=== PATIENT | female | born 1960 | race Caucasian/White ===

== ENCOUNTER 2017-05-28 16:50 | Inpatient (IN) | payer OTHER ==
[~2017-05-28] VITALS: Ht 157.5 cm; Wt 79.0 kg
[~2017-05-28 16:50] MED LIST: ALBU1AER9 INH; AMIT10TA6 PO; ASPI81TA28 PO; ATOR-22 PO; FLUT0.15 NAE; FURO-85 PO; GABA1CAP PO; IPRASOL4 INH; LORA1TAB13 PO; MULT-223 PO; OXGN; OXY/15 PO; PANT40TA PO; POTA-335 PO; QUET-206 PO; SUMA100T16 PO; SYMIN160 INH; TIOTCAP INH
[2017-05-28] MEDS ORDERED: SODIUM CHLORIDE 0.9% 1000ML 1,000 ML IV STA ×3 (17:07→18:44)
[2017-05-28] MEDS ORDERED: ALBUT/IPRATROP 3MG/0.5MG NEB 3 ML VIAL INH ONE (17:15)
[2017-05-28 17:24] VITALS: PULSE 128; O2SAT 88
--- NOTE | 2017-05-28 17:27 | EMERGENCY ROOM VISIT NOTE ---
History Report prepared by Anup: Bess Chapin Under the Supervision of: Cortes EllisO. First contact with patient: 17:05 Chief Complaint: RESPIRATORY PROBLEMS Stated Complaint: TROUBLE BREATHING Nursing Triage Summary: pt daughter brings pt to triage reports moms 02 has been as low as 76, increases 86 % with o2 pt reports cough no mucus . unable to cathch breath daughter reports R knee surg wed. History of Present Illness The patient is a 57 year old female who presents to the Emergency Room with complaints of persistent respiratory distress that began two days ago. Per the patient's daughter, the patient began feeling short of breath on Sunday evening. She states that the patient had surgery on her right knee six days ago. The patient's daughter states that the patient has had a slight cough, but additionally states that the patient has a history of COPD and asthma. She states that the patient is a smoker. The patient's daughter states that the patient wears 1 liter of supplemental nasal cannula oxygen at night. She states that the patient's last breathing treatment was around 1100 today. The patient's daughter states that the patient has a history of collapsed lungs. The patient reports a history of a previous DVT, but denies any history of a PE. Source of History: patient, family (daughter) Onset: two days ago Position: other (global) Quality: other (respiratory distress) Timing: other (persistent) Associated Symptoms: + cough Review of Systems See HPI for pertinent positives & negatives. A total of 10 systems reviewed and were otherwise negative. Past Medical & Surgical Medical Problems: (1) Abdominal hysterectomy (2) ALCOHOL ABUSE-UNSPEC (3) ANXIETY STATE NOS (4) ASTHMA, UNSPECIFIED, W (ACUTE) EXACERBATION (5) BIPOL I, MOST RECENT EPISODE (OR CURRENT) UNSPECIFIED (6) DEPRESSIVE DISORDER NEC (7) ESOPHAGEAL REFLUX Family History Cancer Diabetes mellitus Heart disease Hypertension Kidney stones Lung disease Social History Smoking Status: Current Every Day Smoker Alcohol Use: none Marital Status: Housing Status: lives alone Occupation Status: unemployed, disabled Current/Historical Medications Scheduled Amitriptyline Hcl (Elavil), 50 MG PO HS Aspirin (Aspirin Ec), 81 MG PO DAILY Atorvastatin (Lipitor), 20 MG PO HS Fluticasone Prop/Salmeterol (Advair Diskus 250/50 60 Dose), 1 PUFF INH BID Gabapentin (Neurontin), 300 MG PO HS Home O2 Therapy (Oxygen), 2 LITERS NA HS Meloxicam (Mobic), 7.5 MG PO BID Multiple Vitamins W/ Minerals (Multi For Her 50+), 1 TAB PO DAILY Pantoprazole (Protonix), 40 MG PO BID Quetiapine Fumarate (Seroquel), 400 MG PO 1700 Tiotropium [place] (Spiriva Handihaler), 1 CAP INH DAILY Scheduled PRN Cyclobenzaprine Hcl (Flexeril), 10 MG PO TID PRN for Muscle Spasms Furosemide (Lasix), 20 MG PO DAILY PRN for Fluid Accumulation/Weight Gain Ipratropium-Albuterol (Duoneb), 1 TREATMENT INH QID PRN for Cough,SOB or Wheeze Sumatriptan Succinate (Imitrex), 100 MG PO UD PRN for Migraine Allergies Coded Allergies: Morphine (Verified Allergy, Intermediate, ITCHING AT IV SITE ONLY, ) Doxycycline (Unverified Allergy, Unknown, Hives, 06/18/14) Iodine (Verified Allergy, Unknown, RASH, 06/18/14) Valproic Acid (Verified Allergy, Unknown, 0, 06/18/14) Physical Exam Vital Signs Date Time Temp Pulse Resp B/P (MAP) Pulse Ox O2 Delivery O2 Flow Rate FiO2 05/28/17 18:40 118 24 127/52 93 Oxymask 4.0 05/28/17 18:15 39.5 05/28/17 18:07 125 32 120/70 94 Oxymask 4.0 05/28/17 17:52 128 25 126/71 96 Nebulizer 05/28/17 17:30 128 30 121/66 96 Nebulizer 05/28/17 17:24 128 26 88 Nasal Cannula 5.0 05/28/17 17:12 129 05/28/17 17:11 89 Nasal Cannula 5.0 05/28/17 17:11 89 Nasal Cannula 5.0 05/28/17 17:02 38.9 137 28 96/57 69 Room Air Physical Exam GENERAL: Patient is awake, but very lisless, appears to have significant difficulty breathing. EYES: The conjunctivae are clear. The pupils are round and reactive. EARS, NOSE, MOUTH AND THROAT: The nose is without any evidence of any deformity. Mucous membranes are dry, tongue is midline NECK: The neck is nontender and supple. RESPIRATORY: Lung sounds are diminished in all alejandro, significant tachypnea and conversation dyspnea noted. Significant respiratory distress. CARDIOVASCULAR: Tachycardic, but regular, no definite murmur noted to auscultation. GASTROINTESTINAL: The abdomen is soft. Bowel sounds are present in all quadrants. Abdomen is nontender MUSCULOSKELETAL/EXTREMITIES: Recent post surgical site noted in the right knee, no swelling, erythema, or drainage noted. SKIN: No pedal edema or calf tenderness noted. There is no obvious evidence of any rash. There are no petechiae, pallor or cyanosis noted. NEUROLOGIC: Patient is listless, appears oriented to person, place, and situation. Medical Decision & Procedures ER Provider Diagnostic Interpretation: Radiology results as stated below per my review and radiologist interpretation: CHEST ONE VIEW PORTABLE HISTORY: EVALUATE RESPIRATORY DISTRESS.DYSPNEA COMPARISON: Chest 06/18/2014. FINDINGS: The heart is normal in size. No pleural effusions. No pneumothorax. Hazy appearance to the left lung base may be due to the overlapping soft tissue. No focal lung consolidations to suggest pneumonia. No evidence for point edema. Stable mild interstitial thickening. IMPRESSION: Stable mild interstitial thickening. No new focal lung consolidations to suggest pneumonia. Electronically signed by: Taiwo Nur M.D. 05/28/2017 5:57 PM Dictated Date/Time: 05/28/2017 5:55 PM CHEST CTA for PULMONARY ARTERIES CT DOSE: 319.26 mGy.cm HISTORY: Short of breath. TECHNIQUE: Multiaxial CT images of the chest were performed following the intravenous administration of contrast to evaluate the pulmonary arteries. Maximal intensity projection images were also obtained. A dose lowering technique was utilized adhering to the principles of ALARA. COMPARISON STUDY: Chest CTA 06/18/2014. FINDINGS: Normal caliber thoracic aorta with no evidence for dissection. Hepatic steatosis. Stable splenic hypodense lesion. This is considered to be benign. The visualized adrenal glands are unremarkable. No pleural or pericardial effusions. There is near nondiagnostic evaluation of the majority of the upper lobe segmental and subsegmental pulmonary arteries due to the motion artifact and suboptimal opacification. Remaining pulmonary arteries show no filling defects to suggest pulmonary embolus. No pneumothorax. Near diffuse tree-in-bud nodular opacities most pronounced within the lower lobes with a few small patchy airspace opacities within the base of the left lower lobe. There are few small groundglass airspace opacities within the right lung apex. These findings are consistent with an atypical pneumonia/infectious bronchiolitis. IMPRESSION: 1. No definite evidence for pulmonary embolus. 2. Near diffuse tree-in-bud nodular opacities most pronounced within the lower lobes with a few small patchy airspace opacities within the base of the left lower lobe. There are few small groundglass airspace opacities within the right lung apex. These findings are consistent with an atypical pneumonia/infectious bronchiolitis. Electronically signed by: Taiwo Nur M.D. 05/28/2017 6:49 PM Dictated Date/Time: 05/28/2017 6:40 PM Laboratory Results 05/28/17 17:20 Red Blood Count 4.04, Mean Corpuscular Volume 93.3, Mean Corpuscular Hemoglobin 30.4, Mean Corpuscular Hemoglobin Concent 32.6, Mean Platelet Volume 8.9, Neutrophils (%) (Auto) 83.6, Lymphocytes (%) (Auto) 7.2, Monocytes (%) (Auto) 8.1, Eosinophils (%) (Auto) 0.0, Basophils (%) (Auto) 0.2, Neutrophils # (Auto) 19.48, Lymphocytes # (Auto) 1.67, Monocytes # (Auto) 1.88, Eosinophils # (Auto) 0.00, Basophils # (Auto) 0.04 05/28/17 17:20 Test 05/28/17 17:20 05/28/17 17:23 05/28/17 17:26 05/28/17 17:27 White Blood Count 23.27 K/uL (4.8-10.8) Red Blood Count 4.04 M/uL (4.2-5.4) Hemoglobin 12.3 g/dL (12.0-16.0) Hematocrit 37.7 % (37-47) Mean Corpuscular Volume 93.3 fL (80-100) Mean Corpuscular Hemoglobin 30.4 pg (25-34) Mean Corpuscular Hemoglobin Concent 32.6 g/dl (32-36) Platelet Count 250 K/uL (130-400) Mean Platelet Volume 8.9 fL (7.4-10.4) Neutrophils (%) (Auto) 83.6 % Lymphocytes (%) (Auto) 7.2 % Monocytes (%) (Auto) 8.1 % Eosinophils (%) (Auto) 0.0 % Basophils (%) (Auto) 0.2 % Neutrophils # (Auto) 19.48 K/uL (1.4-6.5) Lymphocytes # (Auto) 1.67 K/uL (1.2-3.4) Monocytes # (Auto) 1.88 K/uL (0.11-0.59) Eosinophils # (Auto) 0.00 K/uL (0-0.5) Basophils # (Auto) 0.04 K/uL (0-0.2) RDW Standard Deviation 45.1 fL (36.4-46.3) RDW Coefficient of Variation 13.1 % (11.5-14.5) Immature Granulocyte % (Auto) 0.9 % Immature Granulocyte # (Auto) 0.20 K/uL (0.00-0.02) Prothrombin Time 14.0 SECONDS (9.0-12.0) Prothromb Time International Ratio 1.3 (0.9-1.1) Activated Partial Thromboplast Time 33.1 SECONDS (21.0-31.0) Partial Thromboplastin Ratio 1.3 Est Creatinine Clear Calc Drug Dose 54.6 ml/min Estimated GFR () 64.5 Estimated GFR (Non- 55.7 BUN/Creatinine Ratio 16.5 (10-20) Calcium Level 9.1 mg/dl (8.5-10.1) Total Bilirubin 0.6 mg/dl (0.2-1) Aspartate Amino Transf (AST/SGOT) 101 U/L (15-37) Alanine Aminotransferase (ALT/SGPT) 38 U/L (12-78) Alkaline Phosphatase 119 U/L (45-117) Troponin I < 0.015 ng/ml (0-0.045) Pro-B-Type Natriuretic Peptide 165 pg/ml (0-900) Total Protein 6.8 gm/dl (6.4-8.2) Albumin 2.8 gm/dl (3.4-5.0) Globulin 4.0 gm/dl (2.5-4.0) Albumin/Globulin Ratio 0.7 (0.9-2) Venous Blood pH 7.42 (7.36-7.41) Venous Blood Partial Pressure CO2 53 mmHg (38.0-50.0) Venous Blood Partial Pressure O2 44 mmHg Venous Blood HCO3 33 mmol/L Venous Blood Oxygen Saturation 75.5 % Venous Blood Base Excess 7.2 mEq/L Bedside Lactic Acid Venous 1.24 mmol/L (0.90-1.70) Bedside D-Dimer > 450 ng/mlFEU (0-450) Test 05/28/17 17:30 05/28/17 19:09 Bedside Hemoglobin 12.9 g/dl (12.0-16.0) Bedside Hematocrit 38 % (37-47) Bedside Sodium 135 mEq/L (135-144) Bedside Potassium 3.2 mEq/L (3.3-5.0) Bedside Chloride 93 mEq/L (101-112) Bedside Total CO2 31 mEq/l (24-31) Anion Gap 16.0 mmol/L (16-25) Bedside Blood Urea Nitrogen 18 mg/dl (7-18) Bedside Creatinine 1.0 mg/dl (0.6-1.3) Bedside Glucose (other) 188 mg/dl (70-99) Bedside Ionized Calcium (Priyanka) 1.13 mmol/l (1.12-1.32) Influenza Type A Antigen Neg for Influ A (NEG) Influenza Type B Antigen Neg for Influ B (NEG) Laboratory results per my review. Medications Administered Medications (Trade) Dose Ordered Sig/Sherie Route Start Time Stop Time Status Last Admin Dose Admin Sodium Chloride 1,000 ml @ 999 mls/hr Q1H1M STAT IV 05/28/17 17:07 05/28/17 18:07 DC 05/28/17 17:45 999 MLS/HR Albuterol/ Ipratropium (Duoneb) 12 ml ONE ONCE INH 05/28/17 17:15 05/28/17 17:16 DC 05/28/17 17:24 12 ML Levofloxacin (Levaquin / D5W) 750 mg NOW STAT IV 05/28/17 17:38 05/28/17 17:40 DC 05/28/17 17:45 750 MG Methylprednisolone Sodium Succinate (Solu-Medrol IV) 125 mg NOW STAT IV 05/28/17 17:38 05/28/17 17:40 DC 05/28/17 17:45 125 MG Acetaminophen (Tylenol Tab) 1,000 mg NOW STAT PO 05/28/17 18:16 05/28/17 18:17 DC 05/28/17 18:37 1,000 MG ECG Indication: SOB/dyspnea Rate (beats per minute): 129 Rhythm: sinus tachycardia Findings: ST depression (infer), no ectopy Comparison ECG Date: 06/18/14 Change: When compared to EKG done on 06/18/14, the ischemic changes are new. ED Course 1705: The patient was evaluated in room B1. A complete history and physical examination were performed. 1707: Ordered Sodium Chloride 1000 ml @ 999 mls/hr IV. 1715: Ordered DuoNeb 12 ml INH. 1738: Ordered Solu-Medrol IV 125 mg IV, Levofloxacin 750 mg IV. 1816: Ordered Tylenol Tab 1000 mg PO. 1844: Ordered Sodium Chloride 1000 ml @ 200 mls/hr IV, Sodium Chloride 1000 ml @ 999 mls/hr IV. 1854: I discussed the patient's case with Leah Livingston. He is going to evaluate the patient for further treatment. 1856: I reevaluated the patient and she is resting. I discussed the exam findings with her and her daughter and I discussed the treatment plan. She verbalized complete understanding and agreement. She is going to be evaluated for further treatment. Medical Decision Differential diagnosis: Etiologies such as infections, reactive airway disease, pneumonia, pneumothorax , COPD, CHF, cardiac ischemia, pulmonary embolism, musculoskeletal, gastrointestinal, as well as others were entertained. Nursing notes reviewed. Patient's previous electronic medical records reviewed. Additional history is obtained from the patient's family. The patient is a 57-year-old female who presented to the emergency department for an evaluation of shortness of breath. The patient had very significant hypoxia as well as hypotension. She was also found have a fever. The patient had a recent arthroscopic surgery of her knee. Significant consideration was given to venous thromboembolic disease. The patient had an elevated d-dimer but her CT did not show any acute signs of pulmonary embolism rather it showed a rather diffuse interstitial pneumonia. The patient was treated with IV fluids IV steroids IV antibiotics and bronchodilator therapy. Her blood pressure improved. Her pulse rate continued to be high. I discussed the patient's laboratory radiographic studies with her. She was still having a significant oxygen demand. I discussed her case with the on-call [facility] hospitalist. They 've agreed to evaluate the patient in the emergency department for further management and disposition. Medication Reconcilliation Current Medication List: was personally reviewed by me Consults Time Called: 1809 Consulting Physician: Leah Livingston Returned Call: 1853 I discussed the patient's case with Leah Livingston. He is going to evaluate the patient for further treatment. Impression Primary Impression: Pneumonia Additional Impressions: Fever Hypoxia COPD exacerbation Critical Care I have personally spent greater than 45 minutes of critical care time in the direct management of this patient. This includes bedside care, interpretation of diagnostic studies, and testing, discussion with consultants, patient, and family members, and other required patient management activities. This 45 minutes is in excess of all separately billable procedures. Scribe Attestation The scribe's documentation has been prepared under my direction and personally reviewed by me in its entirety. I confirm that the note above accurately reflects all work, treatment, procedures, and medical decision making performed by me. Departure Information Dispostion Being Evaluated By Hospitalist Dimitri Grove M.D. (PCP) Problem Qualifiers Primary Impression: Pneumonia Pneumonia type: due to unspecified organism Laterality: bilateral Lung location: unspecified part of lung Qualified Codes: J18.9 - Pneumonia, unspecified organism Additional Impressions: Fever Fever type: unspecified Qualified Codes: R50.9 - Fever, unspecified
[2017-05-28] MEDS ORDERED: ADVIN25/60 INH (17:30)
[2017-05-28] MEDS ORDERED: GABA-113 PO (17:30)
[2017-05-28] MEDS ORDERED: MELO7.5T5 PO (17:30)
[2017-05-28] MEDS ORDERED: CYCL10TA6 PO (17:30)
[2017-05-28] MEDS ORDERED: AMT50 PO (17:30)
[2017-05-28 17:33] LABS: HEMATOCRIT 37.7 % (37-47); MEAN CELL VOLUME 93.3 fL (80-100); MEAN CORPUSCULAR HEMOGLOBIN 30.4 pg (25-34); MEAN CORPUSCULAR HGB CONC 32.6 g/dl (32-36); MEAN PLATELET VOLUME 8.9 fL (7.4-10.4); PLATELET COUNT 250 K/uL (130-400); RED BLOOD COUNT 4.04 M/uL (4.2-5.4); WHITE BLOOD COUNT 23.27 K/uL (4.8-10.8)
[2017-05-28 17:34] LABS: VEN BLD GAS O2 SATURATION 75.5 %; VEN BLOOD GAS BASE EXCESS 7.2 mEq/L
[2017-05-28] MEDS ORDERED: METHYLPREDNISOLONE 125 MG VIAL IV STA (17:38)
[2017-05-28] MEDS ORDERED: LEVAQUIN 750MG / 150ML D5W IV STA (17:38)
[2017-05-28 17:43] LABS: ISTAT HEMOGLOBIN 12.9 g/dl (12.0-16.0); ISTAT IONIZED CALCIUM 1.13 mmol/l (1.12-1.32)
[2017-05-28 17:54] LABS: ALT/SGPT 38 U/L (12-78); BLOOD UREA NITROGEN 18 mg/dl (7-18); BUN/CREATININE RATIO 16.5 (10-20); CALCIUM 9.1 mg/dl (8.5-10.1); CARBON DIOXIDE 32 mmol/L (21-32); CHLORIDE 97 mmol/L (98-107); GLUCOSE 179 mg/dl (70-99); INR 1.3 (0.9-1.1); PARTIAL THROMBOPLASTIN RATIO 1.3; POTASSIUM 3.2 mmol/L (3.5-5.1); SODIUM 135 mmol/L (136-145)
--- NOTE | 2017-05-28 17:58 | DIAGNOSTIC IMAGING REPORT ---
CHEST ONE VIEW PORTABLE HISTORY: EVALUATE RESPIRATORY DISTRESS.DYSPNEA COMPARISON: Chest 06/18/2014. FINDINGS: The heart is normal in size. No pleural effusions. No pneumothorax. Hazy appearance to the left lung base may be due to the overlapping soft tissue. No focal lung consolidations to suggest pneumonia. No evidence for point edema. Stable mild interstitial thickening. IMPRESSION: Stable mild interstitial thickening. No new focal lung consolidations to suggest pneumonia. Electronically signed by: Taiwo Nur M.D. 05/28/2017 5:57 PM Dictated Date/Time: 05/28/2017 5:55 PM
[2017-05-28 17:59] LABS: ALB/GLOB RATIO 0.7 (0.9-2); ALKALINE PHOSPHATASE 119 U/L (45-117); AST/SGOT 101 U/L (15-37)
[2017-05-28 18:02] LABS: BASO % 0.2 %; BASO ABS # 0.04 K/uL (0-0.2); COMPLETE YES; IG% 0.9 %; LYMPH % 7.2 %; LYMPH ABS # 1.67 K/uL (1.2-3.4); MONO % 8.1 %; NEUT % 83.6 %
[2017-05-28] MEDS ORDERED: OPTIRAY 320 IV PRN (18:15)
[2017-05-28] MEDS ORDERED: ACETAMINOPHEN 500 MG TAB PO STA (18:16)
--- NOTE | 2017-05-28 18:51 | DIAGNOSTIC IMAGING REPORT ---
CHEST CTA for PULMONARY ARTERIES CT DOSE: 319.26 mGy.cm HISTORY: Short of breath. TECHNIQUE: Multiaxial CT images of the chest were performed following the intravenous administration of contrast to evaluate the pulmonary arteries. Maximal intensity projection images were also obtained. A dose lowering technique was utilized adhering to the principles of ALARA. COMPARISON STUDY: Chest CTA 06/18/2014. FINDINGS: Normal caliber thoracic aorta with no evidence for dissection. Hepatic steatosis. Stable splenic hypodense lesion. This is considered to be benign. The visualized adrenal glands are unremarkable. No pleural or pericardial effusions. There is near nondiagnostic evaluation of the majority of the upper lobe segmental and subsegmental pulmonary arteries due to the motion artifact and suboptimal opacification. Remaining pulmonary arteries show no filling defects to suggest pulmonary embolus. No pneumothorax. Near diffuse tree-in-bud nodular opacities most pronounced within the lower lobes with a few small patchy airspace opacities within the base of the left lower lobe. There are few small groundglass airspace opacities within the right lung apex. These findings are consistent with an atypical pneumonia/infectious bronchiolitis. IMPRESSION: 1. No definite evidence for pulmonary embolus. 2. Near diffuse tree-in-bud nodular opacities most pronounced within the lower lobes with a few small patchy airspace opacities within the base of the left lower lobe. There are few small groundglass airspace opacities within the right lung apex. These findings are consistent with an atypical pneumonia/infectious bronchiolitis. Electronically signed by: Taiwo Nur M.D. 05/28/2017 6:49 PM Dictated Date/Time: 05/28/2017 6:40 PM
[2017-05-28 19:32] LABS: INFLUENZA A PCR Neg for Influ A (NEG); INFLUENZA B PCR Neg for Influ B (NEG)
[2017-05-28] MEDS ORDERED: ACETAMINOPHEN 325 MG TAB PO PRN (19:45)
[2017-05-28] MEDS ORDERED: AMIT10TA6 PO (19:51)
[2017-05-28] MEDS ORDERED: ATV/1 PO (19:51)
[2017-05-28] MEDS ORDERED: OXYC-164 PO (19:51)
[2017-05-28] MEDS ORDERED: ALBU18002 INH (19:51)
[2017-05-28] MEDS ORDERED: LEVOFLOXACIN CONSULT ACTIVE PRN (20:02)
[2017-05-28] MEDS ORDERED: ALBUT/IPRATROP 3MG/0.5MG NEB 3 ML VIAL INH PRN (20:15)
[2017-05-28] MEDS ORDERED: PIPERACILL/TAZOBAC CONSULT ACTIVE PRN (20:15)
[2017-05-28 20:20] VITALS: BP 110/53; PULSE 99; TEMP 37.1; O2SAT 93; Ht 157.5 cm; Wt 79.0 kg
[2017-05-28] MEDS ORDERED: PIPERACILL/TAZOBAC IV 4.5 GM in DEXTROSE 5% 100ML IV ONE (20:30)
[2017-05-28] MEDS ORDERED: POTASSIUM CHLORIDE 20 MEQ TABCR PO ONE (20:45)
[2017-05-28 20:49] VITALS: PULSE 92; O2SAT 94
[2017-05-28] MEDS: ALBUT/IPRATROP 3MG/0.5MG NEB 3 ML VIAL INH SCH (20:49)
[2017-05-28] MEDS: SODIUM CHLORIDE 0.9% 1000ML 1,000 ML IV SCH (20:51)
[2017-05-28] MEDS: FLUTICASONE/SALMETEROL 250/50 (ADVAIR) 14 PUFF/1 INHALER INH SCH (20:54)
[2017-05-28] MEDS: ATORVASTATIN 20 MG TAB PO SCH (20:54)
[2017-05-28] MEDS: GABAPENTIN 300 MG CAP PO SCH (20:55)
[2017-05-28] MEDS: ENOXAPARIN 40 MG/0.4 ML SYR SQ SCH (20:55)
[2017-05-28] MEDS: AMITRIPTYLINE HCL 10 MG TAB PO SCH (20:55)
[2017-05-28] MEDS ORDERED: PANTOprazole SOD 40 MG TAB PO SCH (21:00)
[2017-05-28 21:02] LABS: ALLEN TEST POS (POS); ARTERIAL BLOOD GAS BASE EXCESS 1.4 mEq/L (-9-1.8); ARTERIAL BLOOD GAS HCO3 28 mmol/L (19-24); ARTERIAL BLOOD GAS PO2 94 mm/Hg (80-95); ARTERIAL BLOOD GAS pH 7.33 (7.35-7.45); O2 ADMINISTRATION 4.5 L
[2017-05-28 22:13] VITALS: BP 115/65; PULSE 83; O2SAT 92
--- NOTE | 2017-05-28 22:25 | History and Physical ---
History & Physical Date & Time of Service: May 28, 2017 ~ 19:15 Chief Complaint: Confusion, Low Oxygen Level Primary Care Physician: Dimitri Hanna M.D. History of Present Illness 57 year old female who presents to the ED with confusion and and low pulse ox readings at home. Patient had arthroscopic knee surgery done 5 days ago. She reports she initially felt well after the surgery however the following day she was very tired and weak. Patient wears oxygen 2L at nighttime. She felt like she was getting a little short of breath so she started to wear her oxygen all the time and she had no further shortness of breath. 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 Daughter is at the bedside who reports that when she talked to her mother today she noticed she was very confused. When she went to visit her, she checked her pulse and it was 76%. She then presented to the ED for further evaluation. Patient denies fever and chills. No chest pain or palpitations. She denies lightheadedness, dizziness, diaphoresis, and syncopal events. No abdominal pain, nausea, vomiting, or diarrhea. She denies urinary symptoms. In the ED, patient was febrile, tachycardic, tachypneic, and hypoxic on 2L NC. She is currently requiring 4L oxygen via oxymask. WBC 22K, BP is stable. CT chest is showing atypical pneumonia. Patient was treated with IV solumedrol, neb, IV Levaquin, IVF, and Tylenol. Past Medical/Surgical History Medical Problems: (1) Anxiety Status: Chronic (2) Bipolar 1 disorder Status: Chronic (3) COPD, moderate Status: Chronic (4) Depression Status: Chronic (5) GERD (gastroesophageal reflux disease) Status: Chronic (6) HLD (hyperlipidemia) Status: Chronic (7) Nocturnal hypoxemia Status: Chronic Surgical Problems: (1) H/O bilateral oophorectomy Status: Chronic (2) H/O tubal ligation Status: Chronic (3) History of hysterectomy Status: Chronic (4) S/P right knee arthroscopy Status: Chronic (5) S/P trigger finger release Status: Chronic Family History Cervical cancer MOTHER Heart disease FATHER MOTHER Social History Smoking Status: Current Every Day Smoker Alcohol Use: none Immunizations History of Influenza Vaccine: Yes Influenza Vaccine Date: May 04, 2015 History of Tetanus Vaccine?: Yes Tetanus Immunization Date: January 05, 2006 History of Pneumococcal: Yes Pneumococcal Date: May 04, 2015 History of Hepatitis B Vaccine: Yes Hepatitis Immunization Date: January 09, 2011 Allergies Coded Allergies: Morphine (Verified Allergy, Intermediate, ITCHING AT IV SITE ONLY, ) Doxycycline (Unverified Allergy, Unknown, Hives, 06/18/14) Iodine (Verified Allergy, Unknown, RASH, 06/18/14) Valproic Acid (Verified Allergy, Unknown, 0, 06/18/14) Home Medications Scheduled Amitriptyline Hcl (Elavil), 1 TAB PO HS Aspirin (Aspirin Ec), 81 MG PO DAILY Atorvastatin (Lipitor), 20 MG PO HS Fluticasone Prop/Salmeterol (Advair Diskus 250/50 60 Dose), 1 PUFF INH BID Gabapentin (Neurontin), 300 MG PO HS Home O2 Therapy (Oxygen), 2 LITERS NA HS Multiple Vitamins W/ Minerals (Multi For Her 50+), 1 TAB PO DAILY Pantoprazole (Protonix), 40 MG PO BID Quetiapine Fumarate (Seroquel), 400 MG PO DAILYBD Tiotropium Dale (Spiriva Handihaler), 1 CAP INH DAILY Scheduled PRN Albuterol Sulfate (Proair Respiclick), 2 PUFFS INH Q4 PRN for SOB/Wheezing Furosemide (Lasix), 20 MG PO DAILY PRN for Fluid Accumulation/Weight Gain Ipratropium-Albuterol (Duoneb), 1 TREATMENT INH QID PRN for Cough,SOB or Wheeze Lorazepam (Ativan), 1 MG PO TID PRN for Anxiety Meloxicam (Mobic), 7.5 MG PO BID PRN for Pain Oxycodone Hcl (Oxycodone Hcl), 20 MG PO Q6H PRN for Pain Sumatriptan Succinate (Imitrex), 100 MG PO UD PRN for Migraine Review of Systems ROS per HPI, all other systems reviewed and negative Physical Exam Vital Signs Date Time Temp Pulse Resp B/P (MAP) Pulse Ox O2 Delivery O2 Flow Rate FiO2 05/28/17 19:30 107 31 94 05/28/17 19:25 111 33 89 05/28/17 19:24 38.2 05/28/17 19:23 114/64 05/28/17 19:20 109 32 94 05/28/17 19:15 109 36 95 05/28/17 19:10 115 30 90 05/28/17 19:05 114 20 97 05/28/17 19:01 91/80 05/28/17 19:00 115 30 90 05/28/17 18:56 127/53 05/28/17 18:55 109 16 76 05/28/17 18:50 119 28 93 05/28/17 18:45 120 40 93 05/28/17 18:40 118 24 127/52 93 Oxymask 4.0 05/28/17 18:40 118 33 91 05/28/17 18:35 120 24 127/52 94 05/28/17 18:15 125 42 91 05/28/17 18:15 39.5 05/28/17 18:10 128 32 120/70 91 05/28/17 18:07 125 32 120/70 94 Oxymask 4.0 05/28/17 18:05 124 42 99 05/28/17 18:00 128 27 95 05/28/17 17:55 126 45 95 05/28/17 17:53 126/71 05/28/17 17:52 128 25 126/71 96 Nebulizer 05/28/17 17:50 129 25 93 05/28/17 17:45 128 39 95 05/28/17 17:40 127 29 94 05/28/17 17:35 128 36 95 05/28/17 17:30 129 40 121/66 95 05/28/17 17:30 128 30 121/66 96 Nebulizer 05/28/17 17:25 128 40 96 05/28/17 17:24 128 26 88 Nasal Cannula 5.0 05/28/17 17:20 132 27 89 05/28/17 17:15 127 28 89 05/28/17 17:12 129 05/28/17 17:11 89 Nasal Cannula 5.0 05/28/17 17:11 89 Nasal Cannula 5.0 05/28/17 17:02 38.9 137 28 96/57 69 Room Air General Appearance: WD/WN, no apparent distress Head: normocephalic, atraumatic Eyes: normal inspection, EOMI, sclerae normal ENT: hearing grossly normal, + pertinent finding (moist mucous membranes) Neck: supple, no JVD, trachea midline Respiratory/Chest: no respiratory distress, + decreased breath sounds (poor air entry), + crackles (scattered, fine), + wheezing (scattered inspiratory and expiratory throughout all lung alejandro ) Cardiovascular: no edema, normal peripheral pulses, + tachycardia (regular rhythm) Abdomen/GI: normal bowel sounds, non tender, soft, no organomegaly Extremities/Musculoskelatal: normal inspection, no calf tenderness Neurologic/Psych: no motor/sensory deficits, normal mood/affect, oriented x 3, + pertinent finding (somewhat lethargic at times, falls asleep quickly however arouses to verbal stimuli) Skin: normal color, warm/dry Diagnostics Laboratory Results Results Past 24 Hours Test 05/28/17 17:20 05/28/17 17:23 05/28/17 17:26 05/28/17 17:27 Range/Units White Blood Count 23.27 4.8-10.8 K/uL Red Blood Count 4.04 4.2-5.4 M/uL Hemoglobin 12.3 12.0-16.0 g/dL Hematocrit 37.7 37-47 % Mean Corpuscular Volume 93.3 80-100 fL Mean Corpuscular Hemoglobin 30.4 25-34 pg Mean Corpuscular Hemoglobin Concent 32.6 32-36 g/dl Platelet Count 250 130-400 K/uL Mean Platelet Volume 8.9 7.4-10.4 fL Neutrophils (%) (Auto) 83.6 % Lymphocytes (%) (Auto) 7.2 % Monocytes (%) (Auto) 8.1 % Eosinophils (%) (Auto) 0.0 % Basophils (%) (Auto) 0.2 % Neutrophils # (Auto) 19.48 1.4-6.5 K/uL Lymphocytes # (Auto) 1.67 1.2-3.4 K/uL Monocytes # (Auto) 1.88 0.11-0.59 K/uL Eosinophils # (Auto) 0.00 0-0.5 K/uL Basophils # (Auto) 0.04 0-0.2 K/uL RDW Standard Deviation 45.1 36.4-46.3 fL RDW Coefficient of Variation 13.1 11.5-14.5 % Immature Granulocyte % (Auto) 0.9 % Immature Granulocyte # (Auto) 0.20 0.00-0.02 K/uL Prothrombin Time 14.0 9.0-12.0 SECONDS Prothromb Time International Ratio 1.3 0.9-1.1 Activated Partial Thromboplast Time 33.1 21.0-31.0 SECONDS Partial Thromboplastin Ratio 1.3 Sodium Level 135 136-145 mmol/L Potassium Level 3.2 3.5-5.1 mmol/L Chloride Level 97 98-107 mmol/L Carbon Dioxide Level 32 21-32 mmol/L Anion Gap 6.0 3-11 mmol/L Blood Urea Nitrogen 18 7-18 mg/dl Creatinine 1.10 0.60-1.20 mg/dl Est Creatinine Clear Calc Drug Dose 54.6 ml/min Estimated GFR () 64.5 Estimated GFR (Non- 55.7 BUN/Creatinine Ratio 16.5 10-20 Random Glucose 179 70-99 mg/dl Calcium Level 9.1 8.5-10.1 mg/dl Total Bilirubin 0.6 0.2-1 mg/dl Aspartate Amino Transf (AST/SGOT) 101 15-37 U/L Alanine Aminotransferase (ALT/SGPT) 38 12-78 U/L Alkaline Phosphatase 119 45-117 U/L Troponin I < 0.015 0-0.045 ng/ml Pro-B-Type Natriuretic Peptide 165 0-900 pg/ml Total Protein 6.8 6.4-8.2 gm/dl Albumin 2.8 3.4-5.0 gm/dl Globulin 4.0 2.5-4.0 gm/dl Albumin/Globulin Ratio 0.7 0.9-2 Venous Blood pH 7.42 7.36-7.41 Venous Blood Partial Pressure CO2 53 38.0-50.0 mmHg Venous Blood Partial Pressure O2 44 mmHg Venous Blood HCO3 33 mmol/L Venous Blood Oxygen Saturation 75.5 % Venous Blood Base Excess 7.2 mEq/L Bedside Lactic Acid Venous 1.24 0.90-1.70 mmol/L Bedside D-Dimer > 450 0-450 ng/mlFEU Test 05/28/17 17:30 05/28/17 19:09 Range/Units Bedside Hemoglobin 12.9 12.0-16.0 g/dl Bedside Hematocrit 38 37-47 % Bedside Sodium 135 135-144 mEq/L Bedside Potassium 3.2 3.3-5.0 mEq/L Bedside Chloride 93 101-112 mEq/L Bedside Total CO2 31 24-31 mEq/l Anion Gap 16.0 16-25 mmol/L Bedside Blood Urea Nitrogen 18 7-18 mg/dl Bedside Creatinine 1.0 0.6-1.3 mg/dl Bedside Glucose (other) 188 70-99 mg/dl Bedside Ionized Calcium (Priyanka) 1.13 1.12-1.32 mmol/l Influenza Type A (RT-PCR) Neg for Influ A NEG Influenza Type A Antigen Neg for Influ A NEG Influenza Type B Antigen Neg for Influ B NEG Influenza Type B (RT-PCR) Neg for Influ B NEG Microbiology Results 05/28/17 Blood Culture, Received Pending 05/28/17 Blood Culture, Received Pending Diagnostic Radiology CXR IMPRESSION: Stable mild interstitial thickening. No new focal lung consolidations to suggest pneumonia. CHEST CTA IMPRESSION: 1. No definite evidence for pulmonary embolus. 2. Near diffuse tree-in-bud nodular opacities most pronounced within the lower lobes with a few small patchy airspace opacities within the base of the left lower lobe. There are few small groundglass airspace opacities within the right lung apex. These findings are consistent with an atypical pneumonia/infectious bronchiolitis. Impression Assessment and Plan ACUTE HYPOXIC RESPIRATORY FAILURE DUE TO COPD EXACERBATION AND CAP SEPSIS - admit to ICU - patient presenting with increasing weakness, confusion, and low O2 sats on home pulse oximeter; in the ED, patient was hypoxic requiring 4L via oxymask and CT chest showing atypical pneumonia - confusion likely due to hypoxia, possible CO2 retention - checking ABG - WBC 23K, febrile, tachycardic, tachypneic, hypoxic; BP stable, lactic acid normal - IVF - s/p Levaquin in the ED, will continue with and add Zosyn; check MRSA nasal swab and add Vanco if positive - blood and sputum cultures - check ABG; consider BiPap - IV steroids, around the clock nebs; continue inhaled corticosteroid - case discussed with Dr. Li HYPOKALEMIA - replace, follow up labs in AM - Mg+ WNL BIPOLAR, ANXIETY, DEPRESSION - continue Seroquel and amitriptyline CHRONIC BACK PAIN - continue gabapentin and PRN Oxycodone HLD - continue statin DVT PROPHYLAXIS - SQ Lovenox CODE STATUS - Patient is a full code as per my discussion with her. DISPO - In my clinical judgment this beneficiary meets acute admission criteria, established by [facility], that includes being hospitalized through two midnights. VTE Prophylaxis VTE Risk Assessment Done? Y/N: Yes Risk Level: Moderate Note ATTENDING ADDENDUM Record reviewed. Patient interviewed and examined in ED. Care coordinated with SAIDA Lerner. Please refer to her documentation for patient's history. Briefly, 57 YO female with history of O2 dependent COPD. Presented to ED with few days of increasing dyspnea and nonproductive cough. EXAM: General- tachypneic at rest VS- as noted HEENT- anicteric Neck- + JVD Lungs- diffuse severe wheezing with prolonged expiration Heart- RRR, tachy Abdomen- + BS, soft, nontender Extremities- no pretibial edema or calf tenderness Neuro- alert DATA: Lab studies as noted. CT chest- diffuse tree-in-bud nodular opacities + groundglass opacities right apex consistent with atypical pneumonia or infectious bronchiolitis; no pulmonary emboli seen. EKG performed at 17:[address] at 130 / minute, ST depression inferolaterally. . ASSESSMENT AND PLAN: Acute on chronic respiratory failure. Probable pneumonia. Meets criteria for sepsis per 2001 definition and current CMS guidelines (fever , tachycardia, leukocytosis). Tachycardic, but hemodynamically stable. Serum lactate 1.24. Blood cultures obtained. Received broad-spectrum antibiotic coverage with IV levofloxacin. Add piperacillin / tazobactam for broader coverage. IV steroids and nebs for bronchospasm; taper steroids as soon as possible. D-dimer elevated. PE ruled out by CTA. Check venous duplex lower extremities. Please refer to HIREN Chinchilla's documentation for discussion of other issues. Roslaes Herbert MD .
[2017-05-29] VITALS (14 sets, daily range): BP systolic 87–129; BP diastolic 41–66; PULSE 79–91; TEMP 36.6–37.7; O2SAT 90–96
[2017-05-29] MEDS: METHYLPREDNISOLONE IV 40 MG in SYRINGE 0 ML IV SCH ×3 (01:32→17:53)
[2017-05-29] MEDS: PIPERACILL/TAZOBAC IV 4.5 GM in DEXTROSE 5% 100ML IV SCH ×3 (01:33→17:53)
[2017-05-29] MEDS: ALBUT/IPRATROP 3MG/0.5MG NEB 3 ML VIAL INH SCH ×4 (02:13→19:31)
[2017-05-29] MEDS ORDERED: INSULIN PROTOCOL GOAL RANGE ONE (04:00)
[2017-05-29] MEDS ORDERED: SEVERE STRESS LEVEL ONE (04:00)
[2017-05-29] MEDS ORDERED: INSULIN IV INFUSION PROTOCOL SCH (04:04)
[2017-05-29] MEDS ORDERED: GLUCOSE 10 TABS/TUBE PO PRN (04:15)
[2017-05-29] MEDS ORDERED: GLUCOSE 40% GEL 15 GM TUBE PO PRN (04:15)
[2017-05-29] MEDS ORDERED: GLUCAGON FOR INJ 1 MG VIAL SQ PRN (04:15)
[2017-05-29] MEDS ORDERED: DEXTROSE 50% 50 ML SYR IV PRN (04:15)
[2017-05-29 04:27] LABS: ISTAT ALLEN TEST Pass; ISTAT ARTERIAL BLOOD GAS HCO3 27 meq/L (19-24); ISTAT ARTERIAL BLOOD GAS PCO2 52 mmHg (35-46); ISTAT ARTERIAL BLOOD GAS PO2 59 mmHg (80-95); ISTAT ARTERIAL BLOOD GAS pH 7.33 (7.35-7.45); ISTAT CARBON DIOXIDE 29 mEq/l (24-31); ISTAT DELIVERY SYSTEM SimpleMask; ISTAT SITE R Radial
--- NOTE | 2017-05-29 04:57 | Critical Care Consultation ---
Critical Care Consultation Date of Consultation: May 29, 2017. Attending Physician: Franco Quiñones MD Reason for Consultation: 57-year-old female with acute hypoxic respiratory failure with atypical pneumonia on chest CT. Patient status post RIGHT knee arthroscopy 5 days ago. History of Present Illness Patient is a 57-year-old female admitted the ICU for acute hypoxic respiratory failure with confusion and altered mental status. Patient has a long-standing history of COPD requiring 2 L nasal cannula at night. Per records, the patient has had used her home O2 [id number] for the past few days. She recently underwent RIGHT knee arthroscopy performed [address] Morejon. She reports having felt well until 2-3 days ago when she felt as though her breathing has worsened. She has been using her home inhalers with minimal relief. Patient's daughter reportedly contacted her mother today and noticed that she was somewhat confused. A pulse ox reading was concerning approximately 75%. The patient was brought to the emergency department for further evaluation and management. While in the emergency department, the patient was provided breathing treatment as well as IV Levaquin and IV fluids. The patient was febrile. She received Tylenol. Chest x-ray was most concerning as a chest CT which was ordered secondary to recent surgery and elevated d-dimer. Chest CT concerning for multiple tree in bud findings consistent with atypical pneumonia. Patient was treated with IV Levaquin as well as IV Solu-Medrol. On evaluation, the patient complains of worsening breathing and a nonproductive cough. She denies any fevers or chills. She admits to not remembering her ride to the emergency department. She reports feeling somewhat better at this time. Patient with long-standing history of chronic pain secondary to lumbar disc disease. The patient takes 20 mg OxyIR when necessary every 6 hours. She also takes gabapentin. She is on multiple medications for her bipolar as well as anxiety and depressive disorders. Patient is a current smoker. She denies any alcohol use. Past Medical/Surgical History Medical Problems: (1) Anxiety (2) Bipolar 1 disorder (3) COPD, moderate (4) Depression (5) GERD (gastroesophageal reflux disease) (6) HLD (hyperlipidemia) (7) Nocturnal hypoxemia Surgical Problems: (1) H/O bilateral oophorectomy (2) H/O tubal ligation (3) History of hysterectomy (4) S/P right knee arthroscopy (5) S/P trigger finger release Social History Problems: (1) Tobacco use Family History Cervical cancer MOTHER Heart disease FATHER MOTHER Social History Smoking Status: Current Every Day Smoker Smokeless Tobacco Use: No Alcohol Use: none Drug Use: none Housing Status: lives alone Occupation Status: other Allergies Coded Allergies: Morphine (Verified Allergy, Intermediate, ITCHING AT IV SITE ONLY, ) Doxycycline (Unverified Allergy, Unknown, Hives, 06/18/14) Iodine (Verified Allergy, Unknown, RASH, 06/18/14) Valproic Acid (Verified Allergy, Unknown, 0, 06/18/14) Home Medications Scheduled Amitriptyline Hcl (Elavil), 1 TAB PO HS Aspirin (Aspirin Ec), 81 MG PO DAILY Atorvastatin (Lipitor), 20 MG PO HS Fluticasone Prop/Salmeterol (Advair Diskus 250/50 60 Dose), 1 PUFF INH BID Gabapentin (Neurontin), 300 MG PO HS Home O2 Therapy (Oxygen), 2 LITERS NA HS Multiple Vitamins W/ Minerals (Multi For Her 50+), 1 TAB PO DAILY Pantoprazole (Protonix), 40 MG PO BID Quetiapine Fumarate (Seroquel), 400 MG PO DAILYBD Tiotropium [place] (Spiriva Handihaler), 1 CAP INH DAILY Scheduled PRN Albuterol Sulfate (Proair Respiclick), 2 PUFFS INH Q4 PRN for SOB/Wheezing Furosemide (Lasix), 20 MG PO DAILY PRN for Fluid Accumulation/Weight Gain Ipratropium-Albuterol (Duoneb), 1 TREATMENT INH QID PRN for Cough,SOB or Wheeze Lorazepam (Ativan), 1 MG PO TID PRN for Anxiety Meloxicam (Mobic), 7.5 MG PO BID PRN for Pain Oxycodone Hcl (Oxycodone Hcl), 20 MG PO Q6H PRN for Pain Sumatriptan Succinate (Imitrex), 100 MG PO UD PRN for Migraine Current Inpatient Medications Current Inpatient Medications Medications (Trade) Dose Ordered Sig/Sherie Route Start Time Stop Time Status Last Admin Dose Admin Ioversol (Optiray 320) 100 ml UD PRN IV 05/28/17 18:15 06/01/17 18:14 Enoxaparin Sodium (Lovenox Inj) 40 mg QPM SQ 05/28/17 21:00 06/27/17 20:59 05/28/17 20:55 40 MG Acetaminophen (Tylenol Tab) 650 mg Q4H PRN PO 05/28/17 19:45 06/27/17 19:44 Sodium Chloride 1,000 ml @ 100 mls/hr Q10H IV 05/28/17 19:45 06/27/17 19:44 05/28/17 20:51 100 MLS/HR Levofloxacin (Consult) 1 ea UD PRN N/A 05/28/17 20:02 06/27/17 20:01 Albuterol/ Ipratropium (Duoneb) 3 ml Q6R INH 05/28/17 21:00 06/27/17 20:59 05/29/17 02:13 3 ML Methylprednisolone Sodium Succinate 40 mg/Syringe 0.64 ml @ 1.5 mls/min Q8H IV 05/29/17 01:00 06/28/17 00:59 05/29/17 01:32 1.5 MLS/MIN Amitriptyline HCl (Elavil Tab) 10 mg HS PO 05/28/17 21:00 06/27/17 20:59 05/28/17 20:55 10 MG Aspirin (Ecotrin Tab) 81 mg DAILY PO 05/29/17 09:00 06/28/17 08:59 Atorvastatin Calcium (Lipitor Tab) 20 mg HS PO 05/28/17 21:00 06/27/17 20:59 05/28/17 20:54 20 MG Salmeterol Xinafoate/ Fluticasone (Advair Diskus 250/50 Inh) 1 puff BID INH 05/28/17 21:00 06/27/17 20:59 05/28/17 20:54 1 PUFF Gabapentin (Neurontin Cap) 300 mg HS PO 05/28/17 21:00 06/27/17 20:59 05/28/17 20:55 300 MG Lorazepam (Ativan Tab) 1 mg TID PRN PO 05/28/17 20:00 06/27/17 19:59 Multivitamins/ Minerals (Multivitamin W/ Minerals Tab) 1 tab DAILY PO 05/29/17 09:00 06/28/17 08:59 Pantoprazole Sodium (Protonix Tab) 40 mg BID PO 05/28/17 21:00 06/27/17 20:59 05/28/17 20:54 40 MG Quetiapine Fumarate (seroQUEL TAB) 400 mg DAILYBD PO 05/29/17 16:00 06/28/17 15:59 Oxycodone HCl (Roxicodone Immediate Rel Tab) 20 mg Q6H PRN PO 05/28/17 20:00 06/27/17 19:59 Piperacillin Sod/ Tazobactam Sod (Consult) 1 ea UD PRN N/A 05/28/17 20:15 06/27/17 20:14 Albuterol/ Ipratropium (Duoneb) 3 ml Q2H PRN INH 05/28/17 20:15 06/27/17 20:14 Piperacillin Sod/ Tazobactam Sod 4.5 gm/Dextrose 120 ml @ 30 mls/hr Q8H IV 05/29/17 02:00 06/05/17 01:59 05/29/17 01:33 30 MLS/HR Levofloxacin 750 mg/Prmx 150 ml @ 100 mls/hr Q24H IV 05/29/17 18:00 06/05/17 17:59 Insulin Human Regular (Insulin IV Infusion Protocol) 1 ea Q15M N/A 05/29/17 04:04 06/28/17 04:03 Insulin Aspart (novoLOG ASPART) SLIDING SCALE HS NH 05/29/17 08:00 06/28/17 07:59 Glucose (Glucose 40% Gel) 15-30 GRAMS 15 GRAMS... UD PRN PO 05/29/17 04:15 06/28/17 04:14 Glucose (Glucose Chew Tab) 4-8 Tablets 4 Tabl... UD PRN PO 05/29/17 04:15 06/28/17 04:14 Dextrose (Dextrose 50% 50ML Syringe) 25-50ML OF 50% DW IV FOR... UD PRN IV 05/29/17 04:15 06/28/17 04:14 Glucagon (Glucagon Inj) 1 mg UD PRN SQ 05/29/17 04:15 06/28/17 04:14 Review of Systems A complete 10-point Review of Systems was discussed with the patient, with pertinent positives and negatives listed in the History of Present Illness. All remaining Review of Systems questions can be considered negative unless otherwise specified. Physical Exam Date Time Temp Pulse Resp B/P (MAP) Pulse Ox O2 Delivery O2 Flow Rate FiO2 05/29/17 04:00 91 Oxymask 2.0 05/29/17 02:14 83 20 96 Mask 5.0 05/29/17 02:00 87 23 87/41 (56) 96 Oxymask 4.5 05/29/17 00:00 94 Oxymask 5.0 05/29/17 00:00 36.6 87 24 108/62 (77) 95 Oxymask 4.5 05/28/17 22:13 83 24 115/65 (82) 92 Oxymask 4.5 05/28/17 20:49 92 20 94 Mask 5.0 05/28/17 20:20 37.1 99 26 110/53 93 4.0 05/28/17 20:10 37.2 98 31 128/62 94 05/28/17 19:30 107 31 94 05/28/17 19:25 111 33 89 05/28/17 19:24 38.2 05/28/17 19:23 114/64 05/28/17 19:20 109 32 94 05/28/17 19:15 109 36 95 05/28/17 19:10 115 30 90 05/28/17 19:05 114 20 97 05/28/17 19:01 91/80 05/28/17 19:00 115 30 90 05/28/17 18:56 127/53 05/28/17 18:55 109 16 76 05/28/17 18:50 119 28 93 05/28/17 18:45 120 40 93 05/28/17 18:40 118 24 127/52 93 Oxymask 4.0 05/28/17 18:40 118 33 91 05/28/17 18:35 120 24 127/52 94 05/28/17 18:15 125 42 91 05/28/17 18:15 39.5 05/28/17 18:10 128 32 120/70 91 05/28/17 18:07 125 32 120/70 94 Oxymask 4.0 05/28/17 18:05 124 42 99 05/28/17 18:00 128 27 95 05/28/17 17:55 126 45 95 05/28/17 17:53 126/71 05/28/17 17:52 128 25 126/71 96 Nebulizer 05/28/17 17:50 129 25 93 05/28/17 17:45 128 39 95 05/28/17 17:40 127 29 94 05/28/17 17:35 128 36 95 05/28/17 17:30 129 40 121/66 95 05/28/17 17:30 128 30 121/66 96 Nebulizer 05/28/17 17:25 128 40 96 05/28/17 17:24 128 26 88 Nasal Cannula 5.0 05/28/17 17:20 132 27 89 05/28/17 17:15 127 28 89 05/28/17 17:12 129 05/28/17 17:11 89 Nasal Cannula 5.0 05/28/17 17:11 89 Nasal Cannula 5.0 05/28/17 17:02 38.9 137 28 96/57 69 Room Air VITAL SIGNS - Vital signs and nursing notes were reviewed. GENERAL - 57-year-old female appearing her stated age who is in no acute distress. Resting comfortably. HEAD - NC/AT. EYES - PERRL with EOMI bilaterally. Sclera anicteric. Palpebral conjunctiva pink and moist with no injection noted. EARS - No deformities of external structures noted on gross examination bilaterally. NOSE - Midline and without cyanosis. No epistaxis or purulent drainage noted. MOUTH/OROPHARYNX - Without perioral cyanosis. Buccal mucosa pink and moist and without leukoplakia. Tongue midline with equal elevation of palate bilaterally. NECK - Neck with FROM. Supple to palpation. LUNGS - Chest wall symmetric without accessory muscle use, intercostals retractions, or central cyanosis. Diffuse inspiratory wheezes noted to the RIGHT upper lobes and LEFT lower lobes. No rales or rhonchi appreciated. CARDIAC - RRR with S1/S2. No murmur, rubs, or gallops appreciated. No reproducible tenderness to palpation appreciated over the anterior chest wall. ABDOMEN - Abdominal contour flat and without pulsations or visible masses. BS normoactive all four quadrants. No tenderness, palpable masses, hepatosplenomegaly, or ascites noted. EXTREMITIES - No clubbing or peripheral cyanosis. No pretibial edema present. NEUROLOGIC - Cranial nerves II through XII grossly intact. PSYCH - A&Ox3 and cooperates fully with examiner. Laboratory Results Last 24 Hours Test 05/28/17 17:20 05/28/17 17:23 05/28/17 17:26 05/28/17 17:27 White Blood Count 23.27 K/uL Red Blood Count 4.04 M/uL Hemoglobin 12.3 g/dL Hematocrit 37.7 % Mean Corpuscular Volume 93.3 fL Mean Corpuscular Hemoglobin 30.4 pg Mean Corpuscular Hemoglobin Concent 32.6 g/dl Platelet Count 250 K/uL Mean Platelet Volume 8.9 fL Neutrophils (%) (Auto) 83.6 % Lymphocytes (%) (Auto) 7.2 % Monocytes (%) (Auto) 8.1 % Eosinophils (%) (Auto) 0.0 % Basophils (%) (Auto) 0.2 % Neutrophils # (Auto) 19.48 K/uL Lymphocytes # (Auto) 1.67 K/uL Monocytes # (Auto) 1.88 K/uL Eosinophils # (Auto) 0.00 K/uL Basophils # (Auto) 0.04 K/uL RDW Standard Deviation 45.1 fL RDW Coefficient of Variation 13.1 % Immature Granulocyte % (Auto) 0.9 % Immature Granulocyte # (Auto) 0.20 K/uL Prothrombin Time 14.0 SECONDS Prothromb Time International Ratio 1.3 Activated Partial Thromboplast Time 33.1 SECONDS Partial Thromboplastin Ratio 1.3 Sodium Level 135 mmol/L Potassium Level 3.2 mmol/L Chloride Level 97 mmol/L Carbon Dioxide Level 32 mmol/L Anion Gap 6.0 mmol/L Blood Urea Nitrogen 18 mg/dl Creatinine 1.10 mg/dl Est Creatinine Clear Calc Drug Dose 54.6 ml/min Estimated GFR () 64.5 Estimated GFR (Non- 55.7 BUN/Creatinine Ratio 16.5 Random Glucose 179 mg/dl Calcium Level 9.1 mg/dl Magnesium Level 1.9 mg/dl Total Bilirubin 0.6 mg/dl Aspartate Amino Transf (AST/SGOT) 101 U/L Alanine Aminotransferase (ALT/SGPT) 38 U/L Alkaline Phosphatase 119 U/L Troponin I < 0.015 ng/ml Pro-B-Type Natriuretic Peptide 165 pg/ml Total Protein 6.8 gm/dl Albumin 2.8 gm/dl Globulin 4.0 gm/dl Albumin/Globulin Ratio 0.7 Venous Blood pH 7.42 Venous Blood Partial Pressure CO2 53 mmHg Venous Blood Partial Pressure O2 44 mmHg Venous Blood HCO3 33 mmol/L Venous Blood Oxygen Saturation 75.5 % Venous Blood Base Excess 7.2 mEq/L Bedside Lactic Acid Venous 1.24 mmol/L Bedside D-Dimer > 450 ng/mlFEU Test 05/28/17 17:30 05/28/17 20:29 05/28/17 20:44 05/29/17 03:37 Bedside Hemoglobin 12.9 g/dl Bedside Hematocrit 38 % Bedside Sodium 135 mEq/L Bedside Potassium 3.2 mEq/L Bedside Chloride 93 mEq/L Bedside Total CO2 31 mEq/l Anion Gap 16.0 mmol/L Bedside Blood Urea Nitrogen 18 mg/dl Bedside Creatinine 1.0 mg/dl Bedside Glucose (other) 188 mg/dl Bedside Ionized Calcium (Priyanka) 1.13 mmol/l Influenza Type A (RT-PCR) Neg for Influ A Influenza Type A Antigen Neg for Influ A Influenza Type B Antigen Neg for Influ B Influenza Type B (RT-PCR) Neg for Influ B Bedside Glucose 206 mg/dl 265 mg/dl Arterial Blood pH 7.33 Arterial Blood Partial Pressure CO2 54 mmHg Arterial Blood Partial Pressure O2 94 mm/Hg Arterial Blood HCO3 28 mmol/L Arterial Blood Oxygen Saturation 96.0 % Arterial Blood Base Excess 1.4 mEq/L Arterial Blood Gas Delivery 4.5 L Price Test POS Diagnostic Results Radiological imaging and reports were reviewed by myself. Radiologist's Interpretation as follows: CHEST ONE VIEW PORTABLE HISTORY: EVALUATE RESPIRATORY DISTRESS.DYSPNEA COMPARISON: Chest 06/18/2014. FINDINGS: The heart is normal in size. No pleural effusions. No pneumothorax. Hazy appearance to the left lung base may be due to the overlapping soft tissue. No focal lung consolidations to suggest pneumonia. No evidence for point edema. Stable mild interstitial thickening. IMPRESSION: Stable mild interstitial thickening. No new focal lung consolidations to suggest pneumonia. CHEST CTA for PULMONARY ARTERIES CT DOSE: 319.26 mGy.cm HISTORY: Short of breath. TECHNIQUE: Multiaxial CT images of the chest were performed following the intravenous administration of contrast to evaluate the pulmonary arteries. Maximal intensity projection images were also obtained. A dose lowering technique was utilized adhering to the principles of ALARA. COMPARISON STUDY: Chest CTA 06/18/2014. FINDINGS: Normal caliber thoracic aorta with no evidence for dissection. Hepatic steatosis. Stable splenic hypodense lesion. This is considered to be benign. The visualized adrenal glands are unremarkable. No pleural or pericardial effusions. There is near nondiagnostic evaluation of the majority of the upper lobe segmental and subsegmental pulmonary arteries due to the motion artifact and suboptimal opacification. Remaining pulmonary arteries show no filling defects to suggest pulmonary embolus. No pneumothorax. Near diffuse tree-in-bud nodular opacities most pronounced within the lower lobes with a few small patchy airspace opacities within the base of the left lower lobe. There are few small groundglass airspace opacities within the right lung apex. These findings are consistent with an atypical pneumonia/infectious bronchiolitis. IMPRESSION: 1. No definite evidence for pulmonary embolus. 2. Near diffuse tree-in-bud nodular opacities most pronounced within the lower lobes with a few small patchy airspace opacities within the base of the left lower lobe. There are few small groundglass airspace opacities within the right lung apex. These findings are consistent with an atypical pneumonia/infectious bronchiolitis. Assessment & Plan Reason Critically Ill: Acute on chronic hypoxic respiratory failure with altered mental status. Requiring increasing oxygen demand. Multifocal pneumonia status post recent RIGHT knee arthroplasty. Neuro - * CAM ICU: NEGATIVE. * Chronic Lumbar Pain: * Continue Oxy/Gabapentin as needed and as BP tolerates. * Altered Mental Status (Confusion): * Likely 2/2 hypercarbia. Improved while in ED. Cardiac - * No h/o cardia Dz. * EKG: Sinus Tach at 129 bmp w/ unchanged non-specific ST changes. * QTc: 457 ms * Continue to monitor on telemetry. * EKGs for chest pain. Respiratory - * Acute on Chronic Hypercarbic Respiratory Failure. * Improved with nebs/increased O2. * Will monitor ABGs. * Supplemental O2 as needed - titrate to effectiveness. * BiPAP for added recruitment if needed. * Atypical Pneumonia on CTA: * Levaquin in ED - Agree with Levaquin for atypical coverage (will monitor daily EKGs for changes in QTc). * Started on Zosyn by admitting team. Agree at this point in the setting of new pneumonia s/p likely general anesthesia 5 days prior for RIGHT knee arthroscopy. Have to consider aspiration pneumonia in clinical setting w/ recent history. * Pulmonary toilet as above. GI - * History of GERD: * Continue Protonix 40 mg BID. RENAL/LYTES - * Hypokalemia at 3.2 - corrected via admitting team. * Will continue to monitor. * Serial PRPs - correct appropriately. - * I&Os ENDO - * No h/o DM or Thyroid Dz. * Hyperglycemia: * Likely 2/2 aggressive steroid dosing. * 2 BSGs >180 requiring initiation of Insulin gtt. * Will check A1c. * Titrate down insulin requirement as tolerated. HEME - * Stable H&H. * Leukocytosis of 23.37 in the setting of atypical pneumonia. * Will continue to monitor daily. ID - * Atypical Pneumonia: * Levaquin/Zosyn as previously discussed. * MRSA Nares swab NEGATIVE. LINES/IV ACCESS - * RIGHT EJ in place. DVT PROPHYLAXIS - * Lovenox sq. * SCDs. I have personally spent 40 minutes of critical care time in the direct management of this patient. This is a life/limb threatening event. This includes time spent evaluating patient, direct bedside care, chart review, placing orders, interpretation of diagnostic studies, discussion with consultants, patient, and family members, as well as other required patient management activities. This time is exclusive of all separately billable procedures, and teaching time and separate from and in addition to any other critical care service time. Thank you for this consultation allow us to be part of this patient's care. Please refer to my attending physician's documentation for any further recommendations. I have personally evaluated and examined this patient. I agree with assessment and plan of Kilo Toledo PA-C. Throughout the rest of the day from proximal and 7 AM onward the patient had an acute exacerbation and was severely tachypnea And hypoxic. This felt she may benefit from noninvasive ventilation however she was extremely agitated. We started precedex infusion, fortunately this improved her anxiety and she did not proceed with noninvasive ventilation. Very able to stop the infusion later today, she feels much improved. She had some mild right upper quadrant tenderness, repeat LFTs were largely unremarkable with a mild elevation of her AST. Her hepatitis panel has remained largely unremarkable, a right upper quadrant ultrasound revealed mild dilatation of the bile duct, findings consistent with fatty liver. We have continued her steroids, she was placed on insulin infusion for hyperglycemia which has significantly improved. At this time I think it is reasonable to de-escalate her antibiotics to Levaquin for respiratory and atypical coverage, the anaerobic coverage with Zosyn is not needed as this does not appear to be a anaerobic based pneumonia, nor does there appear to be a gastrointestinal infection.
[2017-05-29] MEDS: SODIUM CHLORIDE 0.9% 1000ML 1,000 ML IV SCH (05:45)
[2017-05-29] MEDS ORDERED: INSULIN HUMAN REGULAR IV BOLUS 3 UNIT in SYRINGE 0 ML IV SCH (05:45)
[2017-05-29] MEDS: INSULIN REGULAR 250 UNITS in SODIUM CHLORIDE 0.9% 250ML 250 ML IV SCH (05:47)
[2017-05-29 06:41] LABS: BASO % 0.1 %; BASO ABS # 0.01 K/uL (0-0.2); COMPLETE YES; HEMATOCRIT 32.4 % (37-47); IG% 0.8 %; LYMPH % 4.5 %; LYMPH ABS # 0.71 K/uL (1.2-3.4); MEAN CELL VOLUME 93.6 fL (80-100); MEAN CORPUSCULAR HEMOGLOBIN 31.8 pg (25-34); MEAN PLATELET VOLUME 8.9 fL (7.4-10.4); MONO % 1.9 %; NEUT % 92.7 %; PLATELET COUNT 229 K/uL (130-400); RED BLOOD COUNT 3.46 M/uL (4.2-5.4); WHITE BLOOD COUNT 15.81 K/uL (4.8-10.8)
--- NOTE | 2017-05-29 07:01 | DIAGNOSTIC IMAGING REPORT ---
CHEST ONE VIEW PORTABLE CLINICAL HISTORY: 57 years-old Female presenting with PNA. TECHNIQUE: Portable upright AP view of the chest was obtained. COMPARISON: 05/28/2017. FINDINGS: Multiple overlying external leads degrade image quality. Atherosclerosis of aortic arch. Cardiac silhouette normal in size. Diffuse mid and lower lung bilateral tree-in-bud opacities seen on CT from 05/28/2017 are not well assessed on radiograph. Mild prominence of lung markings. No new focal infiltrate. No large effusion or pneumothorax. Osseous structures normal. Upper abdomen normal. IMPRESSION: 1. Bilateral mid and lower lung tree-in-bud opacities diffusely, better appreciated on yesterday's CT. No new focal infiltrate. The appearance is most consistent with infectious bronchiolitis with differential considerations including aspiration among other etiologies. Electronically signed by: Juan C Cordova M.D. 05/29/2017 6:59 AM Dictated Date/Time: 05/29/2017 6:57 AM
--- NOTE | 2017-05-29 07:20 | DIAGNOSTIC IMAGING REPORT ---
BILATERAL LOWER EXTREMITY VENOUS DOPPLER CLINICAL HISTORY: Elevated d-dimer. COMPARISON STUDY: Right lower extremity venous Doppler March 20, 2011 and left lower extremity venous Doppler March 03, 2015 TECHNIQUE: Sonography of the deep venous system of the bilateral lower extremities was performed. Compression and augmentation were evaluated. FINDINGS: The bilateral common femoral, superficial femoral and popliteal veins were compressible. Augmentation was normal. Flow was shown within the deep calf vessels. Note was made of a 5.7 x 1 x 3.5 cm hypoechoic right popliteal fossa collection that contains no color flow. There is a 4.6 x 0.7 x 2.5 cm complex left popliteal fluid collection is contained no color flow. IMPRESSION: 1. No evidence of deep venous thrombus within the bilateral lower extremities. 2. Suspected complex bilateral popliteal cysts. Electronically signed by: Ronnie Thomas M.D. 05/29/2017 7:19 AM Dictated Date/Time: 05/29/2017 7:17 AM
[2017-05-29 07:55] LABS: BUN/CREATININE RATIO 17.8 (10-20); CALCIUM 8.2 mg/dl (8.5-10.1); CREATININE 0.77 mg/dl (0.60-1.20); MAGNESIUM 2.3 mg/dl (1.8-2.4)
[2017-05-29] MEDS: INSULIN ASPART 100 UNITS/ML 3 ML PEN SC SCH ×4 (08:00→21:00)
[2017-05-29 08:02] LABS: PHOSPHORUS 1.1 mg/dl (2.5-4.9)
[2017-05-29] MEDS ORDERED: DexMEDEtomidine HCL INJ 200 MCG in SODIUM CHLORIDE 0.9% 50ML 48 ML IV PRN (08:30)
[2017-05-29] MEDS: FLUTICASONE/SALMETEROL 250/50 (ADVAIR) 14 PUFF/1 INHALER INH SCH ×2 (08:53→21:01)
[2017-05-29] MEDS: CEROVITE ADV FORMULA TAB PO SCH (09:00)
[2017-05-29] MEDS ORDERED: POTASSIUM PHOSPHATE INJ 24 MMOL in SODIUM CHLORIDE 0.9% 500ML 500 ML IV ONE (09:00)
[2017-05-29] MEDS: ASPIRIN 81 MG ECTAB PO SCH (09:00)
[2017-05-29] MEDS ORDERED: NORMOSOL R 1,000 ML IV SCH (09:00)
[2017-05-29 09:10] LABS: ESTIMATED AVERAGE GLUCOSE 131 mg/dl; HA1C FLAG Normal (Normal)
--- NOTE | 2017-05-29 09:13 | Clinical Documentation Query ---
CLINICAL DOCUMENTATION QUERY 57-year-old female with acute hypoxic respiratory failure with atypical pneumonia. In your clinical opinion is this patient being managed for: ( ) Encephalopathy, resolved ( ) Not Agree ( ) Other explanation of clinical findings (Please Explain) ( ) Unable to determine (Please Define) ( ) Need to Discuss The medical record reflects the following clinical findings, treatment, and risk factors. Clinical Indicators: Altered mental status, hypoxia, confusion Treatment: ICU, IV antibiotics, IV hydration, O2, I&O Risk Factors: Acute on chronic respiratory failure, COPD exacerbation, pneumonia Please clarify and document your clinical opinion in the progress notes and discharge summary. Terms such as "probable", "suspected", "likely", "questionable", "possible", or "still to be ruled out" are acceptable. IF IN AGREEMENT, YOU MUST DOCUMENT ABOVE DIAGNOSTIC STATEMENT IN DAILY PROGRESS NOTES AND DISCHARGE SUMMARY. This document is not part of the patient's record. Thank You, Leona Bach RN [phone]
[2017-05-29] MEDS ORDERED: NURSING VERBAL MED ORDER ONE (09:15)
[2017-05-29] MEDS ORDERED: QUETIAPINE FUMARATE 200 MG TAB PO SCH ×2 (10:00→16:00)
[2017-05-29 10:13] LABS: URINE APPEARANCE CLEAR (CLEAR); URINE BILIRUBIN NEG (NEG); URINE COLOR YELLOW; URINE EPITHELIAL CELL AUTO >30 /lpf (0-5); URINE NITRITE NEG (NEG); URINE SPECIFIC GRAVITY 1.025 (1.000-1.030); UROBILINOGEN NEG (NEG)
[2017-05-29 10:14] LABS: MANUAL MICROSCOPIC REQUIRED? NO; REVIEW REQ? NO
[2017-05-29] MEDS ORDERED: PANTOprazole INJ 40 MG in SYRINGE 0 ML IV SCH (11:00)
--- NOTE | 2017-05-29 11:17 | DIAGNOSTIC IMAGING REPORT ---
ABDOMINAL ULTRASOUND, RIGHT UPPER QUADRANT HISTORY: Right upper quadrant tenderness, fever and elevated liver function tests.. COMPARISON: CT of the abdomen and pelvis May 13, 2011. FINDINGS: Hepatic echogenicity is increased. No hepatic lesions are identified. The common bile duct is mildly dilated, measuring 1 cm. No common bile duct calculi are identified although the distal common bile duct is obscured. No gallstones are identified. There is no gallbladder wall thickening. Echogenic foci with ringdown artifact within the gallbladder wall suggest adenomyomatosis, finding of no clinical significance. There is no right hydronephrosis. The pancreatic body is normal. The head and tail are obscured. IMPRESSION: 1. No gallstones. No gallbladder wall thickening. 2. Mild dilatation of the common bile duct. No common bile duct calculi identified. This could be correlated with obstructive liver function tests. 3. Fatty liver. Electronically signed by: Ronnie Thomas M.D. 05/29/2017 11:15 AM Dictated Date/Time: 05/29/2017 11:13 AM
--- NOTE | 2017-05-29 12:23 | Pharmacy Progress Note ---
Glycemic Control Intl Consult Date of Service May 29, 2017. Scope Glycemic Pharmacist consulted by Dr Li on 05/29/17 for glycemic control and to write orders per [facility] inpatient glycemic control protocol Objective Weight (Kilograms): 77.300 Accuchecks BSG (last 24hrs): Test 05/28/17 17:20 05/28/17 20:29 05/29/17 03:37 05/29/17 05:44 Random Glucose 179 mg/dl (70-99) Bedside Glucose 206 mg/dl (70-90) 265 mg/dl (70-90) 235 mg/dl (70-90) Test 05/29/17 06:13 05/29/17 06:38 05/29/17 07:37 Random Glucose 220 mg/dl (70-99) Bedside Glucose 236 mg/dl (70-90) 180 mg/dl (70-90) Laboratory Data (last 24hrs) Test 05/28/17 17:20 05/28/17 17:30 05/29/17 06:13 Anion Gap 6.0 mmol/L 16.0 mmol/L 8.0 mmol/L BUN/Creatinine Ratio 16.5 17.8 Blood Urea Nitrogen 18 mg/dl 14 mg/dl Creatinine 1.10 mg/dl 0.77 mg/dl Potassium Level 3.2 mmol/L 3.0 mmol/L Sodium Level 135 mmol/L 138 mmol/L White Blood Count 23.27 K/uL 15.81 K/uL Red Blood Count 4.04 M/uL 3.46 M/uL Hemoglobin 12.3 g/dL 11.0 g/dL Hematocrit 37.7 % 32.4 % Mean Corpuscular Volume 93.3 fL 93.6 fL Mean Corpuscular Hemoglobin 30.4 pg 31.8 pg Mean Corpuscular Hemoglobin Concent 32.6 g/dl 34.0 g/dl Platelet Count 250 K/uL 229 K/uL Mean Platelet Volume 8.9 fL 8.9 fL Neutrophils (%) (Auto) 83.6 % 92.7 % Lymphocytes (%) (Auto) 7.2 % 4.5 % Monocytes (%) (Auto) 8.1 % 1.9 % Eosinophils (%) (Auto) 0.0 % 0.0 % Basophils (%) (Auto) 0.2 % 0.1 % Neutrophils # (Auto) 19.48 K/uL 14.66 K/uL Lymphocytes # (Auto) 1.67 K/uL 0.71 K/uL Monocytes # (Auto) 1.88 K/uL 0.30 K/uL Eosinophils # (Auto) 0.00 K/uL 0.00 K/uL Basophils # (Auto) 0.04 K/uL 0.01 K/uL Hemoglobin A1c 6.2 % HbA1c Test 05/29/17 06:13 Hemoglobin A1c 6.2 % (4.5-5.6) H Recent Pertinent Medications Outpatient Anti-diabetic Regimen: * N/A Risk Factors for Insulin Resistance: * Steroids * Infection Assessment & Plan ASSESSMENT: * 57 yo F admitted to ICU for management of severe COPD/pneumonia * Pt initiated on high dose IV steroids which caused BSGs to spike * When BSG >250 mg/dL and insulin drip was initiated appropriately per protocol * Plan per rounds is to continue IV steroids, continue insulin drip and reassess in the AM * Of note, pt is not a known diabetic but does have prediabetes based on A1c from today (6.2%) * ADA & AACE recommend a goal blood sugar range 140-180 mg/dl for the majority of critically ill & non-critically ill patients. However, more stringent targets may be selected in individual cases. PLAN FOR INPATIENT GLYCEMIC CONTROL: * Continue IV insulin infusion per high stress protocol * Goal Range 100 - 180 mg/dl * In the critical care setting, continuous IV insulin infusion has been shown to be the best method for achieving glycemic targets. * Recommend insulin drip, even at low rates, while patient is on high dose IV steroid therapy * Please note that the plan above was derived based on current level of insulin resistance and hospital stress. These recommendations are appropriate for inpatient admission only. Plan of care upon discharge will need to be reassessed to avoid potential outpatient hypo/hyperglycemia. Thank you.
[2017-05-29] MEDS ORDERED: PHARMACY GLYCEMIC MGMT CONSULT PRN (12:30)
[2017-05-29] MEDS: OXYCODONE HCL IR 5 MG TAB (IMMEDIATE RELEASE) PO PRN ×2 (13:36→21:12)
[2017-05-29] MEDS ORDERED: LEVOFLOXACIN 750MG / D5W IV SCH (18:00)
[2017-05-29 18:26] LABS: CALCIUM 8.6 mg/dl (8.5-10.1); CREATININE 0.66 mg/dl (0.60-1.20)
--- NOTE | 2017-05-29 19:26 | Progress Note ---
Internal Med Progress Note Date of Service: May 29, 2017. Provider Documentation: SUBJECTIVE: resting comfortably hemodynamics stable afebrile 'sob improving no temps OBJECTIVE: Vital Signs-as noted below Exam: General-alert and awake. Not in distress ENT-normal hearing Neck-no neck masses Lungs-cta b/l no wheezing bibasilar crackles present Heart-s1 and s2 heard regular rate and rhythm no murmurs Abdomen-soft bowel sounds present non tender no distension Extremities-right knee sutures present no erythema Neuro-alert and awake moves extremities Lab data as noted below. ASSESSMENT & PLAN: ACUTE HYPOXIC RESPIRATORY FAILURE DUE TO COPD EXACERBATION AND HCAP SEPSIS presented with weakness, confusion and low oxygen sats CXR and Ct scan- B?l mid and lower lobe opacities mrsa swab negative on iv Levaquin and Zosyn s/p picc line leukocytosis improving close monitor. Right knee arthroscopy recently looks fine will consult ortho for sture removal. HYPOKALEMIA -replaced BIPOLAR, ANXIETY, DEPRESSION on Seroquel and amitriptyline CHRONIC BACK PAIN on gabapentin and PRN Oxycodone HLD on statin DVT PROPHYLAXIS SQ Lovenox CODE STATUS full DISPOSITION monitor in icu Vital Signs: Date Time Temp Pulse Resp B/P (MAP) Pulse Ox O2 Delivery O2 Flow Rate FiO2 05/29/17 16:39 90 27 129/66 (87) 93 Oxymask 2.0 05/29/17 16:00 94 Nasal Cannula 2.0 05/29/17 14:20 90 20 92 Mask 2.0 05/29/17 12:00 92 Oxymask 2.0 05/29/17 08:00 37.7 85 26 110/58 (75) 91 Nasal Cannula 2.0 05/29/17 08:00 90 Oxymask 2.0 05/29/17 08:00 Oxymask 05/29/17 07:15 84 22 94 Mask 4.0 05/29/17 06:00 80 22 105/53 (70) 91 Oxymask 2.0 05/29/17 04:00 36.6 81 26 98/50 (66) 91 Oxymask 2.0 05/29/17 04:00 91 Oxymask 2.0 05/29/17 02:14 83 20 96 Mask 5.0 05/29/17 02:00 87 23 87/41 (56) 96 Oxymask 4.5 05/29/17 00:00 94 Oxymask 5.0 05/29/17 00:00 36.6 87 24 108/62 (77) 95 Oxymask 4.5 05/28/17 22:13 83 24 115/65 (82) 92 Oxymask 4.5 05/28/17 20:49 92 20 94 Mask 5.0 05/28/17 20:20 37.1 99 26 110/53 93 4.0 05/28/17 20:10 37.2 98 31 128/62 94 05/28/17 19:30 107 31 94 05/28/17 19:25 111 33 89 05/28/17 19:24 38.2 05/28/17 19:23 114/64 05/28/17 19:20 109 32 94 Lab Results: Results Past 24 Hours Test 05/28/17 20:29 05/28/17 20:44 05/29/17 00:00 05/29/17 03:37 Range/Units Bedside Glucose 206 265 70-90 mg/dl Arterial Blood pH 7.33 7.35-7.45 Arterial Blood Partial Pressure CO2 54 35-46 mmHg Arterial Blood Partial Pressure O2 94 80-95 mm/Hg Arterial Blood HCO3 28 19-24 mmol/L Arterial Blood Oxygen Saturation 96.0 90-95 % Arterial Blood Base Excess 1.4 -9-1.8 mEq/L Arterial Blood Gas Delivery 4.5 L Price Test POS POS Urine Color YELLOW Urine Appearance CLEAR CLEAR Urine pH 6.0 4.5-7.5 Urine Specific [place] 1.025 1.000-1.030 Urine Protein 1+ NEG Urine Glucose (UA) NEG NEG Urine Ketones NEG NEG Urine Occult Blood 1+ NEG Urine Nitrite NEG NEG Urine Bilirubin NEG NEG Urine Urobilinogen NEG NEG Urine Leukocyte Esterase NEG NEG Urine WBC (Auto) 1-5 0-5 /hpf Urine RBC (Auto) 0-4 0-4 /hpf Urine Hyaline Casts (Auto) 1-5 0-5 /lpf Urine Epithelial Cells (Auto) >30 0-5 /lpf Urine Bacteria (Auto) NEG NEG Test 05/29/17 04:14 05/29/17 05:44 05/29/17 06:13 05/29/17 06:38 Range/Units Blood Gas Sample Site R Radial Bedside Blood Gas pH (LAB) 7.33 7.35-7.45 Bedside Blood Gas pCO2 (LAB) 52 35-46 mmHg Bedside Blood Gas pO2 (LAB) 59 80-95 mmHg Bedside Blood Gas HCO3 (LAB) 27 19-24 meq/L Bedside Blood Gas Total CO2 29 24-31 mEq/l Bedside Blood Gas Base Excess (LAB) 1.0 -9-1.8 meq/L Bedside Blood Gas O2 Saturation 87.0 90-95 % Price Test Pass Oxygen Delivery Device SimpleMask Bedside Glucose 235 236 70-90 mg/dl White Blood Count 15.81 4.8-10.8 K/uL Red Blood Count 3.46 4.2-5.4 M/uL Hemoglobin 11.0 12.0-16.0 g/dL Hematocrit 32.4 37-47 % Mean Corpuscular Volume 93.6 80-100 fL Mean Corpuscular Hemoglobin 31.8 25-34 pg Mean Corpuscular Hemoglobin Concent 34.0 32-36 g/dl Platelet Count 229 130-400 K/uL Mean Platelet Volume 8.9 7.4-10.4 fL Neutrophils (%) (Auto) 92.7 % Lymphocytes (%) (Auto) 4.5 % Monocytes (%) (Auto) 1.9 % Eosinophils (%) (Auto) 0.0 % Basophils (%) (Auto) 0.1 % Neutrophils # (Auto) 14.66 1.4-6.5 K/uL Lymphocytes # (Auto) 0.71 1.2-3.4 K/uL Monocytes # (Auto) 0.30 0.11-0.59 K/uL Eosinophils # (Auto) 0.00 0-0.5 K/uL Basophils # (Auto) 0.01 0-0.2 K/uL RDW Standard Deviation 44.5 36.4-46.3 fL RDW Coefficient of Variation 13.1 11.5-14.5 % Immature Granulocyte % (Auto) 0.8 % Immature Granulocyte # (Auto) 0.13 0.00-0.02 K/uL Sodium Level 138 136-145 mmol/L Potassium Level 3.0 3.5-5.1 mmol/L Chloride Level 104 98-107 mmol/L Carbon Dioxide Level 26 21-32 mmol/L Anion Gap 8.0 3-11 mmol/L Blood Urea Nitrogen 14 7-18 mg/dl Creatinine 0.77 0.60-1.20 mg/dl Est Creatinine Clear Calc Drug Dose 77.6 ml/min Estimated GFR () 99.3 Estimated GFR (Non- 85.7 BUN/Creatinine Ratio 17.8 10-20 Random Glucose 220 70-99 mg/dl Estimated Average Glucose 131 mg/dl Hemoglobin A1c 6.2 4.5-5.6 % Calcium Level 8.2 8.5-10.1 mg/dl Phosphorus Level 1.1 2.5-4.9 mg/dl Magnesium Level 2.3 1.8-2.4 mg/dl Test 05/29/17 07:37 05/29/17 09:04 05/29/17 09:56 05/29/17 11:04 Range/Units Bedside Glucose 180 121 126 70-90 mg/dl Total Bilirubin 0.3 0.2-1 mg/dl Direct Bilirubin 0.2 0-0.2 mg/dl Aspartate Amino Transf (AST/SGOT) 58 15-37 U/L Alanine Aminotransferase (ALT/SGPT) 35 12-78 U/L Alkaline Phosphatase 100 45-117 U/L Total Protein 6.2 6.4-8.2 gm/dl Albumin 2.3 3.4-5.0 gm/dl Lipase 52 73-393 U/L Hepatitis B Surface Antigen NEG NEG Hepatitis C Antibody NEG NEG Test 05/29/17 13:03 05/29/17 13:55 05/29/17 15:59 05/29/17 17:47 Range/Units Bedside Glucose 99 111 151 70-90 mg/dl Sodium Level 141 136-145 mmol/L Potassium Level 3.0 3.5-5.1 mmol/L Chloride Level 105 98-107 mmol/L Carbon Dioxide Level 29 21-32 mmol/L Anion Gap 7.0 3-11 mmol/L Blood Urea Nitrogen 12 7-18 mg/dl Creatinine 0.66 0.60-1.20 mg/dl Est Creatinine Clear Calc Drug Dose 90.5 ml/min Estimated GFR () 113.7 Estimated GFR (Non- 98.1 BUN/Creatinine Ratio 18.0 10-20 Random Glucose 223 70-99 mg/dl Calcium Level 8.6 8.5-10.1 mg/dl Aspartate Amino Transf (AST/SGOT) 61 15-37 U/L Alanine Aminotransferase (ALT/SGPT) 35 12-78 U/L Albumin 2.4 3.4-5.0 gm/dl
[2017-05-29] MEDS ORDERED: LEVALBUTEROL 1.25MG/3ML NEB INH PRN (19:30)
[2017-05-29] MEDS ORDERED: IPRATROPIUM BROMIDE NEB SOLN 0.02% 2.5 ML VIAL INH PRN (19:30)
[2017-05-29 19:40] LABS: ALB/GLOB RATIO 0.6 (0.9-2)
[2017-05-29] MEDS: AMITRIPTYLINE HCL 10 MG TAB PO SCH (21:01)
[2017-05-29] MEDS: ATORVASTATIN 20 MG TAB PO SCH (21:02)
[2017-05-29] MEDS: GABAPENTIN 300 MG CAP PO SCH (21:02)
[2017-05-29] MEDS: ENOXAPARIN 40 MG/0.4 ML SYR SQ SCH (21:05)
[2017-05-29] MEDS: LORAZEPAM 1 MG TAB PO PRN (22:44)
[2017-05-29 22:46] LABS: PHOSPHORUS 2.7 mg/dl (2.5-4.9)
[2017-05-30] VITALS (14 sets, daily range): BP systolic 108–141; BP diastolic 56–74; PULSE 67–90; TEMP 36.6–37; O2SAT 88–98
[2017-05-30] MEDS: METHYLPREDNISOLONE IV 40 MG in SYRINGE 0 ML IV SCH ×2 (01:08→08:00)
[2017-05-30] MEDS: ALBUT/IPRATROP 3MG/0.5MG NEB 3 ML VIAL INH SCH ×4 (02:41→20:36)
[2017-05-30] MEDS: POTASSIUM CHLR 20 MEQ / WTR 20 MEQ in PREMIXED WATER 100 ML IV SCH ×2 (04:49→05:57)
[2017-05-30] MEDS: OXYCODONE HCL IR 5 MG TAB (IMMEDIATE RELEASE) PO PRN ×3 (05:10→20:53)
[2017-05-30 05:34] LABS: HEMATOCRIT 30.6 % (37-47); MEAN CELL VOLUME 92.4 fL (80-100); MEAN CORPUSCULAR HEMOGLOBIN 31.4 pg (25-34); MEAN PLATELET VOLUME 8.8 fL (7.4-10.4); PLATELET COUNT 252 K/uL (130-400); RED BLOOD COUNT 3.31 M/uL (4.2-5.4); WHITE BLOOD COUNT 21.93 K/uL (4.8-10.8)
[2017-05-30 06:22] LABS: CALCIUM 8.2 mg/dl (8.5-10.1); CREATININE 0.56 mg/dl (0.60-1.20); MAGNESIUM 2.3 mg/dl (1.8-2.4); PHOSPHORUS 2.4 mg/dl (2.5-4.9); POTASSIUM 3.6 mmol/L (3.5-5.1)
--- NOTE | 2017-05-30 07:39 | DIAGNOSTIC IMAGING REPORT ---
CHEST ONE VIEW PORTABLE CLINICAL HISTORY: 57 years-old Female presenting with Atypical PNA. TECHNIQUE: Portable upright AP view of the chest was obtained. COMPARISON: 05/29/2017. FINDINGS: Left upper terminate PICC terminates in the lower SVC. Atherosclerosis of the aortic arch. Cardiac silhouette normal in size. The presence of pulmonary opacities better appreciated on CT from 05/28/2017. No radiographic infiltrate is apparent. No pleural effusion or pneumothorax. Osseous structures normal. Upper abdomen normal. IMPRESSION: 1. Appropriately positioned right upper extremity PICC as above. 2. The presence of bilateral tree-in-bud opacities better appreciated on CT from 05/28/2017. No radiographically evident infiltrate. Electronically signed by: Juan C Cordova M.D. 05/30/2017 7:38 AM Dictated Date/Time: 05/30/2017 7:37 AM
[2017-05-30] MEDS: CEROVITE ADV FORMULA TAB PO SCH (08:00)
[2017-05-30] MEDS: ASPIRIN 81 MG ECTAB PO SCH (08:00)
[2017-05-30] MEDS: FLUTICASONE/SALMETEROL 250/50 (ADVAIR) 14 PUFF/1 INHALER INH SCH ×2 (08:00→20:51)
--- NOTE | 2017-05-30 08:23 | Critical Care Progress Note ---
Critical Care Progress Note Date of Service May 30, 2017. ICU Day ICU Day Number: [address] Li Subjective The patient was seen and examined at bedside. No acute overnight events. Pt reports that she is feeling much, much better than previously. Patient is resting comfortably in bed. Denies having any pain. Eating and urinating well. Plan of care was described to the patient and all questions were answered. ROS: No chest pain, no SOB, no dyspnea on exertion, no palpitations, no fevers, no chills, no nausea, no vomiting, no diarrhea, no dysuria, no rash. Cough has dramatically improved. Objective Gen: No acute distress. Pt is sitting comfortably at bedside. HEENT: Head - normocephalic and atraumatic. Pupils are equal, round, and reactive to light. Extraocular eye muscles are intact and sclera are anicteric. Ears - bilaterally patent canals with noninjected tympanic membranes and no evidence of hemotympanum. Nose - moist nasal mucosa without discharge. Mouth - moist buccal mucosa. Oropharynx is nonerythematous and there is no tonsillar exudate or edema noted. Neck: Supple; no JVD, nuchal rigidity, cervical lymphadenopathy, or auscultated bruits. Heart: Regular rate and rhythm. There is a normal S1 and S2 with no murmurs, clicks, or gallops appreciated. Lungs: No respiratory distress. Slight expiratory wheezing in all lung alejandro - improved from previous day. Abdomen: Soft, completely nontender, nondistended, with good bowel sounds. There are no palpable pulsatile masses or hepatosplenomegaly. There is no guarding, rigidity, or rebound noted. Extremities: No evidence of cyanosis, clubbing, or edema. There are easily palpable peripheral pulses. Neuro:The patient is awake and alert, oriented to day, time, and place. Muscle strength is 5/5 in all 4 extremities. The patient has equal machine cell tuber strength and equal pedal push and pull. There are no cerebellar signs. Current SOFA Score SOFA Score Response (Comments) Value Platelets (x10) > 150 0 Bilirubin (mg/dL) < 1.2 0 Efe Coma Score 15 0 Level of Hypotension No Hypotension 0 Creatinine (mg/dL) < 1.2 0 Total 0 Assessment & Plan 57F with a significant smoking history p/w acute on chronic hypoxic respiratory failure with altered mental status. Requiring increasing oxygen demand. Multifocal pneumonia status post recent RIGHT knee arthroplasty. Pt improved dramatically without intubation. Pt will be transferred to Med Surg today - Rm 250. We are stopping zosyn, continuing for a total 5 day course of Levofloxacin and converting Prednisone to 50mg with a 4 day taper. Neuro - * CAM ICU: NEGATIVE. * Chronic Lumbar Pain: * Continue Oxy/Gabapentin as needed and as BP tolerates. * Altered Mental Status (Confusion - RESOLVED): * Likely 2/2 hypercarbia. Improved while in ED. Cardiac - * No h/o cardia Dz. * EKG: Sinus Tach at 129 bmp w/ unchanged non-specific ST changes. * QTc: 457 ms * No complaints on admission, transferring to Med/Surg. Respiratory - * Acute on Chronic Hypercarbic Respiratory Failure. * Improved with nebs/increased O2. * At present she is on 2LNC. - continue to titrate. * Atypical Pneumonia on CTA: * Levofloxacin in ED - Agree with Levaquin for atypical coverage (will monitor daily EKGs for changes in QTc). Day #2 - anticipate total 5 day course. * Started on Zosyn by admitting team. Levoquin is probably adequate coverage. Will DC Zosyn today. Pt received 3 doses total on 05/29/17. * Will decrease Steroids to 50Prednisone daily for the next 4 days. * DUONEBs Q6H PRN. GI - * History of GERD: * Continue Protonix 40 mg QAM. RENAL/LYTES - * Hypokalemia at 3.6. * Will continue to monitor. * Serial PRPs - correct appropriately. - * I&Os * +2.5L since admission ENDO - * No h/o DM or Thyroid Dz. * Hyperglycemia: * HBA1C was 6.2, but pt is on steroids. * Will convert Insulin Drip to 6units Lantus BID + Novolog 1units above goal of 120-180 and 1unit per 15kcals of meals. HEME - * Stable H&H. * Leukocytosis 23.37-->22 in the setting of atypical pneumonia, exacerbated by steroids. * DVT Proph: Lovenox SQ daily. ID - * Atypical Pneumonia: * Levaquin/Zosyn as previously discussed. * MRSA Nares swab NEGATIVE. I have called and discussed the case and transfer to care with the Hospitalist Dr. Tao Quiñones at approximately 10:30am. FULL CODE Resident Physician Supervision Note: Dr. Dias was resident physician during care of patient. I separately evaluated patient and did history and exam. I discussed the case with the resident and generally agree with the findings and plan. Significant improvement in the last 24 hours. If the escalated her antibiotic coverage to Levaquin for 5 days. We will continue with a 5 day steroid burst for a COPD exacerbation. She is stable for downgrade to [facility]. Documented By: Dennis Li DO Consults & Procedures Consultants: Hospitalist Procedures: RIGHT EJ Data Medications: Current Inpatient Medications Medications (Trade) Dose Ordered Sig/Sherie Route Start Time Stop Time Status Last Admin Dose Admin Ioversol (Optiray 320) 100 ml UD PRN IV 05/28/17 18:15 06/01/17 18:14 Enoxaparin Sodium (Lovenox Inj) 40 mg QPM SQ 05/28/17 21:00 06/27/17 20:59 05/29/17 21:05 40 MG Acetaminophen (Tylenol Tab) 650 mg Q4H PRN PO 05/28/17 19:45 06/27/17 19:44 Levofloxacin (Consult) 1 ea UD PRN N/A 05/28/17 20:02 06/27/17 20:01 Albuterol/ Ipratropium (Duoneb) 3 ml Q6R INH 05/28/17 21:00 06/27/17 20:59 05/30/17 07:31 3 ML Methylprednisolone Sodium Succinate 40 mg/Syringe 0.64 ml @ 1.5 mls/min Q8H IV 05/29/17 01:00 06/28/17 00:59 05/30/17 08:00 1.5 MLS/MIN Amitriptyline HCl (Elavil Tab) 10 mg HS PO 05/28/17 21:00 06/27/17 20:59 05/29/17 21:01 10 MG Aspirin (Ecotrin Tab) 81 mg DAILY PO 05/29/17 09:00 06/28/17 08:59 05/30/17 08:00 81 MG Atorvastatin Calcium (Lipitor Tab) 20 mg HS PO 05/28/17 21:00 06/27/17 20:59 05/29/17 21:02 20 MG Salmeterol Xinafoate/ Fluticasone (Advair Diskus 250/50 Inh) 1 puff BID INH 05/28/17 21:00 06/27/17 20:59 05/30/17 08:00 1 PUFF Gabapentin (Neurontin Cap) 300 mg HS PO 05/28/17 21:00 06/27/17 20:59 05/29/17 21:02 300 MG Lorazepam (Ativan Tab) 1 mg TID PRN PO 05/28/17 20:00 06/27/17 19:59 05/29/17 22:44 1 MG Multivitamins/ Minerals (Multivitamin W/ Minerals Tab) 1 tab DAILY PO 05/29/17 09:00 06/28/17 08:59 05/30/17 08:00 1 TAB Quetiapine Fumarate (seroQUEL TAB) 400 mg DAILYBD PO 05/29/17 16:00 06/28/17 15:59 Future hold Oxycodone HCl (Roxicodone Immediate Rel Tab) 20 mg Q6H PRN PO 05/28/17 20:00 06/27/17 19:59 05/30/17 05:10 20 MG Albuterol/ Ipratropium (Duoneb) 3 ml Q2H PRN INH 05/28/17 20:15 06/27/17 20:14 Levofloxacin 750 mg/Prmx 150 ml @ 100 mls/hr Q24H IV 05/29/17 18:00 06/05/17 17:59 05/29/17 17:53 100 MLS/HR Insulin Aspart (novoLOG ASPART) SLIDING [facility] 05/29/17 08:00 06/28/17 07:59 Glucose (Glucose 40% Gel) 15-30 GRAMS 15 GRAMS... UD PRN PO 05/29/17 04:15 06/28/17 04:14 Glucose (Glucose Chew Tab) 4-8 Tablets 4 Tabl... UD PRN PO 05/29/17 04:15 06/28/17 04:14 Dextrose (Dextrose 50% 50ML Syringe) 25-50ML OF 50% DW IV FOR... UD PRN IV 05/29/17 04:15 06/28/17 04:14 Glucagon (Glucagon Inj) 1 mg UD PRN SQ 05/29/17 04:15 06/28/17 04:14 Insulin Human Regular 250 units/ Sodium Chloride 252.5 ml @ 0 mls/hr DAILY@1130 IV 05/29/17 05:45 06/28/17 05:44 05/29/17 05:47 2.9 MLS/HR Pantoprazole Sodium 40 mg/ Syringe 10 ml @ 5 mls/min DAILY@11 IV 05/29/17 11:00 06/28/17 10:59 05/29/17 10:00 5 MLS/MIN Miscellaneous Information (Consult Glycemic Management Pharmacy) 1 ea UD PRN N/A 05/29/17 12:30 06/28/17 12:29 Ipratropium [place] (Atrovent 0.02% 0.5MG/2.5ML Neb) 0.5 mg Q6 PRN INH 05/29/17 19:30 06/28/17 19:29 Levalbuterol (Xopenex 1.25MG/ 3ML Neb) 1.25 mg Q6R PRN INH 05/29/17 19:30 06/28/17 19:29 Potassium Chloride 20 meq/ Prmx 100 ml @ 50 mls/hr Q2H IV 05/30/17 05:00 05/30/17 08:59 05/30/17 05:57 50 MLS/HR Vital Signs: Date Time Temp Pulse Resp B/P (MAP) Pulse Ox O2 Delivery O2 Flow Rate FiO2 05/30/17 07:31 88 18 98 Nasal Cannula 2.0 05/30/17 06:00 90 20 141/74 (96) 91 Nasal Cannula 2.0 05/30/17 04:00 36.6 71 20 108/58 (75) 93 Nasal Cannula 2.0 05/30/17 04:00 Nasal Cannula 2.0 05/30/17 02:41 88 18 93 Nasal Cannula 2.0 05/30/17 02:00 67 20 120/56 (77) 95 Nasal Cannula 2.0 05/30/17 00:01 36.8 77 20 126/56 (79) 92 Nasal Cannula 2.0 05/29/17 23:59 Nasal Cannula 2.0 05/29/17 22:00 79 17 117/64 (81) 96 Nasal Cannula 2.0 05/29/17 20:00 Nasal Cannula 2.0 05/29/17 20:00 36.8 87 24 121/57 (78) 92 Nasal Cannula 2.0 05/29/17 19:31 91 22 95 Nasal Cannula 2.0 05/29/17 16:39 90 27 129/66 (87) 93 Oxymask 2.0 05/29/17 16:00 94 Nasal Cannula 2.0 05/29/17 14:20 90 20 92 Mask 2.0 05/29/17 12:00 92 Oxymask 2.0 Laboratory Results: Last 24 Hours Test 05/29/17 09:04 05/29/17 09:56 05/29/17 11:04 05/29/17 13:03 Total Bilirubin 0.3 mg/dl Direct Bilirubin 0.2 mg/dl Aspartate Amino Transf (AST/SGOT) 58 U/L Alanine Aminotransferase (ALT/SGPT) 35 U/L Alkaline Phosphatase 100 U/L Total Protein 6.2 gm/dl Albumin 2.3 gm/dl Lipase 52 U/L Hepatitis B Surface Antigen NEG Hepatitis C Antibody NEG Bedside Glucose 121 mg/dl 126 mg/dl 99 mg/dl Test 05/29/17 13:55 05/29/17 15:59 05/29/17 17:47 05/29/17 20:21 Bedside Glucose 111 mg/dl 151 mg/dl 205 mg/dl Sodium Level 141 mmol/L Potassium Level 3.0 mmol/L Chloride Level 105 mmol/L Carbon Dioxide Level 29 mmol/L Anion Gap 7.0 mmol/L Blood Urea Nitrogen 12 mg/dl Creatinine 0.66 mg/dl Est Creatinine Clear Calc Drug Dose 90.5 ml/min Estimated GFR () 113.7 Estimated GFR (Non- 98.1 BUN/Creatinine Ratio 18.0 Random Glucose 223 mg/dl Calcium Level 8.6 mg/dl Phosphorus Level 2.7 mg/dl Total Bilirubin 0.2 mg/dl Aspartate Amino Transf (AST/SGOT) 61 U/L Alanine Aminotransferase (ALT/SGPT) 35 U/L Alkaline Phosphatase 96 U/L Total Protein 6.1 gm/dl Albumin 2.4 gm/dl Globulin 3.7 gm/dl Albumin/Globulin Ratio 0.6 Test 05/29/17 22:03 05/29/17 23:19 05/30/17 00:10 05/30/17 01:10 Bedside Glucose 186 mg/dl 157 mg/dl 156 mg/dl 150 mg/dl Test 05/30/17 02:06 05/30/17 03:54 05/30/17 05:13 05/30/17 06:01 Bedside Glucose 129 mg/dl 138 mg/dl 142 mg/dl White Blood Count 21.93 K/uL Red Blood Count 3.31 M/uL Hemoglobin 10.4 g/dL Hematocrit 30.6 % Mean Corpuscular Volume 92.4 fL Mean Corpuscular Hemoglobin 31.4 pg Mean Corpuscular Hemoglobin Concent 34.0 g/dl RDW Standard Deviation 44.1 fL RDW Coefficient of Variation 12.9 % Platelet Count 252 K/uL Mean Platelet Volume 8.8 fL Sodium Level 140 mmol/L Potassium Level 3.6 mmol/L Chloride Level 106 mmol/L Carbon Dioxide Level 28 mmol/L Anion Gap 6.0 mmol/L Blood Urea Nitrogen 12 mg/dl Creatinine 0.56 mg/dl Est Creatinine Clear Calc Drug Dose 106.7 ml/min Estimated GFR () 120.0 Estimated GFR (Non- 103.5 BUN/Creatinine Ratio 22.0 Random Glucose 145 mg/dl Calcium Level 8.2 mg/dl Phosphorus Level 2.4 mg/dl Magnesium Level 2.3 mg/dl Resident Involvement: Resident Care Provided Care Provided: Adult Hospital Medicine
[2017-05-30] MEDS: INSULIN ASPART 100 UNITS/ML 3 ML PEN SC SCH ×5 (08:59→20:52)
[2017-05-30] MEDS: PANTOprazole SOD 40 MG TAB PO SCH (09:00)
[2017-05-30] MEDS: INSULIN REGULAR 250 UNITS in SODIUM CHLORIDE 0.9% 250ML 250 ML IV SCH (11:30)
[2017-05-30] MEDS ORDERED: NURSING VERBAL MED ORDER ONE (12:00)
[2017-05-30] MEDS ORDERED: INSULIN GLARGINE SOLOSTAR 100 UNITS/ML 3 ML PEN SC ONE (12:30)
--- NOTE | 2017-05-30 14:52 | Pharmacy Progress Note ---
Glycemic Control Progress Note Date of Service May 30, 2017. Scope Glycemic Pharmacist consulted for glycemic control to write orders per [facility] inpatient glycemic control protocol. Objective Accuchecks BSG (last 24hrs): Test 05/29/17 15:59 05/29/17 17:47 05/29/17 20:21 05/29/17 22:03 Bedside Glucose 151 mg/dl (70-90) 205 mg/dl (70-90) 186 mg/dl (70-90) Random Glucose 223 mg/dl (70-99) Test 05/29/17 23:19 05/30/17 00:10 05/30/17 01:10 05/30/17 02:06 Bedside Glucose 157 mg/dl (70-90) 156 mg/dl (70-90) 150 mg/dl (70-90) 129 mg/dl (70-90) Test 05/30/17 03:54 05/30/17 05:13 05/30/17 06:01 05/30/17 08:04 Bedside Glucose 138 mg/dl (70-90) 142 mg/dl (70-90) 240 mg/dl (70-90) Random Glucose 145 mg/dl (70-99) HbA1c: Test 05/29/17 06:13 Hemoglobin A1c 6.2 % (4.5-5.6) H Recent Pertinent Medications The patient is currently receiving: * IV insulin infusion, goal range 100-180mg/dL - infusing at ~0.8units/hr most of the night Outpatient Anti-Diabetic Meds no prior h/o DM Assessment & Plan ASSESSMENT: 05/30/17 * "Pre-diabetic" based upon most recent A1c 6.2%, currently experiencing steroid induced hyperglycemia * Steroids are being reduced today, Solu-Medrol 40mg IV Q 8 hrs --> Prednisone 50mg PO daily * BSGs were well controlled on the insulin drip, plan is to transition to SQ now that steroids being tapered. I anticipate improved insulin sensitivity over the next 24 hrs * Drip running at 0.8units/hr on higher dose of steroids controlled pt well however pt was NPO. I anticipate deterioration in glycemic control is aggressive post-prandial insulin provision * Will give a single dose of Lantus today and f/u on fasting AM BSG tomorrow to determine if further doses needed PLAN FOR INPATIENT GLYCEMIC CONTROL: * Lantus 10 units SQ x 1 (0.1 units/kg) - reassess tomorrow AM * Novolog SQ ACHS at at 0200 tonight * Correction factor 25 mg/dl/unit * Carb ratio 1 unit per 8 grams CHO consumed * Goal range Low 120 mg/dL - High 150 mg/dL * Reassess insulin dose w/ each step down in steroid dose * Please note that the plan above was derived based on current level of insulin resistance and hospital stress. These recommendations are appropriate for inpatient admission only. Plan of care upon discharge will need to be reassessed to avoid potential outpatient hypo/hyperglycemia. Thank you.
[2017-05-30] MEDS: AMOXICILLIN/CLAVULANATE TAB 875 MG TAB PO SCH (17:25)
--- NOTE | 2017-05-30 17:29 | Progress Note ---
Internal Med Progress Note Date of Service: May 30, 2017. Provider Documentation: SUBJECTIVE: feeling better saturating fine on nasal canula no chest pain feeling tired 'afebrile no nausea OBJECTIVE: Vital Signs-as noted below Exam: General-alert and awake. Not in distress ENT-normal hearing Neck-no neck masses Lungs-cta b/l no wheezing bibasilar crackles present Heart-s1 and s2 heard regular rate and rhythm no murmurs Abdomen-soft bowel sounds present non tender no distension Extremities-right knee sutures present no erythema Neuro-alert and awake moves extremities Lab data as noted below. ASSESSMENT & PLAN: ACUTE HYPOXIC RESPIRATORY FAILURE DUE TO COPD EXACERBATION AND HCAP SEPSIS presented with weakness, confusion and low oxygen sats CXR and Ct scan- B/l mid and lower lobe opacities mrsa swab negative was on iv Levaquin and Zosyn s/p picc line leukocytosis improving tapering steroids currently on po abx will monitor Right knee arthroscopy recently looks fine f/u with ortho. HYPOKALEMIA -replaced BIPOLAR, ANXIETY, DEPRESSION on Seroquel and amitriptyline CHRONIC BACK PAIN on gabapentin and PRN Oxycodone HLD on statin DVT PROPHYLAXIS SQ Lovenox CODE STATUS full DISPOSITION transferred to medical floor Vital Signs: Date Time Temp Pulse Resp B/P (MAP) Pulse Ox O2 Delivery O2 Flow Rate FiO2 05/30/17 14:50 36.6 86 20 132/70 (90) 91 Room Air 05/30/17 14:26 78 18 88 Room Air 05/30/17 12:38 36.8 72 20 113/69 (84) 92 Room Air 05/30/17 12:08 81 21 05/30/17 12:05 94 Room Air 05/30/17 10:00 88 05/30/17 08:00 93 Nasal Cannula 05/30/17 08:00 37.0 05/30/17 08:00 Nasal Cannula 05/30/17 07:31 88 18 98 Nasal Cannula 2.0 05/30/17 06:00 90 20 141/74 (96) 91 Nasal Cannula 2.0 05/30/17 04:00 36.6 71 20 108/58 (75) 93 Nasal Cannula 2.0 05/30/17 04:00 Nasal Cannula 2.0 05/30/17 02:41 88 18 93 Nasal Cannula 2.0 05/30/17 02:00 67 20 120/56 (77) 95 Nasal Cannula 2.0 05/30/17 00:01 36.8 77 20 126/56 (79) 92 Nasal Cannula 2.0 05/29/17 23:59 Nasal Cannula 2.0 05/29/17 22:00 79 17 117/64 (81) 96 Nasal Cannula 2.0 05/29/17 20:00 Nasal Cannula 2.0 05/29/17 20:00 36.8 87 24 121/57 (78) 92 Nasal Cannula 2.0 05/29/17 19:31 91 22 95 Nasal Cannula 2.0 Lab Results: Results Past 24 Hours Test 05/29/17 17:47 05/29/17 20:21 05/29/17 22:03 05/29/17 23:19 Range/Units Sodium Level 141 136-145 mmol/L Potassium Level 3.0 3.5-5.1 mmol/L Chloride Level 105 98-107 mmol/L Carbon Dioxide Level 29 21-32 mmol/L Anion Gap 7.0 3-11 mmol/L Blood Urea Nitrogen 12 7-18 mg/dl Creatinine 0.66 0.60-1.20 mg/dl Est Creatinine Clear Calc Drug Dose 90.5 ml/min Estimated GFR () 113.7 Estimated GFR (Non- 98.1 BUN/Creatinine Ratio 18.0 10-20 Random Glucose 223 70-99 mg/dl Calcium Level 8.6 8.5-10.1 mg/dl Phosphorus Level 2.7 2.5-4.9 mg/dl Total Bilirubin 0.2 0.2-1 mg/dl Aspartate Amino Transf (AST/SGOT) 61 15-37 U/L Alanine Aminotransferase (ALT/SGPT) 35 12-78 U/L Alkaline Phosphatase 96 45-117 U/L Total Protein 6.1 6.4-8.2 gm/dl Albumin 2.4 3.4-5.0 gm/dl Globulin 3.7 2.5-4.0 gm/dl Albumin/Globulin Ratio 0.6 0.9-2 Bedside Glucose 205 186 157 70-90 mg/dl Test 05/30/17 00:10 05/30/17 01:10 05/30/17 02:06 05/30/17 03:54 Range/Units Bedside Glucose 156 150 129 138 70-90 mg/dl Test 05/30/17 05:13 05/30/17 06:01 05/30/17 08:04 05/30/17 11:36 Range/Units White Blood Count 21.93 4.8-10.8 K/uL Red Blood Count 3.31 4.2-5.4 M/uL Hemoglobin 10.4 12.0-16.0 g/dL Hematocrit 30.6 37-47 % Mean Corpuscular Volume 92.4 80-100 fL Mean Corpuscular Hemoglobin 31.4 25-34 pg Mean Corpuscular Hemoglobin Concent 34.0 32-36 g/dl RDW Standard Deviation 44.1 36.4-46.3 fL RDW Coefficient of Variation 12.9 11.5-14.5 % Platelet Count 252 130-400 K/uL Mean Platelet Volume 8.8 7.4-10.4 fL Sodium Level 140 136-145 mmol/L Potassium Level 3.6 3.5-5.1 mmol/L Chloride Level 106 98-107 mmol/L Carbon Dioxide Level 28 21-32 mmol/L Anion Gap 6.0 3-11 mmol/L Blood Urea Nitrogen 12 7-18 mg/dl Creatinine 0.56 0.60-1.20 mg/dl Est Creatinine Clear Calc Drug Dose 106.7 ml/min Estimated GFR () 120.0 Estimated GFR (Non- 103.5 BUN/Creatinine Ratio 22.0 10-20 Random Glucose 145 70-99 mg/dl Calcium Level 8.2 8.5-10.1 mg/dl Phosphorus Level 2.4 2.5-4.9 mg/dl Magnesium Level 2.3 1.8-2.4 mg/dl Bedside Glucose 142 240 164 70-90 mg/dl Test 05/30/17 16:15 Range/Units Bedside Glucose 109 70-90 mg/dl
[2017-05-30] MEDS: LORAZEPAM 1 MG TAB PO PRN (17:32)
[2017-05-30] MEDS ORDERED: LEVOFLOXACIN 750 MG TAB PO SCH (18:00)
[2017-05-30] MEDS: AMITRIPTYLINE HCL 10 MG TAB PO SCH (20:51)
[2017-05-30] MEDS: ATORVASTATIN 20 MG TAB PO SCH (20:51)
[2017-05-30] MEDS: GABAPENTIN 300 MG CAP PO SCH (20:52)
[2017-05-30] MEDS: ENOXAPARIN 40 MG/0.4 ML SYR SQ SCH (20:52)
[2017-05-31] VITALS (8 sets, daily range): BP systolic 118–153; BP diastolic 65–84; PULSE 76–107; TEMP 36.7–37; O2SAT 91–93
[2017-05-31] MEDS ORDERED: INSULIN ASPART 100 UNITS/ML 3 ML PEN SC ONE (02:00)
[2017-05-31] MEDS: ALBUT/IPRATROP 3MG/0.5MG NEB 3 ML VIAL INH SCH ×3 (02:03→14:10)
[2017-05-31 06:13] LABS: CREATININE 0.64 mg/dl (0.60-1.20)
[2017-05-31] MEDS: OXYCODONE HCL IR 5 MG TAB (IMMEDIATE RELEASE) PO PRN ×2 (06:26→15:23)
[2017-05-31] MEDS: FLUTICASONE/SALMETEROL 250/50 (ADVAIR) 14 PUFF/1 INHALER INH SCH (08:17)
[2017-05-31] MEDS: PANTOprazole SOD 40 MG TAB PO SCH (08:17)
[2017-05-31] MEDS: AMOXICILLIN/CLAVULANATE TAB 875 MG TAB PO SCH (08:17)
[2017-05-31] MEDS: CEROVITE ADV FORMULA TAB PO SCH (08:17)
[2017-05-31] MEDS: ASPIRIN 81 MG ECTAB PO SCH (08:17)
[2017-05-31] MEDS: INSULIN ASPART 100 UNITS/ML 3 ML PEN SC SCH ×2 (08:19→12:04)
[2017-05-31 08:32] LABS: BASO % 0.2 %; BASO ABS # 0.02 K/uL (0-0.2); COMPLETE YES; EOS % 0.2 %; HEMATOCRIT 33.1 % (37-47); IG% 1.7 %; LYMPH % 18.3 %; LYMPH ABS # 2.42 K/uL (1.2-3.4); MEAN CELL VOLUME 92.5 fL (80-100); MEAN CORPUSCULAR HEMOGLOBIN 30.4 pg (25-34); MEAN CORPUSCULAR HGB CONC 32.9 g/dl (32-36); MEAN PLATELET VOLUME 8.5 fL (7.4-10.4); MONO % 9.5 %; NEUT % 70.1 %; PLATELET COUNT 248 K/uL (130-400); RED BLOOD COUNT 3.58 M/uL (4.2-5.4)
[2017-05-31] MEDS ORDERED: INSULIN GLARGINE SOLOSTAR 100 UNITS/ML 3 ML PEN SC SCH (09:00)
[2017-05-31 09:02] LABS: CALCIUM 8.8 mg/dl (8.5-10.1); CREATININE 0.75 mg/dl (0.60-1.20); MAGNESIUM 2.2 mg/dl (1.8-2.4)
--- NOTE | 2017-05-31 09:21 | Pharmacy Progress Note ---
Glycemic Control Progress Note Date of Service May 31, 2017. Scope Glycemic Pharmacist consulted for glycemic control to write orders per [facility] inpatient glycemic control protocol. Objective Accuchecks BSG (last 24hrs): Test 05/30/17 11:36 05/30/17 16:15 05/30/17 20:15 05/31/17 02:03 Bedside Glucose 164 mg/dl (70-90) 109 mg/dl (70-90) 98 mg/dl (70-90) 93 mg/dl (70-90) Test 05/31/17 07:33 05/31/17 08:19 Bedside Glucose 94 mg/dl (70-90) Random Glucose 138 mg/dl (70-99) HbA1c: Test 05/29/17 06:13 Hemoglobin A1c 6.2 % (4.5-5.6) H Recent Pertinent Medications The patient is currently receiving: * Basal insulin: Lantus 10 units X 1 yesterday * Correctional Insulin: Novolog Correction per scale ACHS Goal Range: Low 120 mg/dL - High 150 mg/dL Correction Factor: 25 mg/dL/unit * Prandial insulin: Per carb ratio of 1 unit per 8 grams CHO consumed Outpatient Anti-Diabetic Meds n/a Assessment & Plan ASSESSMENT: * See progress note from 05/30 for more background info, in short: * Pt receiving SQ basal bolus insulin regimen for hyperglycemia secondary to baseline DM (outpatient regimen on hold),stress/infection, steroids * Steroids have been reduced from Solu-medrol 40 mg IV q8h (rec'd 2 doses yesterday) -> prednisone 50 mg daily x 4 days * Minimal po intake yesterday * Patient is currently receiving an average of 12 units of insulin per day ( also received ~10 units of IV yesterday) * BSGs ranging 93 - 164 mg/dl over the past 24hrs * Changes needed to insulin regimen: * AM Fasting BSG = 94 mg/dl. This is in goal range for patient based on inpatient targets and co-morbidities. Will continue basal insulin but reduce slightly since steroids to be reduced. * Post-prandial BSGs are in range but will loosen CF/CR as well since steroids reduced PLAN FOR INPATIENT GLYCEMIC CONTROL: * Decrease Lantus to 7 units qAM (x 4 days w/ prednisone) * Continue Novolog ACHS * Goal 120-150 * LOOSEN CF to 30 * LOOSEN CR to 10 RECOMMENDATIONS FOR DISCHARGE: * A1c is consistent with pre-diabetes * Recommendations would include lifestyle modifications (healthy eating, weight control, exercise) * Continue close f/u with outpatient provider Thank you.
[2017-05-31] MEDS: LORAZEPAM 1 MG TAB PO PRN (14:11)
[2017-05-31] MEDS ORDERED: AMOX1TAB43 PO (14:58)
[2017-05-31] MEDS ORDERED: PRED10TA PO (14:58)
[2017-05-31] MEDS ORDERED: LCTX PO (14:58)
[2017-05-31] MEDS ORDERED: LVQ750 PO (14:58)
[2017-05-31] MEDS ORDERED: POTASSIUM CHLORIDE 20 MEQ TABCR PO ONE (15:00)
--- NOTE | 2017-05-31 15:00 | Discharge Instructions ---
Discharge Instructions Date of Service May 31, 2017. Admission Reason for Admission: Copd Excerbation, Pneumonia Discharge Discharge Diagnosis / Problem: ACUTE HYPOXIC RESP FAILURE, COPD EX, PNEUMONIA Discharge Goals Goal(s): Decrease discomfort, Improve function Activity Recommendations Activity Limitations: resume your previous activity . Instructions / Follow-Up Instructions / Follow-Up FOLLOWUP WITH FAMILY DOCTOR ON May AT 2PM FOLLOWUP WITH ORTHOPEDICS SCHEDULED. BORDERLINE DIABETES( HBA1C 6.2) . ADVICE FOR DIABETIC DIET AND CLOSE FOLLOWUP WITH PCP. Current Hospital Diet Patient's current hospital diet: Diabetes Type 2 Diet Discharge Diet Recommended Diet: AHA Diet (Heart Healthy), Diabetes Type 2 Diet Pending Studies Studies pending at discharge: no Laboratory Results Hemoglobin A1c Test 05/29/17 06:13 Range/Units Estimated Average Glucose 131 mg/dl Hemoglobin A1c 6.2 H 4.5-5.6 % Medical Emergencies . Who to Call and When: Medical Emergencies: If at any time you feel your situation is an emergency, please call 911 immediately. . Non-Emergent Contact Non-Emergency issues call your: Primary Care Provider . . "Provider Documentation" section prepared by Franco Quiñones. . VTE Core Measure Inpt VTE Proph given/why not?: Enoxaparin (Lovenox)SQ
--- NOTE | 2017-05-31 15:01 | DIAGNOSTIC IMAGING REPORT ---
VIDEO SWALLOW STUDY CLINICAL HISTORY: Aspiration. COMPARISON STUDY: Barium esophagram dated 01/23/2011. Fluoroscopy time: 1.4 minutes. FINDINGS: Fluoroscopic guidance is provided to the Department of Speech Pathology in performing a video swallow study. The patient consumed barium-impregnated pudding, nectar thick liquid, cracker with paste, and thin barium while the swallowing mechanism was observed in real-time. No penetration or aspiration was seen with any of the sampled textures. Mild esophageal dysmotility is observed. IMPRESSION: No penetration or aspiration was seen with any of the sampled textures. See dedicated Speech Pathology report for detailed findings and recommendations. Electronically signed by: Ozzy Chiang M.D. 05/31/2017 2:59 PM Dictated Date/Time: 05/31/2017 2:58 PM
--- NOTE | 2017-05-31 18:27 | Progress Note ---
Internal Med Progress Note Date of Service: May 31, 2017. Provider Documentation: SUBJECTIVE: resting comfortably denies sob or cough afebrile want to go home but agreed to do video swallow OBJECTIVE: Vital Signs-as noted below Exam: General-alert and awake. Not in distress ENT-normal hearing Neck-no neck masses Lungs-cta b/l no wheezing no crackles present Heart-s1 and s2 heard regular rate and rhythm no murmurs Abdomen-soft bowel sounds present non tender no distension Extremities- no erythema Neuro-alert and awake moves extremities Lab data as noted below. ASSESSMENT & PLAN: ACUTE HYPOXIC RESPIRATORY FAILURE DUE TO COPD EXACERBATION AND HCAP SEPSIS presented with weakness, confusion and low oxygen sats CXR and Ct scan- B/l mid and lower lobe opacities mrsa swab negative was on iv Levaquin and Zosyn s/p picc line leukocytosis improving tapering steroids currently on po abx d/jorje on tapering steroids and po abx did fine with video swallow Right knee arthroscopy recently looks fine f/u with ortho. HYPOKALEMIA -replaced BIPOLAR, ANXIETY, DEPRESSION on Seroquel and amitriptyline CHRONIC BACK PAIN on gabapentin and PRN Oxycodone HLD on statin discharged home Vital Signs: Date Time Temp Pulse Resp B/P (MAP) Pulse Ox O2 Delivery O2 Flow Rate FiO2 05/31/17 15:09 36.9 76 18 91 Room Air 05/31/17 14:58 36.9 76 18 146/69 (94) 91 Room Air 05/31/17 14:11 107 16 92 Room Air 05/31/17 08:30 Room Air 05/31/17 07:14 36.7 77 18 153/84 (107) 92 Room Air 05/31/17 07:01 79 16 92 Room Air 05/31/17 02:03 81 16 93 Nasal Cannula 2.0 05/31/17 00:11 37.0 81 16 118/65 (82) 93 Nasal Cannula 2.0 05/31/17 00:06 92 Nasal Cannula 2.0 05/30/17 20:38 85 18 92 Room Air 05/30/17 19:45 Room Air Lab Results: Results Past 24 Hours Test 05/30/17 20:15 05/31/17 02:03 05/31/17 05:39 05/31/17 07:33 Range/Units Bedside Glucose 98 93 94 70-90 mg/dl Creatinine 0.64 0.60-1.20 mg/dl Est Creatinine Clear Calc Drug Dose 94.4 ml/min Estimated GFR () 114.8 Estimated GFR (Non- 99.1 Test 05/31/17 08:19 05/31/17 11:21 Range/Units White Blood Count 13.20 4.8-10.8 K/uL Red Blood Count 3.58 4.2-5.4 M/uL Hemoglobin 10.9 12.0-16.0 g/dL Hematocrit 33.1 37-47 % Mean Corpuscular Volume 92.5 80-100 fL Mean Corpuscular Hemoglobin 30.4 25-34 pg Mean Corpuscular Hemoglobin Concent 32.9 32-36 g/dl Platelet Count 248 130-400 K/uL Mean Platelet Volume 8.5 7.4-10.4 fL Neutrophils (%) (Auto) 70.1 % Lymphocytes (%) (Auto) 18.3 % Monocytes (%) (Auto) 9.5 % Eosinophils (%) (Auto) 0.2 % Basophils (%) (Auto) 0.2 % Neutrophils # (Auto) 9.26 1.4-6.5 K/uL Lymphocytes # (Auto) 2.42 1.2-3.4 K/uL Monocytes # (Auto) 1.26 0.11-0.59 K/uL Eosinophils # (Auto) 0.02 0-0.5 K/uL Basophils # (Auto) 0.02 0-0.2 K/uL RDW Standard Deviation 44.7 36.4-46.3 fL RDW Coefficient of Variation 13.1 11.5-14.5 % Immature Granulocyte % (Auto) 1.7 % Immature Granulocyte # (Auto) 0.22 0.00-0.02 K/uL Sodium Level 142 136-145 mmol/L Potassium Level 3.0 3.5-5.1 mmol/L Chloride Level 104 98-107 mmol/L Carbon Dioxide Level 33 21-32 mmol/L Anion Gap 5.0 3-11 mmol/L Blood Urea Nitrogen 12 7-18 mg/dl Creatinine 0.75 0.60-1.20 mg/dl Est Creatinine Clear Calc Drug Dose 80.6 ml/min Estimated GFR () 102.6 Estimated GFR (Non- 88.5 BUN/Creatinine Ratio 16.0 10-20 Random Glucose 138 70-99 mg/dl Calcium Level 8.8 8.5-10.1 mg/dl Magnesium Level 2.2 1.8-2.4 mg/dl Bedside Glucose 113 70-90 mg/dl Microbiology Results 05/31/17 Gram Stain, Received Pending 05/31/17 Sputum Culture, Received Pending
--- NOTE | 2017-05-31 18:38 | Discharge Summary ---
Discharge Summary Date of Service May 31, 2017. Discharge Summary Admission Date: May 28, 2017 at 19:40 Discharge Date: May 31, 2017 Discharge Disposition: Home Principal Diagnosis: ACUTE HYPOXIC RESPIRATORY FAILURE PNEUMONIA COPD EXACERBATION SEPSIS Secondary Diagnoses/Problems: (1) Anxiety Status: Chronic (2) Bipolar 1 disorder Status: Chronic (3) COPD, moderate Status: Chronic (4) Depression Status: Chronic (5) GERD (gastroesophageal reflux disease) Status: Chronic (6) HLD (hyperlipidemia) Status: Chronic (7) Nocturnal hypoxemia Status: Chronic Procedures: CTA CHEST: 1. No definite evidence for pulmonary embolus. 2. Near diffuse tree-in-bud nodular opacities most pronounced within the lower lobes with a few small patchy airspace opacities within the base of the left lower lobe. There are few small groundglass airspace opacities within the right lung apex. These findings are consistent with an atypical pneumonia/infectious bronchiolitis. VENOUS DOPPLER: 1. No evidence of deep venous thrombus within the bilateral lower extremities. 2. Suspected complex bilateral popliteal cysts. LIVER US: 1. No gallstones. No gallbladder wall thickening. 2. Mild dilatation of the common bile duct. No common bile duct calculi identified. This could be correlated with obstructive liver function tests. 3. Fatty liver. VIDEO SWALLOW: No penetration or aspiration was seen with any of the sampled textures. See dedicated Speech Pathology report for detailed findings and recommendations. Consultations: CRITICAL CARE Medication Reconciliation New Medications: Lactobacillus Acidophilus (Lactinex) Tab 2 TAB PO BID for 10 Days, TAB Prednisone (Prednisone) 10 Mg Tab 40 MG PO UD, #20 TAB PREDNISONE 40MG PO DAILY X 2 DAYS THEN PREDNISONE 30MG PO DAILY X 2 DAYS THEN PREDNISONE 20MG PO DAILY X 2 DAYS THEN PREDNISONE 10MG PO DAILY X 2 DAYS THEN STOP. Amoxicillin & Pot Clavulanate (Amoxicillin/Clavulanate P) 1 Tab Tab 875 MG PO BIDM for 6 Days, TAB Levofloxacin (Levofloxacin) 750 Mg Tab 750 MG PO DAILY@1800 for 6 Days, TAB Continued Medications: Albuterol Sulfate (Proair Respiclick) 108 Mcg/Act Aer 2 PUFFS INH Q4 PRN for SOB/Wheezing Amitriptyline Hcl (Elavil) 10 Mg Tab 1 TAB PO HS for 30 Days, #30 TAB 1 Refill Aspirin (Aspirin Ec) 81 Mg Tab 81 MG PO DAILY Atorvastatin (Lipitor) 20 Mg Tab 20 MG PO HS, TAB Fluticasone Prop/Salmeterol (Advair Diskus 250/50 60 Dose) 1 Ea Aerp 1 PUFF INH BID, INHALER Furosemide (Lasix) 20 Mg Tab 20 MG PO DAILY PRN for Fluid Accumulation/Weight Gain, TAB Gabapentin (Neurontin) 300 Mg Cap 300 MG PO HS, CAP Home O2 Therapy (Oxygen) Gas 2 LITERS NA HS USE DURING ALL PERIODS OF SLEEP. Ipratropium-Albuterol (Duoneb) 3 Ml Nebu 1 TREATMENT INH QID PRN for Cough,SOB or Wheeze, INHA Lorazepam (Ativan) 1 Mg Tab 1 MG PO TID PRN for Anxiety, TAB Meloxicam (Mobic) 7.5 Mg Tab 7.5 MG PO BID PRN for Pain, TAB Multiple Vitamins W/ Minerals (Multi For Her 50+) 1 Tab Tab 1 TAB PO DAILY Oxycodone Hcl (Oxycodone Hcl) 10 Mg Tab 20 MG PO Q6H PRN for Pain for 30 Days, #240 TAB Pantoprazole (Protonix) 40 Mg Tab 40 MG PO BID, 0 Refills TAKE THIS MEDICATION ON AN EMPTY STOMACH. Quetiapine Fumarate (Seroquel) 400 Mg Tab 400 MG PO DAILYBD, 0 Refills Sumatriptan Succinate (Imitrex) 100 Mg Tab 100 MG PO UD PRN for Migraine TAKE ONE TIME ONLY. Tiotropium Bailey (Spiriva Handihaler) 18 Mcg/ Aerp 1 CAP INH DAILY, 0 Refills Admission Information HPI (per Admitting provider): 57 year old female who presents to the ED with confusion and and low pulse ox readings at home. Patient had arthroscopic knee surgery done 5 days ago. She reports she initially felt well after the surgery however the following day she was very tired and weak. Patient wears oxygen 2L at nighttime. She felt like she was getting a little short of breath so she started to wear her oxygen all the time and she had no further shortness of breath. 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 Daughter is at the bedside who reports that when she talked to her mother today she noticed she was very confused. When she went to visit her, she checked her pulse and it was 76%. She then presented to the ED for further evaluation. Patient denies fever and chills. No chest pain or palpitations. She denies lightheadedness, dizziness, diaphoresis, and syncopal events. No abdominal pain, nausea, vomiting, or diarrhea. She denies urinary symptoms. In the ED, patient was febrile, tachycardic, tachypneic, and hypoxic on 2L NC. She is currently requiring 4L oxygen via oxymask. WBC 22K, BP is stable. CT chest is showing atypical pneumonia. Patient was treated with IV solumedrol, neb, IV Levaquin, IVF, and Tylenol. Physical Exam (per Admitting): General Appearance: WD/WN, no apparent distress Head: normocephalic, atraumatic Eyes: normal inspection, EOMI, sclerae normal ENT: hearing grossly normal, + pertinent finding (moist mucous membranes) Neck: supple, no JVD, trachea midline Respiratory/Chest: no respiratory distress, + decreased breath sounds (poor air entry), + crackles (scattered, fine), + wheezing (scattered inspiratory and expiratory throughout all lung alejandro ) Cardiovascular: no edema, normal peripheral pulses, + tachycardia (regular rhythm) Abdomen/GI: normal bowel sounds, non tender, soft, no organomegaly Extremities/Musculoskelatal: normal inspection, no calf tenderness Neurologic/Psych: no motor/sensory deficits, normal mood/affect, oriented x 3, + pertinent finding (somewhat lethargic at times, falls asleep quickly however arouses to verbal stimuli) Skin: normal color, warm/dry Hospital Course ACUTE HYPOXIC RESPIRATORY FAILURE DUE TO COPD EXACERBATION AND HCAP SEPSIS presented with weakness, confusion and low oxygen sats CXR and Ct scan- B/l mid and lower lobe opacities mrsa swab negative was on iv Levaquin and Zosyn s/p picc line leukocytosis improving tapering steroids currently on po abx d/jorje on tapering steroids and po abx did fine with video swallow Right knee arthroscopy recently looks fine f/u with ortho. HYPOKALEMIA -replaced BIPOLAR, ANXIETY, DEPRESSION on Seroquel and amitriptyline CHRONIC BACK PAIN on gabapentin and PRN Oxycodone HLD on statin discharged home Total time spent on discharge = 35MINUTES This includes examination of the patient, discharge planning, medication reconciliation, and communication with other providers. Discharge Instructions Discharge Instructions Date of Service May 31, 2017. Admission Reason for Admission: Copd Excerbation, Pneumonia Discharge Discharge Diagnosis / Problem: ACUTE HYPOXIC RESP FAILURE, COPD EX, PNEUMONIA Discharge Goals Goal(s): Decrease discomfort, Improve function Activity Recommendations Activity Limitations: resume your previous activity . Instructions / Follow-Up Instructions / Follow-Up FOLLOWUP WITH FAMILY DOCTOR ON May AT 2PM FOLLOWUP WITH ORTHOPEDICS SCHEDULED. BORDERLINE DIABETES( HBA1C 6.2) . ADVICE FOR DIABETIC DIET AND CLOSE FOLLOWUP WITH PCP. Current Hospital Diet Patient's current hospital diet: Diabetes Type 2 Diet Discharge Diet Recommended Diet: AHA Diet (Heart Healthy), Diabetes Type 2 Diet Pending Studies Studies pending at discharge: no Laboratory Results Hemoglobin A1c Test 05/29/17 06:13 Range/Units Estimated Average Glucose 131 mg/dl Hemoglobin A1c 6.2 H 4.5-5.6 % Medical Emergencies . Who to Call and When: Medical Emergencies: If at any time you feel your situation is an emergency, please call 911 immediately. . Non-Emergent Contact Non-Emergency issues call your: Primary Care Provider . . "Provider Documentation" section prepared by Franco Quiñones. . VTE Core Measure Inpt VTE Proph given/why not?: Enoxaparin (Lovenox)SQ
== END 2017-05-31 16:30 | disposition home or self-care (01) | DRG 871 ==
LOC: C.EDB 16:51 → C.MSICU 19:40 → ENRESERV 19:46 → C.MS2W 05-30 12:30
PROVIDERS: ADMIT Hospitalist; ATTEND Internal Medicine
PROC: 02HV33Z Insertion of Infusion Device into Superior Vena Cava, Percutaneous Approach (ICD-10-PCS; principal; 2017-05-29)
DX: A41.9 Sepsis, unspecified organism (principal); J96.21 Acute and chronic respiratory failure with hypoxia; J96.22 Acute and chronic respiratory failure with hypercapnia; J18.9 Pneumonia, unspecified organism; J44.1 Chronic obstructive pulmonary disease with (acute) exacerbation; J44.0 Chronic obstructive pulmonary disease with (acute) lower respiratory infection; Y95 Nosocomial condition; E87.6 Hypokalemia; R73.9 Hyperglycemia, unspecified; K76.0 Fatty (change of) liver, not elsewhere classified; K82.8 Other specified diseases of gallbladder; K21.9 Gastro-esophageal reflux disease without esophagitis; E78.5 Hyperlipidemia, unspecified; G89.29 Other chronic pain; M54.5 Low back pain; F31.9 Bipolar disorder, unspecified; F41.9 Anxiety disorder, unspecified; F17.200 Nicotine dependence, unspecified, uncomplicated; Z98.890 Other specified postprocedural states; Z99.81 Dependence on supplemental oxygen; Z86.718 Personal history of other venous thrombosis and embolism; Z79.1 Long term (current) use of non-steroidal anti-inflammatories (NSAID); Z79.51 Long term (current) use of inhaled steroids; Z79.82 Long term (current) use of aspirin; Z79.899 Other long term (current) drug therapy

== ENCOUNTER 2018-11-16 17:12 | Observation (INO) ==
[2018-11-16] MEDS ORDERED: methylPREDNISolone 125 MG/2 ML VIAL IV STA (17:39)
[2018-11-16] MEDS ORDERED: ALBUT/IPRATROP 3MG/0.5MG NEB 3 ML VIAL INH STA (17:39)
[2018-11-16 17:54] LABS: Base Excess VBG 7.6 mEq/L; Oxygen Saturation VBG 87.9 %; pH VBG 7.34 (7.36-7.41)
[2018-11-16 17:55] LABS: Basophils # (auto) 0.02 K/uL (0-0.2); Basophils % (auto) 0.2 %; Eosinophils # (auto) 0.35 K/uL (0-0.5); Eosinophils % (auto) 4.3 %; Hematocrit (blood only) 36.2 % (37-47); Hemoglobin 11.7 g/dL (12.0-16.0); Immature Granulocytes # (auto) 0.01 K/uL (0.00-0.02); Immature Granulocytes % (auto) 0.1 %; Lymphocytes # (auto) 2.41 K/uL (1.2-3.4); Lymphocytes % (auto) 29.9 %; Mean Corpuscular Hgb Conc 32.3 g/dL (32-36); Mean Corpuscular Volume 97.1 fL (80-100); Mean Platelet Volume 8.6 fL (7.4-10.4); Monocytes # (auto) 0.65 K/uL (0.11-0.59); Monocytes % (auto) 8.1 %; Neutrophils # (auto) 4.62 K/uL (1.4-6.5); Neutrophils % (auto) 57.4 %; Platelet Count 243 K/uL (130-400); RDW Coefficient of Variation 13.8 % (11.5-14.5); RDW Standard Deviation 49.3 fL (36.4-46.3); Red Blood Count 3.73 M/uL (4.2-5.4); White Blood Count 8.06 K/uL (4.8-10.8)
--- NOTE | 2018-11-16 18:05 | XRay Report ---
XR chest 1V portable HISTORY: 58 years-old Female Dyspnea acute shortness of breath COMPARISON: CTA chest and chest radiograph 10/25/2018 TECHNIQUE: Portable AP view of the chest FINDINGS: Cardiomediastinal and hilar silhouettes are within normal limits. No pneumothorax, pleural effusion o r overt pulmonary edema. Minimal left basilar opacities are noted. Right lung is generally clear. Bon es of the chest appear grossly intact. IMPRESSION: Minimal left basilar opacities are noted suggestive of atelectasis or pneumonitis. The above report was generated using voice recognition software. It may contain grammatical, syntax o r spelling errors. Electronically signed by: Rishi Eng M.D. 11/16/2018 6:04 PM
[2018-11-16 18:06] LABS: INR 1.1 (0.9-1.1); Partial Thromboplastin Ratio 1.1; Partial Thromboplastin Time 28.6 Seconds (21.0-31.0)
[2018-11-16 18:15] LABS: Alanine Aminotransferase 21 U/L (12-78); Albumin Level 3.3 gm/dl (3.4-5.0); Aspartate Aminotransferase 17 U/L (15-37); BUN Creatinine Ratio 4.1 (10-20); Blood Urea Nitrogen 3 mg/dl (7-18); Calcium 8.6 mg/dl (8.5-10.1); Carbon Dioxide 36 mmol/L (21-32); Chloride 105 mmol/L (98-107); Creatinine Clr Calc Pharmacy 76.6 ml/min; Est GFR (African American) 88.8; Est GFR (Non-African American) 76.6; Glucose 103 mg/dl (70-99); Potassium 3.5 mmol/L (3.5-5.1); Sodium 144 mmol/L (136-145)
[2018-11-16 18:20] LABS: Alkaline Phosphatase 137 U/L (45-117); Bilirubin,Total 0.2 mg/dl (0.2-1); Globulin 3.5 gm/dl (2.5-4.0); Total Protein 6.8 gm/dl (6.4-8.2); Troponin I < 0.015 ng/ml (0-0.045)
[2018-11-16 19:00] LABS: Influenza A virus by PCR Neg for Influ A (Neg); Influenza B virus by PCR Neg for Influ B (Neg)
--- NOTE | 2018-11-16 19:15 | Emergency Department Note ---
Entered by Dickson Bailey acting as a scribe for Bar Hills M.D. History of Present Illness General Chief complaint: Shortness of Breath/Dyspnea Stated complaint: TROUBLE BREATHING, NEEDS O2 Source: patient History of Present Illness Onset (ago): day(s) (this morning) Location: chest Pain Consistency: + constant Maximum Pain Intensity: 8 Quality: + other (SOB) Associated symptoms: + other (Positive for a yellowish/brown productive cough and intermittent back spasms. Negative for sore throat.) The patient is a 58 year old female who presents to the emergency department with complaints of constant SOB beginning this morning. The patient states that she has been sick for the last five weeks. She notes that she woke up this morning and felt delirious. She reports that she took her oxygen level at home and she states that it was 65%. She notes that she wears oxygen at night, and she reports that she has been wearing oxygen during the day since she got sick. She also complains of a yellowish/brown productive cough and intermittent back spasms. She denies any sore throat. The patient states that she smokes cigarettes. Home Medications Home Medications Medication Instructions Recorded Confirmed Type albuterol sulfate 2 puff INHALATION QID PRN 10/25/18 11/16/18 History albuterol sulfate 3 ml INHALATION QID PRN 10/25/18 11/16/18 History amitriptyline 10 mg PO HS 10/25/18 11/16/18 History aspirin [Aspirin Low Dose] 81 mg PO QAM 10/25/18 11/16/18 History atorvastatin 20 mg PO HS 10/25/18 11/16/18 History furosemide 20 mg PO DAILY PRN 10/25/18 11/16/18 History gabapentin 300 mg PO BID 10/25/18 11/16/18 History lorazepam 1 mg PO TID PRN 10/25/18 11/16/18 History meloxicam [Mobic] 7.5 mg PO BID 10/25/18 11/16/18 History sazssmah-btu-ZK-Ca carb-vit K 1 tab PO QAM 10/25/18 11/16/18 History [Women's 50 Plus Multivitamin] oxycodone 20 mg PO TID 10/25/18 11/16/18 History pantoprazole 40 mg PO BID 10/25/18 11/16/18 History quetiapine [Seroquel] 400 mg PO HS 10/25/18 11/16/18 History sumatriptan succinate 100 mg PO DAILY PRN 10/25/18 11/16/18 History triamcinolone acetonide 1 applic TOPICAL BID 10/25/18 11/16/18 History aphaiwvddlf-clamiarsw-nwfrysdj 1 inh INHALATION QAM 11/16/18 11/16/18 History [Trelegy Ellipta] Allergies Allergy/AdvReac Type Severity Reaction Status Date / Time doxycycline Allergy Intermediate Hives Verified 11/16/18 18:55 morphine Allergy Intermediate ITCHING AT Verified 11/16/18 18:55 IV SITE ONLY iodine Allergy Unknown RASH Verified 11/16/18 18:55 valproic acid Allergy Unknown 0 Verified 11/16/18 18:55 Past Med/Surg History Social History Preferred Language: Uzbek Feels Safe at Home: Yes Smoking Status: Current every day smoker Review of Systems See HPI for pertinent positives & negatives. and A total of 10 systems reviewed and were otherwise negative Physical Exam Vital Signs Vital Signs - 24 hr 11/16/18 17:18 11/16/18 17:41 11/16/18 17:47 Temperature 36.9 C Temperature Source Oral Sepsis Recent Fever Within 48 Hours No Sepsis New/Unexplained Change in Mental Status No Sepsis Action Taken by Nursing No Action Required Pulse Rate 103 H 97 H 99 H Pulse Rate [Finger] Pulse Rate from SpO2 Sensor 98 H Pulse Rhythm Regular Pulse Strength Normal Respiratory Rate 24 19 Respiratory Effort / Characteristics Non-Labored Spontaneous Respiratory Depth Normal Respiratory Pattern Regular Blood Pressure 130/69 141/77 H Blood Pressure [Right Arm] Blood Pressure Mean 89 98 Blood Pressure Mean [Right Arm] Blood Pressure Position Sitting Pulse Oximetry 84 L 96 93 Oxygen Delivery Method Room Air Nasal Cannula Oxygen Flow Rate 2 11/16/18 17:51 11/16/18 17:54 11/16/18 18:00 Temperature Temperature Source Sepsis Recent Fever Within 48 Hours Sepsis New/Unexplained Change in Mental Status Sepsis Action Taken by Nursing Pulse Rate 93 H 90 Pulse Rate [Finger] Pulse Rate from SpO2 Sensor 93 H 90 Pulse Rhythm Pulse Strength Respiratory Rate 18 27 H 20 Respiratory Effort / Characteristics Non-Labored Spontaneous Respiratory Depth Respiratory Pattern Blood Pressure Blood Pressure [Right Arm] Blood Pressure Mean Blood Pressure Mean [Right Arm] Blood Pressure Position Pulse Oximetry 2 L 98 99 Oxygen Delivery Method Nasal Cannula Oxygen Flow Rate 2 11/16/18 18:14 11/16/18 18:30 11/16/18 18:44 Temperature Temperature Source Sepsis Recent Fever Within 48 Hours Sepsis New/Unexplained Change in Mental Status Sepsis Action Taken by Nursing Pulse Rate 93 H 87 Pulse Rate [Finger] 90 Pulse Rate from SpO2 Sensor 94 H 88 Pulse Rhythm Pulse Strength Respiratory Rate 17 21 Respiratory Effort / Characteristics Respiratory Depth Respiratory Pattern Blood Pressure 137/80 161/82 H Blood Pressure [Right Arm] 161/82 H Blood Pressure Mean 99 108 Blood Pressure Mean [Right Arm] 108 Blood Pressure Position Pulse Oximetry 97 97 93 Oxygen Delivery Method Nebulizer Nasal Cannula Oxygen Flow Rate 2 GENERAL: Awake, alert, mildly SOB appearing, in no distress HENT: Normocephalic, atraumatic. Oropharynx unremarkable. EYES: Normal conjunctiva. Sclera non-icteric. NECK: Supple. No nuchal rigidity. RESPIRATORY: Wheezy on exam with slight increase in WOB. Sitting up. No retractions. CARDIAC: Normal rate. Normal rhythm. Extremities warm and well perfused. GI: Soft, non-distended. No tenderness to palpation. No rebound or guarding. No masses. RECTAL: Deferred. MUSCULOSKELETAL: Atraumatic. Chest examination reveals no tenderness. There is no CVA tenderness to palpation. LOWER EXTREMITIES: Calves are equal size bilaterally and non-tender. No edema NEURO: Normal sensorium. No sensory or motor deficits noted. No facial droop. SKIN: Warm and dry. No rash or jaundice noted. Course 1729: Past medical records reviewed. The patient was evaluated in room C11, and a complete history and physical examination were performed. 1914: Upon reevaluation, the patient is stable. I discussed the results and treatment plan with the patient. She verbalizes understanding and agreement. I discussed the patient's case with Ami CINTRON, [facility] gaby. The patient will be evaluated for further management and care. Consultations Consultation #1: I reviewed the patient's case [facility] She will evaluate the patient for further management. Time: 19:14 Administered Medications Discontinued Medications Albuterol (Duoneb) 12 ml INH ONE STA Stop: 11/16/18 17:40 Last Admin: 11/16/18 17:50 Dose: 12 ml Documented by: [id number] Methylprednisolone (Solumedrol) 125 mg IV NOW STA Stop: 11/16/18 17:40 Last Admin: 11/16/18 17:51 Dose: 125 mg Documented by: [id number] Medical Decision Making Differential Diagnosis Differential diagnosis: Etiologies such as infections, reactive airway disease, COPD, pneumonia, pleural effusion, pulmonary edema, ARDS, pneumothorax, CHF, cardiac ischemia, cardiac tamponade, dysrhythmia, anemia, pulmonary embolism, musculoskeletal, gastroin testinal process, as well as others were entertained. Medical Records Attestation: I reviewed the patient's medical records. Home Medications Current Medication List: was personally reviewed by me Laboratory Data Attestation: I reviewed the patient's lab results. Result diagrams: 11/16/18 17:38 11/16/18 17:38 Lab Results 11/16/18 11/16/18 11/16/18 Range/Units 17:38 17:38 17:38 WBC 8.06 (4.8-10.8) K/uL RBC 3.73 L (4.2-5.4) M/uL Hgb 11.7 L (12.0-16.0) g/dL Hct 36.2 L (37-47) % MCV 97.1 (80-100) fL MCH 31.4 (25-34) pg MCHC 32.3 (32-36) g/dL RDW Std Deviation 49.3 H (36.4-46.3) fL RDW Coeff of Lizzie 13.8 (11.5-14.5) % Plt Count 243 (130-400) K/uL MPV 8.6 (7.4-10.4) fL Immature Gran % (Auto) 0.1 % Neut % (Auto) 57.4 % Lymph % (Auto) 29.9 % [place] % (Auto) 8.1 % Eos % (Auto) 4.3 % Baso % (Auto) 0.2 % Immature Gran # (Auto) 0.01 (0.00-0.02) K/uL Neut # (Auto) 4.62 (1.4-6.5) K/uL Lymph # (Auto) 2.41 (1.2-3.4) K/uL [place] # (Auto) 0.65 H (0.11-0.59) K/uL Eos # (Auto) 0.35 (0-0.5) K/uL Baso # (Auto) 0.02 (0-0.2) K/uL PT 11.0 (9.0-12.0) Seconds INR 1.1 (0.9-1.1) APTT 28.6 (21.0-31.0) Seconds PTT Ratio 1.1 VBG pH (7.36-7.41) VBG pCO2 (38-50) mmHg VBG pO2 mmHg VBG HCO3 mmol/L VBG O2 Saturation % VBG Base Excess mEq/L Barometric Pressure mm/Hg Sodium 144 (136-145) mmol/L Potassium 3.5 (3.5-5.1) mmol/L Chloride 105 (98-107) mmol/L Carbon Dioxide 36 H (21-32) mmol/L Anion Gap 2.0 L (3-11) BUN 3 L (7-18) mg/dl Creatinine 0.84 (0.6-1.2) mg/dl Est Cr Clr Drug Dosing 76.6 ml/min Est GFR ( Amer) 88.8 Est GFR (Non-Af Amer) 76.6 BUN/Creatinine Ratio 4.1 L (10-20) Glucose 103 H (70-99) mg/dl Calcium 8.6 (8.5-10.1) mg/dl Total Bilirubin 0.2 (0.2-1) mg/dl AST 17 (15-37) U/L ALT 21 (12-78) U/L Alkaline Phosphatase 137 H (45-117) U/L Troponin I < 0.015 (0-0.045) ng/ml Total Protein 6.8 (6.4-8.2) gm/dl Albumin 3.3 L (3.4-5.0) gm/dl Globulin 3.5 (2.5-4.0) gm/dl Albumin/Globulin Ratio 1.0 (0.9-2) Influenza Type A (PCR) (Neg) Influenza Type B (PCR) (Neg) 11/16/18 11/16/18 Range/Units 17:42 18:07 WBC (4.8-10.8) K/uL RBC (4.2-5.4) M/uL Hgb (12.0-16.0) g/dL Hct (37-47) % MCV (80-100) fL MCH (25-34) pg MCHC (32-36) g/dL RDW Std Deviation (36.4-46.3) fL RDW Coeff of Lizzie (11.5-14.5) % Plt Count (130-400) K/uL MPV (7.4-10.4) fL Immature Gran % (Auto) % Neut % (Auto) % Lymph % (Auto) % [place] % (Auto) % Eos % (Auto) % Baso % (Auto) % Immature Gran # (Auto) (0.00-0.02) K/uL Neut # (Auto) (1.4-6.5) K/uL Lymph # (Auto) (1.2-3.4) K/uL [place] # (Auto) (0.11-0.59) K/uL Eos # (Auto) (0-0.5) K/uL Baso # (Auto) (0-0.2) K/uL PT (9.0-12.0) Seconds INR (0.9-1.1) APTT (21.0-31.0) Seconds PTT Ratio VBG pH 7.34 L (7.36-7.41) VBG pCO2 67 H (38-50) mmHg VBG pO2 57 mmHg VBG HCO3 35 mmol/L VBG O2 Saturation 87.9 % VBG Base Excess 7.6 mEq/L Barometric Pressure 725.0 mm/Hg Sodium (136-145) mmol/L Potassium (3.5-5.1) mmol/L Chloride (98-107) mmol/L Carbon Dioxide (21-32) mmol/L Anion Gap (3-11) BUN (7-18) mg/dl Creatinine (0.6-1.2) mg/dl Est Cr Clr Drug Dosing ml/min Est GFR ( Amer) Est GFR (Non-Af Amer) BUN/Creatinine Ratio (10-20) Glucose (70-99) mg/dl Calcium (8.5-10.1) mg/dl Total Bilirubin (0.2-1) mg/dl AST (15-37) U/L ALT (12-78) U/L Alkaline Phosphatase (45-117) U/L Troponin I (0-0.045) ng/ml Total Protein (6.4-8.2) gm/dl Albumin (3.4-5.0) gm/dl Globulin (2.5-4.0) gm/dl Albumin/Globulin Ratio (0.9-2) Influenza Type A (PCR) Neg for Influ A (Neg) Influenza Type B (PCR) Neg for Influ B (Neg) Imaging Data Radiologist's Impression: Radiology results as stated below per my review and the radiologist's interpretation: XR chest 1V portable FINDINGS: Cardiomediastinal and hilar silhouettes are within normal limits. No pneumothorax, pleural effusion or overt pulmonary edema. Minimal left basilar opacities are noted. Right lung is generally clear. Bones of the chest appear grossly intact. IMPRESSION: Minimal left basilar opacities are noted suggestive of atelectasis or pneumonitis. The above report was generated using voice recognition software. It may contain grammatical, syntax or spelling errors. Electronically signed by: Rishi Eng M.D. 11/16/2018 6:04 PM ECG Data Attestation: I personally reviewed and interpreted this ECG as follows: Indication: SOB/dyspnea Rate (beats per minute): 95 Rhythm: normal sinus Findings: no PVC, no ST depression and no ST elevation Additional Comments: Normal axis. Blood Pressure Blood Pressure Findings: Elevated blood pressure Blood Pressure Disposition: further management by hospitalist MICHELLE Narrative Patient is a 58-year-old female with a history of bipolar, COPD, GERD, depression presenting today complaining of difficulty breathing. Recent CT scan showed pneumonia and no pulmonary embolism at the beginning of the month. She states this is been ongoing shortness of breath for 5 weeks they changed mul tiple medications and put her on CPAP. Feeling dizzy and short of breath and could get her oxygen level above 86. Endorsing some lung pain and white phlegm. Given recent CT study unsure that this is a PE given the duration. Basic labs, EKG, influenza testing was completed. Is hypoxic on room air here. On 2 L of oxygen which she is recently prescribed by her accounting intern now in the low 90s. States this morning when she woke up her oxygen level was 65 while on oxygen with her nightly breathing machine; now improved here. Laboratory studies here do not show any significantly leukocytosis. There is a slight acidosis with hypercapnia noted on VBG. Chest x-ray shows minimal left basilar opacity suggestive of pneumonitis versus atelectasis. Does not clearly seem like pneumonia at this juncture. Previously was on antibiotics several weeks ago. I did give her a DuoNeb in addition to Solu-Medrol here. Influenza testing negative. Given the patient's continued worsening as she describes and with breathing difficulty discussed with the [facility] hospitalist for admission. Impression & Plan COPD exacerbation Discharge Plan Visit Data Chief Complaint: Shortness of Breath/Dyspnea Stated Complaint: TROUBLE BREATHING, NEEDS O2 ED Provider: [place] Discharge Problem: COPD exacerbation Patient Disposition: Being Evaluated by Hospitalist Prescriptions Prescriptions: No Action atorvastatin 20 mg Tablet 20 mg PO HS RF: 0 albuterol sulfate 2.5 mg /3 mL (0.083 %) Solution For Nebulization 3 ml INHALATION QID PRN (Reason: Shortness Of Breath) RF: 0 triamcinolone acetonide 0.5 % Cream 1 applic TOPICAL BID RF: 0 sumatriptan succinate 100 mg Tablet 100 mg PO DAILY PRN (Reason: Migraine Headache) RF: 0 aspirin [Aspirin Low Dose] 81 mg Tablet,Delayed Release (Dr/Ec) 81 mg PO QAM RF: 0 meloxicam [Mobic] 7.5 mg Tablet 7.5 mg PO BID RF: 0 amitriptyline 10 mg Tablet 10 mg PO HS RF: 0 pantoprazole 40 mg Tablet,Delayed Release (Dr/Ec) 40 mg PO BID RF: 0 gabapentin 300 mg Capsule 300 mg PO BID RF: 0 furosemide 20 mg Tablet 20 mg PO DAILY PRN (Reason: Weight Gain) RF: 0 lorazepam 1 mg Tablet 1 mg PO TID PRN (Reason: Anxiety) RF: 0 albuterol sulfate 90 mcg/actuation Hfa Aerosol Inhaler 2 puff INHALATION QID PRN (Reason: Shortness Of Breath) RF: 0 quetiapine [Seroquel] 400 mg Tablet 400 mg PO HS RF: 0 oxycodone 20 mg Tablet 20 mg PO TID RF: 0 Women's 50 Plus Multivitamin 400 mcg-500 mg calcium-20 mcg Tablet 1 tab PO QAM RF: 0 Trelegy Ellipta 100-62.5-25 mcg Blister With Device 1 inh INHALATION QAM RF: 0 Referrals Referrals: Dimitri Hanna MD [Primary Care Provider] - The scribe's documentation has been prepared under my direction and personally reviewed by me in its entirety. I confirm that the note above accurately reflects all work, treatment, procedures, and medical decision making performed by me.
--- NOTE | 2018-11-16 20:59 | History & Physical Report ---
Date of Service November 16, 2018 Assessment & Plan (1) Respiratory failure with hypoxia and hypercapnia: (2) COPD exacerbation: (3) Tobacco use: (4) Nocturnal hypoxemia: (5) Anxiety: (6) Depression: (7) GERD (gastroesophageal reflux disease): (8) Bipolar 1 disorder: (9) Migraines: (10) HLD (hyperlipidemia): History of Present Illness Chief Complaint: SOB, Cough and Wheeze Primary Care Provider: Bradfordangel Cyndi 58-year-old female with a past medical history of bipolar disorder, GERD, depression, anxiety, COPD, nocturnal hypoxemia, hyperlipidemia, and migraines presents the emergency room today saying she just does not feel right. I tried to pin her down to exactly what she means but she could not really explain to me why she did not feel right. On exam she is very wheezy and her sats are dropping into the low 80s. She denies any nausea, vomiting, fever, chills, chest pain. She complains of shortness of breath, dyspnea on exertion, and cough which is nonproductive. She will be placed under observation and I will have pulmonary see her to try to keep her out of the hospital she was here 2 weeks ago and signed out AMA. Assessment and Plan Acute exacerbation of COPD Acute respiratory failure with hypercapnia and hypoxia GERD Depression Anxiety Hyperlipidemia Migraines Low anion gap Solu-Medrol, nebulizers, pulmonary evaluation, incentive spirometry q. one hours while awake, respiratory therapy evaluation and treat, continue outpatient medications where appropriate, Protonix 40 mg p.o. twice daily, check labs as an outpatient to see if she still has a low anion gap and possibly do an SPEP/UPEP if warranted. She is negative for the flu, we did not test for parainfluenza or rhinovirus ROS-No Headache, No Visual Changes, No Fever, No Chills, No Neck Pain or Stiffness, No Chest Pain, No Palpitations, positive SOB, positive HARRELL, positive cough, No Sputum, positive wheezing, No Abdominal Pain, No Diarrhea, No Hematemesis, No Hemoptysis, No Unexpected Weight Loss, No Flank pain, No Melena, No Hematochezia, No Frequency, No Urgency, No Burning, No Hematuria, No Rashes, No Diaphoresis. Appetite is Normal Physical Exam Gen-AAO x 3, NAD, Afebrile, obese, with conversational dyspnea Head-NCAT, EOMI, PERRLA, Anicteric Sclera, No Posterior Pharyngeal Erythema Neck-Supple, No JVD, No Thyromegaly, No Masses, No LAD, No Bruits Lungs-No Rales, No Rhonchi, bilateral wheezing, No Crepitus Chest-No S4, +S1, +S2, No S3, No Murmurs, No Rubs, No Gallops, No Ectopy Abdomen-Soft, Bowel Sounds Present, Non Tender, Non Distended, No Hepatomegaly, No Splenomegaly, No Palpable Masses, No Rebound, No Rigidity, No Guarding Musculoskeletal-Full Range of Motion Bilaterally, No CVAT Extremities-No Cyanosis, No Clubbing, No Edema Nuero-Cranial Nerves II-XII grossly intact, Motor WNL, DTRs WNL, Strength WNL, No Focal Psych-Normal Mood PMH-migraines, COPD, GERD, depression, anxiety, nocturnal hypoxemia, hyperlipidemia, obesity with a BMI of 28 PSH-tubal ligation, right knee scope, trigger finger repair, NAKUL/BSO FH-reviewed with the patient and family noncontributory. SH-1-2 pack a day smoker for 43 years, denies alcohol, currently disabled Meds reviewed and Reconciled Labs Reviewed Allergies Allergy/AdvReac Type Severity Reaction Status Date / Time doxycycline Allergy Intermediate Hives Verified 11/16/18 18:55 morphine Allergy Intermediate ITCHING AT Verified 11/16/18 18:55 IV SITE ONLY iodine Allergy Unknown RASH Verified 11/16/18 18:55 valproic acid Allergy Unknown 0 Verified 11/16/18 18:55 Home Medications Home Medications Medication Instructions Recorded Confirmed Type albuterol sulfate 2 puff INHALATION QID PRN 10/25/18 11/16/18 History albuterol sulfate 3 ml INHALATION QID PRN 10/25/18 11/16/18 History amitriptyline 10 mg PO HS 10/25/18 11/16/18 History aspirin [Aspirin Low Dose] 81 mg PO QAM 10/25/18 11/16/18 History atorvastatin 20 mg PO HS 10/25/18 11/16/18 History furosemide 20 mg PO DAILY PRN 10/25/18 11/16/18 History gabapentin 300 mg PO BID 10/25/18 11/16/18 History lorazepam 1 mg PO TID PRN 10/25/18 11/16/18 History meloxicam [Mobic] 7.5 mg PO BID 10/25/18 11/16/18 History lmnvjlbs-mzv-BI-Ca carb-vit K 1 tab PO QAM 10/25/18 11/16/18 History [Women's 50 Plus Multivitamin] oxycodone 20 mg PO TID 10/25/18 11/16/18 History pantoprazole 40 mg PO BID 10/25/18 11/16/18 History quetiapine [Seroquel] 400 mg PO HS 10/25/18 11/16/18 History sumatriptan succinate 100 mg PO DAILY PRN 10/25/18 11/16/18 History triamcinolone acetonide 1 applic TOPICAL BID 10/25/18 11/16/18 History yxqrqkrfqsv-wltvwdlwg-rgpjjfzh 1 inh INHALATION QAM 11/16/18 11/16/18 History [Trelegy Ellipta] Past Med/Surg History Social History Preferred Language: Argentine Feels Safe at Home: Yes Smoking Status: Current every day smoker Physical Exam Vital Signs (Past 24 Hours): Last Vital Signs Temp 36.9 C 11/16/18 17:18 Pulse 94 H 11/16/18 20:06 Resp 21 11/16/18 18:30 BP 131/74 11/16/18 20:06 Pulse Ox 93 11/16/18 20:06 Results & Data Laboratory Results Allergies doxycycline Allergy (Intermediate, Verified 11/16/18 18:55) Hives morphine Allergy (Intermediate, Verified 11/16/18 18:55) ITCHING AT IV SITE ONLY iodine Allergy (Unknown, Verified 11/16/18 18:55) RASH valproic acid Allergy (Unknown, Verified 11/16/18 18:55) 0 Height/Weight/Isolation Height 5 ft 6 in Weight 77.2 kg CBC 11/16/18 11/16/18 11/16/18 17:38 17:38 17:38 WBC 8.06 RBC 3.73 L Hgb 11.7 L Hct 36.2 L MCV 97.1 MCH 31.4 MCHC 32.3 RDW Std Deviation 49.3 H RDW Coeff of Lizzie 13.8 Plt Count 243 MPV 8.6 Immature Gran % (Auto) 0.1 Neut % (Auto) 57.4 Lymph % (Auto) 29.9 [place] % (Auto) 8.1 Eos % (Auto) 4.3 Baso % (Auto) 0.2 Immature Gran # (Auto) 0.01 Neut # (Auto) 4.62 Lymph # (Auto) 2.41 [place] # (Auto) 0.65 H Eos # (Auto) 0.35 Baso # (Auto) 0.02 PT 11.0 INR 1.1 APTT 28.6 PTT Ratio 1.1 VBG pH VBG pCO2 VBG pO2 VBG HCO3 VBG O2 Saturation VBG Base Excess Barometric Pressure Sodium 144 Potassium 3.5 Chloride 105 Carbon Dioxide 36 H Anion Gap 2.0 L BUN 3 L Creatinine 0.84 Est Cr Clr Drug Dosing 76.6 Est GFR ( Amer) 88.8 Est GFR (Non-Af Amer) 76.6 BUN/Creatinine Ratio 4.1 L Glucose 103 H Calcium 8.6 Total Bilirubin 0.2 AST 17 ALT 21 Alkaline Phosphatase 137 H Troponin I < 0.015 Total Protein 6.8 Albumin 3.3 L Globulin 3.5 Albumin/Globulin Ratio 1.0 Influenza Type A (PCR) Influenza Type B (PCR) 11/16/18 11/16/18 17:42 18:07 WBC RBC Hgb Hct MCV MCH MCHC RDW Std Deviation RDW Coeff of Lizzie Plt Count MPV Immature Gran % (Auto) Neut % (Auto) Lymph % (Auto) [place] % (Auto) Eos % (Auto) Baso % (Auto) Immature Gran # (Auto) Neut # (Auto) Lymph # (Auto) [place] # (Auto) Eos # (Auto) Baso # (Auto) PT INR APTT PTT Ratio VBG pH 7.34 L VBG pCO2 67 H VBG pO2 57 VBG HCO3 35 VBG O2 Saturation 87.9 VBG Base Excess 7.6 Barometric Pressure 725.0 Sodium Potassium Chloride Carbon Dioxide Anion Gap BUN Creatinine Est Cr Clr Drug Dosing Est GFR ( Amer) Est GFR (Non-Af Amer) BUN/Creatinine Ratio Glucose Calcium Total Bilirubin AST ALT Alkaline Phosphatase Troponin I Total Protein Albumin Globulin Albumin/Globulin Ratio Influenza Type A (PCR) Neg for Influ A Influenza Type B (PCR) Neg for Influ B Chemistry 11/16/18 17:38 Sodium 144 Potassium 3.5 Chloride 105 Carbon Dioxide 36 H Anion Gap 2.0 L BUN 3 L Creatinine 0.84 Glucose 103 H
[2018-11-16 21:10] LABS: Appearance Urine Clear (Clear); Bilirubin Urine Negative (Negative); Blood Urine Negative (Negative); Color Urine Yellow; Glucose Urine UA Negative (Negative); Ketones Urine Negative (Negative); Leukocyte Esterase Urine Negative (Negative); Nitrite Urine Negative (Negative); Protein Urine Negative (Negative); Specific Gravity Urine 1.009 (1.000-1.030); Urobilinogen Urine Negative (Negative)
[2018-11-16] MEDS ORDERED: ALBUTEROL 0.083% NEBU SOLN 3 ML VIAL INH PRN (21:43)
[2018-11-16] MEDS ORDERED: FUROSEMIDE 20 MG TAB PO PRN (21:43)
[2018-11-16] MEDS ORDERED: ONDANSETRON INJ 2 MG/ML 2 ML VIAL IV PRN (21:43)
[2018-11-16] MEDS ORDERED: SUMAtriptan succinate 100 MG TAB PO PRN (21:43)
[2018-11-16] MEDS ORDERED: POLYETHYLENE (MIRALAX) 17 GM PACK PO PRN (21:43)
[2018-11-16] MEDS ORDERED: ALUMINUM/MAGNESIUM SUSP 30 ML UDC PO PRN (21:43)
[2018-11-16] MEDS: TRIAMCINOLONE ACET 0.5% CR 15 GM TUBE TOP SCH (22:37)
[2018-11-16] MEDS: ATORVASTATIN 20 MG TAB PO SCH (22:37)
[2018-11-16] MEDS: GABAPENTIN 300 MG CAP PO SCH (22:37)
[2018-11-16] MEDS: MELOXICAM 7.5 MG TAB PO SCH (22:38)
[2018-11-16] MEDS: PANTOprazole 40 MG TAB PO SCH (22:38)
[2018-11-16] MEDS: AMITRIPTYLINE HCL 10 MG TAB PO SCH (22:40)
[2018-11-16] MEDS: QUETIAPINE FUMARATE 200 MG TAB PO SCH (22:40)
[2018-11-16] MEDS: ACETAMINOPHEN 325 MG TAB PO PRN (22:41)
[2018-11-17] MEDS: methylPREDNISolone 60 MG in SYRINGE 0 ML IV SCH ×3 (00:09→12:56)
[2018-11-17 07:19] LABS: Hematocrit (blood only) 35.1 % (37-47); Hemoglobin 11.6 g/dL (12.0-16.0); Mean Corpuscular Volume 95.4 fL (80-100); Mean Platelet Volume 8.6 fL (7.4-10.4); Platelet Count 253 K/uL (130-400); RDW Coefficient of Variation 13.4 % (11.5-14.5); RDW Standard Deviation 46.7 fL (36.4-46.3); Red Blood Count 3.68 M/uL (4.2-5.4); White Blood Count 7.56 K/uL (4.8-10.8)
[2018-11-17 07:39] LABS: BUN Creatinine Ratio 6.1 (10-20); Creatinine Clr Calc Pharmacy 75.3 ml/min; Est GFR (African American) 105.2; Est GFR (Non-African American) 90.8; Potassium 3.7 mmol/L (3.5-5.1)
[2018-11-17] MEDS: ASPIRIN 81 MG ECTAB PO SCH (07:53)
[2018-11-17] MEDS: TRIAMCINOLONE ACET 0.5% CR 15 GM TUBE TOP SCH ×3 (07:53→20:34)
[2018-11-17] MEDS: LORazepam 1 MG TAB PO PRN ×2 (07:54→17:47)
[2018-11-17] MEDS: MELOXICAM 7.5 MG TAB PO SCH ×2 (07:54→20:34)
[2018-11-17] MEDS: ACETAMINOPHEN 325 MG TAB PO PRN ×2 (07:54→17:47)
[2018-11-17] MEDS: GABAPENTIN 300 MG CAP PO SCH ×2 (07:54→20:32)
[2018-11-17] MEDS: PANTOprazole 40 MG TAB PO SCH ×2 (07:54→20:33)
[2018-11-17] MEDS: MULTIVITAMIN TAB PO SCH (07:54)
[2018-11-17] MEDS: OXYCODONE HCL IR 5 MG TAB (IMMEDIATE RELEASE) PO PRN ×3 (09:02→22:03)
[2018-11-17] MEDS: ALBUT/IPRATROP 3MG/0.5MG NEB 3 ML VIAL NEB SCH ×2 (10:53→14:47)
[2018-11-17] MEDS: AMOXICILLIN/CLAVULANATE 500 MG TAB PO SCH ×2 (12:36→17:35)
[2018-11-17] MEDS ORDERED: FLUCONAZOLE 50 MG TAB PO ONE (14:00)
[2018-11-17] MEDS: FLUTICASONE INH SCH (14:16)
[2018-11-17] MEDS: VILANTER INH SCH (14:16)
[2018-11-17] MEDS: UMECLIDIN INH SCH (14:16)
--- NOTE | 2018-11-17 16:19 | Hospitalist Progress Note ---
Date of Service November 17, 2018 Assessment & Plan (1) Respiratory failure with hypoxia and hypercapnia: Acute on chronic Respiratory failure with hypercapnia: Secondary to COPD Exacerbation Ongoing Tobacco use Chronic Oxygen dependency-- On 2 liters of oxygen at bedtime CXR: Minimal left basilar opacities are noted suggestive of atelectasis or pneumonitis. Influenza screen is negative Follows with [facility] as outpatient Continue IV solumedrol, bronchodilators, Abx Oxygen support per protocol Pulmnology consulted Counseled to quit smoking Hyperlipidemia: Continue Lipitor Tobacco use disorder: application counselor to quit smoking GERD: Continue PPI Bipolar Disorder Depression Continue home meds DVT Px: Lovenox SQ Code Status Full Code Disposition: Expect to discharge home when stable Present on Admission?: Yes Subjective Patient is seen and examined at bedside Cough is better Denies chest pain, SOB today Saturating 92% on 2 liters Offers no other complaints Physical Exam Vital Signs (Past 24 Hours): Last Vital Signs Temp 36.6 C 11/17/18 15:06 Pulse 101 H 11/17/18 15:06 Resp 18 11/17/18 15:06 BP 120/58 L 11/17/18 15:06 Pulse Ox 92 11/17/18 15:06 Physical Exam: Physical Exam: Vitals signs as noted above General Appearance:Moderately built and nourished, no apparent distress Head: normocephalic, Atraumatic Eyes: normal inspection, EOMI Neck: supple, Trachea midline Respiratory/Chest: Decreased/coarse breath sounds Cardiovascular: S1, S2, No murmur, +Tachycardia Abdomen/GI:Soft, Non tender, Bowel sounds present Extremities/Musculoskelatal:normal inspection, no edema Neurologic/Psych:AAOX3, grossly no focal neurological deficits Skin: normal color, warm Results & Data Laboratory Results Short CBC 11/16/18 11/17/18 Range/Units 17:38 06:51 WBC 8.06 7.56 (4.8-10.8) K/uL Hgb 11.7 L 11.6 L (12.0-16.0) g/dL Hct 36.2 L 35.1 L (37-47) % Plt Count 243 253 (130-400) K/uL BMP 11/16/18 11/17/18 17:38 06:51 Sodium 144 142 Potassium 3.5 3.7 Chloride 105 105 Carbon Dioxide 36 H 34 H BUN 3 L 5 L Creatinine 0.84 0.73 Glucose 103 H 188 H Calcium 8.6 9.0 Cardiac Enzymes 11/16/18 Range/Units 17:38 Troponin I < 0.015 (0-0.045) ng/ml Liver Function 11/16/18 Range/Units 17:38 Total Bilirubin 0.2 (0.2-1) mg/dl AST 17 (15-37) U/L ALT 21 (12-78) U/L Alkaline Phosphatase 137 H (45-117) U/L Albumin 3.3 L (3.4-5.0) gm/dl Urine 11/16/18 Range/Units 20:52 Urine Color Yellow Urine Appearance Clear (Clear) Urine pH 5.0 (4.5-7.5) Ur Specific [place] 1.009 (1.000-1.030) Urine Protein Negative (Negative) Urine Glucose (UA) Negative (Negative) Diagnostic Findings CXR: Minimal left basilar opacities are noted suggestive of atelectasis or pneumonitis.
[2018-11-17] MEDS ORDERED: GLUCAGON FOR INJ 1 MG VIAL SQ PRN (16:26)
[2018-11-17] MEDS ORDERED: CARBOHYDRATES FOR HYPOGLYCEMIA PO PRN (16:26)
[2018-11-17] MEDS ORDERED: DEXTROSE 50% 50 ML SYRINGE IV PRN (16:26)
[2018-11-17] MEDS ORDERED: GLUCOSE 40% GEL 15 GM TUBE PO PRN (16:26)
[2018-11-17] MEDS ORDERED: GLUCOSE 10 TABS/TUBE PO PRN (16:26)
[2018-11-17] MEDS ORDERED: ENOXAPARIN INJ 40 MG/0.4 ML SYR SQ SCH (17:00)
[2018-11-17] MEDS: methylPREDNISolone 40 MG in SYRINGE 0 ML IV SCH ×2 (17:27→23:22)
[2018-11-17] MEDS: INSULIN ASPART 100 UNITS/ML 3 ML PEN SC SCH ×2 (18:31→20:31)
[2018-11-17] MEDS: LEVALBUTEROL HCL 1.25 MG/3 ML NEB NEB SCH (19:55)
[2018-11-17] MEDS: ATORVASTATIN 20 MG TAB PO SCH (20:32)
[2018-11-17] MEDS: AMITRIPTYLINE HCL 10 MG TAB PO SCH (20:32)
[2018-11-17] MEDS: QUETIAPINE FUMARATE 200 MG TAB PO SCH (20:33)
[2018-11-18] MEDS: OXYCODONE HCL IR 5 MG TAB (IMMEDIATE RELEASE) PO PRN ×2 (05:50→12:40)
[2018-11-18] MEDS: methylPREDNISolone 40 MG in SYRINGE 0 ML IV SCH ×2 (05:50→11:33)
[2018-11-18] MEDS: LEVALBUTEROL HCL 1.25 MG/3 ML NEB NEB SCH ×2 (07:16→11:27)
[2018-11-18 07:53] LABS: BUN Creatinine Ratio 9.5 (10-20); Calcium 8.9 mg/dl (8.5-10.1); Creatinine Clr Calc Pharmacy 66.2 ml/min; Est GFR (African American) 90.1; Est GFR (Non-African American) 77.7; Potassium 3.6 mmol/L (3.5-5.1)
[2018-11-18 07:54] LABS: Estimated Average Glucose 126 mg/dl
[2018-11-18] MEDS: AMOXICILLIN/CLAVULANATE 500 MG TAB PO SCH (08:14)
[2018-11-18] MEDS: VILANTER INH SCH (08:14)
[2018-11-18] MEDS: FLUTICASONE INH SCH (08:14)
[2018-11-18] MEDS: GABAPENTIN 300 MG CAP PO SCH (08:14)
[2018-11-18] MEDS: MULTIVITAMIN TAB PO SCH (08:14)
[2018-11-18] MEDS: MELOXICAM 7.5 MG TAB PO SCH (08:14)
[2018-11-18] MEDS: PANTOprazole 40 MG TAB PO SCH (08:14)
[2018-11-18] MEDS: ASPIRIN 81 MG ECTAB PO SCH (08:14)
[2018-11-18] MEDS: UMECLIDIN INH SCH (08:14)
[2018-11-18] MEDS: LORazepam 1 MG TAB PO PRN (08:14)
[2018-11-18] MEDS: INSULIN ASPART 100 UNITS/ML 3 ML PEN SC SCH ×2 (08:18→12:42)
[2018-11-18] MEDS: TRIAMCINOLONE ACET 0.5% CR 15 GM TUBE TOP SCH (08:21)
--- NOTE | 2018-11-18 11:35 | Hospitalist Progress Note ---
Date of Service November 18, 2018 Assessment & Plan (1) Respiratory failure with hypoxia and hypercapnia: Acute on chronic Respiratory failure with hypercapnia: Secondary to COPD Exacerbation Ongoing Tobacco use Chronic Oxygen dependency-- On 2 liters of oxygen at bedtime CXR: Minimal left basilar opacities are noted suggestive of atelectasis or pneumonitis. Influenza screen is negative Follows with [facility] as outpatient Continue IV solumedrol, bronchodilators, Abx>>Transition to Prednisone Oxygen support PRN l Counseled to quit smoking Hyperlipidemia: Continue Lipitor Tobacco use disorder: estate planning counselor to quit smoking GERD: Continue PPI Bipolar Disorder Depression Continue home meds DVT Px: Lovenox SQ Code Status Full Code Disposition: Plan to discharge home today Subjective Patient is seen and examined at bedside Cough has much improved Denies chest pain, SOB Saturating well on room air Offers no other complaints Eager to get discharged Physical Exam Vital Signs (Past 24 Hours): Last Vital Signs Temp 36.5 C 11/18/18 07:54 Pulse 90 11/18/18 11:28 Resp 18 11/18/18 11:28 BP 115/67 11/18/18 07:54 Pulse Ox 91 11/18/18 11:28 Physical Exam: Physical Exam: Vitals signs as noted above General Appearance:Moderately built and nourished, no apparent distress Head: normocephalic, Atraumatic Eyes: normal inspection, EOMI Neck: supple, Trachea midline Respiratory/Chest: Decreased breath sounds, CTA Cardiovascular: S1, S2, No murmur Abdomen/GI:Soft, Non tender, Bowel sounds present Extremities/Musculoskelatal:normal inspection, no edema Neurologic/Psych:AAOX3, grossly no focal neurological deficits Skin: normal color, warm Results & Data Laboratory Results [facility] 11/18/18 06:32 Sodium 143 Potassium 3.6 Chloride 102 Carbon Dioxide 35 H BUN 8 Creatinine 0.83 Glucose 167 H Calcium 8.9
--- NOTE | 2018-11-18 12:12 | Discharge Summary ---
Date of Service November 18, 2018 Admission HPI Per Admitting Provider 58-year-old female with a past medical history of bipolar disorder, GERD, depression, anxiety, COPD, nocturnal hypoxemia, hyperlipidemia, and migraines presents the emergency room today saying she just does not feel right. I tried to pin her down to exactly what she means but she could not really explain to me why she did not feel right. On exam she is very wheezy and her sats are dropping into the low 80s. She denies any nausea, vomiting, fever, chills, chest pain. She complains of shortness of breath, dyspnea on exertion, and cough which is nonproductive. She will be placed under observation and I will have pulmonary see her to try to keep her out of the hospital she was here 2 weeks ago and signed out AMA. Admission Exam Per Admitting Provider Physical Exam Gen-AAO x 3, NAD, Afebrile, obese, with conversational dyspnea Head-NCAT, EOMI, PERRLA, Anicteric Sclera, No Posterior Pharyngeal Erythema Neck-Supple, No JVD, No Thyromegaly, No Masses, No LAD, No Bruits Lungs-No Rales, No Rhonchi, bilateral wheezing, No Crepitus Chest-No S4, +S1, +S2, No S3, No Murmurs, No Rubs, No Gallops, No Ectopy Abdomen-Soft, Bowel Sounds Present, Non Tender, Non Distended, No Hepatomegaly, No Splenomegaly, No Palpable Masses, No Rebound, No Rigidity, No Guarding Musculoskeletal-Full Range of Motion Bilaterally, No CVAT Extremities-No Cyanosis, No Clubbing, No Edema Nuero-Cranial Nerves II-XII grossly intact, Motor WNL, DTRs WNL, Strength WNL, No Focal Psych-Normal Mood Principal Diagnosis Discharge Information Discharge Diagnosis Acute on chronic Respiratory failure with hypercapnia Acute COPD Exacerbation Discharge Goals Decrease discomfort,Improve function,Improve disease control Discharge Activity Limitations Resume your previous activity Discharge Data Allergies Allergy/AdvReac Type Severity Reaction Status Date / Time doxycycline Allergy Intermediate Hives Verified 11/16/18 18:55 morphine Allergy Intermediate ITCHING AT Verified 11/16/18 18:55 IV SITE ONLY iodine Allergy Unknown RASH Verified 11/16/18 18:55 valproic acid Allergy Unknown 0 Verified 11/16/18 18:55 Consultations 11/16/18 19:14 ED Decision to Admit Stat Procedures Performed CXR: Minimal left basilar opacities are noted suggestive of atelectasis or pneumonitis. Hospital Course (1) Respiratory failure with hypoxia and hypercapnia: Acute on chronic Respiratory failure with hypercapnia: Secondary to COPD Exacerbation Ongoing Tobacco use Chronic Oxygen dependency-- On 2 liters of oxygen at bedtime CXR: Minimal left basilar opacities are noted suggestive of atelectasis or pneumonitis. 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 guidance counselor to quit smoking GERD: Continue PPI Bipolar Disorder Depression Continue home meds DVT Px: Lovenox SQ Code Status Full Code Disposition: Plan to discharge home today Total Time Total Time Spent Total Time Spent (In Minutes): 25 minutes Total Time Includes: Examination of the Patient, Discharge Planning, Medication Reconciliation, Communication With Other Providers and Other Discharge Plan Discharge Items Patient Disposition: Home - Self-Care Reason For Visit: COPD,HYPOXIA AD HYPERCAPNEA Discharge Diagnosis: Acute on chronic Respiratory failure with hypercapnia Acute COPD Exacerbation Discharge Goals: Decrease discomfort, Improve disease control and Improve function Activity: Resume your previous activity Exercise/Sports: Gradually increase as tolerated Non-emergency contact: Primary Care Provider and Sonographer Call non-emergency contact if: you have any medication questions, your symptoms worsen, your pain is not controlled, your pain is worsening, your pain is unusual for you, your pain is concerning for you and you have a fever Follow-up/Referrals: Dimitri Hanna MD [Primary Care Provider] - Diet: Carb Consistent or DM2 Addtl Provider Instructions: Follow up with your PCP on 11/21/18 at 11:00 AM Follow up with your Pulmnologist on 12/11/18 at 9:15 AM Complete the Antibiotic and Prednisone course as prescribed Quit smoking Tobacco as advised Seek immediate medical attention if your symptoms reoccur or worsen Prednisone Course: Start Taking Prednisone 40mg for 3 days, then 30mg for 3 days, then 20mg for 3 days then 10mg for 3 days and STOP Prescriptions: New amoxicillin-pot clavulanate 500-125 mg Tablet 1 tab PO BIDM Qty: 7 RF: 0 prednisone 10 mg tablet 10 mg PO UD 12 Days Qty: 30 RF: 0 Continued atorvastatin 20 mg Tablet 20 mg PO HS RF: 0 albuterol sulfate 2.5 mg /3 mL (0.083 %) Solution For Nebulization 3 ml INHALATION QID PRN (Reason: Shortness Of Breath) RF: 0 triamcinolone acetonide 0.5 % Cream 1 applic TOPICAL BID RF: 0 sumatriptan succinate 100 mg Tablet 100 mg PO DAILY PRN (Reason: Migraine Headache) RF: 0 aspirin [Aspirin Low Dose] 81 mg Tablet,Delayed Release (Dr/Ec) 81 mg PO QAM RF: 0 meloxicam [Mobic] 7.5 mg Tablet 7.5 mg PO BID RF: 0 amitriptyline 10 mg Tablet 10 mg PO HS RF: 0 pantoprazole 40 mg Tablet,Delayed Release (Dr/Ec) 40 mg PO BID RF: 0 gabapentin 300 mg Capsule 300 mg PO BID RF: 0 furosemide 20 mg Tablet 20 mg PO DAILY PRN (Reason: Weight Gain) RF: 0 lorazepam 1 mg Tablet 1 mg PO TID PRN (Reason: Anxiety) RF: 0 albuterol sulfate 90 mcg/actuation Hfa Aerosol Inhaler 2 puff INHALATION QID PRN (Reason: Shortness Of Breath) RF: 0 quetiapine [Seroquel] 400 mg Tablet 400 mg PO HS RF: 0 oxycodone 20 mg Tablet 20 mg PO TID RF: 0 Women's 50 Plus Multivitamin 400 mcg-500 mg calcium-20 mcg Tablet 1 tab PO QAM RF: 0 Trelegy Ellipta 100-62.5-25 mcg Blister With Device 1 inh INHALATION QAM RF: 0 Stand-Alone Forms: [facility]/Other Patient Handouts: Prediabetes, Diabetes Meal Planning Discharge Orders: Discharge Order (Routine); Ordered 11/18/18 Ordered By: Gamal Rainey Admission Data Admit Date/Time: 11/16/18 20:48 Attending Provider: Gamal Rainey Admit Provider: Jonathan Rae Primary Care Provider: Dimitri Hanna Other Providers: Jonathan Rae Service: Medical Other Interventions: Discharge Summary Assessment (RN) Last Done: 11/18/18 13:07 Pending Studies at Discharge: No DC Date/Time DO NOT enter until pt leaves facility: 11/18/18 14:48
== END 2018-11-18 14:48 | disposition home or self-care (01) ==
LOC: ED 17:12 → 4W 17:12

== ENCOUNTER 2019-02-18 08:44 | Inpatient (IN) ==
[2019-02-18] MEDS ORDERED: NALOXONE HCL 0.4 MG/1 ML VIAL/CARP IV STA (09:25)
[2019-02-18] MEDS ORDERED: ALBUT/IPRATROP 3MG/0.5MG NEB 3 ML VIAL NEB ONE (09:27)
[2019-02-18] MEDS ORDERED: SODIUM CHLORIDE 0.9% 1000ML 1,000 ML IV SCH (09:30)
--- NOTE | 2019-02-18 09:51 | XRay Report ---
SINGLE VIEW CHEST CLINICAL HISTORY: Dyspnea. FINDINGS: An AP, portable, semierect chest radiograph is compared to study dated 01/11/2019 and correl ated with chest CT dated 10/25/2018. The examination is degraded by portable technique and patient rota tion. The heart is enlarged and there is atherosclerotic calcification of the thoracic aorta. The pu lmonary vasculature is noncongested. Chronic interstitial thickening is similar to previous. There is left basilar atelectasis. No airspace consolidation or large pleural effusion is identified. No pneu mothorax is seen. The skeletal structures are osteopenic. The bony thorax is grossly intact. IMPRESSION: Cardiomegaly with no acute cardiopulmonary abnormality. Electronically signed by: Ozzy Chiang M.D. 02/18/2019 9:50 AM
[2019-02-18 09:57] LABS: Basophils # (auto) 0.02 K/uL (0-0.2); Basophils % (auto) 0.2 %; Hematocrit (blood only) 39.9 % (37-47); Immature Granulocytes # (auto) 0.03 K/uL (0.00-0.02); Immature Granulocytes % (auto) 0.2 %; Lymphocytes # (auto) 1.81 K/uL (1.2-3.4); Lymphocytes % (auto) 14.3 %; Mean Corpuscular Hgb Conc 32.6 g/dL (32-36); Mean Corpuscular Volume 98.5 fL (80-100); Mean Platelet Volume 8.8 fL (7.4-10.4); Monocytes # (auto) 1.05 K/uL (0.11-0.59); Monocytes % (auto) 8.3 %; Neutrophils # (auto) 9.78 K/uL (1.4-6.5); Platelet Count 274 K/uL (130-400); RDW Coefficient of Variation 13.9 % (11.5-14.5); RDW Standard Deviation 49.9 fL (36.4-46.3); Red Blood Count 4.05 M/uL (4.2-5.4); White Blood Count 12.69 K/uL (4.8-10.8)
[2019-02-18 10:07] LABS: Appearance Urine Clear (Clear); Bilirubin Urine Negative (Negative); Blood Urine Negative (Negative); Color Urine Yellow; Glucose Urine UA Negative (Negative); Ketones Urine Negative (Negative); Leukocyte Esterase Urine Negative (Negative); Nitrite Urine Negative (Negative); Protein Urine Negative (Negative); Specific Gravity Urine 1.017 (1.000-1.030); Urobilinogen Urine Negative (Negative)
[2019-02-18 10:07] LABS: INR 1.1 (0.9-1.1); Partial Thromboplastin Time 28.4 Seconds (21.0-31.0); Prothrombin Time 11.4 Seconds (9.0-12.0)
[2019-02-18 10:20] LABS: Alanine Aminotransferase 16 U/L (12-78); Albumin Globulin Ratio 0.9 (0.9-2); Albumin Level 3.5 gm/dl (3.4-5.0); Alkaline Phosphatase 115 U/L (45-117); Aspartate Aminotransferase 7 U/L (15-37); BUN Creatinine Ratio 8.4 (10-20); Bilirubin,Total 0.4 mg/dl (0.2-1); Blood Urea Nitrogen 7 mg/dl (7-18); Calcium 9.1 mg/dl (8.5-10.1); Carbon Dioxide 38 mmol/L (21-32); Chloride 94 mmol/L (98-107); Est GFR (African American) 93.5; Est GFR (Non-African American) 80.7; Globulin 4.1 gm/dl (2.5-4.0); Glucose 135 mg/dl (70-99); Magnesium 2.3 mg/dl (1.8-2.4); Potassium 3.4 mmol/L (3.5-5.1); Sodium 139 mmol/L (136-145); Total Protein 7.6 gm/dl (6.4-8.2); Troponin I < 0.015 ng/ml (0-0.045)
[2019-02-18 10:20] LABS: Allen Test Pos (Pos); Base Excess ABG 12.1 mEq/L (-9-1.8); HCO3 ABG 40 mmol/L (19-24); PCO2 ABG 70 mmHg (35-46); PO2 ABG 215 mm/Hg (80-95); pH ABG 7.37 (7.35-7.45)
[2019-02-18 10:35] LABS: Amphetamines+Metham, Urine Neg (Neg); Barbiturates, Urine Neg (Neg); Benzodiazepine, Urine Neg (Neg); Cocaine, Urine Neg (Neg); MDMA (Ecstacy), Urine Neg (Neg); Methadone, Urine Neg (Neg); Opiate, Urine Pos (Neg); Phencyclidine, Urine Neg (Neg)
[2019-02-18] MEDS ORDERED: NSS + 20MEQ KCL 20 MEQ/1,000 ML BAG IV SCH (12:21)
--- NOTE | 2019-02-18 12:33 | History & Physical Report ---
Date of Service February 18, 2019 Assessment & Plan (1) Acute on chronic respiratory failure with hypoxia and hypercapnia: (2) COPD exacerbation: This is a 59-year-old female who has a significant past medical history of chronic respiratory failure on 2 L of O2 secondary to moderate COPD, bipolar depression, anxiety, HLD, GERD, tobacco abuse disorder, chronic low back pain with chronic narcotic use who presents to [facility] secondary to respiratory distress and altered mental status that started this morning. Pt arrived via EMS on bipap due to a/c respiratory failure She had altered mental status Patient received Narcan in ED with significant improvement in mental status; although still drowsy She was able to be weaned from bipap to oxymask 5L CXR no acute abnormality ABG pH 7.37 and pCO2 of 70 WBC 12.6k, K 3.4, Bun 7, Cr 0.8, LA 1.0, trop 0.015, Urine negative for infection but + opiates Pt with COPD exacerbation with increased SOB x 4 weeks, increased cough and poor compliance with nocturnal O2/Bipap that is likely contributing to hypoxic/hypercarbia events leading to altered mental status There is still question of possible opiate OD - reference level pending, she did have improvement in cognition after narcan administration admit to PCU Place back on bipap and encourage use for now until mental status more clear IV levaquin 750mg daily IV solumedrol 40mg IV q6hr pulmonary toilet with scheduled duonebs, incentive spirometry and flutter valve when able repeat abg if not clear improvement in cognition given hypercarbia Keep NPO for now until mentation improved IVF D5 1/2 with 20meq KCL x 2L follow labs (3) Bipolar 1 disorder: on seroquel and amitriptyline NPO for now - will need to resume once NPO lifted (4) Anxiety: pt takes lorazepam 1mg po tid prn (5) HLD (hyperlipidemia): continue atorvastatin once NPO lifted (6) DVT prophylaxis: Lovenox, SCDS/TEDs Disposition: Admit to PCU ; discharge disposition to be determined Follow up: PCP Dr. Hanna upon discharge Patient was seen and examined in collaboration with Dr. Mckinnon, please see addendum Starting 02/19/19 patient will be under the care of Dr. Gomez History of Present Illness Chief Complaint: Respiratory distress and altered mental status starting this morning. Primary Care Provider: Dimitri Hanna MD This is a 59-year-old female who has a significant past medical history of chronic respiratory failure on 2 L of O2 secondary to moderate COPD, bipolar depression, anxiety, HLD, GERD, tobacco abuse disorder, chronic low back pain w ith chronic narcotic use who presents to [facility] secondary to respiratory distress and altered mental status that started this morning. Sister is at bedside. ROS difficult to obtain from patient secondary to drowsy state. She does answer questions but unsure how reliable. Per her history patient was found this morning by her son slumped over a chair and unresponsive. Her oxygen was noted to be 68%. EMS was called. According to EMS report upon arrival patient was found to be seated upright in a chair in the living room and appeared to be conscious and alert. Patient usually wears oxygen via NC at all times however patient believes she did not wear her oxygen all night and has not for at least 12 hours. This morning patient had respiratory distress and slurred speech which was believed to be secondary to the hypoxia. Patient was found by EMS to be in the tripod position with moderate respiratory distress. Patient is on chronic narcotics with oxycodone in which she is prescribed 20 mg 3 times daily. She is also prescribed Ativan 1 mg 3 times daily as needed. Patient is unable to tell me what she recalls last prior to being in ER. She remembers her son being at her house, but states it was Sunday. She does recall taking her medications this morning and recalls taking 2 oxycodone. Per patient history she states she takes oxycodone 3-4 times a day but I am unable to elicit how many she is taking. Per PDMP her last fill date was 02/10. Sister at bedside states that patient keeps her medications in 1 bottle for ease of transport but that her Lorazepam and her oxycodone look very similar so she is concerned she may have taking extra oxycodone. Her sister feels this is likely accidental if indeed overdose. She does elicit to when her mother she intentionally overdosed on benzodiazepines. Per family patient has been experiencing increased SOB for approx 4 weeks, chronic cough, freq episodes of hypoxia. Per family patient gets, "funny," when her oxygen is low even contributing to a fall last week. Family also notes pt had her bipap taken from her and hasn't been on it for about a week. Patient does not tolerate bipap and has been noncompliant with it taking it off during the night and going without oxygen. She overall feels better than when she first arrived. She denies any current pain. She denies any lightheadedness, dizziness, chest pain, fever, chills, sweats, recent illness, hemoptysis, nausea, vomiting, diarrhea, abdominal pain, change in bowel or urinary habits. Her appetite has otherwise been normal. She denies overall feeling depressed or any suicidal or homicidal ideations. Allergies Allergy/AdvReac Type Severity Reaction Status Date / Time doxycycline Allergy Intermediate Hives Verified 02/18/19 10:28 morphine Allergy Intermediate ITCHING AT Verified 02/18/19 10:28 IV SITE ONLY iodine Allergy Unknown RASH Verified 02/18/19 10:28 valproic acid Allergy Unknown 0 Verified 02/18/19 10:28 Home Medications Home Medications Medication Instructions Recorded Confirmed Type Women's 50 Plus Multivitamin 1 tab PO QAM 10/25/18 02/18/19 History albuterol sulfate 2 puff INHALATION QID PRN 10/25/18 02/18/19 History albuterol sulfate 3 ml INHALATION QID PRN 10/25/18 02/18/19 History aspirin [Aspirin Low Dose] 81 mg PO QAM 10/25/18 02/18/19 History atorvastatin 20 mg PO HS 10/25/18 02/18/19 History furosemide 20 mg PO DAILY PRN 10/25/18 02/18/19 History gabapentin 300 mg PO BID 10/25/18 02/18/19 History lorazepam 1 mg PO TID PRN 10/25/18 02/18/19 History meloxicam [Mobic] 7.5 mg PO BID 10/25/18 02/18/19 History oxycodone 20 mg PO TID 10/25/18 02/18/19 History pantoprazole 40 mg PO BID 10/25/18 02/18/19 History quetiapine [Seroquel] 400 mg PO HS 10/25/18 02/18/19 History sumatriptan succinate 100 mg PO DAILY PRN 10/25/18 02/18/19 History triamcinolone acetonide 1 applic TOPICAL BID 10/25/18 02/18/19 History potassium chloride [Klor-Con] 20 meq PO DAILY #7 ea 01/11/19 02/18/19 Rx amitriptyline 50 mg PO HS 02/18/19 02/18/19 History fluticasone furoate [Arnuity 1 inh INHALATION DAILY 02/18/19 02/18/19 History Ellipta] Past Med/Surg History Medical History Chronic respiratory failure with hypercapnia (Chronic) Chronic back pain (Chronic) Bipolar 1 disorder (Chronic) GERD (gastroesophageal reflux disease) (Chronic) Depression (Chronic) Anxiety (Chronic) COPD, moderate (Chronic) Nocturnal hypoxemia (Chronic) HLD (hyperlipidemia) (Chronic) Tobacco use Surgical History H/O tubal ligation (Resolved) S/P right knee arthroscopy (Resolved) S/P trigger finger release (Resolved) History of hysterectomy (Resolved) H/O bilateral oophorectomy (Resolved) Family History Mother Coronary heart disease Diabetes Cancer cervical Father Coronary heart disease Son Bipolar disorder Daughter Bipolar disorder Social History Preferred Language: Welsh Communication Ability: lethargic 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 Physical Exam Physical Exam: Gen: WD/WN, female, lying in bed in right lateral decubitus position, tachypneic, arouses to verbal and painful stimuli, drowsy Head: Normocephalic, Atraumatic Eyes: Sclera normal, no conjunctival injection, PERRLA, EOMI ENT: Gross hearing intact, normal pharynx, mucous membranes dry Neck: supple, no adenopathy, No JVD, no bruit, Resp: Clear to auscultation b/l with diffuse inspiratory and expiratory wheeze, not complete clearing after coughing, no rales, rhonchi. Increased insp/exp effort, no accessory muscle use CV: Tachycardic rate, regular rhythm, no murmur, rub, gallop, or ectopy Abd: +BS x 4, soft, nontender, nondistended Musculoskeletal: moves extremities active rom x 4, strength intact, good emergency dispatcher strength Extremities: No edema bilaterally Skin: warm, moist, no rash, negative turgor, cap refill < 2sec Neuro: Alert and oriented x 3 but drowsy, need verbal and painful stimuli to arouse patient, speech slow and garbled, flat mood/affect, cran nerve 2-12 intact grossly : deferred Results & Data Vital Signs (Past 12 Hours) Vital Signs Temp Pulse Pulse Resp BP BP Pulse Ox 02/18/19 12:20 102 H 23 121/61 95 02/18/19 11:42 93 02/18/19 11:31 92 02/18/19 11:20 111 H 30 H 136/66 100 02/18/19 10:31 111 H 24 123/81 100 02/18/19 10:16 110 H 36 H 149/86 H 100 02/18/19 10:00 100 H 26 H 103/63 98 02/18/19 09:45 103 H 23 100/69 97 02/18/19 09:40 103 H 26 H 92 02/18/19 09:30 102 H 29 H 99/76 L 91 02/18/19 09:15 104 H 30 H 119/74 90 02/18/19 09:12 104 H 32 H 121/67 93 02/18/19 08:56 108 H 46 H 91 02/18/19 08:55 91 02/18/19 08:49 36.6 C 112 H 36 H 99/71 L 87 L Laboratory Results Short CBC 02/18/19 02/18/19 Range/Units 09:43 10:12 WBC 12.69 H (4.8-10.8) K/uL Hgb 13.0 (12.0-16.0) g/dL Hct 39.9 (37-47) % Plt Count 274 (130-400) K/uL ABG pCO2 70 H (35-46) mmHg BMP 02/18/19 09:43 Sodium 139 Potassium 3.4 L Chloride 94 L Carbon Dioxide 38 H BUN 7 Creatinine 0.80 Glucose 135 H Calcium 9.1 Cardiac Enzymes 02/18/19 Range/Units 09:43 Troponin I < 0.015 (0-0.045) ng/ml Liver Function 02/18/19 Range/Units 09:43 Total Bilirubin 0.4 (0.2-1) mg/dl AST 7 L (15-37) U/L ALT 16 (12-78) U/L Alkaline Phosphatase 115 (45-117) U/L Albumin 3.5 (3.4-5.0) gm/dl Urine 02/18/19 Range/Units 09:50 Urine Color Yellow Urine Appearance Clear (Clear) Urine pH 7.0 (4.5-7.5) Ur Specific [place]bell 1.017 (1.000-1.030) Urine Protein Negative (Negative) Urine Glucose (UA) Negative (Negative) Diagnostic Findings CXR: IMPRESSION: Cardiomegaly with no acute cardiopulmonary abnormality. Medications Administered Discontinued Medications Albuterol (Duoneb) 12 ml NEB ONE ONE Stop: 02/18/19 09:28 Last Admin: 02/18/19 09:37 Dose: 12 ml Documented by: [id number] Sodium Chloride (Nss 1000ml) 1,000 mls @ 999 mls/hr IV .Q1H1M KEVIN Stop: 02/18/19 10:30 Last Infusion: 02/18/19 11:20 Dose: 0 mls/hr Documented by: [id number] Admin: 02/18/19 10:00 Dose: 999 mls/hr Documented by: [id number] Naloxone HCl (Narcan) 0.4 mg IV NOW STA Stop: 02/18/19 09:26 Last Admin: 02/18/19 10:00 Dose: 0.4 mg Documented by: [id number] ECG Rate (beats per minute): 107 Rhythm: sinus tachycardia Findings: + nonspecific-ST abn and + T-wave inversion (Lateral) Code Status & VTE Plan Code Status Full Code VTE Prophylaxis Plan VTE Prophylaxis will be ordered: Yes Supervising Physician Co-Signing Physician Notes I have seen and examined the patient and have discussed the case with the provider above. I agree with the assessment and plan as stated with the following exceptions. Ms. Patel is waxing/waning in mental status during my examination but was able to answer her name and the date appropriately. History is skewed because of this. She doesn't remember anything from this morning. Her sister called her daughter who mentioned to me that she was confused because of "not having enough air" last weekend, and she fell into a table at her home and broke it. Daughter states that she has been having problems with her BIPAP and was not compliant with it because she was intolerant. She had it removed from the home earlier this week. She also reports that mom has been reporting "not being able to get enough air" for the past 4 weeks. She is still actively smoking and has a chronic oxygen dependence. Daughter states that she was mentating normally and feeling well yesterday. On exam she is confused but is able to follow instructions (GCS 13), she is not moving air on auscultation and has minimal wheezing when air movement is heard. She is not working to breathe on 5L oxymask and otherwise appears comfortable. S1/2 present without any murmurs. CN 2-12 grossly intact, emergency dispatcher strength and sensation are intact and she is moving all extremities equally, there is no evidence of facial droop. Some slurred speech is present, but the patient is rapidly becoming fatigued when she tries to speak and falls asleep easily. She was given one dose of Narcan in the ER earlier with a known h/o chronic narcotic use. Per PDMP, she takes Oxycodone 20mg PO TID and Lorazepam 1mg PO TID regularly. Polypharmacy is definitely playing a role, however, she is clinically in exacerbation of COPD and hypoxia with hypercarbia acutely is likely the main reason for her altered mental status. She has been having issues with hypoxia at home per daughter above, and lives alone. Recommend continue treating COPD exacerbation as above and repeating ABG in a few hours if mental status is not improved. Will monitor her in PCU in the event respiratory distress increases or if she becomes too fatigued to protect her airway. Cont BIPAP for now as tolerated and nightly. Agree with holding PO at this time including meds and food until mental status improves and breathing stabilizes. OK for mouth swabs as her mucous membranes are very dry. Will monitor very closely for signs of withdrawal here. DO Ino UPDATE (1600): She appears more lethargic on re-examination. Tidal volume is around 200s and repeat ABG doesn't reveal much change. (ABG) 7.36/73/71 on BIPAP 16/8 with FiO2 40%. Consulted Drag Seiner who evaluated her, and thought she was able to protect her airway. Gas appeared to reflect chronic changes. Son just informed us that she might have hit her head on bedroom furniture this morning as she assistant broker her glasses. CT head is pending. TSH also pending. She has multiple reasons to be lethargic including polypharmacy with oxycodone, lorazepam, amitryptilene, seroquel, and gabapentin. She also is Bipolar with depression and per her son, she has looked this way in the past when she was without her oxygen for a time. He has seen her recover as the day progressed. Will await CT results and cont to monitor in the PCU. Ino,
[2019-02-18] MEDS ORDERED: MAGNESIUM HYDROXIDE SUSP 30 ML UDC PO PRN (13:35)
[2019-02-18] MEDS ORDERED: ONDANSETRON INJ 2 MG/ML 2 ML VIAL IV PRN (13:35)
[2019-02-18] MEDS ORDERED: ACETAMINOPHEN 325 MG TAB PO PRN (13:35)
[2019-02-18] MEDS ORDERED: POLYETHYLENE (MIRALAX) 17 GM PACK PO PRN (13:35)
[2019-02-18] MEDS ORDERED: ALUMINUM/MAGNESIUM SUSP 30 ML UDC PO PRN (13:35)
[2019-02-18] MEDS ORDERED: D5W AND 1/2NSS + 20MEQ KCL 20 MEQ/1,000 ML BAG IV SCH (13:45)
--- NOTE | 2019-02-18 14:33 | Emergency Department Note ---
Entered by Mia Alicea acting as a scribe for Torie Rosario MD History of Present Illness General Chief complaint: Respiratory Distress Stated complaint: respiratory distress Source: patient, EMS and RN notes reviewed Mode of arrival: EMS Limitations: no limitations History of Present Illness Provider complaint: AMS Onset (ago): minute(s) (RN ADVANCED) Location: head Pain Consistency: + other (episode) Quality: + other (AMS) Associated symptoms: + chest pain and + shortness of breath Treatments prior to arrival: other (DuoNeb, Albuterol) The patient is a 59 year old female who presents to the ER via EMS for an evaluation of altered mental status. The RN reports that the patients oxygen saturation was 60% upon arrival of EMS. She states that the patient has a history of COPD and is an every day smoker. The patient notes that she does have an associated chest pain. Per RN, the patient was given a DuoNeb and albuterol in route. The patient reports that she took more than her recommended dose of Ativan this morning as well as oxycodone. Home Medications Home Medications Medication Instructions Recorded Confirmed Type Women's 50 Plus Multivitamin 1 tab PO QAM 10/25/18 02/18/19 History albuterol sulfate 2 puff INHALATION QID PRN 10/25/18 02/18/19 History albuterol sulfate 3 ml INHALATION QID PRN 10/25/18 02/18/19 History aspirin [Aspirin Low Dose] 81 mg PO QAM 10/25/18 02/18/19 History atorvastatin 20 mg PO HS 10/25/18 02/18/19 History furosemide 20 mg PO DAILY PRN 10/25/18 02/18/19 History gabapentin 300 mg PO BID 10/25/18 02/18/19 History meloxicam [Mobic] 7.5 mg PO BID 10/25/18 02/18/19 History oxycodone 20 mg PO TID 10/25/18 02/18/19 History pantoprazole 40 mg PO BID 10/25/18 02/18/19 History sumatriptan succinate 100 mg PO DAILY PRN 10/25/18 02/18/19 History triamcinolone acetonide 1 applic TOPICAL BID 10/25/18 02/18/19 History potassium chloride [Klor-Con] 20 meq PO DAILY #7 ea 01/11/19 02/18/19 Rx Arnuity Ellipta 1 inh INHALATION DAILY 02/18/19 02/18/19 History amitriptyline 50 mg PO HS 02/18/19 02/18/19 History levofloxacin [Levaquin] 750 mg PO DAILY 3 Days #3 tab 02/19/19 Rx lorazepam 0.5 mg PO TID PRN #0 tab 02/19/19 02/18/19 Rx prednisone 10 mg PO UD #20 tab 02/19/19 Rx quetiapine [Seroquel] 400 mg PO HS PRN #0 tab 02/19/19 02/18/19 Rx Allergies Allergy/AdvReac Type Severity Reaction Status Date / Time doxycycline Allergy Intermediate Hives Verified 02/18/19 10:28 morphine Allergy Intermediate ITCHING AT Verified 02/18/19 10:28 IV SITE ONLY iodine Allergy Unknown RASH Verified 02/18/19 10:28 valproic acid Allergy Unknown 0 Verified 02/18/19 10:28 Past Med/Surg History Medical History Chronic respiratory failure with hypercapnia (Chronic) Chronic back pain (Chronic) Bipolar 1 disorder (Chronic) GERD (gastroesophageal reflux disease) (Chronic) Depression (Chronic) Anxiety (Chronic) COPD, moderate (Chronic) Nocturnal hypoxemia (Chronic) HLD (hyperlipidemia) (Chronic) Tobacco use Surgical History H/O tubal ligation (Resolved) S/P right knee arthroscopy (Resolved) S/P trigger finger release (Resolved) History of hysterectomy (Resolved) H/O bilateral oophorectomy (Resolved) Family History Mother Coronary heart disease Diabetes Cancer cervical Father Coronary heart disease Son Bipolar disorder Daughter Bipolar disorder Social History Preferred Language: Persian Communication Ability: Effective 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 and A total of 10 systems reviewed and were otherwise negative Physical Exam Vital Signs Vital Signs - 24 hr 02/18/19 08:49 02/18/19 08:55 02/18/19 08:56 Temperature 36.6 C Temperature Source Oral Sepsis Recent Fever Within 48 Hours No Sepsis New/Unexplained Change in Mental Status No Sepsis Action Taken by Nursing No Action Required Fraction of Inspired Oxygen - Titration Pulse Rate 112 H 108 H Pulse Rate [Left Finger] Pulse Rate from SpO2 Sensor Pulse Rhythm [Left Finger] Respiratory Rate 36 H 46 H Respiratory Effort / Characteristics Spontaneous Non-Labored Respiratory Depth Shallow Respiratory Pattern Blood Pressure 99/71 L Blood Pressure [Right Arm] Blood Pressure Mean 80 Blood Pressure Mean [Right Arm] Pulse Oximetry 87 L 91 91 Oxygen Delivery Method Nasal Cannula BiPAP Oxygen Flow Rate 4 Fraction of Inspired Oxygen 35 40 02/18/19 09:02 02/18/19 09:03 02/18/19 09:12 Temperature Temperature Source Sepsis Recent Fever Within 48 Hours Sepsis New/Unexplained Change in Mental Status Sepsis Action Taken by Nursing Fraction of Inspired Oxygen - Titration 40 Pulse Rate 104 H Pulse Rate [Left Finger] Pulse Rate from SpO2 Sensor 103 H Pulse Rhythm [Left Finger] Respiratory Rate 32 H Respiratory Effort / Characteristics Respiratory Depth Respiratory Pattern Blood Pressure 121/67 Blood Pressure [Right Arm] Blood Pressure Mean 85 Blood Pressure Mean [Right Arm] Pulse Oximetry 93 Oxygen Delivery Method BiPAP BiPAP Oxygen Flow Rate Fraction of Inspired Oxygen 40 02/18/19 09:15 02/18/19 09:30 02/18/19 09:40 Temperature Temperature Source Sepsis Recent Fever Within 48 Hours Sepsis New/Unexplained Change in Mental Status Sepsis Action Taken by Nursing Fraction of Inspired Oxygen - Titration Pulse Rate 104 H 102 H Pulse Rate [Left Finger] 103 H Pulse Rate from SpO2 Sensor 104 H 102 H Pulse Rhythm [Left Finger] Respiratory Rate 30 H 29 H 26 H Respiratory Effort / Characteristics Non-Labored Respiratory Depth Respiratory Pattern Blood Pressure 119/74 99/76 L Blood Pressure [Right Arm] Blood Pressure Mean 89 83 Blood Pressure Mean [Right Arm] Pulse Oximetry 90 91 92 Oxygen Delivery Method BiPAP BiPAP BiPAP Oxygen Flow Rate Fraction of Inspired Oxygen 40 02/18/19 09:45 02/18/19 09:56 02/18/19 10:00 Temperature Temperature Source Sepsis Recent Fever Within 48 Hours Sepsis New/Unexplained Change in Mental Status Sepsis Action Taken by Nursing Fraction of Inspired Oxygen - Titration Pulse Rate 103 H 100 H Pulse Rate [Left Finger] Pulse Rate from SpO2 Sensor 102 H 100 H Pulse Rhythm [Left Finger] Respiratory Rate 23 26 H Respiratory Effort / Characteristics Respiratory Depth Respiratory Pattern Blood Pressure 100/69 103/63 Blood Pressure [Right Arm] Blood Pressure Mean 79 76 Blood Pressure Mean [Right Arm] Pulse Oximetry 97 98 Oxygen Delivery Method BiPAP BiPAP BiPAP Oxygen Flow Rate Fraction of Inspired Oxygen 40 02/18/19 10:16 02/18/19 10:31 02/18/19 11:20 Temperature Temperature Source Sepsis Recent Fever Within 48 Hours Sepsis New/Unexplained Change in Mental Status Sepsis Action Taken by Nursing Fraction of Inspired Oxygen - Titration Pulse Rate 110 H 111 H Pulse Rate [Left Finger] 111 H Pulse Rate from SpO2 Sensor 110 H 108 H Pulse Rhythm [Left Finger] Respiratory Rate 36 H 24 30 H Respiratory Effort / Characteristics Respiratory Depth Respiratory Pattern Blood Pressure 149/86 H 123/81 Blood Pressure [Right Arm] 136/66 Blood Pressure Mean 107 95 Blood Pressure Mean [Right Arm] 89 Pulse Oximetry 100 100 100 Oxygen Delivery Method BiPAP BiPAP BiPAP Oxygen Flow Rate Fraction of Inspired Oxygen 02/18/19 11:31 02/18/19 11:42 02/18/19 12:20 Temperature Temperature Source Sepsis Recent Fever Within 48 Hours Sepsis New/Unexplained Change in Mental Status Sepsis Action Taken by Nursing Fraction of Inspired Oxygen - Titration Pulse Rate Pulse Rate [Left Finger] 102 H Pulse Rate from SpO2 Sensor Pulse Rhythm [Left Finger] Regular Respiratory Rate 23 Respiratory Effort / Characteristics Non-Labored Respiratory Depth Normal Respiratory Pattern Regular Blood Pressure Blood Pressure [Right Arm] 121/61 Blood Pressure Mean Blood Pressure Mean [Right Arm] 81 Pulse Oximetry 92 93 95 Oxygen Delivery Method Nasal Cannula Oxymask Oxymask Oxygen Flow Rate 4 5 5 Fraction of Inspired Oxygen Vital signs reviewed. General: Chronically ill appearing on BiPap. HEENT: No scleral icterus, PERRLA, neck supple. Atraumatic. Cardiovascular: Regular rate and rhythm, no extra sounds. Pulmonary: Clear to auscultation bilaterally, normal work of breathing. Abdomen: Soft, nontender, nondistended, positive bowel sounds. Musculoskeletal: Atraumatic, no peripheral edema. Neurologic: Patient is somnolent and minimally arousable to painful stimuli. Skin: Warm, dry, no rash Course 0917: Past medical records reviewed. The patient was evaluated in room A11B. A complete history and physical examination was performed. 1137: I discussed the patient's case with Yolanda Guillen PA-C - [facility]. She and Dr. Haddad will evaluate the patient for further management. Administered Medications Discontinued Medications Albuterol (Duoneb) 12 ml NEB ONE ONE Stop: 02/18/19 09:28 Last Admin: 02/18/19 09:37 Dose: 12 ml Documented by: [id number] Albuterol (Duoneb) 3 ml NEB Q4R KEVIN Stop: 03/20/19 15:59 Last Admin: 02/19/19 15:13 Dose: 3 ml Documented by: [id number] Admin: 02/19/19 11:00 Dose: 3 ml Documented by: [id number] Admin: 02/19/19 07:04 Dose: 3 ml Documented by: [id number] Admin: 02/19/19 03:57 Dose: 3 ml Documented by: [id number] Admin: 02/18/19 23:00 Dose: 3 ml Documented by: [id number] Admin: 02/18/19 19:22 Dose: 3 ml Documented by: [id number] Admin: 02/18/19 15:35 Dose: 3 ml Documented by: [id number] Amitriptyline HCl (Elavil) 50 mg PO HS KEVIN Stop: 03/20/19 20:59 Last Admin: 02/18/19 21:26 Dose: 50 mg Documented by: [id number] Aspirin (Ecotrin Ectab) 81 mg PO QAM KEVIN Stop: 03/21/19 08:59 Last Admin: 02/19/19 08:10 Dose: 81 mg Documented by: [id number] Atorvastatin Calcium (Lipitor) 20 mg PO HS KEVIN Stop: 03/20/19 20:59 Last Admin: 02/18/19 20:10 Dose: 20 mg Documented by: [id number] Enoxaparin Sodium (Lovenox) 40 mg SQ Q24H KEVIN Stop: 03/21/19 08:59 Last Admin: 02/19/19 08:11 Dose: 40 mg Documented by: [id number] Gabapentin (Neurontin) 300 mg PO BID KEVIN Stop: 03/21/19 08:59 Last Admin: 02/19/19 08:10 Dose: 300 mg Documented by: [id number] Sodium Chloride (Nss 1000ml) 1,000 mls @ 999 mls/hr IV .Q1H1M KEVIN Stop: 02/18/19 10:30 Last Infusion: 02/18/19 11:20 Dose: 0 mls/hr Documented by: [id number] Admin: 02/18/19 10:00 Dose: 999 mls/hr Documented by: [id number] Potassium Chloride/Sodium Chloride (Normal Saline W/20 Meq Kcl) 20 meq in 1,000 mls @ 75 mls/hr IV .[id number] KEVIN Stop: 02/19/19 15:00 Last Admin: 02/19/19 07:00 Dose: Not Given Documented by: [id number] Methylprednisolone 40 mg/ (Syringe) 0.64 mls @ 1.5 mls/min IV Q6H KEVIN Stop: 03/20/19 13:59 Last Admin: 02/19/19 13:16 Dose: 1.5 mls/min Documented by: [id number] Admin: 02/19/19 07:35 Dose: 1.5 mls/min Documented by: [id number] Admin: 02/19/19 03:14 Dose: 1.5 mls/min Documented by: [id number] Admin: 02/18/19 19:49 Dose: 1.5 mls/min Documented by: [id number] Admin: 02/18/19 15:30 Dose: 1.5 mls/min Documented by: [id number] Potassium Chloride/Dextrose/Sod Cl (D5w And 1/2nss + 20meq Kcl) 20 meq in 1,000 mls @ 75 mls/hr IV .[id number] KEVIN Stop: 02/19/19 16:24 Last Infusion: 02/19/19 07:00 Dose: 0 mls/hr Documented by: [id number] Admin: 02/18/19 15:29 Dose: 75 mls/hr Documented by: [id number] Levofloxacin/Dextrose (Levaquin/D5w) 750 mg in 150 mls @ 100 mls/hr IV Q24H KEVIN Stop: 02/25/19 13:59 Last Infusion: 02/19/19 14:46 Dose: 0 mls/hr Documented by: [id number] Admin: 02/19/19 13:16 Dose: 100 mls/hr Documented by: [id number] Infusion: 02/18/19 17:00 Dose: 0 mls/hr Documented by: [id number] Admin: 02/18/19 15:29 Dose: 100 mls/hr Documented by: [id number] Lorazepam (Ativan) 0.5 mg PO TID PRN PRN Reason: Anxiety Stop: 03/20/19 19:25 Last Admin: 02/19/19 14:10 Dose: 0.5 mg Documented by: [id number] Admin: 02/19/19 07:38 Dose: 0.5 mg Documented by: [id number] Admin: 02/18/19 21:26 Dose: 0.5 mg Documented by: [id number] Meloxicam (Mobic) 7.5 mg PO BID [facility] Stop: 03/20/19 20:59 Last Admin: 02/19/19 08:11 Dose: 7.5 mg Documented by: [id number] Admin: 02/18/19 20:10 Dose: 7.5 mg Documented by: [id number] Miscellaneous (Remove Nicoderm Patch) 1 ea N/A HS [facility] Stop: 03/20/19 20:59 Last Admin: 02/18/19 21:27 Dose: 1 ea Documented by: [id number] Multivitamins (Multivitamin Tab) 1 tab PO QAM [facility] Stop: 03/21/19 08:59 Last Admin: 02/19/19 08:10 Dose: 1 tab Documented by: [id number] Naloxone HCl (Narcan) 0.4 mg IV NOW STA Stop: 02/18/19 09:26 Last Admin: 02/18/19 10:00 Dose: 0.4 mg Documented by: [id number] Nicotine (Nicoderm Cq) 21 mg TD QAM [facility] Stop: 03/20/19 13:44 Last Admin: 02/19/19 08:11 Dose: 21 mg Documented by: [id number] Admin: 02/18/19 15:29 Dose: 21 mg Documented by: [id number] Oxycodone HCl (Roxicodone Immediate Rel) 20 mg PO TID@0600,1400,2200 [facility] Stop: 03/04/19 21:59 Last Admin: 02/19/19 13:15 Dose: 20 mg Documented by: [id number] Admin: 02/19/19 05:03 Dose: 20 mg Documented by: [id number] Admin: 02/18/19 23:50 Dose: Not Given Documented by: [id number] Pantoprazole Sodium (Protonix) 40 mg PO BID KEVIN Stop: 03/20/19 20:59 Last Admin: 02/19/19 08:10 Dose: 40 mg Documented by: [id number] Admin: 02/18/19 20:12 Dose: 40 mg Documented by: [id number] Potassium Chloride (Klor-Con Pwd) 20 meq PO DAILY KEVIN Stop: 03/20/19 19:14 Last Admin: 02/19/19 08:10 Dose: 20 meq Documented by: [id number] Admin: 02/18/19 20:11 Dose: 20 meq Documented by: [id number] Quetiapine Fumarate (Seroquel) 400 mg PO HS KEVIN Stop: 03/20/19 20:59 Last Admin: 02/18/19 20:11 Dose: 400 mg Documented by: [id number] Medical Decision Making Differential Diagnosis Differential diagnosis includes: toxic, metabolic, infectious, traumatic, cardiac, neurologic, hematologic, psychiatric and inflammatory etiologies. Medical Records Attestation: I reviewed the patient's medical records. Home Medications Current Medication List: was personally reviewed by me Laboratory Data Attestation: I reviewed the patient's lab results. Result diagrams: 02/19/19 06:10 02/19/19 06:10 Lab Results 02/18/19 02/18/19 02/18/19 Range/Units 09:43 09:43 09:43 WBC 12.69 H (4.8-10.8) K/uL RBC 4.05 L (4.2-5.4) M/uL Hgb 13.0 (12.0-16.0) g/dL Hct 39.9 (37-47) % MCV 98.5 (80-100) fL MCH 32.1 (25-34) pg MCHC 32.6 (32-36) g/dL RDW Std Deviation 49.9 H (36.4-46.3) fL RDW Coeff of Lizzie 13.9 (11.5-14.5) % Plt Count 274 (130-400) K/uL MPV 8.8 (7.4-10.4) fL Immature Gran % (Auto) 0.2 % Neut % (Auto) 77.0 % Lymph % (Auto) 14.3 % [place] % (Auto) 8.3 % Eos % (Auto) 0.0 % Baso % (Auto) 0.2 % Immature Gran # (Auto) 0.03 H (0.00-0.02) K/uL Neut # (Auto) 9.78 H (1.4-6.5) K/uL Lymph # (Auto) 1.81 (1.2-3.4) K/uL [place] # (Auto) 1.05 H (0.11-0.59) K/uL Eos # (Auto) 0.00 (0-0.5) K/uL Baso # (Auto) 0.02 (0-0.2) K/uL PT 11.4 (9.0-12.0) Seconds INR 1.1 (0.9-1.1) APTT 28.4 (21.0-31.0) Seconds PTT Ratio 1.0 ABG pH (7.35-7.45) ABG pCO2 (35-46) mmHg ABG pO2 (80-95) mm/Hg ABG HCO3 (19-24) mmol/L ABG O2 Saturation (90-95) % ABG Base Excess (-9-1.8) mEq/L Price Test (Pos) Barometric Pressure mm/Hg Oxygen Given Sodium 139 (136-145) mmol/L Potassium 3.4 L (3.5-5.1) mmol/L Chloride 94 L (98-107) mmol/L Carbon Dioxide 38 H (21-32) mmol/L Anion Gap 7.0 (3-11) BUN 7 (7-18) mg/dl Creatinine 0.80 (0.6-1.2) mg/dl Est Cr Clr Drug Dosing 67.0 ml/min Est GFR ( Amer) 93.5 Est GFR (Non-Af Amer) 80.7 BUN/Creatinine Ratio 8.4 L (10-20) Glucose 135 H (70-99) mg/dl Lactate (0.4-2.0) mmol/L Calcium 9.1 (8.5-10.1) mg/dl Magnesium 2.3 (1.8-2.4) mg/dl Total Bilirubin 0.4 (0.2-1) mg/dl AST 7 L (15-37) U/L ALT 16 (12-78) U/L Alkaline Phosphatase 115 (45-117) U/L Troponin I < 0.015 (0-0.045) ng/ml Total Protein 7.6 (6.4-8.2) gm/dl Albumin 3.5 (3.4-5.0) gm/dl Globulin 4.1 H (2.5-4.0) gm/dl Albumin/Globulin Ratio 0.9 (0.9-2) TSH 0.601 (0.300-4.500) uIu/ml Urine Color Urine Appearance (Clear) Urine pH (4.5-7.5) Ur Specific [place] (1.000-1.030) Urine Protein (Negative) Urine Glucose (UA) (Negative) Urine Ketones (Negative) Urine Blood (Negative) Urine Nitrite (Negative) Urine Bilirubin (Negative) Urine Urobilinogen (Negative) Ur Leukocyte Esterase (Negative) Urine Opiates Screen (Neg) Ur Methadone, Qual (Neg) Urine Barbiturates (Neg) Ur Phencyclidine (PCP) (Neg) U Amphetamin/Meth Scrn (Neg) MDMA (Ecstasy) Screen (Neg) U Benzodiazepines Scrn (Neg) Ur Cocaine Metabolite (Neg) U Marijuana (THC) Screen (Neg) 02/18/19 02/18/19 02/18/19 Range/Units 09:43 09:43 09:50 WBC (4.8-10.8) K/uL RBC (4.2-5.4) M/uL Hgb (12.0-16.0) g/dL Hct (37-47) % MCV (80-100) fL MCH (25-34) pg MCHC (32-36) g/dL RDW Std Deviation (36.4-46.3) fL RDW Coeff of Lizzie (11.5-14.5) % Plt Count (130-400) K/uL MPV (7.4-10.4) fL Immature Gran % (Auto) % Neut % (Auto) % Lymph % (Auto) % [place] % (Auto) % Eos % (Auto) % Baso % (Auto) % Immature Gran # (Auto) (0.00-0.02) K/uL Neut # (Auto) (1.4-6.5) K/uL Lymph # (Auto) (1.2-3.4) K/uL [place] # (Auto) (0.11-0.59) K/uL Eos # (Auto) (0-0.5) K/uL Baso # (Auto) (0-0.2) K/uL PT (9.0-12.0) Seconds INR (0.9-1.1) APTT (21.0-31.0) Seconds PTT Ratio ABG pH (7.35-7.45) ABG pCO2 (35-46) mmHg ABG pO2 (80-95) mm/Hg ABG HCO3 (19-24) mmol/L ABG O2 Saturation (90-95) % ABG Base Excess (-9-1.8) mEq/L Price Test (Pos) Barometric Pressure mm/Hg Oxygen Given Sodium (136-145) mmol/L Potassium (3.5-5.1) mmol/L Chloride (98-107) mmol/L Carbon Dioxide (21-32) mmol/L Anion Gap (3-11) BUN (7-18) mg/dl Creatinine (0.6-1.2) mg/dl Est Cr Clr Drug Dosing ml/min Est GFR ( Amer) Est GFR (Non-Af Amer) BUN/Creatinine Ratio (10-20) Glucose (70-99) mg/dl Lactate 1.0 (0.4-2.0) mmol/L Calcium (8.5-10.1) mg/dl Magnesium (1.8-2.4) mg/dl Total Bilirubin (0.2-1) mg/dl AST (15-37) U/L ALT (12-78) U/L Alkaline Phosphatase (45-117) U/L Troponin I (0-0.045) ng/ml Total Protein (6.4-8.2) gm/dl Albumin (3.4-5.0) gm/dl Globulin (2.5-4.0) gm/dl Albumin/Globulin Ratio (0.9-2) TSH Cancelled (0.300-4.500) uIu/ml Urine Color Yellow Urine Appearance Clear (Clear) Urine pH 7.0 (4.5-7.5) Ur Specific [place] 1.017 (1.000-1.030) Urine Protein Negative (Negative) Urine Glucose (UA) Negative (Negative) Urine Ketones Negative (Negative) Urine Blood Negative (Negative) Urine Nitrite Negative (Negative) Urine Bilirubin Negative (Negative) Urine Urobilinogen Negative (Negative) Ur Leukocyte Esterase Negative (Negative) Urine Opiates Screen (Neg) Ur Methadone, Qual (Neg) Urine Barbiturates (Neg) Ur Phencyclidine (PCP) (Neg) U Amphetamin/Meth Scrn (Neg) MDMA (Ecstasy) Screen (Neg) U Benzodiazepines Scrn (Neg) Ur Cocaine Metabolite (Neg) U Marijuana (THC) Screen (Neg) 02/18/19 02/18/19 Range/Units 09:50 10:12 WBC (4.8-10.8) K/uL RBC (4.2-5.4) M/uL Hgb (12.0-16.0) g/dL Hct (37-47) % MCV (80-100) fL MCH (25-34) pg MCHC (32-36) g/dL RDW Std Deviation (36.4-46.3) fL RDW Coeff of Lizzie (11.5-14.5) % Plt Count (130-400) K/uL MPV (7.4-10.4) fL Immature Gran % (Auto) % Neut % (Auto) % Lymph % (Auto) % [place] % (Auto) % Eos % (Auto) % Baso % (Auto) % Immature Gran # (Auto) (0.00-0.02) K/uL Neut # (Auto) (1.4-6.5) K/uL Lymph # (Auto) (1.2-3.4) K/uL [place] # (Auto) (0.11-0.59) K/uL Eos # (Auto) (0-0.5) K/uL Baso # (Auto) (0-0.2) K/uL PT (9.0-12.0) Seconds INR (0.9-1.1) APTT (21.0-31.0) Seconds PTT Ratio ABG pH 7.37 (7.35-7.45) ABG pCO2 70 H (35-46) mmHg ABG pO2 215 H (80-95) mm/Hg ABG HCO3 40 H (19-24) mmol/L ABG O2 Saturation 100.0 H (90-95) % ABG Base Excess 12.1 H (-9-1.8) mEq/L Price Test Pos (Pos) Barometric Pressure 730.3 mm/Hg Oxygen Given 4L Sodium (136-145) mmol/L Potassium (3.5-5.1) mmol/L Chloride (98-107) mmol/L Carbon Dioxide (21-32) mmol/L Anion Gap (3-11) BUN (7-18) mg/dl Creatinine (0.6-1.2) mg/dl Est Cr Clr Drug Dosing ml/min Est GFR ( Amer) Est GFR (Non-Af Amer) BUN/Creatinine Ratio (10-20) Glucose (70-99) mg/dl Lactate (0.4-2.0) mmol/L Calcium (8.5-10.1) mg/dl Magnesium (1.8-2.4) mg/dl Total Bilirubin (0.2-1) mg/dl AST (15-37) U/L ALT (12-78) U/L Alkaline Phosphatase (45-117) U/L Troponin I (0-0.045) ng/ml Total Protein (6.4-8.2) gm/dl Albumin (3.4-5.0) gm/dl Globulin (2.5-4.0) gm/dl Albumin/Globulin Ratio (0.9-2) TSH (0.300-4.500) uIu/ml Urine Color Urine Appearance (Clear) Urine pH (4.5-7.5) Ur Specific [place] (1.000-1.030) Urine Protein (Negative) Urine Glucose (UA) (Negative) Urine Ketones (Negative) Urine Blood (Negative) Urine Nitrite (Negative) Urine Bilirubin (Negative) Urine Urobilinogen (Negative) Ur Leukocyte Esterase (Negative) Urine Opiates Screen Pos H (Neg) Ur Methadone, Qual Neg (Neg) Urine Barbiturates Neg (Neg) Ur Phencyclidine (PCP) Neg (Neg) U Amphetamin/Meth Scrn Neg (Neg) MDMA (Ecstasy) Screen Neg (Neg) U Benzodiazepines Scrn Neg (Neg) Ur Cocaine Metabolite Neg (Neg) U Marijuana (THC) Screen Neg (Neg) Imaging Data Radiologist's Impression: Radiology results as stated below per my review and the radiologist's interpretation: SINGLE VIEW CHEST CLINICAL HISTORY: Dyspnea. FINDINGS: An AP, portable, semierect chest radiograph is compared to study dated 01/11/2019 and correlated with chest CT dated 10/25/2018. The examination is degraded by portable technique and patient rotation. The heart is enlarged and there is atherosclerotic calcification of the thoracic aorta. The pulmonary vasculature is noncongested. Chronic interstitial thickening is similar to previous. There is left basilar atelectasis. No airspace consolidation or large pleural effusion is identified. No pneumothorax is seen. The skeletal structures are osteopenic. The bony thorax is grossly intact. IMPRESSION: Cardiomegaly with no acute cardiopulmonary abnormality. Electronically signed by: Ozzy Chiang M.D. 02/18/2019 9:50 AM ECG Data Attestation: I personally reviewed and interpreted this ECG as follows: Indication: altered mental status Rate (beats per minute): 107 Rhythm: sinus tachycardia Findings: no acute ischemic change and no ectopy Blood Pressure Blood Pressure Findings: Low blood pressure Blood Pressure Disposition: further management by hospitalist MDM Narrative This pt was evaluated and appeared to be in no distress. IV access was obtained and lab work was drawn. Pt was placed on bipap and O2 sats were stable. Pt was given narcan with good result. Pt admits to taking "a few pain pills and a nerve pill." She was more arousable and began to wean off of bipap. She will require observation in case of recurrent somnolence after narcan wears off. Pt was discussed with the hospitalist service for further management. Impression & Plan Polypharmacy, Altered mental status, Respiratory failure Discharge Plan Visit Data *Final* Discharge Date/Time: 02/18/19 12:42 Chief Complaint: Respiratory Distress Stated Complaint: respiratory distress ED Provider: Torie Rosario Discharge Problem: Polypharmacy, Altered mental status, Respiratory failure Patient Disposition: Admitted As Inpatient Discharge Instructions Interventions: ED Discharge Assessment Last Done: 02/18/19 12:42 Discharge Problem: Altered mental status Qualifiers: Altered mental status type: unspecified Qualified Code(s): R41.82 - Altered mental status, unspecified Respiratory failure Qualifiers: Chronicity: acute Respiratory failure complication: hypoxia Qualified Code(s): J96.01 - Acute respiratory failure with hypoxia The scribe's documentation has been prepared under my direction and personally reviewed by me in its entirety. I confirm that the note above accurately reflects all work, treatment, procedures, and medical decision making performed by me.
[2019-02-18] MEDS: NICOTINE 21 MG/24 HR TDSY TD SCH (15:29)
[2019-02-18] MEDS: LEVOFLOXACIN/D5W 750 MG/150 ML BAG IV SCH (15:29)
[2019-02-18] MEDS: methylPREDNISolone 40 MG in SYRINGE 0 ML IV SCH ×2 (15:30→19:49)
[2019-02-18] MEDS: ALBUT/IPRATROP 3MG/0.5MG NEB 3 ML VIAL NEB SCH ×3 (15:35→23:00)
[2019-02-18 16:19] LABS: Base Excess ABG 11.7 mEq/L (-9-1.8); HCO3 ABG 40 mmol/L (19-24); Oxygen Saturation ABG 93.3 % (90-95); PCO2 ABG 73 mmHg (35-46); PO2 ABG 71 mm/Hg (80-95); pH ABG 7.36 (7.35-7.45)
[2019-02-18 16:20] LABS: Allen Test POS (Pos)
--- NOTE | 2019-02-18 17:58 | Critical Care Consultation ---
Date of Consultation February 18, 2019 Assessment & Plan (1) Altered mental status: Neuro- altered mental status likely toxic metabolic encephalopathy. doubt related to respiratory status as her ABG shows chronic changes. ?medication related. check CT head but her exam is not focal CV- HD stable Pulmonary- acute on chronic hypoxic and hypercarbic respiratory failure due to COPD exacerbation. continue steroids, albuterol, ipratropium. continue bipap for respiratory support. recheck ABG ID- no clear infection. no infiltrate on CXR. UA ok. levofloxacin for COPD exacerbation Renal- cr ok GI- NPO until more awake Heme- leukocytosis. enoxaparin proph Endocrine- keep blood sugars <180 Dispo- can remain on current floor unless repeat ABG worsens. will continue to reeval I have personally spent 35 minutes of critical care time in the direct management of this patient. This is a life/limb threatening event. This includes time spent evaluating patient, direct bedside care, chart review, placing orders, interpretation of diagnostic studies, discussion with consultants, patient, and/or family members regarding treatment decisions, as well as other required patient management activities. This time is exclusive of all separately billable procedures, and teaching time and separate from and in addition to any other critical care service time. (2) Acute on chronic respiratory failure with hypoxia and hypercapnia: History of Present Illness Attending Physician: Amber Haddad MD History of Present Illness 59 y/o female with a history of COPD, bipolar disorder, Hyperlipidemia who presents with altered mental status. her son found her this morning not responding. He says she has been complaining of shortness of breath for the past few days but no other complains. He says there have been no medication changes and he doesnt think she could have taken extra of her medications. she was found to be hypoxic on arrival to the ED. she was also complaining of chest pain in the ED. pt was more alert earlier but became more unresponsive and with increased sob and hypoxia and restarted on bipap. She will answer some questions for me but not consistently. She denies current shortness of breath or chest pain Allergies Allergy/AdvReac Type Severity Reaction Status Date / Time doxycycline Allergy Intermediate Hives Verified 02/18/19 10:28 morphine Allergy Intermediate ITCHING AT Verified 02/18/19 10:28 IV SITE ONLY iodine Allergy Unknown RASH Verified 02/18/19 10:28 valproic acid Allergy Unknown 0 Verified 02/18/19 10:28 Home Medications Home Medications Medication Instructions Recorded Confirmed Type Women's 50 Plus Multivitamin 1 tab PO QAM 10/25/18 02/18/19 History albuterol sulfate 2 puff INHALATION QID PRN 10/25/18 02/18/19 History albuterol sulfate 3 ml INHALATION QID PRN 10/25/18 02/18/19 History aspirin [Aspirin Low Dose] 81 mg PO QAM 10/25/18 02/18/19 History atorvastatin 20 mg PO HS 10/25/18 02/18/19 History furosemide 20 mg PO DAILY PRN 10/25/18 02/18/19 History gabapentin 300 mg PO BID 10/25/18 02/18/19 History lorazepam 1 mg PO TID PRN 10/25/18 02/18/19 History meloxicam [Mobic] 7.5 mg PO BID 10/25/18 02/18/19 History oxycodone 20 mg PO TID 10/25/18 02/18/19 History pantoprazole 40 mg PO BID 10/25/18 02/18/19 History quetiapine [Seroquel] 400 mg PO HS 10/25/18 02/18/19 History sumatriptan succinate 100 mg PO DAILY PRN 10/25/18 02/18/19 History triamcinolone acetonide 1 applic TOPICAL BID 10/25/18 02/18/19 History potassium chloride [Klor-Con] 20 meq PO DAILY #7 ea 01/11/19 02/18/19 Rx amitriptyline 50 mg PO HS 02/18/19 02/18/19 History fluticasone furoate [Arnuity 1 inh INHALATION DAILY 02/18/19 02/18/19 History Ellipta] Patient History Medical History Chronic respiratory failure with hypercapnia (Chronic) Chronic back pain (Chronic) Bipolar 1 disorder (Chronic) GERD (gastroesophageal reflux disease) (Chronic) Depression (Chronic) Anxiety (Chronic) COPD, moderate (Chronic) Nocturnal hypoxemia (Chronic) HLD (hyperlipidemia) (Chronic) Tobacco use Surgical History H/O tubal ligation (Resolved) S/P right knee arthroscopy (Resolved) S/P trigger finger release (Resolved) History of hysterectomy (Resolved) H/O bilateral oophorectomy (Resolved) Family History Mother Coronary heart disease Diabetes Cancer cervical Father Coronary heart disease Son Bipolar disorder Daughter Bipolar disorder Social History Preferred Language: [place] Communication Ability: lethargic Conference Producer Required: No Beliefs That Will Affect Care: None Current Living Situation: Alone Other Information That Helps Us Care for You: No Feels Safe at Home: Yes Safety Concerns: Feels Safe At This Time Smoking Status: Current every day smoker Tobacco Type: cigarettes Cigarettes Per Day: 20 Do You Dip or Chew Tobacco: No Second Hand Exposure: No Tobacco Cessation Education Requested by Patient: No Hx Alcohol Use: No Hx Substance Use: No Review of Systems Review of Systems: Unobtainable due to reduced consciousness Physical Exam Physical Exam: Constitutional: Comfortable NAD on bipap tachypnea to 25 HEENT: normocephalic atraumatic. dry mucus membranes. no cervical lymphadenopathy CV: RRR nl s1,s2 no murmurs rubs or gallops Lungs: decreased bilaterally. poor air movement. no accessory muscle use Abd: soft nontender nondistended. normal bowel sounds Ext: no edema. no cyanosis, no clubbing Skin: warm dry Neuro: lethargic but will answer simple questions moving all extremities. strengh 5/5 in all ext. PERRL Psych: lethargic Results & Data Vital Signs (Past 12 Hours) Vital Signs Temp Pulse Pulse Resp BP BP Pulse Ox 02/18/19 15:28 95 H 26 H 98 02/18/19 15:26 36.8 C 94 H 16 103/62 98 02/18/19 13:35 36.8 C 89 14 114/76 96 02/18/19 13:20 100 H 24 94 02/18/19 12:42 100 H 22 112/58 L 94 02/18/19 12:20 102 H 23 121/61 95 02/18/19 11:42 93 02/18/19 11:31 92 02/18/19 11:20 111 H 30 H 136/66 100 02/18/19 10:31 111 H 24 123/81 100 02/18/19 10:16 110 H 36 H 149/86 H 100 02/18/19 10:00 100 H 26 H 103/63 98 02/18/19 09:45 103 H 23 100/69 97 02/18/19 09:40 103 H 26 H 92 02/18/19 09:30 102 H 29 H 99/76 L 91 02/18/19 09:15 104 H 30 H 119/74 90 02/18/19 09:12 104 H 32 H 121/67 93 02/18/19 08:56 108 H 46 H 91 02/18/19 08:55 91 02/18/19 08:49 36.6 C 112 H 36 H 99/71 L 87 L Laboratory Results Laboratory Results - last 24 hr 02/18/19 02/18/19 02/18/19 09:43 09:43 09:43 WBC 12.69 H RBC 4.05 L Hgb 13.0 Hct 39.9 MCV 98.5 MCH 32.1 MCHC 32.6 RDW Std Deviation 49.9 H RDW Coeff of Lizzie 13.9 Plt Count 274 MPV 8.8 Immature Gran % (Auto) 0.2 Neut % (Auto) 77.0 Lymph % (Auto) 14.3 [place] % (Auto) 8.3 Eos % (Auto) 0.0 Baso % (Auto) 0.2 Immature Gran # (Auto) 0.03 H Neut # (Auto) 9.78 H Lymph # (Auto) 1.81 [place] # (Auto) 1.05 H Eos # (Auto) 0.00 Baso # (Auto) 0.02 PT 11.4 INR 1.1 APTT 28.4 PTT Ratio 1.0 ABG pH ABG pCO2 ABG pO2 ABG HCO3 ABG O2 Saturation ABG Base Excess Price Test Barometric Pressure Oxygen Given Sodium 139 Potassium 3.4 L Chloride 94 L Carbon Dioxide 38 H Anion Gap 7.0 BUN 7 Creatinine 0.80 Est Cr Clr Drug Dosing 67.0 Est GFR ( Amer) 93.5 Est GFR (Non-Af Amer) 80.7 BUN/Creatinine Ratio 8.4 L Glucose 135 H Lactate Calcium 9.1 Magnesium 2.3 Total Bilirubin 0.4 AST 7 L ALT 16 Alkaline Phosphatase 115 Troponin I < 0.015 Total Protein 7.6 Albumin 3.5 Globulin 4.1 H Albumin/Globulin Ratio 0.9 TSH Urine Color Urine Appearance Urine pH Ur Specific [place] Urine Protein Urine Glucose (UA) Urine Ketones Urine Blood Urine Nitrite Urine Bilirubin Urine Urobilinogen Ur Leukocyte Esterase Urine Opiates Screen U Codeine Confrm GC/MS Ur Morphine (GC/MS) Ur Hydrocodone (GC/MS) Ur Norhydrocodone Ur Noroxycodone Urine Oxycodone (GC/MS) U Oxymorphone GC/MS Ur Methadone, Qual Ur Hydromorphone (GC/MS) Urine Barbiturates Ur Phencyclidine (PCP) U Amphetamin/Meth Scrn MDMA (Ecstasy) Screen U Benzodiazepines Scrn Ur Cocaine Metabolite U Marijuana (THC) Screen 02/18/19 02/18/19 02/18/19 09:43 09:43 09:50 WBC RBC Hgb Hct MCV MCH MCHC RDW Std Deviation RDW Coeff of Lizzie Plt Count MPV Immature Gran % (Auto) Neut % (Auto) Lymph % (Auto) [place] % (Auto) Eos % (Auto) Baso % (Auto) Immature Gran # (Auto) Neut # (Auto) Lymph # (Auto) [place] # (Auto) Eos # (Auto) Baso # (Auto) PT INR APTT PTT Ratio ABG pH ABG pCO2 ABG pO2 ABG HCO3 ABG O2 Saturation ABG Base Excess Price Test Barometric Pressure Oxygen Given Sodium Potassium Chloride Carbon Dioxide Anion Gap BUN Creatinine Est Cr Clr Drug Dosing Est GFR ( Amer) Est GFR (Non-Af Amer) BUN/Creatinine Ratio Glucose Lactate 1.0 Calcium Magnesium Total Bilirubin AST ALT Alkaline Phosphatase Troponin I Total Protein Albumin Globulin Albumin/Globulin Ratio TSH Pending Urine Color Yellow Urine Appearance Clear Urine pH 7.0 Ur Specific [place] 1.017 Urine Protein Negative Urine Glucose (UA) Negative Urine Ketones Negative Urine Blood Negative Urine Nitrite Negative Urine Bilirubin Negative Urine Urobilinogen Negative Ur Leukocyte Esterase Negative Urine Opiates Screen U Codeine Confrm GC/MS Ur Morphine (GC/MS) Ur Hydrocodone (GC/MS) Ur Norhydrocodone Ur Noroxycodone Urine Oxycodone (GC/MS) U Oxymorphone GC/MS Ur Methadone, Qual Ur Hydromorphone (GC/MS) Urine Barbiturates Ur Phencyclidine (PCP) U Amphetamin/Meth Scrn MDMA (Ecstasy) Screen U Benzodiazepines Scrn Ur Cocaine Metabolite U Marijuana (THC) Screen 02/18/19 02/18/19 02/18/19 09:50 09:50 10:12 WBC RBC Hgb Hct MCV MCH MCHC RDW Std Deviation RDW Coeff of Lizzie Plt Count MPV Immature Gran % (Auto) Neut % (Auto) Lymph % (Auto) [place] % (Auto) Eos % (Auto) Baso % (Auto) Immature Gran # (Auto) Neut # (Auto) Lymph # (Auto) [place] # (Auto) Eos # (Auto) Baso # (Auto) PT INR APTT PTT Ratio ABG pH 7.37 ABG pCO2 70 H ABG pO2 215 H ABG HCO3 40 H ABG O2 Saturation 100.0 H ABG Base Excess 12.1 H Price Test Pos Barometric Pressure 730.3 Oxygen Given 4L Sodium Potassium Chloride Carbon Dioxide Anion Gap BUN Creatinine Est Cr Clr Drug Dosing Est GFR ( Amer) Est GFR (Non-Af Amer) BUN/Creatinine Ratio Glucose Lactate Calcium Magnesium Total Bilirubin AST ALT Alkaline Phosphatase Troponin I Total Protein Albumin Globulin Albumin/Globulin Ratio TSH Urine Color Urine Appearance Urine pH Ur Specific [place] Urine Protein Urine Glucose (UA) Urine Ketones Urine Blood Urine Nitrite Urine Bilirubin Urine Urobilinogen Ur Leukocyte Esterase Urine Opiates Screen Pos H U Codeine Confrm GC/MS Pending Ur Morphine (GC/MS) Pending Ur Hydrocodone (GC/MS) Pending Ur Norhydrocodone Pending Ur Noroxycodone Pending Urine Oxycodone (GC/MS) Pending U Oxymorphone GC/MS Pending Ur Methadone, Qual Neg Ur Hydromorphone (GC/MS) Pending Urine Barbiturates Neg Ur Phencyclidine (PCP) Neg U Amphetamin/Meth Scrn Neg MDMA (Ecstasy) Screen Neg U Benzodiazepines Scrn Neg Ur Cocaine Metabolite Neg U Marijuana (THC) Screen Neg 02/18/19 16:04 WBC RBC Hgb Hct MCV MCH MCHC RDW Std Deviation RDW Coeff of Lizzie Plt Count MPV Immature Gran % (Auto) Neut % (Auto) Lymph % (Auto) [place] % (Auto) Eos % (Auto) Baso % (Auto) Immature Gran # (Auto) Neut # (Auto) Lymph # (Auto) [place] # (Auto) Eos # (Auto) Baso # (Auto) PT INR APTT PTT Ratio ABG pH 7.36 ABG pCO2 73 H ABG pO2 71 L ABG HCO3 40 H ABG O2 Saturation 93.3 ABG Base Excess 11.7 H Price Test POS Barometric Pressure 727.8 Oxygen Given 5L Sodium Potassium Chloride Carbon Dioxide Anion Gap BUN Creatinine Est Cr Clr Drug Dosing Est GFR ( Amer) Est GFR (Non-Af Amer) BUN/Creatinine Ratio Glucose Lactate Calcium Magnesium Total Bilirubin AST ALT Alkaline Phosphatase Troponin I Total Protein Albumin Globulin Albumin/Globulin Ratio TSH Urine Color Urine Appearance Urine pH Ur Specific [place] Urine Protein Urine Glucose (UA) Urine Ketones Urine Blood Urine Nitrite Urine Bilirubin Urine Urobilinogen Ur Leukocyte Esterase Urine Opiates Screen U Codeine Confrm GC/MS Ur Morphine (GC/MS) Ur Hydrocodone (GC/MS) Ur Norhydrocodone Ur Noroxycodone Urine Oxycodone (GC/MS) U Oxymorphone GC/MS Ur Methadone, Qual Ur Hydromorphone (GC/MS) Urine Barbiturates Ur Phencyclidine (PCP) U Amphetamin/Meth Scrn MDMA (Ecstasy) Screen U Benzodiazepines Scrn Ur Cocaine Metabolite U Marijuana (THC) Screen Diagnostic Findings SINGLE VIEW CHEST CLINICAL HISTORY: Dyspnea. FINDINGS: An AP, portable, semierect chest radiograph is compared to study dated 01/11/2019 and correlated with chest CT dated 10/25/2018. The examination is d egraded by portable technique and patient rotation. The heart is enlarged and there is atherosclerotic calcification of the thoracic aorta. The pulmonary vasculature is noncongested. Chronic interstitial thickening is similar to previous. There is left basilar atelectasis. No airspace consolidation or large pleural effusion is identified. No pneumothorax is seen. The skeletal structures are osteopenic. The bony thorax is grossly intact. IMPRESSION: Cardiomegaly with no acute cardiopulmonary abnormality. (1) Altered mental status Altered mental status type: unspecified Qualified Code(s): R41.82 - Altered mental status, unspecified
--- NOTE | 2019-02-18 18:37 | CT Scan Report ---
CT head/brain wo con CT DOSE: 1277.12 mGycm HISTORY: Mental status change fatigue/encephalopathic TECHNIQUE: Multiaxial CT images of the head were performed without the use of intravenous contrast. A dose lowering technique was utilized adhering to the principles of ALARA. Comparison: 03/26/2011 Findings: The paranasal sinuses and mastoid air cells are clear. The calvarium and skull base are int act. The ventricles and sulci are within normal limits. There is no mass, hematoma, midline shift, or acute infarct. Impression: No acute intracranial abnormality. The above report was generated using voice recognition software. It may contain grammatical, syntax or spelling errors. Electronically signed by: Alejandro Alvarez M.D. 02/18/2019 6:36 PM
--- NOTE | 2019-02-18 20:02 | Communication Note ---
Date of Service: February 18, 2019 Patient seen and re evaluated at 1900 She is Alert, arousable and answers all questions appropriately. She is off bipap and on Oxymask at 4L saturating well. She does not recall all events from this morning. Denies taking excess narcotics or benzodiazepines Currently complains of being, "anxious and jittery." She is requesting her nerve pill and a drink. "I feel 100% better." Will resume diet and medications Continue oxycodone but hold for sedation will reduce ativan to 0.5mg tid prn Nursing instructed to not give narcotics and benzodiazepines together continue supplemental oxygen as needed
[2019-02-18] MEDS: MELOXICAM 7.5 MG TAB PO SCH (20:10)
[2019-02-18] MEDS: POTASSIUM CHLORIDE PWD 20 MEQ PACK PO SCH (20:11)
[2019-02-18] MEDS: PANTOprazole 40 MG TAB PO SCH (20:12)
[2019-02-18] MEDS ORDERED: QUETIAPINE FUMARATE 200 MG TAB PO SCH (21:00)
[2019-02-18] MEDS ORDERED: ATORVASTATIN 20 MG TAB PO SCH (21:00)
[2019-02-18] MEDS ORDERED: AMITRIPTYLINE HCL 50 MG TAB PO SCH (21:00)
[2019-02-18] MEDS: LORazepam 0.5 MG TAB PO PRN (21:26)
[2019-02-18] MEDS: OXYCODONE HCL IR 5 MG TAB (IMMEDIATE RELEASE) PO SCH (23:50)
[2019-02-19] MEDS: methylPREDNISolone 40 MG in SYRINGE 0 ML IV SCH ×3 (03:14→13:16)
[2019-02-19] MEDS: ALBUT/IPRATROP 3MG/0.5MG NEB 3 ML VIAL NEB SCH ×4 (03:57→15:13)
[2019-02-19] MEDS: OXYCODONE HCL IR 5 MG TAB (IMMEDIATE RELEASE) PO SCH ×2 (05:03→13:15)
[2019-02-19 06:43] LABS: Hematocrit (blood only) 38.6 % (37-47); Hemoglobin 12.3 g/dL (12.0-16.0); Mean Corpuscular Hgb Conc 31.9 g/dL (32-36); Mean Platelet Volume 9.1 fL (7.4-10.4); Platelet Count 255 K/uL (130-400); RDW Coefficient of Variation 13.8 % (11.5-14.5); RDW Standard Deviation 49.3 fL (36.4-46.3); Red Blood Count 3.98 M/uL (4.2-5.4); White Blood Count 7.61 K/uL (4.8-10.8)
[2019-02-19 07:08] LABS: BUN Creatinine Ratio 16.3 (10-20); Calcium 9.3 mg/dl (8.5-10.1); Creatinine Clr Calc Pharmacy 90.8 ml/min; Est GFR (African American) 116.3; Est GFR (Non-African American) 100.3; Potassium 3.9 mmol/L (3.5-5.1)
[2019-02-19] MEDS: LORazepam 0.5 MG TAB PO PRN ×2 (07:38→14:10)
[2019-02-19] MEDS: PANTOprazole 40 MG TAB PO SCH (08:10)
[2019-02-19] MEDS: POTASSIUM CHLORIDE PWD 20 MEQ PACK PO SCH (08:10)
[2019-02-19] MEDS: NICOTINE 21 MG/24 HR TDSY TD SCH (08:11)
[2019-02-19] MEDS: MELOXICAM 7.5 MG TAB PO SCH (08:11)
[2019-02-19] MEDS ORDERED: GABAPENTIN 300 MG CAP PO SCH (09:00)
[2019-02-19] MEDS ORDERED: ENOXAPARIN INJ 40 MG/0.4 ML SYR SQ SCH (09:00)
[2019-02-19] MEDS ORDERED: ASPIRIN 81 MG ECTAB PO SCH (09:00)
[2019-02-19] MEDS ORDERED: MULTIVITAMIN TAB PO SCH (09:00)
[2019-02-19] MEDS: LEVOFLOXACIN/D5W 750 MG/150 ML BAG IV SCH (13:16)
--- NOTE | 2019-02-19 15:06 | Hospitalist Progress Note ---
Date of Service February 19, 2019 Assessment & Plan (1) Acute on chronic respiratory failure with hypoxia and hypercapnia: (2) COPD exacerbation: Present on admission with worsening SOB and altered mental status Possible related to polypharmacy. Taking oxycodone/seroquel/ativan/gabapentin/amitryptiline Received Narcan on admssion that significant improvement in mental status CXR no acute abnormality finding ABG pH 7.37 and pCO2 of 70 on admssion staring on IV levaquin 750mg daily, will change to oral On IV solumedrol 40mg IV q6hr, will change to oral Continue neb treatment Continue oxygen supplement Clinically improves (3) Altered mental status: Due to Polypharmacy in the setting of hypercapnia CT head showed no acute intracranial abnormality. Advised pt to decrease the oxycodone from 20mg to 10mg TID And decrease lorazepam to 0.5mg prn back to baseline (4) Bipolar 1 disorder: Will resume seroquel and amitriptyline (5) Anxiety: On lorazepam 1mg po tid prn home dose Advised pt to cut Lorazepam to 0.5mg TID PRN Consider to start on SSRI or maintenance psych med to titrate off benzo (Will defer to PCP) (6) HLD (hyperlipidemia): Will resume atorvastatin (7) DVT prophylaxis: Lovenox, SCDS/TEDs Disposition: Possible discharge home today Subjective Pt was seen and examined Lying in bed with no distress Pt said that she is back to her baseline She said that she would like to go home today She said that she feels fine She said that she could not remember if she takes the narcotic and the ativan together Denies any chest pain, palpitation, dizziness and SOB Physical Exam Physical Exam: General- No acute distress Head- atraumatic Eyes- PERRL, EOMI, ENT- oropharynx clear Neck- supple, no JVD Lungs- diminished BS Heart- regular rhythm; no murmur Abdomen- normal bowel sounds, soft, nontender Extremities- no calf tenderness Neuro- alert, oriented x 3; PERRL, EOMI; no facial palsy; no dysarthria Skin- warm & dry Results & Data Vital Signs (Past 12 Hours) Vital Signs Temp Pulse Pulse Resp BP Pulse Ox 02/19/19 11:40 36.6 C 99 H 16 132/72 96 02/19/19 11:00 98 H 18 99 02/19/19 07:59 99 H 02/19/19 07:40 92 02/19/19 07:24 36.9 C 96 H 24 115/67 94 02/19/19 07:04 100 H 20 96 02/19/19 03:57 87 18 97 02/19/19 03:17 36.9 C 90 18 109/63 97 (1) Altered mental status Altered mental status type: unspecified Qualified Code(s): R41.82 - Altered mental status, unspecified
--- NOTE | 2019-02-20 08:16 | Discharge Summary ---
Date of Service February 19, 2019 Admission HPI Per Admitting Provider This is a 59-year-old female who has a significant past medical history of chronic respiratory failure on 2 L of O2 secondary to moderate COPD, bipolar depression, anxiety, HLD, GERD, tobacco abuse disorder, chronic low back pain with chronic narcotic use who presents to [facility] secondary to respiratory distress and altered mental status that started this morning. Sister is at bedside. ROS difficult to obtain from patient secondary to drowsy state. She does answer questions but unsure how reliable. Per her history patient was found this morning by her son slumped over a chair and unresponsive. Her oxygen was noted to be 68%. EMS was called. According to EMS report upon arrival patient was found to be seated upright in a chair in the living room and appeared to be conscious and alert. Patient usually wears oxygen via NC at all times however patient believes she did not wear her oxygen all night and has not for at least 12 hours. This morning patient had respiratory distress and slurred speech which was believed to be secondary to the hypoxia. Patient was found by EMS to be in the tripod position with moderate respiratory distress. Patient is on chronic narcotics with oxycodone in which she is prescribed 20 mg 3 times daily. She is also prescribed Ativan 1 mg 3 times daily as needed. Patient is unable to tell me what she recalls last prior to being in ER. She remembers her son being at her house, but states it was Sunday. She does recall taking her medications this morning and recalls taking 2 oxycodone. Per patient history she states she takes oxycodone 3-4 times a day but I am unable to elicit how many she is taking. Per PDMP her last fill date was 02/10. Sister at bedside states that patient keeps her medications in 1 bottle for ease of transport but that her Lorazepam and her oxycodone look very similar so she is concerned she may have taking extra oxycodone. Her sister feels this is likely accidental if indeed overdose. She does elicit to when her mother she intentionally overdosed on benzodiazepines. Per family patient has been experiencing increased SOB for approx 4 weeks, chronic cough, freq episodes of hypoxia. Per family patient gets, "funny," when her oxygen is low even contributing to a fall last week. Family also notes pt had her bipap taken from her and hasn't been on it for about a week. Patient does not tolerate bipap and has been noncompliant with it taking it off during the night and going without oxygen. She overall feels better than when she first arrived. She denies any current pain. She denies any lightheadedness, dizziness, chest pain, fever, chills, sweats, recent illness, hemoptysis, nausea, vomiting, diarrhea, abdominal pain, change in bowel or urinary habits. Her appetite has otherwise been normal. She denies overall feeling depressed or any suicidal or homicidal ideations. Admission Exam Per Admitting Provider Gen: WD/WN, female, lying in bed in right lateral decubitus position, tachypneic, arouses to verbal and painful stimuli, drowsy Head: Normocephalic, Atraumatic Eyes: Sclera normal, no conjunctival injection, PERRLA, EOMI ENT: Gross hearing intact, normal pharynx, mucous membranes dry Neck: supple, no adenopathy, No JVD, no bruit, Resp: Clear to auscultation b/l with diffuse inspiratory and expiratory wheeze, not complete clearing after coughing, no rales, rhonchi. 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 Extremities: No edema bilaterally Skin: warm, moist, no rash, negative turgor, cap refill < 2sec Neuro: Alert and oriented x 3 but drowsy, need verbal and painful stimuli to arouse patient, speech slow and garbled, flat mood/affect, cran nerve 2-12 intact grossly : deferred Principal Diagnosis Acute on chronic respiratory failure with hypoxia and hypercapnia COPD exacerbation Altered Mental Status Bipolar disorder Anxiety Dyslipidemia Discharge Exam General- No acute distress Head- atraumatic Eyes- PERRL, EOMI, ENT- oropharynx clear Neck- supple, no JVD Lungs- diminished BS Heart- regular rhythm; no murmur Abdomen- normal bowel sounds, soft, nontender Extremities- no calf tenderness Neuro- alert, oriented x 3; PERRL, EOMI; no facial palsy; no dysarthria Skin- warm & dry Discharge Data Allergies Allergy/AdvReac Type Severity Reaction Status Date / Time doxycycline Allergy Intermediate Hives Verified 02/18/19 10:28 morphine Allergy Intermediate ITCHING AT Verified 02/18/19 10:28 IV SITE ONLY iodine Allergy Unknown RASH Verified 02/18/19 10:28 valproic acid Allergy Unknown 0 Verified 02/18/19 10:28 Consultations 02/18/19 11:35 ED Decision to Admit Stat 02/18/19 17:04 Consult Communication Studies Professor Stat Ordered Studies 02/18/19 17:03 CT head/brain wo con Urgent CT head/brain wo con CT DOSE: 1277.12 mGycm HISTORY: Mental status change fatigue/encephalopathic TECHNIQUE: Multiaxial CT images of the head were performed without the use of intravenous contrast. A dose lowering technique was utilized adhering to the principles of ALARA. Comparison: 03/26/2011 Findings: The paranasal sinuses and mastoid air cells are clear. The calvarium and skull base are intact. The ventricles and sulci are within normal limits. There is no mass, hematoma, midline shift, or acute infarct. Impression: No acute intracranial abnormality. The above report was generated using voice recognition software. It may contain grammatical, syntax or spelling errors. Electronically signed by: Alejandro Alvarez M.D. 02/18/2019 6:36 PM Dictated: 02/18/191834 Transcribed: 02/18/191834 SINGLE VIEW CHEST CLINICAL HISTORY: Dyspnea. FINDINGS: An AP, portable, semierect chest radiograph is compared to study dated 01/11/2019 and correlated with chest CT dated 10/25/2018. The examination is degraded by portable technique and patient rotation. The heart is enlarged and there is atherosclerotic calcification of the thoracic aorta. The pulmonary vasculature is noncongested. Chronic interstitial thickening is similar to previous. There is left basilar atelectasis. No airspace consolidation or large pleural effusion is identified. No pneumothorax is seen. The skeletal structures are osteopenic. The bony thorax is grossly intact. IMPRESSION: Cardiomegaly with no acute cardiopulmonary abnormality. Electronically signed by: Ozzy Chiang M.D. 02/18/2019 9:50 AM Dictated: 02/18/19947 Transcribed: 02/18/19947 Hospital Course (1) Acute on chronic respiratory failure with hypoxia and hypercapnia: (2) COPD exacerbation: Present on admission with worsening SOB and altered mental status Possible related to polypharmacy. Taking oxycodone/seroquel/ativan/gabapentin/amitryptiline Received Narcan on admssion that significant improvement in mental status CXR no acute abnormality finding ABG pH 7.37 and pCO2 of 70 on admssion staring on IV levaquin 750mg daily, will change to oral On IV solumedrol 40mg IV q6hr, will change to oral Continue neb treatment Continue oxygen supplement Clinically improves (3) Altered mental status: Due to Polypharmacy in the setting of hypercapnia CT head showed no acute intracranial abnormality. Advised pt to decrease the oxycodone from 20mg to 10mg TID And decrease lorazepam to 0.5mg prn back to baseline (4) Bipolar 1 disorder: Will resume seroquel and amitriptyline (5) Anxiety: On lorazepam 1mg po tid prn home dose Advised pt to cut Lorazepam to 0.5mg TID PRN Consider to start on SSRI or maintenance psych med to titrate off benzo (Will defer to PCP) (6) HLD (hyperlipidemia): Will resume atorvastatin (7) DVT prophylaxis: Lovenox, SCDS/TEDs Disposition: Possible discharge home today Total Time Total Time Spent Total Time Spent (In Minutes): 35 minutes Total Time Includes: Examination of the Patient, Discharge Planning, Medication Reconciliation, Communication With Other Providers and Other Discharge Plan Discharge Items Patient Disposition: Home - Home Health Services Reason For Visit: ACUTE CHRONIC RESPIRATORY DISTRESS Discharge Diagnosis: Acute on chronic respiratory failure with hypoxia and hypercapnia COPD exacerbation Altered Mental Status Bipolar disorder Anxiety Dyslipidemia Discharge Goals: Decrease discomfort, Improve disease control, Improve function and Increase independence Activity: Resume your previous activity Activity Comment: As tolerated Non-emergency contact: Primary Care Provider Call non-emergency contact if: you have any medication questions and your temperature is above 101 Follow-up/Referrals: Dimitri Hanna MD [Primary Care Provider] - Diet: Heart Healthy Addtl Provider Instructions: Follow up with your primary care provider Dr. Hanna on 02/25 @ 10:45 AM Continue oxygen supplement with exertion/ambulation Advised patient to call to schedule for the sleep study Counseling on smoking cessation Decrease Ativan to half tablet as needed Follow up with pain management to consider to decrease the oxycodone from 20mg to 10mg Hold Ativan and Oxycodone if you become drowsy or lethargy Do not take Ativan and Oxycodone at the same time due to risk of drowsiness/lethargy and unresponsiveness Do not operate any machine after taking the Ativan/Oxycodone Continue prednisone taper course Fall precaution Prescriptions: New prednisone 10 mg tablet 10 mg PO UD Qty: 20 RF: 0 levofloxacin [Levaquin] 750 mg tablet 750 mg PO DAILY 3 Days Qty: 3 RF: 0 Continued amitriptyline 50 mg Tablet 50 mg PO HS RF: 0 Arnuity Ellipta 100 mcg/actuation Blister With Device 1 inh INHALATION DAILY RF: 0 atorvastatin 20 mg Tablet 20 mg PO HS RF: 0 albuterol sulfate 2.5 mg /3 mL (0.083 %) Solution For Nebulization 3 ml INHALATION QID PRN (Reason: Shortness Of Breath) RF: 0 triamcinolone acetonide 0.5 % Cream 1 applic TOPICAL BID RF: 0 sumatriptan succinate 100 mg Tablet 100 mg PO DAILY PRN (Reason: Migraine Headache) RF: 0 aspirin [Aspirin Low Dose] 81 mg Tablet,Delayed Release (Dr/Ec) 81 mg PO QAM RF: 0 meloxicam [Mobic] 7.5 mg Tablet 7.5 mg PO BID RF: 0 pantoprazole 40 mg Tablet,Delayed Release (Dr/Ec) 40 mg PO BID RF: 0 gabapentin 300 mg Capsule 300 mg PO BID RF: 0 furosemide 20 mg Tablet 20 mg PO DAILY PRN (Reason: Weight Gain) RF: 0 albuterol sulfate 90 mcg/actuation Hfa Aerosol Inhaler 2 puff INHALATION QID PRN (Reason: Shortness Of Breath) RF: 0 oxycodone 20 mg Tablet 20 mg PO TID RF: 0 Women's 50 Plus Multivitamin 400 mcg-500 mg calcium-20 mcg Tablet 1 tab PO QAM RF: 0 potassium chloride [Klor-Con] 20 mEq packet 20 meq PO DAILY Qty: 7 RF: 0 Changed lorazepam 1 mg Tablet 0.5 mg PO TID PRN (Reason: Anxiety) Qty: 0 RF: 0 quetiapine [Seroquel] 400 mg Tablet 400 mg PO HS PRN (Reason: pain) Qty: 0 RF: 0 Stand-Alone Forms: [facility] Discharge Orders: Discharge Order (Routine); Ordered 02/19/19 Ordered By: Miah Gomez Admission Data Admit Date/Time: 02/18/19 12:21 Attending Provider: Miah Gomez Admit Provider: Viri Mckinnon Primary Care Provider: Dimitri Hanna Other Providers: Vrii Mckinnon ; Austin Frazier ; Amber Haddad Service: Telemetry Other Interventions: Discharge Summary Assessment (RN) Last Done: 02/19/19 17:49 DC Date/Time DO NOT enter until pt leaves facility: 02/19/19 18:10
[2019-02-21 11:10] LABS: Codeine Urine NEGATIVE NG/ML (CUTOFF=50); Hydrocodone Urine NEGATIVE NG/ML (CUTOFF=50); Hydromor Urine NEGATIVE NG/ML (CUTOFF=50); Morphine Urine NEGATIVE NG/ML (CUTOFF=50); Norhydrocodone Conf Ur NEGATIVE NG/ML (CUTOFF=50); Noroxycodone Urine 9060 NG/ML (CUTOFF=50); Oxycodone Urine 1510 NG/ML (CUTOFF=50); Oxymorph Urine 9050 NG/ML (CUTOFF=50)
== END 2019-02-19 18:10 | disposition home health service (06) | DRG 189 ==
LOC: ED 08:44 → SUATTDRO 12:21 → 2S 12:21

== ENCOUNTER 2019-11-04 08:43 | Inpatient (IN) ==
[2019-11-04] MEDS ORDERED: ALBUT/IPRATROP 3MG/0.5MG NEB 3 ML VIAL NEB ONE (08:55)
[2019-11-04] MEDS ORDERED: SODIUM CHLORIDE 0.9% 1000ML 1,000 ML IV ONE ×2 (08:58→09:53)
[2019-11-04] MEDS ORDERED: cefTRIAXone SODIUM 1,000 MG/50 ML BAG IV STA (08:58)
[2019-11-04] MEDS ORDERED: ALBUTEROL 0.083% NEBU SOLN 3 ML VIAL NEB STA (09:01)
[2019-11-04] MEDS ORDERED: ACETAMINOPHEN 500 MG TAB PO STA (09:05)
--- NOTE | 2019-11-04 09:05 | Emergency Department Note ---
ED Provider Note NAME: PRASANTH TATUM AGE: 59 SEX: F : 1960 ARRIVES VIA: Ambulance INFORMANT: Patient, EMS and nursing ED PROVIDER(S): Jono Moore DO CHIEF COMPLAINT: Shortness of breath HPI: Patient is a 59-year-old female with a past medical history of hypoxic respiratory failure, COPD that presents the ER for shortness of breath. She notes that she does have a cough but not significantly changed in which she has had before in the past. She does admit to shortness of breath. She also admits to Rigor's at home. She is not taking anything for the symptoms. She was found to be febrile. She also notes that she feels her heart racing. She has a very mild sore throat. She was brought in by EMS. She was given a neb treatment. She is hypoxic at 87% on room air. ROS: See above HPI for pertinent positives & negatives. A total of 10 systems reviewed and were otherwise negative. PAST MEDICAL HISTORY:See Below PAST SURGICAL HISTORY:See Below FAMILY HISTORY:See Below SOCIAL HISTORY:See Below HOME MEDICATIONS:See Below ALLERGIES:See Below VITALS:See Below PHYSICAL EXAMINATION: GENERAL: Sitting up in bed, alert, chronically ill-appearing on BiPAP EYE EXAM: normal conjunctiva. OROPHARYNX: no exudate, no erythema, lips, buccal mucosa, and tongue normal and mucous membranes are moist NECK: supple, no nuchal rigidity, no adenopathy, non-tender LUNGS: Wheezing bilateral with poor air movement. Normal chest wall mechanics HEART: no murmurs, S1 normal and S2 normal ABDOMEN: abdomen soft, non-tender, normo-active bowel sounds, no masses, no rebound or guarding. BACK: Back is symmetrical on inspection and there is no deformity, no midline tenderness, no CVA tenderness. SKIN: no rashes and no bruising UPPER EXTREMITIES: upper extremities are grossly normal. LOWER EXTREMITIES: No pitting edema. Calves are equal bilateral NEURO EXAM: Normal sensorium, cranial nerves II-XII grossly intact, normal speech, no gross weakness of arms, no gross weakness of legs. MEDICAL DECISION MAKING: Patient is a 59-year-old female with a past medical history of COPD and hypoxic respiratory failure that presents the ER hypoxic 87% on room air and respiratory distress. She admits to persistent cough which is been present for the past several months. She also admits to shaking chills at home. She was found to be febrile and hypoxic. IV was established blood work was obtained. She was placed on BiPAP. Labs were remarkable for a leukocytosis of 12,000. No significant anemia. INR was unremarkable. VBG with a pH of 7.25 and a CO2 of 81. BMP along with lactic acid was unremarkable. Magnesium was low at 1.6. Troponin was negative. UA was contaminated with multiple epithelial cells. Influenza was negative. Chest x-ray with focal infiltrate. She was given IV fluids x2 L along with IV Levaquin and Rocephin. She remained on BiPAP. She was given an hour-long neb treatment. She was given steroids. She was monitored closely. Discussed with the hospitalist. Bio fire was ordered and came back negative. She remained on isolation airborne precautions and was discussed with the hospitalist for admission. Triage Nursing notes reviewed. Prior medical records reviewed Vital Signs: reviewed and remarkable for febrile and hypoxic Differential diagnosis: Differential diagnosis includes etiologies such as sepsis, UTI, pneumonia, metabolic, electrolyte abnormalities, cardiac sources, intracerebral event, toxicologic, neurological, as well as others were entertained. ER treatment provided: See below Diagnostics interpreted by me: ECG: Sinus tach rate of 142 Normal axis No PVCs Nonspecific ST wave changes in the lateral leads and high lateral leads Cardiac Monitoring: Sinus tach rate of 125 Laboratory studies: As stated above and show below. Imaging studies: Portable AP upright 1 view with a left-sided infiltrate on the chest x-ray Consultation(s): Discussed with Yolanda green [facility] for admission ED COURSE: Procedures: none Critical Care: I have personally spent 80 minutes of critical care time in the direct management of this patient. This includes bedside care, interpretation of diagnostic studies, and testing, discussion with consultants, patient, and family members, and other required patient management activities. This 80 minutes is in excess of all separately billable procedures. 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 Beliefs That Will Affect Care: None marital status: Current Living Situation: Alone Other Information That Helps Us Care for You: No Feels Safe at Home: Yes Safety Concerns: Feels Safe At This Time Smoking Status: Former smoker Tobacco Type: cigarettes ; Cigarettes Per Day: 20 ; Do You Dip or Chew Tobacco: No ; Second Hand Exposure: No ; Tobacco Cessation Education Requested by Patient: No Hx Alcohol Use: No Hx Substance Use: No Results & Data Vital Signs Vital Signs - 24 hr 11/04/19 08:28 11/04/19 08:47 11/04/19 08:54 Temperature 39 C H Temperature Source Oral Pulse Rate 152 H 141 H 141 H Pulse Rate [Left] Pulse Rate from SpO2 Sensor Pulse Rhythm Regular Respiratory Rate 30 H 28 H 27 H Respiratory Effort / Characteristics Labored SOB on Exertion Respiratory Depth Respiratory Pattern Blood Pressure 167/85 H 167/85 H Blood Pressure Mean 112 126 Pulse Oximetry 93 Oxygen Delivery Method BiPAP Oxygen Flow Rate Fraction of Inspired Oxygen 100 SaO2/FiO2 Ratio 93 Sepsis Recent Fever Within 48 Hours Yes Sepsis New/Unexplained Change in Mental Status No Sepsis Action Taken by Nursing Physician Notified 11/04/19 08:58 11/04/19 09:00 11/04/19 09:02 Temperature Temperature Source Pulse Rate 152 H 150 H 142 H Pulse Rate [Left] 142 H Pulse Rate from SpO2 Sensor Pulse Rhythm Respiratory Rate 30 H 20 26 H Respiratory Effort / Characteristics Spontaneous Grunting Labored Moaning Respiratory Depth Shallow Respiratory Pattern Gasping Grunting Blood Pressure Blood Pressure Mean Pulse Oximetry 93 99 Oxygen Delivery Method BiPAP BiPAP Oxygen Flow Rate 12 Fraction of Inspired Oxygen 100 60 SaO2/FiO2 Ratio 93 Sepsis Recent Fever Within 48 Hours Sepsis New/Unexplained Change in Mental Status Sepsis Action Taken by Nursing 11/04/19 09:10 11/04/19 09:20 11/04/19 09:30 Temperature Temperature Source Pulse Rate 145 H 135 H 153 H Pulse Rate [Left] Pulse Rate from SpO2 Sensor 145 H 135 H 153 H Pulse Rhythm Respiratory Rate 30 H 31 H 32 H Respiratory Effort / Characteristics Respiratory Depth Respiratory Pattern Blood Pressure Blood Pressure Mean Pulse Oximetry 100 100 100 Oxygen Delivery Method Oxygen Flow Rate Fraction of Inspired Oxygen SaO2/FiO2 Ratio Sepsis Recent Fever Within 48 Hours Sepsis New/Unexplained Change in Mental Status Sepsis Action Taken by Nursing 11/04/19 09:40 11/04/19 09:50 11/04/19 09:58 Temperature Temperature Source Pulse Rate 141 H 153 H 137 H Pulse Rate [Left] Pulse Rate from SpO2 Sensor 141 H 152 H 137 H Pulse Rhythm Respiratory Rate 33 H 22 22 Respiratory Effort / Characteristics Respiratory Depth Respiratory Pattern Blood Pressure 132/70 Blood Pressure Mean 86 Pulse Oximetry 100 100 100 Oxygen Delivery Method Oxygen Flow Rate Fraction of Inspired Oxygen SaO2/FiO2 Ratio Sepsis Recent Fever Within 48 Hours Sepsis New/Unexplained Change in Mental Status Sepsis Action Taken by Nursing 11/04/19 10:00 11/04/19 10:01 11/04/19 10:10 Temperature Temperature Source Pulse Rate 133 H 136 H 150 H Pulse Rate [Left] Pulse Rate from SpO2 Sensor 133 H 136 H 150 H Pulse Rhythm Respiratory Rate 28 H 32 H 24 Respiratory Effort / Characteristics Respiratory Depth Respiratory Pattern Blood Pressure 114/74 Blood Pressure Mean 92 Pulse Oximetry 100 100 Oxygen Delivery Method Oxygen Flow Rate Fraction of Inspired Oxygen SaO2/FiO2 Ratio Sepsis Recent Fever Within 48 Hours Sepsis New/Unexplained Change in Mental Status Sepsis Action Taken by Nursing 11/04/19 10:20 11/04/19 10:30 11/04/19 10:40 Temperature Temperature Source Pulse Rate 131 H 132 H 134 H Pulse Rate [Left] Pulse Rate from SpO2 Sensor 131 H 132 H 135 H Pulse Rhythm Respiratory Rate 27 H 28 H 22 Respiratory Effort / Characteristics Respiratory Depth Respiratory Pattern Blood Pressure Blood Pressure Mean Pulse Oximetry 100 100 100 Oxygen Delivery Method Oxygen Flow Rate Fraction of Inspired Oxygen SaO2/FiO2 Ratio Sepsis Recent Fever Within 48 Hours Sepsis New/Unexplained Change in Mental Status Sepsis Action Taken by Nursing 11/04/19 10:50 11/04/19 11:00 11/04/19 11:10 Temperature Temperature Source Pulse Rate 130 H 123 H 121 H Pulse Rate [Left] Pulse Rate from SpO2 Sensor 130 H 123 H 121 H Pulse Rhythm Respiratory Rate 22 26 H 27 H Respiratory Effort / Characteristics Respiratory Depth Respiratory Pattern Blood Pressure 112/79 Blood Pressure Mean 85 Pulse Oximetry 100 100 100 Oxygen Delivery Method Oxygen Flow Rate Fraction of Inspired Oxygen SaO2/FiO2 Ratio Sepsis Recent Fever Within 48 Hours Sepsis New/Unexplained Change in Mental Status Sepsis Action Taken by Nursing 11/04/19 11:20 11/04/19 11:30 11/04/19 11:31 Temperature Temperature Source Pulse Rate 121 H 122 H Pulse Rate [Left] 121 H Pulse Rate from SpO2 Sensor 121 H 122 H Pulse Rhythm Respiratory Rate 22 23 24 Respiratory Effort / Characteristics Spontaneous Labored Respiratory Depth Respiratory Pattern Blood Pressure Blood Pressure Mean Pulse Oximetry 99 99 96 Oxygen Delivery Method BiPAP Oxygen Flow Rate Fraction of Inspired Oxygen SaO2/FiO2 Ratio Sepsis Recent Fever Within 48 Hours Sepsis New/Unexplained Change in Mental Status Sepsis Action Taken by Nursing Laboratory Data Result diagrams: 11/04/19 09:48 11/04/19 09:48 Lab Results 11/04/19 11/04/19 11/04/19 Range/Units 08:55 08:55 09:30 WBC (4.8-10.8) K/uL RBC (4.2-5.4) M/uL Hgb (12.0-16.0) g/dL Hct (37-47) % MCV (80-100) fL MCH (25-34) pg MCHC (32-36) g/dL RDW Std Deviation (36.4-46.3) fL RDW Coeff of Lizzie (11.5-14.5) % Plt Count (130-400) K/uL MPV (7.4-10.4) fL Immature Gran % (Auto) % Neut % (Auto) % Lymph % (Auto) % [place] % (Auto) % Eos % (Auto) % Baso % (Auto) % Immature Gran # (Auto) (0.00-0.02) K/uL Neut # (Auto) (1.4-6.5) K/uL Lymph # (Auto) (1.2-3.4) K/uL [place] # (Auto) (0.11-0.59) K/uL Eos # (Auto) (0-0.5) K/uL Baso # (Auto) (0-0.2) K/uL PT (9.0-12.0) Seconds INR (0.9-1.1) APTT (21.0-31.0) Seconds PTT Ratio VBG pH (7.36-7.41) VBG pCO2 (38-50) mmHg VBG pO2 mmHg VBG HCO3 mmol/L VBG O2 Saturation % VBG Base Excess mEq/L Barometric Pressure mm/Hg Sodium (136-145) mmol/L Potassium (3.5-5.1) mmol/L Chloride (98-107) mmol/L Carbon Dioxide (21-32) mmol/L Anion Gap (3-11) BUN (7-18) mg/dl Creatinine (0.6-1.2) mg/dl Est Cr Clr Drug Dosing ml/min Est GFR ( Amer) Est GFR (Non-Af Amer) BUN/Creatinine Ratio (10-20) Glucose (70-99) mg/dl Lactate (0.4-2.0) mmol/L Calcium (8.5-10.1) mg/dl Magnesium (1.8-2.4) mg/dl Total Bilirubin (0.2-1) mg/dl AST (15-37) U/L ALT (12-78) U/L Alkaline Phosphatase (45-117) U/L Troponin I (0-0.045) ng/ml Total Protein (6.4-8.2) gm/dl Albumin (3.4-5.0) gm/dl Globulin (2.5-4.0) gm/dl Albumin/Globulin Ratio (0.9-2) Procalcitonin (0-0.5) ng/ml Urine Color Yellow Urine Appearance Cloudy A (Clear) Urine pH 5.0 (4.5-7.5) Ur Specific [place] 1.025 (1.000-1.030) Urine Protein Negative (Negative) Urine Glucose (UA) Negative (Negative) Urine Ketones Negative (Negative) Urine Blood Negative (Negative) Urine Nitrite Negative (Negative) Urine Bilirubin Negative (Negative) Urine Urobilinogen Negative (Negative) Ur Leukocyte Esterase Trace H (Negative) Urine WBC (Auto) 1-5 (0-5) /hpf Urine RBC (Auto) 0-4 (0-4) /hpf U Hyaline Cast (Auto) 0 (0-5) /lpf U Epithel Cells (Auto) >30 H (0-5) /lpf Urine Bacteria (Auto) Negative (Negative) Adenovirus (PCR) Not Detected (NotDetected) B. pertussis DNA (PCR) Not Detected (NotDetected) B.parapertussis DNA PCR Not Detected (NotDetected) C. pneumoniae DNA (PCR) Not Detected (NotDetected) Coronavirus OC43 (PCR) Not Detected (NotDetected) Coronavirus HKU1 (PCR) Not Detected (NotDetected) Coronavirus 229E (PCR) Not Detected (NotDetected) Coronavirus NL63 (PCR) Not Detected (NotDetected) Human Metapneumovir PCR Not Detected (NotDetected) Influenza Type A (PCR) Neg for Influ A Not Detected (Neg) Influenza Type B (PCR) Neg for Influ B Not Detected (Neg) M. pneumoniae (PCR) Not Detected (NotDetected) Parainfluenza 1 (PCR) Not Detected (NotDetected) Parainfluenza 2 (PCR) Not Detected (NotDetected) Parainfluenza 3 (PCR) Not Detected (NotDetected) Parainfluenza 4 (PCR) Not Detected (NotDetected) RSV (PCR) Not Detected (NotDetected) Entero/Rhino (PCR) Not Detected (NotDetected) 11/04/19 11/04/19 11/04/19 Range/Units 09:48 09:48 09:48 WBC 12.51 H (4.8-10.8) K/uL RBC 3.71 L (4.2-5.4) M/uL Hgb 11.5 L (12.0-16.0) g/dL Hct 35.8 L (37-47) % MCV 96.5 (80-100) fL MCH 31.0 (25-34) pg MCHC 32.1 (32-36) g/dL RDW Std Deviation 43.1 (36.4-46.3) fL RDW Coeff of Lizzie 12.1 (11.5-14.5) % Plt Count 221 (130-400) K/uL MPV 9.2 (7.4-10.4) fL Immature Gran % (Auto) 0.2 % Neut % (Auto) 84.5 % Lymph % (Auto) 9.5 % [place] % (Auto) 4.9 % Eos % (Auto) 0.7 % Baso % (Auto) 0.2 % Immature Gran # (Auto) 0.03 H (0.00-0.02) K/uL Neut # (Auto) 10.57 H (1.4-6.5) K/uL Lymph # (Auto) 1.19 L (1.2-3.4) K/uL [place] # (Auto) 0.61 H (0.11-0.59) K/uL Eos # (Auto) 0.09 (0-0.5) K/uL Baso # (Auto) 0.02 (0-0.2) K/uL PT 10.9 (9.0-12.0) Seconds INR 1.0 (0.9-1.1) APTT 26.5 (21.0-31.0) Seconds PTT Ratio 0.9 VBG pH (7.36-7.41) VBG pCO2 (38-50) mmHg VBG pO2 mmHg VBG HCO3 mmol/L VBG O2 Saturation % VBG Base Excess mEq/L Barometric Pressure mm/Hg Sodium 140 (136-145) mmol/L Potassium 3.6 (3.5-5.1) mmol/L Chloride 103 (98-107) mmol/L Carbon Dioxide 34 H (21-32) mmol/L Anion Gap 3.0 (3-11) BUN 12 (7-18) mg/dl Creatinine 0.91 (0.6-1.2) mg/dl Est Cr Clr Drug Dosing 60.2 ml/min Est GFR ( Amer) 80.0 Est GFR (Non-Af Amer) 69.1 BUN/Creatinine Ratio 12.9 (10-20) Glucose 154 H (70-99) mg/dl Lactate (0.4-2.0) mmol/L Calcium 8.8 (8.5-10.1) mg/dl Magnesium 1.6 L (1.8-2.4) mg/dl Total Bilirubin 0.1 L (0.2-1) mg/dl AST 17 (15-37) U/L ALT 21 (12-78) U/L Alkaline Phosphatase 108 (45-117) U/L Troponin I < 0.015 (0-0.045) ng/ml Total Protein 7.1 (6.4-8.2) gm/dl Albumin 3.6 (3.4-5.0) gm/dl Globulin 3.5 (2.5-4.0) gm/dl Albumin/Globulin Ratio 1.0 (0.9-2) Procalcitonin (0-0.5) ng/ml Urine Color Urine Appearance (Clear) Urine pH (4.5-7.5) Ur Specific [place] (1.000-1.030) Urine Protein (Negative) Urine Glucose (UA) (Negative) Urine Ketones (Negative) Urine Blood (Negative) Urine Nitrite (Negative) Urine Bilirubin (Negative) Urine Urobilinogen (Negative) Ur Leukocyte Esterase (Negative) Urine WBC (Auto) (0-5) /hpf Urine RBC (Auto) (0-4) /hpf U Hyaline Cast (Auto) (0-5) /lpf U Epithel Cells (Auto) (0-5) /lpf Urine Bacteria (Auto) (Negative) Adenovirus (PCR) (NotDetected) B. pertussis DNA (PCR) (NotDetected) B.parapertussis DNA PCR (NotDetected) C. pneumoniae DNA (PCR) (NotDetected) Coronavirus OC43 (PCR) (NotDetected) Coronavirus HKU1 (PCR) (NotDetected) Coronavirus 229E (PCR) (NotDetected) Coronavirus NL63 (PCR) (NotDetected) Human Metapneumovir PCR (NotDetected) Influenza Type A (PCR) (Neg) Influenza Type B (PCR) (Neg) M. pneumoniae (PCR) (NotDetected) Parainfluenza 1 (PCR) (NotDetected) Parainfluenza 2 (PCR) (NotDetected) Parainfluenza 3 (PCR) (NotDetected) Parainfluenza 4 (PCR) (NotDetected) RSV (PCR) (NotDetected) Entero/Rhino (PCR) (NotDetected) 11/04/19 11/04/19 11/04/19 Range/Units 09:48 09:48 09:55 WBC (4.8-10.8) K/uL RBC (4.2-5.4) M/uL Hgb (12.0-16.0) g/dL Hct (37-47) % MCV (80-100) fL MCH (25-34) pg MCHC (32-36) g/dL RDW Std Deviation (36.4-46.3) fL RDW Coeff of Lizzie (11.5-14.5) % Plt Count (130-400) K/uL MPV (7.4-10.4) fL Immature Gran % (Auto) % Neut % (Auto) % Lymph % (Auto) % [place] % (Auto) % Eos % (Auto) % Baso % (Auto) % Immature Gran # (Auto) (0.00-0.02) K/uL Neut # (Auto) (1.4-6.5) K/uL Lymph # (Auto) (1.2-3.4) K/uL [place] # (Auto) (0.11-0.59) K/uL Eos # (Auto) (0-0.5) K/uL Baso # (Auto) (0-0.2) K/uL PT (9.0-12.0) Seconds INR (0.9-1.1) APTT (21.0-31.0) Seconds PTT Ratio VBG pH 7.25 L (7.36-7.41) VBG pCO2 81 H (38-50) mmHg VBG pO2 34 mmHg VBG HCO3 35 mmol/L VBG O2 Saturation < 60.0 % VBG Base Excess 5.4 mEq/L Barometric Pressure 734.9 mm/Hg Sodium (136-145) mmol/L Potassium (3.5-5.1) mmol/L Chloride (98-107) mmol/L Carbon Dioxide (21-32) mmol/L Anion Gap (3-11) BUN (7-18) mg/dl Creatinine (0.6-1.2) mg/dl Est Cr Clr Drug Dosing ml/min Est GFR ( Amer) Est GFR (Non-Af Amer) BUN/Creatinine Ratio (10-20) Glucose (70-99) mg/dl Lactate 1.8 (0.4-2.0) mmol/L Calcium (8.5-10.1) mg/dl Magnesium (1.8-2.4) mg/dl Total Bilirubin (0.2-1) mg/dl AST (15-37) U/L ALT (12-78) U/L Alkaline Phosphatase (45-117) U/L Troponin I (0-0.045) ng/ml Total Protein (6.4-8.2) gm/dl Albumin (3.4-5.0) gm/dl Globulin (2.5-4.0) gm/dl Albumin/Globulin Ratio (0.9-2) Procalcitonin 0.39 (0-0.5) ng/ml Urine Color Urine Appearance (Clear) Urine pH (4.5-7.5) Ur Specific [place] (1.000-1.030) Urine Protein (Negative) Urine Glucose (UA) (Negative) Urine Ketones (Negative) Urine Blood (Negative) Urine Nitrite (Negative) Urine Bilirubin (Negative) Urine Urobilinogen (Negative) Ur Leukocyte Esterase (Negative) Urine WBC (Auto) (0-5) /hpf Urine RBC (Auto) (0-4) /hpf U Hyaline Cast (Auto) (0-5) /lpf U Epithel Cells (Auto) (0-5) /lpf Urine Bacteria (Auto) (Negative) Adenovirus (PCR) (NotDetected) B. pertussis DNA (PCR) (NotDetected) B.parapertussis DNA PCR (NotDetected) C. pneumoniae DNA (PCR) (NotDetected) Coronavirus OC43 (PCR) (NotDetected) Coronavirus HKU1 (PCR) (NotDetected) Coronavirus 229E (PCR) (NotDetected) Coronavirus NL63 (PCR) (NotDetected) Human Metapneumovir PCR (NotDetected) Influenza Type A (PCR) (Neg) Influenza Type B (PCR) (Neg) M. pneumoniae (PCR) (NotDetected) Parainfluenza 1 (PCR) (NotDetected) Parainfluenza 2 (PCR) (NotDetected) Parainfluenza 3 (PCR) (NotDetected) Parainfluenza 4 (PCR) (NotDetected) RSV (PCR) (NotDetected) Entero/Rhino (PCR) (NotDetected) Administered Medications Levofloxacin/Dextrose (Levaquin/D5w) 750 mg in 150 mls @ 100 mls/hr IV Q24H KEVIN Stop: 11/18/19 08:59 Last Admin: 11/04/19 09:57 Dose: 100 mls/hr Documented by: [id number] Discontinued Medications Acetaminophen (Tylenol) 1,000 mg PO NOW STA Stop: 11/04/19 09:06 Last Admin: 11/04/19 09:31 Dose: 1,000 mg Documented by: [id number] Albuterol (Duoneb) 12 ml NEB ONE ONE Stop: 11/04/19 08:56 Last Admin: 11/04/19 09:02 Dose: 12 ml Documented by: [id number] Albuterol (Ventolin 0.083% 2.5mg/3ml) 10 mg NEB NOW STA Stop: 11/04/19 09:02 Last Admin: 11/04/19 11:30 Dose: Not Given Documented by: [id number] Albuterol (Duoneb) 3 ml NEB NOW STA Stop: 11/04/19 11:14 Last Admin: 11/04/19 11:34 Dose: 3 ml Documented by: [id number] Sodium Chloride (Nss 1000ml) 1,000 mls @ 999 mls/hr IV .Q1H1M ONE Stop: 11/04/19 09:58 Last Infusion: 11/04/19 10:55 Dose: 0 mls/hr Documented by: [id number] Admin: 11/04/19 09:55 Dose: 999 mls/hr Documented by: [id number] Ceftriaxone Sodium (Rocephin) 1,000 mg in 50 mls @ 100 mls/hr IV NOW STA Stop: 11/04/19 09:27 Last Infusion: 11/04/19 10:26 Dose: 0 mls/hr Documented by: [id number] Admin: 11/04/19 09:56 Dose: 100 mls/hr Documented by: [id number] Sodium Chloride (Nss 1000ml) 1,000 mls @ 999 mls/hr IV .Q1H1M ONE Stop: 11/04/19 10:53 Last Admin: 11/04/19 11:33 Dose: 999 mls/hr Documented by: [id number] Discharge Plan Visit Data Chief Complaint: Shortness of Breath/Dyspnea ED Provider: Jono Moore Discharge Problem: Respiratory failure with hypoxia and hypercapnia, COPD, moderate, Sepsis, Hypoxia Forms Stand Alone Forms: My [facility] Prescriptions Prescriptions: No Action Arnuity Ellipta 100 mcg/actuation Blister With Device 1 inh INHALATION DAILY RF: 0 atorvastatin 20 mg Tablet 20 mg PO HS RF: 0 albuterol sulfate 2.5 mg /3 mL (0.083 %) Solution For Nebulization 3 ml INHALATION QID PRN (Reason: Shortness Of Breath) RF: 0 triamcinolone acetonide 0.5 % Cream 1 applic TOPICAL BID RF: 0 sumatriptan succinate 100 mg Tablet 100 mg PO DAILY PRN (Reason: Migraine Headache) RF: 0 aspirin [Aspirin Low Dose] 81 mg Tablet,Delayed Release (Dr/Ec) 81 mg PO QAM RF: 0 meloxicam [Mobic] 7.5 mg Tablet 7.5 mg PO DAILY RF: 0 pantoprazole 40 mg Tablet,Delayed Release (Dr/Ec) 40 mg PO BID RF: 0 gabapentin 300 mg Capsule 300 mg PO TID RF: 0 albuterol sulfate 90 mcg/actuation Hfa Aerosol Inhaler 2 puff INHALATION QID PRN (Reason: Shortness Of Breath) RF: 0 oxycodone 20 mg Tablet 20 mg PO TID RF: 0 Women's 50 Plus Multivitamin 400 mcg-500 mg calcium-20 mcg Tablet 1 tab PO QAM RF: 0 quetiapine [Seroquel] 400 mg tablet 400 mg PO HS RF: 0 duloxetine 30 mg capsule,delayed release(DR/EC) 30 mg PO DAILY RF: 0 Discharge Problem: Respiratory failure with hypoxia and hypercapnia Qualifiers: Chronicity: acute Qualified Code(s): J96.01 - Acute respiratory failure with hypoxia Sepsis Qualifiers: Sepsis type: sepsis due to unspecified organism Sepsis acute organ dysfunction status: unspecified Qualified Code(s): A41.9 - Sepsis, unspecified organism
--- NOTE | 2019-11-04 09:24 | XRay Report ---
XR chest 1V portable CLINICAL HISTORY: SEPSIS dyspnea COMPARISON STUDY: 02/18/2019 FINDINGS: Interval development of patchy parenchymal infiltrate left mid to lower lung. Lungs otherwi se appear clear. Diaphragms are smooth. IMPRESSION: Patchy left basilar parenchymal infiltrate. ACT 112: Negative or not required by law. The above report was generated using voice recognition software. It may contain grammatical, syntax or spelling errors. Electronically signed by: Alejandro Alvarez M.D. 11/04/2019 9:23 AM
[2019-11-04 09:39] LABS: Appearance Urine Cloudy (Clear); Bacteria Urine Automated Negative (Negative); Bilirubin Urine Negative (Negative); Blood Urine Negative (Negative); Cast Urine Automated 0 /lpf (0-5); Color Urine Yellow; Epithelial Cell Urine Auto >30 /lpf (0-5); Glucose Urine UA Negative (Negative); Ketones Urine Negative (Negative); Leukocyte Esterase Urine Trace (Negative); Nitrite Urine Negative (Negative); Protein Urine Negative (Negative); RBC Urine Automated 0-4 /hpf (0-4); Specific Gravity Urine 1.025 (1.000-1.030); Urobilinogen Urine Negative (Negative)
[2019-11-04 09:44] LABS: Influenza A virus by PCR Neg for Influ A (Neg); Influenza B virus by PCR Neg for Influ B (Neg)
[2019-11-04] MEDS: LEVOFLOXACIN/D5W 750 MG/150 ML BAG IV SCH (09:57)
[2019-11-04 10:02] LABS: Basophils # (auto) 0.02 K/uL (0-0.2); Basophils % (auto) 0.2 %; Eosinophils # (auto) 0.09 K/uL (0-0.5); Eosinophils % (auto) 0.7 %; Hematocrit (blood only) 35.8 % (37-47); Hemoglobin 11.5 g/dL (12.0-16.0); Immature Granulocytes # (auto) 0.03 K/uL (0.00-0.02); Immature Granulocytes % (auto) 0.2 %; Lymphocytes # (auto) 1.19 K/uL (1.2-3.4); Lymphocytes % (auto) 9.5 %; Mean Corpuscular Hgb Conc 32.1 g/dL (32-36); Mean Corpuscular Volume 96.5 fL (80-100); Mean Platelet Volume 9.2 fL (7.4-10.4); Monocytes # (auto) 0.61 K/uL (0.11-0.59); Monocytes % (auto) 4.9 %; Neutrophils # (auto) 10.57 K/uL (1.4-6.5); Neutrophils % (auto) 84.5 %; Platelet Count 221 K/uL (130-400); RDW Coefficient of Variation 12.1 % (11.5-14.5); RDW Standard Deviation 43.1 fL (36.4-46.3); Red Blood Count 3.71 M/uL (4.2-5.4); White Blood Count 12.51 K/uL (4.8-10.8)
[2019-11-04 10:05] LABS: Base Excess VBG 5.4 mEq/L; HCO3 VBG 35 mmol/L; PCO2 VBG 81 mmHg (38-50); PO2 VBG 34 mmHg; pH VBG 7.25 (7.36-7.41)
[2019-11-04 10:06] LABS: Oxygen Saturation VBG < 60.0 %
[2019-11-04 10:18] LABS: Alanine Aminotransferase 21 U/L (12-78); Albumin Level 3.6 gm/dl (3.4-5.0); Aspartate Aminotransferase 17 U/L (15-37); BUN Creatinine Ratio 12.9 (10-20); Blood Urea Nitrogen 12 mg/dl (7-18); Calcium 8.8 mg/dl (8.5-10.1); Carbon Dioxide 34 mmol/L (21-32); Chloride 103 mmol/L (98-107); Creatinine Clr Calc Pharmacy 60.2 ml/min; Est GFR (Non-African American) 69.1; Glucose 154 mg/dl (70-99); Magnesium 1.6 mg/dl (1.8-2.4); Potassium 3.6 mmol/L (3.5-5.1); Sodium 140 mmol/L (136-145)
[2019-11-04 10:21] LABS: Partial Thromboplastin Ratio 0.9; Partial Thromboplastin Time 26.5 Seconds (21.0-31.0); Prothrombin Time 10.9 Seconds (9.0-12.0)
[2019-11-04 10:23] LABS: Alkaline Phosphatase 108 U/L (45-117); Bilirubin,Total 0.1 mg/dl (0.2-1); Globulin 3.5 gm/dl (2.5-4.0); Total Protein 7.1 gm/dl (6.4-8.2); Troponin I < 0.015 ng/ml (0-0.045)
--- NOTE | 2019-11-04 10:56 | History & Physical Report ---
Date of Service November 04, 2019 Assessment & Plan (1) Acute on chronic respiratory failure with hypoxia and hypercapnia: Pt with underlying COPD due to history of tobacco use disorder - continue to vape although quit smoking in February 2019. Baseline pt requires nocturnal O2 at 3 liters - Spoke with dress marker - pt would be poor candidate for intubation due to severity of underlying disease. May not be able to successfully wean off ventilator if intubated. Discussed this with patient who declines intubation at this time as she would not want long-term mechanical ventilation. Does not need ICU level of care at this time - will admit to PCU - Broad-spectrum antibiotics including cefepime, levofloxacin and vancomycin - Due to potential for false negative influenza testing, will cover with Tamiflu for now - Resp panel negative - will check for SARS CoV-2 RNA. Continue airborne and droplet precautions for now - ATC DuoNebs QID with additional Q2 hrs prn - Continue BiPAP for now - Holding steroids for now due to inability to rule out COVID-19 - however, if worsening symptoms benefits may outweigh potential risks - Continue outpatient maintenance inhaler (2) COPD, moderate: See plan for #1 (3) Chronic back pain: - Continue outpatient oxycodone dosing - Continue gabapentin - HOLD meloxicam due to inability to rule out COVID-19 although thought less likely (4) GERD (gastroesophageal reflux disease): - Continue outpatient pantoprazole BID (5) Bipolar 1 disorder: - Continue outpatient Seroquel (6) HLD (hyperlipidemia): - Continue outpatient atorvastatin (7) Depression: - Continue outpatient Cymbalta - appears stable at this time. Patient seen and reviewed with collaborating physician, Dr. Quiñones. Plan of care discussed and as outlined above. Nacho Butler PA-C History of Present Illness Primary Care Provider: Dimitri Hanna MD This is a 59 y/o female with a PMH of COPD who presents to the ED via EMS with abrupt onset of shortness of breath. Pt states that she was in her usual state of health last evening, slept fine last night, but woke up this morning with chest tightness, heaviness and shortness of breath at rest. She attempted to ambulate to the bathroom but this made shortness of breath even worse and she developed associated palpitations so EMS was called. In the ED, pt was found to be hypoxic at 87% on RA. She was given an hour long neb with only mild improvement. She is now on BiPAP to maintain sats. She notes associated wheezing that just started today. Associated flushing, rigors, mild sore throat. She has a chronic cough that is intermittently productive of clear to dark sputum but no hemoptysis. Pt does use 3 liters of oxygen at night but not routinely during the day. History of respiratory failure requiring intubation previously. History of pneumonia. No sick contacts, no recent travel. 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 Had flu vaccine this season. Allergies Allergy/AdvReac Type Severity Reaction Status Date / Time doxycycline Allergy Intermediate Hives Verified 02/18/19 10:28 morphine Allergy Intermediate ITCHING AT Verified 02/18/19 10:28 IV SITE ONLY iodine Allergy Unknown RASH Verified 02/18/19 10:28 valproic acid Allergy Unknown 0 Verified 02/18/19 10:28 Home Medications Home Medications Medication Instructions Recorded Confirmed Type Women's 50 Plus Multivitamin 1 tab PO QAM 10/25/18 11/04/19 History albuterol sulfate 2 puff INHALATION QID PRN 10/25/18 11/04/19 History albuterol sulfate 3 ml INHALATION QID PRN 10/25/18 11/04/19 History aspirin [Aspirin Low Dose] 81 mg PO QAM 10/25/18 11/04/19 History atorvastatin 20 mg PO HS 10/25/18 11/04/19 History gabapentin 300 mg PO TID 10/25/18 11/04/19 History meloxicam [Mobic] 7.5 mg PO DAILY 10/25/18 11/04/19 History oxycodone 20 mg PO TID 10/25/18 11/04/19 History pantoprazole 40 mg PO BID 10/25/18 11/04/19 History sumatriptan succinate 100 mg PO DAILY PRN 10/25/18 11/04/19 History triamcinolone acetonide 1 applic TOPICAL BID 10/25/18 11/04/19 History Arnuity Ellipta 1 inh INHALATION DAILY 02/18/19 11/04/19 History duloxetine 30 mg PO DAILY 11/04/19 11/04/19 History quetiapine [Seroquel] 400 mg PO HS 11/04/19 11/04/19 History Past Med/Surg History Medical History Anxiety (Chronic) Bipolar 1 disorder (Chronic) Chronic back pain (Chronic) Chronic respiratory failure with hypercapnia (Chronic) COPD, moderate (Chronic) Depression (Chronic) GERD (gastroesophageal reflux disease) (Chronic) HLD (hyperlipidemia) (Chronic) Nocturnal hypoxemia (Chronic) Tobacco use Family History Mother Coronary heart disease Diabetes Cancer cervical Father Coronary heart disease Son Bipolar disorder Daughter Bipolar disorder Social History (Updated 11/04/19 @ 12:51 by Melissa Butler PA-C) Preferred Language: Cymro Communication Ability: Effective Balling Machine Operator Required: No Beliefs That Will Affect Care: None marital status: Current Living Situation: Alone Other Information That Helps Us Care for You: No Feels Safe at Home: Yes Safety Concerns: Feels Safe At This Time Smoking Status: Former smoker Tobacco Type: cigarettes ; Cigarettes Per Day: 20 ; Do You Dip or Chew Tobacco: No ; Smoking End Date: cigarettes February 2019 - as of 11/04/2019 she continues to vape ; Second Hand Exposure: No ; Tobacco Cessation Education Requested by Patient: No Hx Alcohol Use: No Hx Substance Use: No Review of Systems Review of Systems: All systems reviewed & are unremarkable except as noted in HPI & below Constitutional: + chills, + sweats and + fatigue Eyes: no diplopia Ear, Nose, Mouth, Throat: + ear pain, + post nasal drip, + dry mouth and + sore throat Respiratory: + cough, + dyspnea and + wheezing; no change in sputum and no hemoptysis +chest tightness/heaviness Cardiovascular: + palpitations; no chest pain, no syncope, no edema and no calf pain Gastrointestinal: + vomiting (only in ambulance this AM); no abdominal pain, no nausea, no constipation, no diarrhea/loose stools and no blood in stools Genitourinary: no dysuria, no urinary frequency, no urinary incontinence, no nocturia and no hematuria Musculoskeletal: + back pain (chronic) Integumentary: + rash (intermittent x years on LLE - uses steroid cream at times with relief) Neurologic: + headache(s); no localized weakness, no tremor(s) and no seizure- like activity Physical Exam Constitutional: well developed and well nourished; no acute distress Mildy increased work of breathing Eyes: no conjunctival abnormality and no scleral abnormality ENMT: BiPAP mask in place - mucus membranes moist Neck: trachea midline Respiratory: + abnormal respiratory pattern (mild tachypnea) Auscultation: + rhonchi (bilateral lower lung alejandro) and + wheezes (inspiratory and expiratory throughout) Cardiovascular: Rate/Rhythm: regular rhythm and + tachycardic Heart Sounds: no gallop and no cardiac rub Vessels: no carotid bruit Extremities: no calf tenderness and no pedal edema Gastrointestinal (Abdomen): Inspection/Auscultation: normal bowel sounds; abdomen not distended Percussion/Palpation: abdomen soft; abdomen nontender Musculoskeletal: Head/Neck/Chest: normocephalic, head atraumatic and neck supple Extremities: no cyanosis and no clubbing Skin: Left LE with excoriated papular erythematous rash on anterior aspect of desir - no warmth, no drainage, no vesicles Neurologic: moves all extremities Speech / Cognition: normal speech Psychiatric: A+Ox3, euthymic affect Results & Data Vital Signs (Past 12 Hours) Vital Signs Temp Pulse Pulse Resp BP Pulse Ox 11/04/19 10:40 134 H 22 100 11/04/19 10:30 132 H 28 H 100 11/04/19 10:20 131 H 27 H 100 11/04/19 10:10 150 H 24 100 11/04/19 10:01 136 H 32 H 114/74 100 11/04/19 10:00 133 H 28 H 11/04/19 09:58 137 H 22 132/70 100 11/04/19 09:50 153 H 22 100 11/04/19 09:40 141 H 33 H 100 11/04/19 09:30 153 H 32 H 100 11/04/19 09:20 135 H 31 H 100 11/04/19 09:10 145 H 30 H 100 11/04/19 09:02 142 H 142 H 26 H 99 11/04/19 09:00 150 H 20 11/04/19 08:58 152 H 30 H 93 11/04/19 08:54 141 H 27 H 11/04/19 08:47 141 H 28 H 167/85 H 11/04/19 08:28 39 C H 152 H 30 H 167/85 H 93 Laboratory Results Laboratory Results - last 24 hr 11/04/19 11/04/19 11/04/19 08:55 08:55 09:30 WBC RBC Hgb Hct MCV MCH MCHC RDW Std Deviation RDW Coeff of Lizzie Plt Count MPV Immature Gran % (Auto) Neut % (Auto) Lymph % (Auto) [place] % (Auto) Eos % (Auto) Baso % (Auto) Immature Gran # (Auto) Neut # (Auto) Lymph # (Auto) [place] # (Auto) Eos # (Auto) Baso # (Auto) PT INR APTT PTT Ratio VBG pH VBG pCO2 VBG pO2 VBG HCO3 VBG O2 Saturation VBG Base Excess Barometric Pressure Sodium Potassium Chloride Carbon Dioxide Anion Gap BUN Creatinine Est Cr Clr Drug Dosing Est GFR ( Amer) Est GFR (Non-Af Amer) BUN/Creatinine Ratio Glucose Lactate Calcium Magnesium Total Bilirubin AST ALT Alkaline Phosphatase Troponin I Total Protein Albumin Globulin Albumin/Globulin Ratio Urine Color Yellow Urine Appearance Cloudy A Urine pH 5.0 Ur Specific [place] 1.025 Urine Protein Negative Urine Glucose (UA) Negative Urine Ketones Negative Urine Blood Negative Urine Nitrite Negative Urine Bilirubin Negative Urine Urobilinogen Negative Ur Leukocyte Esterase Trace H Urine WBC (Auto) 1-5 Urine RBC (Auto) 0-4 U Hyaline Cast (Auto) 0 U Epithel Cells (Auto) >30 H Urine Bacteria (Auto) Negative Adenovirus (PCR) Pending B. pertussis DNA (PCR) Pending B.parapertussis DNA PCR Pending C. pneumoniae DNA (PCR) Pending Coronavirus OC43 (PCR) Pending Coronavirus HKU1 (PCR) Pending Coronavirus 229E (PCR) Pending Coronavirus NL63 (PCR) Pending Human Metapneumovir PCR Pending Influenza Type A (PCR) Neg for Influ A Pending Influenza Type B (PCR) Neg for Influ B Pending M. pneumoniae (PCR) Pending Parainfluenza 1 (PCR) Pending Parainfluenza 2 (PCR) Pending Parainfluenza 3 (PCR) Pending Parainfluenza 4 (PCR) Pending RSV (PCR) Pending Entero/Rhino (PCR) Pending 11/04/19 11/04/19 11/04/19 09:48 09:48 09:48 WBC 12.51 H RBC 3.71 L Hgb 11.5 L Hct 35.8 L MCV 96.5 MCH 31.0 MCHC 32.1 RDW Std Deviation 43.1 RDW Coeff of Lizzie 12.1 Plt Count 221 MPV 9.2 Immature Gran % (Auto) 0.2 Neut % (Auto) 84.5 Lymph % (Auto) 9.5 [place] % (Auto) 4.9 Eos % (Auto) 0.7 Baso % (Auto) 0.2 Immature Gran # (Auto) 0.03 H Neut # (Auto) 10.57 H Lymph # (Auto) 1.19 L [place] # (Auto) 0.61 H Eos # (Auto) 0.09 Baso # (Auto) 0.02 PT 10.9 INR 1.0 APTT 26.5 PTT Ratio 0.9 VBG pH VBG pCO2 VBG pO2 VBG HCO3 VBG O2 Saturation VBG Base Excess Barometric Pressure Sodium 140 Potassium 3.6 Chloride 103 Carbon Dioxide 34 H Anion Gap 3.0 BUN 12 Creatinine 0.91 Est Cr Clr Drug Dosing 60.2 Est GFR ( Amer) 80.0 Est GFR (Non-Af Amer) 69.1 BUN/Creatinine Ratio 12.9 Glucose 154 H Lactate Calcium 8.8 Magnesium 1.6 L Total Bilirubin 0.1 L AST 17 ALT 21 Alkaline Phosphatase 108 Troponin I < 0.015 Total Protein 7.1 Albumin 3.6 Globulin 3.5 Albumin/Globulin Ratio 1.0 Urine Color Urine Appearance Urine pH Ur Specific [place] Urine Protein Urine Glucose (UA) Urine Ketones Urine Blood Urine Nitrite Urine Bilirubin Urine Urobilinogen Ur Leukocyte Esterase Urine WBC (Auto) Urine RBC (Auto) U Hyaline Cast (Auto) U Epithel Cells (Auto) Urine Bacteria (Auto) Adenovirus (PCR) B. pertussis DNA (PCR) B.parapertussis DNA PCR C. pneumoniae DNA (PCR) Coronavirus OC43 (PCR) Coronavirus HKU1 (PCR) Coronavirus 229E (PCR) Coronavirus NL63 (PCR) Human Metapneumovir PCR Influenza Type A (PCR) Influenza Type B (PCR) M. pneumoniae (PCR) Parainfluenza 1 (PCR) Parainfluenza 2 (PCR) Parainfluenza 3 (PCR) Parainfluenza 4 (PCR) RSV (PCR) Entero/Rhino (PCR) 11/04/19 11/04/19 09:48 09:48 WBC RBC Hgb Hct MCV MCH MCHC RDW Std Deviation RDW Coeff of Lizzie Plt Count MPV Immature Gran % (Auto) Neut % (Auto) Lymph % (Auto) [place] % (Auto) Eos % (Auto) Baso % (Auto) Immature Gran # (Auto) Neut # (Auto) Lymph # (Auto) [place] # (Auto) Eos # (Auto) Baso # (Auto) PT INR APTT PTT Ratio VBG pH 7.25 L VBG pCO2 81 H VBG pO2 34 VBG HCO3 35 VBG O2 Saturation < 60.0 VBG Base Excess 5.4 Barometric Pressure 734.9 Sodium Potassium Chloride Carbon Dioxide Anion Gap BUN Creatinine Est Cr Clr Drug Dosing Est GFR ( Amer) Est GFR (Non-Af Amer) BUN/Creatinine Ratio Glucose Lactate 1.8 Calcium Magnesium Total Bilirubin AST ALT Alkaline Phosphatase Troponin I Total Protein Albumin Globulin Albumin/Globulin Ratio Urine Color Urine Appearance Urine pH Ur Specific [place] Urine Protein Urine Glucose (UA) Urine Ketones Urine Blood Urine Nitrite Urine Bilirubin Urine Urobilinogen Ur Leukocyte Esterase Urine WBC (Auto) Urine RBC (Auto) U Hyaline Cast (Auto) U Epithel Cells (Auto) Urine Bacteria (Auto) Adenovirus (PCR) B. pertussis DNA (PCR) B.parapertussis DNA PCR C. pneumoniae DNA (PCR) Coronavirus OC43 (PCR) Coronavirus HKU1 (PCR) Coronavirus 229E (PCR) Coronavirus NL63 (PCR) Human Metapneumovir PCR Influenza Type A (PCR) Influenza Type B (PCR) M. pneumoniae (PCR) Parainfluenza 1 (PCR) Parainfluenza 2 (PCR) Parainfluenza 3 (PCR) Parainfluenza 4 (PCR) RSV (PCR) Entero/Rhino (PCR) Diagnostic Findings Chest X-ray 11/04/2019 - IMPRESSION: Patchy left basilar parenchymal infiltrate Medications Administered Levofloxacin/Dextrose (Levaquin/D5w) 750 mg in 150 mls @ 100 mls/hr IV Q24H KEVIN Stop: 11/18/19 08:59 Last Admin: 11/04/19 09:57 Dose: 100 mls/hr Documented by: [id number] Discontinued Medications Acetaminophen (Tylenol) 1,000 mg PO NOW STA Stop: 11/04/19 09:06 Last Admin: 11/04/19 09:31 Dose: 1,000 mg Documented by: [id number] Albuterol (Duoneb) 12 ml NEB ONE ONE Stop: 11/04/19 08:56 Last Admin: 11/04/19 09:02 Dose: 12 ml Documented by: [id number] Sodium Chloride (Nss 1000ml) 1,000 mls @ 999 mls/hr IV .Q1H1M ONE Stop: 11/04/19 09:58 Last Admin: 11/04/19 09:55 Dose: 999 mls/hr Documented by: [id number] Ceftriaxone Sodium (Rocephin) 1,000 mg in 50 mls @ 100 mls/hr IV NOW STA Stop: 11/04/19 09:27 Last Admin: 11/04/19 09:56 Dose: 100 mls/hr Documented by: [id number] Code Status & VTE Plan Code Status Pt requests to be full resuscitation, specifically willing to undergo intubation and artificial ventilation if required. Supervising Physician Co-Signing Physician Notes Care coordinated with Melissa Butler PA-C.. Agree with above note. Patient seen and examined. Please refer to her notes for full details. Vital signs reviewed. Physical exam: General exam: Alert and oriented. Not in acute distress. CVS: S1 and S2 heard, regular rate and rhythm, no murmurs. RS: Clear to auscultation,mild b/l wheezing no crackles. ABD: Soft, bowel sounds present, nontender, no distention. 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 EXT: No edema, no erythema. Labs: Reviewed. Assessment and plan: 59F with PMH of copd, hx of tobacoo abuse, nocturnal hypoxemia bipolar/depression was fine last night but today woke up with chest heaviness, sob associated with palpitations . in the Ed she was 87% on room air,. Requiring bipap. cxr left lower lobe infiltrate. acute resp failure copd exacerbation pneumonia no recent travel or exposure to COVID 19 but because of symptoms and bio fire and flu being negative covid 19 testing ordered with contact precautions started on ax levaquin, zosyn and vanco and tamiflu( can recheck flu in 1-2 days) follow cx and taper abx. Because of comorbid conditions and mostlikey difficult extubation after discussing with patient-patient wants to be DNI Bipolar/depression continue home meds Other diagnosis and plan of care as per Melissa Butler PA-C.. Franco scanlon MD. (1) Depression Depression Type: unspecified Qualified Code(s): F32.9 - Major depressive disorder, single episode, unspecified (2) HLD (hyperlipidemia) Hyperlipidemia type: unspecified Qualified Code(s): E78.5 - Hyperlipidemia, unspecified (3) Chronic back pain Back pain laterality: unspecified Back pain location: back pain in unspecified location Qualified Code(s): M54.9 - Dorsalgia, unspecified; G89.29 - Other chronic pain (4) GERD (gastroesophageal reflux disease) Esophagitis presence: esophagitis presence not specified Qualified Code(s): K21.9 - Gastro-esophageal reflux disease without esophagitis
[2019-11-04] MEDS ORDERED: ALBUT/IPRATROP 3MG/0.5MG NEB 3 ML VIAL NEB STA (11:13)
[2019-11-04 11:57] LABS: Adenovirus PCR Not Detected (NotDetected)
[2019-11-04 11:58] LABS: Bordetella parapertussis PCR Not Detected (NotDetected); Bordetella pertussis PCR Not Detected (NotDetected); Chlamydia pneumoniae PCR Not Detected (NotDetected); Coronavirus 229E PCR Not Detected (NotDetected); Coronavirus HKU1 PCR Not Detected (NotDetected); Coronavirus NL63 PCR Not Detected (NotDetected); Coronavirus OC43PCR Not Detected (NotDetected); Human Metapneumovirus PCR Not Detected (NotDetected); Influenza A PCR Not Detected (NotDetected); Influenza B PCR Not Detected (NotDetected); Mycoplasma pneumoniae PCR Not Detected (NotDetected); Parainfluenza Virus 1 PCR Not Detected (NotDetected); Parainfluenza Virus 2 PCR Not Detected (NotDetected); Parainfluenza Virus 3 PCR Not Detected (NotDetected); Parainfluenza Virus 4 PCR Not Detected (NotDetected); Respiratory Syncytial VirusPCR Not Detected (NotDetected); Rhinovirus/Enterovirus PCR Not Detected (NotDetected)
[2019-11-04] MEDS ORDERED: CEFEPIME CONSULT ACTIVE PRN (12:39)
[2019-11-04] MEDS ORDERED: VANCOMYCIN CONSULT ACTIVE PRN (12:39)
[2019-11-04] MEDS ORDERED: ALBUT/IPRATROP 3MG/0.5MG NEB 3 ML VIAL NEB PRN (13:41)
[2019-11-04] MEDS ORDERED: MAGNESIUM SULFATE / D5W 1 GM/100 ML BAG IV ONE (13:52)
[2019-11-04] MEDS ORDERED: VANCOMYCIN HCL 1,750 MG in SODIUM CHLORIDE 0.9% 500 ML IV ONE (14:30)
[2019-11-04] MEDS: DULOXETINE HCL 30 MG CAP PO SCH (14:36)
[2019-11-04] MEDS: FLUTICASONE FUROATE 100MCG 14 PUFFS/INHALER INH SCH (14:36)
[2019-11-04] MEDS: GABAPENTIN 300 MG CAP PO SCH ×2 (14:36→20:35)
[2019-11-04] MEDS: OXYCODONE HCL IR 5 MG TAB (IMMEDIATE RELEASE) PO SCH ×2 (14:36→22:13)
--- NOTE | 2019-11-04 14:42 | Pharmacy Report ---
Pharmacy Abx Dose Short Note - Date of Service November 04, 2019 - Assessment & Plan Assessment * Ms Patel is a 59 year old F receiving Vanc/Cefepime/LVQ for acute on chronic respiratory failure * PMH is significant for COPD, hx of smoking (currently vapes), requires nocturnal O2 (3 liters) * UA unremarkable, BCx pending x2, influenza A/B negative, respiratory panel negative * Patient was febrile on admission, WBC 12.51, lactate 1.8, procalcitonin 0.39 * Patient received a dose of IV Rocephin in the ED. * Broad-spectrum antibiotics initiated on admission. Tamiflu ordered in case of false-negative flu swab. Plan Vancomycin * Vanc 1750mg (23.3mg/kg) IV x1 dose, then: * Vanc 1000mg (13.3mg/kg) IV q12h, per AUC dosing nomogram * Goal trough level for pulmonary infxn: 15 to 20 mcg/mL * Trough level ordered prior to the 4th maintenance dose to evaluate level at steady-state Cefepime 2gm IV q8h, for CrCl >60mL/min Levaquin 750mg IV q24h Tamiflu 75mg PO BID Pharmacy will continue to follow and will adjust dose/frequency as necessary. Thank you.
[2019-11-04] MEDS: CEFEPIME 2,000 MG in SYRINGE 7.5 ML IV SCH ×2 (15:45→22:13)
[2019-11-04] MEDS: ALBUT/IPRATROP 3MG/0.5MG NEB 3 ML VIAL NEB SCH ×2 (15:55→19:36)
[2019-11-04] MEDS: ATORVASTATIN 20 MG TAB PO SCH (20:35)
[2019-11-04] MEDS: QUETIAPINE FUMARATE 200 MG TAB PO SCH (20:36)
[2019-11-04] MEDS: OSELTAMIVIR PHOSPHATE 75 MG CAP PO SCH (20:36)
[2019-11-04] MEDS: PANTOprazole 40 MG TAB PO SCH (20:36)
--- NOTE | 2019-11-04 22:46 | Electrocardiogram Report ---
Test Reason : Blood Pressure : / mmHG Vent. Rate : 142 BPM Atrial Rate : 142 BPM P-R Int : 150 ms QRS Dur : 076 ms QT Int : 258 ms P-R-T Axes : 054 011 098 degrees QTc Int : 396 ms Poor data quality, interpretation may be adversely affected Sinus tachycardia Nonspecific ST and T wave abnormality Abnormal ECG When compared with ECG of 19-FEB-2019 06:50, Inverted T waves have replaced nonspecific T wave abnormality in Lateral leads Confirmed by William Abebe ([id number]) on 11/04/2019 10:46:08 PM Referred By: REFERRED SELF Confirmed By:William Abebe
[2019-11-05] MEDS: VANCOMYCIN HCL 1,000 MG in SODIUM CHLORIDE 0.9% 250 ML IV SCH ×2 (02:43→15:46)
[2019-11-05] MEDS: OXYCODONE HCL IR 5 MG TAB (IMMEDIATE RELEASE) PO SCH ×3 (05:43→20:52)
[2019-11-05 06:36] LABS: Basophils # (auto) 0.02 K/uL (0-0.2); Basophils % (auto) 0.1 %; Eosinophils # (auto) 0.03 K/uL (0-0.5); Eosinophils % (auto) 0.1 %; Hematocrit (blood only) 31.5 % (37-47); Hemoglobin 9.9 g/dL (12.0-16.0); Immature Granulocytes # (auto) 0.07 K/uL (0.00-0.02); Immature Granulocytes % (auto) 0.3 %; Lymphocytes # (auto) 1.89 K/uL (1.2-3.4); Lymphocytes % (auto) 8.5 %; Mean Corpuscular Hemoglobin 30.9 pg (25-34); Mean Corpuscular Hgb Conc 31.4 g/dL (32-36); Mean Corpuscular Volume 98.4 fL (80-100); Mean Platelet Volume 9.3 fL (7.4-10.4); Monocytes # (auto) 1.89 K/uL (0.11-0.59); Monocytes % (auto) 8.5 %; Neutrophils # (auto) 18.39 K/uL (1.4-6.5); Neutrophils % (auto) 82.5 %; Platelet Count 206 K/uL (130-400); RDW Coefficient of Variation 12.5 % (11.5-14.5); RDW Standard Deviation 44.9 fL (36.4-46.3); White Blood Count 22.29 K/uL (4.8-10.8)
[2019-11-05 06:47] LABS: Albumin Level 2.9 gm/dl (3.4-5.0); BUN Creatinine Ratio 16.7 (10-20); Calcium 8.6 mg/dl (8.5-10.1); Creatinine Clr Calc Pharmacy 82.3 ml/min; Est GFR (Non-African American) 95.7; Magnesium 1.9 mg/dl (1.8-2.4); Potassium 3.8 mmol/L (3.5-5.1)
[2019-11-05 06:50] LABS: Albumin Globulin Ratio 0.9 (0.9-2); Bilirubin,Total 0.4 mg/dl (0.2-1); Globulin 3.3 gm/dl (2.5-4.0); Total Protein 6.2 gm/dl (6.4-8.2)
[2019-11-05] MEDS: ALBUT/IPRATROP 3MG/0.5MG NEB 3 ML VIAL NEB SCH ×4 (07:16→19:55)
[2019-11-05] MEDS: DULOXETINE HCL 30 MG CAP PO SCH (07:59)
[2019-11-05] MEDS: CEFEPIME 2,000 MG in SYRINGE 7.5 ML IV SCH ×2 (07:59→15:46)
[2019-11-05] MEDS: ASPIRIN 81 MG ECTAB PO SCH (07:59)
[2019-11-05] MEDS: OSELTAMIVIR PHOSPHATE 75 MG CAP PO SCH (07:59)
[2019-11-05] MEDS: GABAPENTIN 300 MG CAP PO SCH ×3 (08:00→20:52)
[2019-11-05] MEDS: ENOXAPARIN INJ 40 MG/0.4 ML SYR SQ SCH (08:00)
[2019-11-05] MEDS: PANTOprazole 40 MG TAB PO SCH ×2 (08:00→20:53)
[2019-11-05] MEDS: FLUTICASONE FUROATE 100MCG 14 PUFFS/INHALER INH SCH (08:00)
[2019-11-05] MEDS: LEVOFLOXACIN/D5W 750 MG/150 ML BAG IV SCH (13:19)
--- NOTE | 2019-11-05 15:44 | Hospitalist Progress Note ---
Date of Service November 05, 2019 Assessment & Plan (1) Acute on chronic respiratory failure with hypoxia and hypercapnia: COPD exacerbation Viral respiratory infection vs pneumonia Pt with underlying COPD due to history of tobacco use disorder - continue to vape although quit smoking in February 2019. Baseline pt requires nocturnal O2 at 3 liters Admitting provider spoke with brazing machine operator automatic - pt would be poor candidate for intubation due to severity of underlying disease. May not be able to lopez ccessfully wean off ventilator if intubated. This was discussed this with patient at the time and she declined intubation at the time as she would not want long-term mechanical ventilation. Chest Xray show left basilar infiltrate Currently on broad-spectrum antibiotics including cefepime, levofloxacin and vancomycin Will discontinue vancomycin if MRSA screen is negative Biofire was negative for influenza PCR, hence discontiue tamiflu [place] virus testing sent on admission due to negative biofire. Patient denied any recent travel outside home, bill payment. Lives alone and son is the only visitor in the past 2 weeks. Stated son has not traveled to high risk areas. Will continue airborne and droplet precautions for now. Low suspicion of covid 19 based on history. If patient continues to improve, may discontinue airborne precautions Continue DuoNebs QID with additional Q2 hrs prn Wean oxygen as toloerated (2) COPD, moderate: See plan for #1 (3) Chronic back pain: Continue outpatient oxycodone dosing Continue gabapentin (4) GERD (gastroesophageal reflux disease): Continue outpatient pantoprazole BID (5) Bipolar 1 disorder: Continue outpatient Seroquel (6) HLD (hyperlipidemia): Continue outpatient atorvastatin (7) Depression: Continue outpatient Cymbalta - appears stable at this time. Admission and Anticipated Discharge Date Admission Date: November 04, 2019 Subjective Patient seen and examined. Reports shortness of breath is improved. Still has chronic cough, unchanged baseline characteristics Does not have chest tightness at this time. Still has some congestion and ringing in the ears. Reports ringing in the ears is chronic and is been going on for a very long time. Physical Exam Constitutional: well developed and + well hydrated; no acute distress Eyes: PERRL, conjunctivae normal, anicteric sclerae ENMT: external ear and nose normal, oropharynx normal Respiratory: no respiratory distress and no labored breathing Auscultation: + diminished lung sounds (Globally) Cardiovascular: RRR, no murmur, no edema Gastrointestinal (Abdomen): normal bowel sounds, soft, nontender, no hepatosplenomegaly Musculoskeletal: no cyanosis or clubbing, extremities motor strength 5/5 Neurologic: PERRL, EOMI, accommodation nl, no face palsy, no dysarthria Psychiatric: A+Ox3, euthymic affect Results & Data ([facility]) Vital Signs (Past 12 Hours) Vital Signs Temp Pulse Pulse Pulse Resp BP Pulse Ox 11/05/19 11:49 90 11/05/19 11:43 36.5 C 105 H 20 116/61 90 11/05/19 11:20 102 H 20 92 11/05/19 08:07 37.4 C 103 H 20 106/61 92 11/05/19 08:00 109 H 11/05/19 07:17 108 H 20 96 11/05/19 04:30 36.7 C 103 H 20 147/83 H 96 11/05/19 03:55 108 H 20 99 Laboratory Results Laboratory Results - last 24 hr 11/04/19 11/05/19 11/05/19 08:55 05:40 05:40 WBC 22.29 H RBC 3.20 L Hgb 9.9 L Hct 31.5 L MCV 98.4 MCH 30.9 MCHC 31.4 L RDW Std Deviation 44.9 RDW Coeff of Lizzie 12.5 Plt Count 206 MPV 9.3 Immature Gran % (Auto) 0.3 Neut % (Auto) 82.5 Lymph % (Auto) 8.5 [place] % (Auto) 8.5 Eos % (Auto) 0.1 Baso % (Auto) 0.1 Immature Gran # (Auto) 0.07 H Neut # (Auto) 18.39 H Lymph # (Auto) 1.89 [place] # (Auto) 1.89 H Eos # (Auto) 0.03 Baso # (Auto) 0.02 Sodium 139 Potassium 3.8 Chloride 104 Carbon Dioxide 33 H Anion Gap 2.0 L BUN 11 Creatinine 0.68 Est Cr Clr Drug Dosing 82.3 Est GFR ( Amer) 111.0 Est GFR (Non-Af Amer) 95.7 BUN/Creatinine Ratio 16.7 Glucose 102 H Calcium 8.6 Magnesium 1.9 Total Bilirubin 0.4 AST 10 L ALT 17 Alkaline Phosphatase 85 Total Protein 6.2 L Albumin 2.9 L Globulin 3.3 Albumin/Globulin Ratio 0.9 Nasal Screen MRSA (PCR) Coronavirus (PCR) Pending Respiratory Virus Sourc Pending Misc Test Comment Pending 11/05/19 09:30 WBC RBC Hgb Hct MCV MCH MCHC RDW Std Deviation RDW Coeff of Lizzie Plt Count MPV Immature Gran % (Auto) Neut % (Auto) Lymph % (Auto) [place] % (Auto) Eos % (Auto) Baso % (Auto) Immature Gran # (Auto) Neut # (Auto) Lymph # (Auto) [place] # (Auto) Eos # (Auto) Baso # (Auto) Sodium Potassium Chloride Carbon Dioxide Anion Gap BUN Creatinine Est Cr Clr Drug Dosing Est GFR ( Amer) Est GFR (Non-Af Amer) BUN/Creatinine Ratio Glucose Calcium Magnesium Total Bilirubin AST ALT Alkaline Phosphatase Total Protein Albumin Globulin Albumin/Globulin Ratio Nasal Screen MRSA (PCR) Negative Coronavirus (PCR) Respiratory Virus Sourc Misc Test Comment (1) Depression Depression Type: unspecified Qualified Code(s): F32.9 - Major depressive disorder, single episode, unspecified (2) HLD (hyperlipidemia) Hyperlipidemia type: unspecified Qualified Code(s): E78.5 - Hyperlipidemia, unspecified (3) Chronic back pain Back pain laterality: unspecified Back pain location: back pain in unspecified location Qualified Code(s): M54.9 - Dorsalgia, unspecified; G89.29 - Other chronic pain (4) GERD (gastroesophageal reflux disease) Esophagitis presence: esophagitis presence not specified Qualified Code(s): K 21.9 - Gastro-esophageal reflux disease without esophagitis
[2019-11-05] MEDS: ATORVASTATIN 20 MG TAB PO SCH (20:52)
[2019-11-05] MEDS: QUETIAPINE FUMARATE 200 MG TAB PO SCH (20:53)
[2019-11-06] MEDS: CEFEPIME 2,000 MG in SYRINGE 7.5 ML IV SCH ×3 (00:30→16:15)
[2019-11-06 05:38] LABS: Basophils # (auto) 0.03 K/uL (0-0.2); Basophils % (auto) 0.2 %; Eosinophils # (auto) 0.14 K/uL (0-0.5); Eosinophils % (auto) 0.8 %; Hematocrit (blood only) 29.6 % (37-47); Hemoglobin 9.4 g/dL (12.0-16.0); Immature Granulocytes # (auto) 0.04 K/uL (0.00-0.02); Immature Granulocytes % (auto) 0.2 %; Lymphocytes % (auto) 11.1 %; Mean Corpuscular Hemoglobin 30.8 pg (25-34); Mean Corpuscular Hgb Conc 31.8 g/dL (32-36); Mean Platelet Volume 9.2 fL (7.4-10.4); Monocytes # (auto) 1.54 K/uL (0.11-0.59); Monocytes % (auto) 8.5 %; Neutrophils # (auto) 14.29 K/uL (1.4-6.5); Neutrophils % (auto) 79.2 %; Platelet Count 184 K/uL (130-400); RDW Coefficient of Variation 12.4 % (11.5-14.5); RDW Standard Deviation 44.2 fL (36.4-46.3); Red Blood Count 3.05 M/uL (4.2-5.4); White Blood Count 18.04 K/uL (4.8-10.8)
[2019-11-06] MEDS: OXYCODONE HCL IR 5 MG TAB (IMMEDIATE RELEASE) PO SCH ×3 (05:54→20:26)
[2019-11-06 06:11] LABS: Creatinine Clr Calc Pharmacy 77.8 ml/min; Est GFR (African American) 106.2; Est GFR (Non-African American) 91.7; Potassium 3.4 mmol/L (3.5-5.1)
[2019-11-06] MEDS: ALBUT/IPRATROP 3MG/0.5MG NEB 3 ML VIAL NEB SCH ×2 (07:21→11:08)
[2019-11-06] MEDS: PANTOprazole 40 MG TAB PO SCH ×2 (08:03→20:25)
[2019-11-06] MEDS: LEVOFLOXACIN/D5W 750 MG/150 ML BAG IV SCH (08:03)
[2019-11-06] MEDS: DULOXETINE HCL 30 MG CAP PO SCH (08:03)
[2019-11-06] MEDS: ASPIRIN 81 MG ECTAB PO SCH (08:03)
[2019-11-06] MEDS: FLUTICASONE FUROATE 100MCG 14 PUFFS/INHALER INH SCH (08:04)
[2019-11-06] MEDS: GABAPENTIN 300 MG CAP PO SCH ×3 (08:04→20:25)
[2019-11-06] MEDS: ENOXAPARIN INJ 40 MG/0.4 ML SYR SQ SCH (08:04)
[2019-11-06] MEDS: ACETAMINOPHEN 325 MG TAB PO PRN ×2 (09:32→20:26)
--- NOTE | 2019-11-06 13:58 | Hospitalist Progress Note ---
Date of Service November 06, 2019 Assessment & Plan (1) Acute on chronic respiratory failure with hypoxia and hypercapnia: COPD exacerbation Viral respiratory infection vs pneumonia Pt with underlying COPD due to history of tobacco use disorder - continue to vape although quit smoking in February 2019. Baseline pt requires nocturnal O2 at 3 liters Admitting provider spoke with german instructor - pt would be poor candidate for intubation due to severity of underlying disease. May not be able to lopez ccessfully wean off ventilator if intubated. This was discussed this with patient at the time and she declined intubation at the time as she would not want long-term mechanical ventilation. Chest Xray show left basilar infiltrate Currently on broad-spectrum antibiotics including cefepime, levofloxacin Will discontinue vancomycin if MRSA screen is negative Biofire was negative for influenza PCR, empiric tamiflu was discontinued [place] virus testing sent on admission due to negative biofire. Patient denied any recent travel outside home, bill payment. Lives alone and son is the only visitor in the past 2 weeks. Stated son has not traveled to high risk areas. Resp symptoms improving Will continue iv antibiotics Continue nebs prn (2) COPD, moderate: See plan for #1 (3) Chronic back pain: Continue outpatient oxycodone dosing Continue gabapentin (4) GERD (gastroesophageal reflux disease): Continue outpatient pantoprazole BID (5) Bipolar 1 disorder: Continue outpatient Seroquel (6) HLD (hyperlipidemia): Continue outpatient atorvastatin (7) Depression: Continue outpatient Cymbalta - appears stable at this time. Admission and Anticipated Discharge Date Admission Date: November 04, 2019 Subjective Patient seen and examined Reports shortness of breath is improving. Still coughing Reports some headache. Congestion is resolved Successfully weaned off oxygen Physical Exam Constitutional: well developed and + well hydrated; no acute distress Eyes: PERRL, conjunctivae normal, anicteric sclerae ENMT: external ear and nose normal, oropharynx normal Respiratory: Auscultation: + diminished lung sounds; no rhonchi and no wheezes Cardiovascular: RRR, no murmur, no edema Gastrointestinal (Abdomen): normal bowel sounds, soft, nontender, no hepatosplenomegaly Neurologic: PERRL, EOMI, accommodation nl, no face palsy, no dysarthria Psychiatric: A+Ox3, euthymic affect Results & Data ([facility]) Vital Signs (Past 12 Hours) Vital Signs Temp Pulse Pulse Resp BP Pulse Ox 11/06/19 11:10 92 H 18 92 11/06/19 08:00 103 H 11/06/19 07:21 93 H 18 95 11/06/19 05:30 36.6 C 100 H 20 143/64 H 94 Laboratory Results Short CBC 11/06/19 Range/Units 05:12 WBC 18.04 H (4.8-10.8) K/uL Hgb 9.4 L (12.0-16.0) g/dL Hct 29.6 L (37-47) % Plt Count 184 (130-400) K/uL BMP 11/06/19 05:12 Sodium 137 Potassium 3.4 L Chloride 100 Carbon Dioxide 35 H BUN 9 Creatinine 0.72 Glucose 116 H Calcium 9.0 (1) Depression Depression Type: unspecified Qualified Code(s): F32.9 - Major depressive disorder, single episode, unspecified (2) HLD (hyperlipidemia) Hyperlipidemia type: unspecified Qualified Code(s): E78.5 - Hyperlipidemia, unspecified (3) Chronic back pain Back pain laterality: unspecified Back pain location: back pain in unspecified location Qualified Code(s): M54.9 - Dorsalgia, unspecified; G89.29 - Other chronic pain (4) GERD (gastroesophageal reflux disease) Esophagitis presence: esophagitis presence not specified Qualified Code(s): K21.9 - Gastro-esophageal reflux disease without esophagitis
[2019-11-06] MEDS ORDERED: VANCOMYCIN TROUGH ONE (14:30)
[2019-11-06] MEDS ORDERED: POTASSIUM CHLORIDE 20 MEQ TABCR PO ONE (16:15)
[2019-11-06] MEDS: ATORVASTATIN 20 MG TAB PO SCH (20:24)
[2019-11-06] MEDS: QUETIAPINE FUMARATE 200 MG TAB PO SCH (20:26)
[2019-11-07] MEDS: CEFEPIME 2,000 MG in SYRINGE 7.5 ML IV SCH ×4 (00:34→23:06)
[2019-11-07] MEDS: OXYCODONE HCL IR 5 MG TAB (IMMEDIATE RELEASE) PO SCH ×3 (05:20→21:02)
[2019-11-07 05:35] LABS: Hematocrit (blood only) 31.4 % (37-47); Hemoglobin 10.2 g/dL (12.0-16.0); Mean Corpuscular Hemoglobin 30.9 pg (25-34); Mean Corpuscular Hgb Conc 32.5 g/dL (32-36); Mean Corpuscular Volume 95.2 fL (80-100); Mean Platelet Volume 8.7 fL (7.4-10.4); Platelet Count 205 K/uL (130-400); RDW Coefficient of Variation 11.9 % (11.5-14.5); RDW Standard Deviation 40.8 fL (36.4-46.3)
[2019-11-07 06:00] LABS: BUN Creatinine Ratio 14.3 (10-20); Calcium 9.1 mg/dl (8.5-10.1); Creatinine Clr Calc Pharmacy 86.2 ml/min; Est GFR (African American) 112.6; Est GFR (Non-African American) 97.2; Potassium 3.4 mmol/L (3.5-5.1)
[2019-11-07] MEDS: FLUTICASONE FUROATE 100MCG 14 PUFFS/INHALER INH SCH (08:11)
[2019-11-07] MEDS: DULOXETINE HCL 30 MG CAP PO SCH (08:12)
[2019-11-07] MEDS: LEVOFLOXACIN/D5W 750 MG/150 ML BAG IV SCH (08:12)
[2019-11-07] MEDS: ASPIRIN 81 MG ECTAB PO SCH (08:12)
[2019-11-07] MEDS: GABAPENTIN 300 MG CAP PO SCH ×3 (08:13→21:02)
[2019-11-07] MEDS: PANTOprazole 40 MG TAB PO SCH ×2 (08:13→21:03)
[2019-11-07] MEDS: ENOXAPARIN INJ 40 MG/0.4 ML SYR SQ SCH (08:15)
--- NOTE | 2019-11-07 12:22 | Hospitalist Progress Note ---
Date of Service November 07, 2019 Assessment & Plan (1) Acute on chronic respiratory failure with hypoxia and hypercapnia: COPD exacerbation Viral respiratory infection vs pneumonia Pt with underlying COPD due to history of tobacco use disorder - continue to vape although quit smoking in February 2019. Baseline pt requires nocturnal O2 at 3 liters Admitting provider spoke with plant supervisor - pt would be poor candidate for intubation due to severity of underlying disease. May not be able to lopez ccessfully wean off ventilator if intubated. This was discussed this with patient at the time and she declined intubation at the time as she would not want long-term mechanical ventilation. Chest Xray show left basilar infiltrate Currently on broad-spectrum antibiotics including cefepime, levofloxacin Biofire was negative for influenza PCR, empiric tamiflu was discontinued Patient denied any recent travel outside home, bill payment. Lives alone and son is the only visitor in the past 2 weeks. Stated son has not traveled to high risk areas. Low suspicion for coronavirus, discontinue testing sent as well as airborne precautions Will continue iv antibiotics for now. If patient remains afebrile tomorrow with continued improvement, will switch to oral antibiotics Patient educated on need to quit vaping Also advised to self isolate and social distancing from others since she has chronic lung disease and other risk factors that put her at risk for severe disease/complications if she get COVID-19 (2) COPD, moderate: See plan for #1 (3) Chronic back pain: Continue outpatient oxycodone dosing Continue gabapentin (4) GERD (gastroesophageal reflux disease): Continue outpatient pantoprazole BID (5) Bipolar 1 disorder: Continue outpatient Seroquel (6) HLD (hyperlipidemia): Continue outpatient atorvastatin (7) Depression: Continue outpatient Cymbalta - appears stable at this time. Admission and Anticipated Discharge Date Admission Date: November 04, 2019 Subjective Patient seen and examined Patient symptoms continue to improve Still coughing Reports shortness of breath is almost resolved Denied any chest pain, fevers or chills Last fever recorded was last night Physical Exam Constitutional: well developed; no acute distress Eyes: PERRL, conjunctivae normal, anicteric sclerae ENMT: external ear and nose normal, oropharynx normal Respiratory: normal respiratory effort; no respiratory distress Auscultation: + diminished lung sounds Cardiovascular: RRR, no murmur, no edema Gastrointestinal (Abdomen): normal bowel sounds, soft, nontender, no hepatosplenomegaly Neurologic: PERRL, EOMI, accommodation nl, no face palsy, no dysarthria Psychiatric: A+Ox3, euthymic affect Results & Data ([facility]) Vital Signs (Past 12 Hours) Vital Signs Temp Pulse Pulse Resp BP Pulse Ox 11/07/19 11:38 36.8 C 82 20 106/62 90 11/07/19 08:00 36.5 C 94 H 18 120/65 91 11/07/19 04:00 79 79 27 H 97/55 L 97 Laboratory Results Short CBC 11/07/19 Range/Units 05:21 WBC 8.60 (4.8-10.8) K/uL Hgb 10.2 L (12.0-16.0) g/dL Hct 31.4 L (37-47) % Plt Count 205 (130-400) K/uL BMP 11/07/19 05:21 Sodium 139 Potassium 3.4 L Chloride 102 Carbon Dioxide 35 H BUN 9 Creatinine 0.65 Glucose 94 Calcium 9.1 (1) Chronic back pain Back pain location: back pain in unspecified location Back pain laterality: unspecified Qualified Code(s): M54.9 - Dorsalgia, unspecified; G89.29 - Other chronic pain (2) GERD (gastroesophageal reflux disease) Esophagitis presence: esophagitis presence not specified Qualified Code(s): K21.9 - Gastro-esophageal reflux disease without esophagitis (3) HLD (hyperlipidemia) Hyperlipidemia type: unspecified Qualified Code(s): E78.5 - Hyperlipidemia, unspecified (4) Depression Depression Type: unspecified Qualified Code(s): F32.9 - Major depressive disorder, single episode, unspecified
[2019-11-07] MEDS: ATORVASTATIN 20 MG TAB PO SCH (21:03)
[2019-11-07] MEDS: QUETIAPINE FUMARATE 200 MG TAB PO SCH (21:03)
[2019-11-08] MEDS: OXYCODONE HCL IR 5 MG TAB (IMMEDIATE RELEASE) PO SCH ×2 (05:45→13:55)
[2019-11-08 06:15] LABS: Hematocrit (blood only) 32.1 % (37-47); Hemoglobin 10.4 g/dL (12.0-16.0); Mean Corpuscular Hgb Conc 32.4 g/dL (32-36); Mean Corpuscular Volume 95.5 fL (80-100); Mean Platelet Volume 8.7 fL (7.4-10.4); Platelet Count 251 K/uL (130-400); Red Blood Count 3.36 M/uL (4.2-5.4); White Blood Count 5.69 K/uL (4.8-10.8)
[2019-11-08 06:52] LABS: BUN Creatinine Ratio 13.8 (10-20); Calcium 9.6 mg/dl (8.5-10.1); Creatinine Clr Calc Pharmacy 86.2 ml/min; Est GFR (African American) 112.6; Est GFR (Non-African American) 97.2; Potassium 3.5 mmol/L (3.5-5.1)
[2019-11-08] MEDS: FLUTICASONE FUROATE 100MCG 14 PUFFS/INHALER INH SCH (08:32)
[2019-11-08] MEDS: ASPIRIN 81 MG ECTAB PO SCH (08:34)
[2019-11-08] MEDS: ENOXAPARIN INJ 40 MG/0.4 ML SYR SQ SCH (08:34)
[2019-11-08] MEDS: DULOXETINE HCL 30 MG CAP PO SCH (08:34)
[2019-11-08] MEDS: PANTOprazole 40 MG TAB PO SCH (08:35)
[2019-11-08] MEDS: GABAPENTIN 300 MG CAP PO SCH ×2 (08:35→13:56)
[2019-11-08] MEDS ORDERED: levoFLOXacin 750 MG TAB PO SCH (11:00)
[2019-11-08 11:34] VITALS: BP 128/76; TEMP 98.1
--- NOTE | 2019-11-08 12:52 | Discharge Summary ---
Date of Service November 08, 2019 Admission HPI Per Admitting Provider This is a 59 y/o female with a PMH of COPD who presents to the ED via EMS with abrupt onset of shortness of breath. Pt states that she was in her usual state of health last evening, slept fine last night, but woke up this morning with chest tightness, heaviness and shortness of breath at rest. She attempted to ambulate to the bathroom but this made shortness of breath even worse and she developed associated palpitations so EMS was called. In the ED, pt was found to be hypoxic at 87% on RA. She was given an hour long neb with only mild improvement. She is now on BiPAP to maintain sats. She notes associated wheezing that just started today. Associated flushing, rigors, mild sore throat. She has a chronic cough that is intermittently productive of clear to dark sputum but no hemoptysis. Pt does use 3 liters of oxygen at night but not routinely during the day. History of respiratory failure requiring intubation previously. History of pneumonia. No sick contacts, no recent travel. 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 Had flu vaccine this season. Admission Exam Per Admitting Provider Constitutional: well developed and well nourished; no acute distress Mildy increased work of breathing Eyes: no conjunctival abnormality and no scleral abnormality ENMT: BiPAP mask in place - mucus membranes moist Neck: trachea midline Respiratory: + abnormal respiratory pattern (mild tachypnea) Auscultation: + rhonchi (bilateral lower lung alejandro) and + wheezes (inspiratory and expiratory throughout) Cardiovascular: Rate/Rhythm: regular rhythm and + tachycardic Heart Sounds: no gallop and no cardiac rub Vessels: no carotid bruit Extremities: no calf tenderness and no pedal edema Gastrointestinal (Abdomen): Inspection/Auscultation: normal bowel sounds; abdomen not distended Percussion/Palpation: abdomen soft; abdomen nontender Musculoskeletal: Head/Neck/Chest: normocephalic, head atraumatic and neck supple Extremities: no cyanosis and no clubbing Skin: Left LE with excoriated papular erythematous rash on anterior aspect of desir - no warmth, no drainage, no vesicles Neurologic: moves all extremities Speech / Cognition: normal speech Psychiatric: A+Ox3, euthymic affect Principal Diagnosis Sepsis secondary to pneumonia Acute on chronic respiratory failure with hypoxia and hypercapnia COPD Discharge Exam Constitutional well developed and + well hydrated; no acute distress Eyes PERRL, conjunctivae normal, anicteric sclerae ENMT external ear and nose normal, oropharynx normal Respiratory normal respiratory effort; no respiratory distress Dimnished breath sounds Cardiovascular RRR, no murmur, no edema Gastrointestinal (Abdomen) normal bowel sounds, soft, nontender, no hepatosplenomegaly Neurologic PERRL, EOMI, accommodation nl, no face palsy, no dysarthria Psychiatric A+Ox3, euthymic affect Discharge Data Allergies Allergy/AdvReac Type Severity Reaction Status Date / Time doxycycline Allergy Intermediate Hives Verified 02/18/19 10:28 morphine Allergy Intermediate ITCHING AT Verified 02/18/19 10:28 IV SITE ONLY iodine Allergy Unknown RASH Verified 02/18/19 10:28 valproic acid Allergy Unknown 0 Verified 02/18/19 10:28 Consultations 11/04/19 10:12 ED Decision to Admit Stat Hospital Course (1) Acute on chronic respiratory failure with hypoxia and hypercapnia: Sepsis secondary to pneumonia Pt with underlying COPD due to history of tobacco use disorder - continue to vape although quit smoking in February 2019. Baseline pt requires nocturnal O2 at 3 liters Admitting provider spoke with box maker paperboard on admission, pt would be poor candidate for intubation due to severity of underlying disease. May not be able to successfully wean off ventilator if intubated. This was discussed this with patient at the time and she declined intubation at the time as she would not want long-term mechanical ventilation. Chest Xray show left basilar infiltrate Treated with iv antibiotics initially Biofire was negative for influenza PCR, empiric tamiflu started on admission was discontinued Patient denied any recent travel outside home, bill payment. Lives alone and son is the only visitor in the past 2 weeks. Stated son has not traveled to high risk areas. Low suspicion for coronavirus Patient educated on need to quit vaping Educated on social distancing from others since she has chronic lung disease and other risk factors that put her at risk for severe disease/complications if she get COVID-19 Discharge on po levofloxacin to complete antibiotics therapy Patient was successfully weaned off oxygen. However, 2 step amb pulse ox showed patient requires 1l/min of oxygen with ambulation to maintain pulse ox of 88% or above. Discharge on portable ambulatory oxygen. Discussed with CM to make arrangements (2) COPD, moderate: See plan for #1 (3) Chronic back pain: On oxycodone chronically Continue gabapentin (4) GERD (gastroesophageal reflux disease): Continue outpatient pantoprazole BID (5) Bipolar 1 disorder: Continue outpatient Seroquel (6) HLD (hyperlipidemia): Continue outpatient atorvastatin (7) Depression: Continue outpatient Cymbalta Total Time Total Time Spent Total Time Spent (In Minutes): 35 Total Time Includes: Examination of the Patient, Discharge Planning and Medication Reconciliation Discharge Plan Discharge Items Patient Disposition: Home - Self-Care Reason For Visit: Shortness of breath Discharge Diagnosis: Sepsis secondary to pneumonia Acute on chronic respiratory failure with hypoxia and hypercapnea. Activity: Resume your previous activity Non-emergency contact: Primary Care Provider Call non-emergency contact if: you have any medication questions Follow-up/Referrals: Dimitri Hanna MD [Primary Care Provider] - Diet: Regular Addtl Attending Provider Instructions: Ms Patel. You came to the hospital with shortness of breath. You were evaluated and found to have sepsis secondary to pneumonia. You were treated with antibiotics and your symptoms improve It is very important that you complete antibiotics as prescribe. It is also very important that you stop vaping as we discussed. You are also requiring oxygen at 1l/min with ambulation. Hence, you are being discharged on portable oxygen. Please follow up with your Primary Doctor. It was a pleasure taking care of you. Pending Studies at Discharge: No Stand-Alone Forms: My [facility], Smoking Cessation Medications and DC Order Prescriptions: New levofloxacin 750 mg Tablet 750 mg PO DAILY@1100 3 Days Qty: 3 RF: 0 Continued Arnuity Ellipta 100 mcg/actuation Blister With Device 1 inh INHALATION DAILY RF: 0 atorvastatin 20 mg Tablet 20 mg PO HS RF: 0 albuterol sulfate 2.5 mg /3 mL (0.083 %) Solution For Nebulization 3 ml INHALATION QID PRN (Reason: Shortness Of Breath) RF: 0 triamcinolone acetonide 0.5 % Cream 1 applic TOPICAL BID RF: 0 sumatriptan succinate 100 mg Tablet 100 mg PO DAILY PRN (Reason: Migraine Headache) RF: 0 aspirin [Aspirin Low Dose] 81 mg Tablet,Delayed Release (Dr/Ec) 81 mg PO QAM RF: 0 meloxicam [Mobic] 7.5 mg Tablet 7.5 mg PO DAILY RF: 0 pantoprazole 40 mg Tablet,Delayed Release (Dr/Ec) 40 mg PO BID RF: 0 gabapentin 300 mg Capsule 300 mg PO TID RF: 0 albuterol sulfate 90 mcg/actuation Hfa Aerosol Inhaler 2 puff INHALATION QID PRN (Reason: Shortness Of Breath) RF: 0 Women's 50 Plus Multivitamin 400 mcg-500 mg calcium-20 mcg Tablet 1 tab PO QAM RF: 0 quetiapine [Seroquel] 400 mg tablet 400 mg PO HS RF: 0 duloxetine 30 mg capsule,delayed release(DR/EC) 30 mg PO DAILY RF: 0 Changed oxycodone 20 mg Tablet 20 mg PO TID PRN (Reason: severe pain) Qty: 0 RF: 0 Discharge Orders: Discharge Order (Routine); Ordered 11/08/19 Ordered By: Jeanne Ojeda Admission Data Admit Date/Time: 11/04/19 12:16 Attending Provider: Jeanne Ojeda I. Admit Provider: Franco Quiñones Primary Care Provider: Dimitri Hanna Other Providers: Miah Gomez ; Franco Quiñones Other Interventions: Discharge Summary Assessment (RN) Last Done: 11/08/19 14:00 DC Date/Time DO NOT enter until pt leaves facility: 11/08/19 14:48
[2019-11-08 14:09] VITALS: PULSE 79; O2SAT 90
== END 2019-11-08 14:48 | disposition home or self-care (01) | DRG 871 ==
LOC: ED 08:43 → 2E 12:16 → SUATTDRO 12:16 → 2E 13:15

== ENCOUNTER 2021-07-31 09:07 | Inpatient (IN) ==
[2021-07-31] MEDS ORDERED: ONDANSETRON INJ 2 MG/ML 2 ML VIAL IV STA (09:11)
[2021-07-31] MEDS ORDERED: ACETAMINOPHEN 1000 MG/100 ML IV IV ONE (09:12)
--- NOTE | 2021-07-31 09:15 | Emergency Department Note ---
Impression & Plan Pneumonia, Acute exacerbation of chronic obstructive pulmonary disease, Hypoxia, Fever ED Provider Note NAME: PRASANTH TATUM AGE: 61 SEX: F : 1960 ARRIVES VIA: Ambulance INFORMANT: Patient, EMS ED PROVIDER(S): Nicho Marroquin DO CHIEF COMPLAINT: Shortness of breath HPI: The patient is a 61-year-old female who presented to the emergency department for an evaluation of shortness of breath. The patient states that she felt fine yesterday and was around family members helping make cookies. The patient states that she started noticing shortness of breath overnight and coughing. She normally wears 1 to 2 L of oxygen at home. She has a history of COPD. The patient states that she started noticing a fever as well as productive cough over the last 12 hours. She called the ambulance this morning because she had severe shortness of breath. She has been having nausea as well as vomiting. She was noted to have severe tachypnea and breathing difficulty prior to arrival. She had her supplemental oxygen increased and was feeling somewhat improved. She denies having any headache or abdominal pain. She is vaccinated against COVID-19. She denies having any lower extremity swelling. She denies having any recent trauma. The patient states her shortness of breath is moderate to severe and worsens with any exertion. ROS: See above HPI for pertinent positives & negatives. A total of 10 systems reviewed and were otherwise negative. PAST MEDICAL HISTORY: See Below PAST SURGICAL HISTORY: See Below FAMILY HISTORY: See Below SOCIAL HISTORY: See Below HOME MEDICATIONS: See Below ALLERGIES: See Below VITALS: See Below PHYSICAL EXAMINATION: GENERAL: The patient is awake and alert. The patient is very anxious appearing. EYES: The conjunctivae are clear. The pupils are round and reactive. EARS, NOSE, MOUTH AND THROAT: The nose is without any evidence of any deformity. NECK: The neck is nontender and supple. RESPIRATORY: Diminished breath sounds are noted in both lung alejandro. There is almost absent breath sounds in the left lung field. There was significant conversational dyspnea. CARDIOVASCULAR: Tachycardic rate with regular rhythm was noted. There is no definite murmur. GASTROINTESTINAL: The abdomen is soft. Abdomen is nontender. MUSCULOSKELETAL/EXTREMITIES: There is no evidence of gross deformity full range of motion is noted in the hips and shoulders. SKIN: Skin is warm and dry. Trace pedal edema was noted bilaterally. NEUROLOGIC: Patient is awake alert and oriented x3 MEDICAL DECISION MAKING: The patient is a 61-year-old female who presented to emergency department for an evaluation of fever and cough. The patient had very severe symptoms and had posttussive emesis. She does not have any abdominal pain. She was found to have a fever and tachycardia. I discussed the patient's laboratory and radiographic studies with her. She did require an increasing dose of supplemental oxygen to maintain appropriate saturation compared to her baseline. The patient's chest x-ray did not show an obvious pulmonary infiltrate however given her physical exam findings as well as her laboratory findings I do feel th is represents pneumonia. She was treated with IV fluids and IV antibiotics. She was also given IV steroid as well as bronchodilator therapy. She was reevaluated multiple times. She was feeling much better on subsequent reevaluation. I discussed her case with the [facility] hospitalist group. They did recommend a CT of the chest but also will evaluate the patient in the emergency department for further management and disposition. Triage Nursing notes reviewed. Prior medical records reviewed Vital Signs: reviewed and remarkable for tachycardia and fever. She was also found to have elevated blood pressure. Differential diagnosis: Reactive airway disease, pneumonia, pneumothorax, COPD, CHF, infections, cardiac ischemia, pulmonary embolism, musculoskeletal, gastrointestinal, as well as other pathologies. ER treatment provided: See below Diagnostics interpreted by me: ECG: EKG was obtained in the emergency department. My interpretation is sinus tachycardia 126 bpm. There was no ectopy. Nonspecific ST segment abnormalities were noted. This was compared to a tracing from November [id number]. No changes were noted. Cardiac Monitoring: An order was placed for continuous cardiac monitoring. The monitor shows a rate of 120 bpm with sinus tachycardia. Laboratory studies: As stated above and show below. Imaging studies: See below Consultation(s): I discussed this case with Ami alberts who is on-call for the [facility] hospitalist group. They will evaluate the patient in the emergency department for further management and disposition. They did request a CT angiography of the chest given the patient's symptoms of shortness of breath hypoxia as well as her chest x-ray not being overwhelming for pulmonary infiltrate. Past Med/Surg History Medical History Anxiety Bipolar 1 disorder Chronic back pain Chronic respiratory failure with hypercapnia COPD, moderate Depression GERD (gastroesophageal reflux disease) HLD (hyperlipidemia) Nocturnal hypoxemia Tobacco use Surgical History H/O bilateral oophorectomy H/O tubal ligation History of hysterectomy S/P right knee arthroscopy S/P trigger finger release Family History Mother Coronary heart disease Diabetes Cancer cervical Father Coronary heart disease Son Bipolar disorder Daughter Bipolar disorder Social History Smoking Status: Unknown if ever smoked Cigarettes Per Day: 20; Second Hand Exposure: No; Hx Alcohol Use: No Hx Substance Use: No Preferred Language: Beninese Communication Ability: Effective Visual Impairment: Limited 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 Beliefs That Will Affect Care: None marital status: Current Living Situation: Alone Feels Safe at Home: Yes Assistive Devices: Denture - Upper, Denture - Lower, Glasses and Oxygen - Continuous Allergies Allergies Allergy/AdvReac Type Severity Reaction Status Date / Time doxycycline Allergy Intermediate Hives Verified 02/18/19 10:28 morphine Allergy Intermediate ITCHING AT Verified 02/18/19 10:28 IV SITE ONLY iodine Allergy Unknown RASH Verified 02/18/19 10:28 valproic acid Allergy Unknown 0 Verified 02/18/19 10:28 Home Meds Home Medications Medication Instructions Recorded Confirmed albuterol sulfate 3 ml INHALATION QID PRN 10/25/18 11/04/19 albuterol sulfate 90 mcg/actuation 2 puff INHALATION QID PRN 10/25/18 11/04/19 aerosol inhaler aspirin 81 mg tablet,delayed 81 mg PO QAM 10/25/18 11/04/19 release (Aspirin Low Dose) atorvastatin 20 mg tablet 20 mg PO HS 10/25/18 11/04/19 gabapentin 300 mg capsule 300 mg PO TID 10/25/18 11/04/19 meloxicam 7.5 mg tablet (Mobic) 7.5 mg PO DAILY 10/25/18 11/04/19 mnjpapig-qgj-urhwk ac 400 1 tab PO QAM 10/25/18 11/04/19 mcg-calcium carb 500 mg-vit K1 20 mcg tablet (Women's 50 Plus Multivitamin) pantoprazole 40 mg tablet,delayed 40 mg PO BID 10/25/18 11/04/19 release sumatriptan succinate 100 mg tablet 100 mg PO DAILY PRN 10/25/18 11/04/19 triamcinolone acetonide 0.5 % 1 applic TOPICAL BID 10/25/18 11/04/19 topical cream fluticasone furoate 100 1 inh INHALATION DAILY 02/18/19 11/04/19 mcg/actuation blister powder for inhalation (Arnuity Ellipta) duloxetine 30 mg capsule,delayed 30 mg PO DAILY 11/04/19 11/04/19 release quetiapine 400 mg tablet (Seroquel) 400 mg PO HS 11/04/19 11/04/19 Previous Rx's Medication Instructions Recorded oxycodone 20 mg tablet 20 mg PO TID PRN #0 tab 11/08/19 Results & Data (ED) Vital Signs Vital Signs - 24 hr 07/31/21 09:21 07/31/21 09:24 07/31/21 09:27 Temperature 39.2 C H Temperature Source Oral Pulse Rate 120 H Respiratory Rate 22 Blood Pressure 161/96 H Blood Pressure Mean 117 Pulse Oximetry 90 90 94 Oxygen Delivery Method Nasal Cannula Nasal Cannula Nasal Cannula Oxygen Flow Rate 3 3 4 Sepsis Recent Fever Within 48 Hours Yes Sepsis New/Unexplained Change in Mental Status No Sepsis Action Taken by Nursing MD Previously Notified Oxygen Flow Rate - Titration 4 Pulse Oximetry Post Tiitration 94 Home Medications Current Medication List: was personally reviewed by me Laboratory Data Attestation: I reviewed the patient's lab results. Result diagrams: 07/31/21 09:20 07/31/21 09:20 Lab Results 07/31/21 07/31/21 07/31/21 Range/Units 09:20 09:20 09:20 WBC 19.36 H (4.8-10.8) K/uL RBC 3.37 L (4.2-5.4) M/uL Hgb 10.0 L (12.0-16.0) g/dL Hct 32.7 L (37-47) % MCV 97.0 (80-100) fL MCH 29.7 (25-34) pg MCHC 30.6 L (32-36) g/dL RDW Std Deviation 47.5 H (36.4-46.3) fL RDW Coeff of Lizzie 13.4 (11.5-14.5) % Plt Count 388 (130-400) K/uL MPV 8.4 (7.4-10.4) fL Immature Gran % (Auto) 0.3 % Neut % (Auto) 84.1 % Lymph % (Auto) 7.8 % Monona % (Auto) 6.6 % Eos % (Auto) 1.0 % Baso % (Auto) 0.2 % Neut # (Auto) 16.30 H (1.4-6.5) K/uL Lymph # (Auto) 1.51 (1.2-3.4) K/uL Monona # (Auto) 1.27 H (0.11-0.59) K/uL Eos # (Auto) 0.19 (0-0.5) K/uL Baso # (Auto) 0.03 (0-0.2) K/uL Immature Gran # (Auto) 0.06 H (0.00-0.02) K/uL PT 10.5 (9.0-12.0) Seconds INR 1.0 (0.9-1.1) APTT 28.4 (21.0-31.0) Seconds PTT Ratio 1.1 ABG pH (7.35-7.45) ABG pCO2 (35-46) mmHg ABG pO2 (80-95) mmHg ABG HCO3 (19-24) mmol/L ABG O2 Saturation (90-95) % ABG Base Excess (-9-1.8) mEq/L Price Test (Pos) Barometric Pressure mm/Hg Oxygen Given Sodium 140 (136-145) mmol/L Potassium 3.4 L (3.5-5.1) mmol/L Chloride 98 (98-107) mmol/L Carbon Dioxide 36 H (21-32) mmol/L Anion Gap 6.0 (3-11) BUN 11 (7-18) mg/dl Creatinine 0.84 (0.6-1.2) mg/dl Est Cr Clr Drug Dosing 72.7 ml/min Est GFR ( Amer) 86.9 ml/min Est GFR (Non-Af Amer) 75.0 ml/min BUN/Creatinine Ratio 12.5 (10-20) Glucose 147 H (70-99) mg/dl Lactate (0.4-2.0) mmol/L Calcium 9.3 (8.5-10.1) mg/dl Magnesium 1.7 L (1.8-2.4) mg/dl Total Bilirubin 0.4 (0.2-1) mg/dl AST 17 (15-37) U/L ALT 29 (12-78) Alkaline Phosphatase 121 H (45-117) U/L Troponin I < 0.015 (0-0.045) ng/ml NT-Pro-B Natriuret Pep 39 (0-900) pg/ml Total Protein 7.9 (6.4-8.2) gm/dl Albumin 3.4 (3.4-5.0) gm/dl Globulin 4.5 H (2.5-4.0) gm/dl Albumin/Globulin Ratio 0.8 L (0.9-2) Procalcitonin (0-0.5) ng/ml SARS-CoV-2 (PCR) (Negative) Influenza Type A (PCR) (Neg) Influenza Type B (PCR) (Neg) RSV (RT-PCR) (Neg) 07/31/21 07/31/21 07/31/21 Range/Units 09:20 09:31 10:02 WBC (4.8-10.8) K/uL RBC (4.2-5.4) M/uL Hgb (12.0-16.0) g/dL Hct (37-47) % MCV (80-100) fL MCH (25-34) pg MCHC (32-36) g/dL RDW Std Deviation (36.4-46.3) fL RDW Coeff of Lizzie (11.5-14.5) % Plt Count (130-400) K/uL MPV (7.4-10.4) fL Immature Gran % (Auto) % Neut % (Auto) % Lymph % (Auto) % Monona % (Auto) % Eos % (Auto) % Baso % (Auto) % Neut # (Auto) (1.4-6.5) K/uL Lymph # (Auto) (1.2-3.4) K/uL Monona # (Auto) (0.11-0.59) K/uL Eos # (Auto) (0-0.5) K/uL Baso # (Auto) (0-0.2) K/uL Immature Gran # (Auto) (0.00-0.02) K/uL PT (9.0-12.0) Seconds INR (0.9-1.1) APTT (21.0-31.0) Seconds PTT Ratio ABG pH 7.46 H (7.35-7.45) ABG pCO2 53 H (35-46) mmHg ABG pO2 62 L (80-95) mmHg ABG HCO3 36 H (19-24) mmol/L ABG O2 Saturation 92.0 (90-95) % ABG Base Excess 10.9 H (-9-1.8) mEq/L Price Test Pos (Pos) Barometric Pressure 734.8 mm/Hg Oxygen Given 4 Sodium (136-145) mmol/L Potassium (3.5-5.1) mmol/L Chloride (98-107) mmol/L Carbon Dioxide (21-32) mmol/L Anion Gap (3-11) BUN (7-18) mg/dl Creatinine (0.6-1.2) mg/dl Est Cr Clr Drug Dosing ml/min Est GFR ( Amer) ml/min Est GFR (Non-Af Amer) ml/min BUN/Creatinine Ratio (10-20) Glucose (70-99) mg/dl Lactate 0.7 (0.4-2.0) mmol/L Calcium (8.5-10.1) mg/dl Magnesium (1.8-2.4) mg/dl Total Bilirubin (0.2-1) mg/dl AST (15-37) U/L ALT (12-78) Alkaline Phosphatase (45-117) U/L Troponin I (0-0.045) ng/ml NT-Pro-B Natriuret Pep (0-900) pg/ml Total Protein (6.4-8.2) gm/dl Albumin (3.4-5.0) gm/dl Globulin (2.5-4.0) gm/dl Albumin/Globulin Ratio (0.9-2) Procalcitonin 0.09 (0-0.5) ng/ml SARS-CoV-2 (PCR) (Negative) Influenza Type A (PCR) (Neg) Influenza Type B (PCR) (Neg) RSV (RT-PCR) (Neg) 07/31/21 Range/Units 10:29 WBC (4.8-10.8) K/uL RBC (4.2-5.4) M/uL Hgb (12.0-16.0) g/dL Hct (37-47) % MCV (80-100) fL MCH (25-34) pg MCHC (32-36) g/dL RDW Std Deviation (36.4-46.3) fL RDW Coeff of Lizzie (11.5-14.5) % Plt Count (130-400) K/uL MPV (7.4-10.4) fL Immature Gran % (Auto) % Neut % (Auto) % Lymph % (Auto) % Monona % (Auto) % Eos % (Auto) % Baso % (Auto) % Neut # (Auto) (1.4-6.5) K/uL Lymph # (Auto) (1.2-3.4) K/uL Monona # (Auto) (0.11-0.59) K/uL Eos # (Auto) (0-0.5) K/uL Baso # (Auto) (0-0.2) K/uL Immature Gran # (Auto) (0.00-0.02) K/uL PT (9.0-12.0) Seconds INR (0.9-1.1) APTT (21.0-31.0) Seconds PTT Ratio ABG pH (7.35-7.45) ABG pCO2 (35-46) mmHg ABG pO2 (80-95) mmHg ABG HCO3 (19-24) mmol/L ABG O2 Saturation (90-95) % ABG Base Excess (-9-1.8) mEq/L Price Test (Pos) Barometric Pressure mm/Hg Oxygen Given Sodium (136-145) mmol/L Potassium (3.5-5.1) mmol/L Chloride (98-107) mmol/L Carbon Dioxide (21-32) mmol/L Anion Gap (3-11) BUN (7-18) mg/dl Creatinine (0.6-1.2) mg/dl Est Cr Clr Drug Dosing ml/min Est GFR ( Amer) ml/min Est GFR (Non-Af Amer) ml/min BUN/Creatinine Ratio (10-20) Glucose (70-99) mg/dl Lactate (0.4-2.0) mmol/L Calcium (8.5-10.1) mg/dl Magnesium (1.8-2.4) mg/dl Total Bilirubin (0.2-1) mg/dl AST (15-37) U/L ALT (12-78) Alkaline Phosphatase (45-117) U/L Troponin I (0-0.045) ng/ml NT-Pro-B Natriuret Pep (0-900) pg/ml Total Protein (6.4-8.2) gm/dl Albumin (3.4-5.0) gm/dl Globulin (2.5-4.0) gm/dl Albumin/Globulin Ratio (0.9-2) Procalcitonin (0-0.5) ng/ml SARS-CoV-2 (PCR) NEGATIVE (Negative) Influenza Type A (PCR) Negative (Neg) Influenza Type B (PCR) Negative (Neg) RSV (RT-PCR) Negative (Neg) Administered Medications Magnesium Sulfate/Dextrose (Magnesium Sulfate / D5w) 1 gm in 100 mls @ 100 mls/hr IV Q1H KEVIN Stop: 07/31/21 12:28 Last Admin: 07/31/21 10:58 Dose: 100 mls/hr Documented by: [id number] Discontinued Medications Acetaminophen (Acetaminophen 1000 Mg/100 Ml Iv) 1,000 mg IV ONE ONE Stop: 07/31/21 09:13 Last Admin: 07/31/21 10:17 Dose: 1,000 mg Documented by: [id number] Albuterol (Albut/Ipratrop 3mg/0.5mg Neb 3 Ml Vial) 3 ml NEB NOW STA Stop: 07/31/21 09:47 Last Admin: 07/31/21 10:17 Dose: 3 ml Documented by: [id number] Dexamethasone Sodium Phosphate (DexamethasonePf 10 Mg/Ml Vial) 10 mg IV NOW ONE Stop: 07/31/21 09:47 Last Admin: 07/31/21 10:16 Dose: 10 mg Documented by: [id number] Ceftriaxone Sodium (Rocephin) 1,000 mg in 50 mls @ 100 mls/hr IV NOW STA Stop: 07/31/21 10:15 Last Infusion: 07/31/21 11:19 Dose: 0 mls/hr Documented by: [id number] Admin: 07/31/21 10:47 Dose: 100 mls/hr Documented by: [id number] Ondansetron HCl (Ondansetron Inj 2 Mg/Ml 2 Ml Vial) 4 mg IV NOW STA Stop: 07/31/21 09:12 Last Admin: 07/31/21 10:16 Dose: 4 mg Documented by: [id number] Imaging Data Radiologist's Impression: Chest X-Ray 07/31/21 09:11 XR chest 1V portable CLINICAL HISTORY: SEPSIS TECHNIQUE: Single frontal radiograph of the chest was obtained. Comparison: Comparison is made to chest one view 11/04/2019 FINDINGS: No lines and tubes are seen. The cardiomediastinal silhouette is normal. The lungs are clear. No evidence of pleural effusion or pneumothorax. IMPRESSION: No acute chest disease. ACT 112: Negative or not required by law. Electronically signed by: Adeel Washington M.D. 07/31/2021 9:37 AM Discharge Plan Visit Data Chief Complaint: Shortness of Breath/Dyspnea Stated Complaint: SOB, FLU LIKE SX ED Provider: Nicho Marroquin Discharge Problem: Pneumonia, Acute exacerbation of chronic obstructive pulmonary disease, Hypoxia, Fever Patient Disposition: Being Evaluated by Hospitalist Forms Stand Alone Forms: My [facility] Prescriptions Prescriptions: No Action Arnuity Ellipta 100 mcg/actuation Blister With Device 1 inh INHALATION DAILY RF: 0 atorvastatin 20 mg Tablet 20 mg PO HS RF: 0 albuterol sulfate 2.5 mg /3 mL (0.083 %) Solution For Nebulization 3 ml INHALATION QID PRN (Reason: Shortness Of Breath) RF: 0 triamcinolone acetonide 0.5 % Cream 1 applic TOPICAL BID RF: 0 sumatriptan succinate 100 mg Tablet 100 mg PO DAILY PRN (Reason: Migraine Headache) RF: 0 aspirin [Aspirin Low Dose] 81 mg Tablet,Delayed Release (Dr/Ec) 81 mg PO QAM RF: 0 meloxicam [Mobic] 7.5 mg Tablet 7.5 mg PO DAILY RF: 0 pantoprazole 40 mg Tablet,Delayed Release (Dr/Ec) 40 mg PO BID RF: 0 gabapentin 300 mg Capsule 300 mg PO TID RF: 0 albuterol sulfate 90 mcg/actuation Hfa Aerosol Inhaler 2 puff INHALATION QID PRN (Reason: Shortness Of Breath) RF: 0 Women's 50 Plus Multivitamin 400 mcg-500 mg calcium-20 mcg Tablet 1 tab PO QAM RF: 0 quetiapine [Seroquel] 400 mg tablet 400 mg PO HS RF: 0 duloxetine 30 mg capsule,delayed release(DR/EC) 30 mg PO DAILY RF: 0 oxycodone 20 mg Tablet 20 mg PO TID PRN (Reason: severe pain) Qty: 0 RF: 0 Referrals Referrals: Dimitri Hanna MD [Primary Care Provider] -
[2021-07-31 09:38] LABS: Basophils # (auto) 0.03 K/uL (0-0.2); Basophils % (auto) 0.2 %; Eosinophils # (auto) 0.19 K/uL (0-0.5); Hematocrit (blood only) 32.7 % (37-47); Immature Granulocytes # (auto) 0.06 K/uL (0.00-0.02); Immature Granulocytes % (auto) 0.3 %; Lymphocytes # (auto) 1.51 K/uL (1.2-3.4); Lymphocytes % (auto) 7.8 %; Mean Corpuscular Hemoglobin 29.7 pg (25-34); Mean Corpuscular Hgb Conc 30.6 g/dL (32-36); Mean Platelet Volume 8.4 fL (7.4-10.4); Monocytes # (auto) 1.27 K/uL (0.11-0.59); Monocytes % (auto) 6.6 %; Neutrophils % (auto) 84.1 %; Platelet Count 388 K/uL (130-400); RDW Coefficient of Variation 13.4 % (11.5-14.5); RDW Standard Deviation 47.5 fL (36.4-46.3); Red Blood Count 3.37 M/uL (4.2-5.4); White Blood Count 19.36 K/uL (4.8-10.8)
--- NOTE | 2021-07-31 09:39 | XRay Report ---
XR chest 1V portable CLINICAL HISTORY: SEPSIS TECHNIQUE: Single frontal radiograph of the chest was obtained. Comparison: Comparison is made to chest one view 11/04/2019 FINDINGS: No lines and tubes are seen. The cardiomediastinal silhouette is normal. The lungs are clear. No evid ence of pleural effusion or pneumothorax. IMPRESSION: No acute chest disease. ACT 112: Negative or not required by law. Electronically signed by: Adeel Washington M.D. 07/31/2021 9:37 AM
[2021-07-31] MEDS ORDERED: cefTRIAXone SODIUM 1,000 MG/50 ML BAG IV STA (09:46)
[2021-07-31] MEDS ORDERED: dexAMETHasone**PF** 10 MG/ML VIAL IV ONE (09:46)
[2021-07-31] MEDS ORDERED: ALBUT/IPRATROP 3MG/0.5MG NEB 3 ML VIAL NEB STA (09:46)
[2021-07-31 09:48] LABS: Partial Thromboplastin Ratio 1.1; Partial Thromboplastin Time 28.4 Seconds (21.0-31.0); Prothrombin Time 10.5 Seconds (9.0-12.0)
[2021-07-31 09:57] LABS: Alanine Aminotransferase 29 (12-78); Albumin Level 3.4 gm/dl (3.4-5.0); Aspartate Aminotransferase 17 U/L (15-37); BUN Creatinine Ratio 12.5 (10-20); Blood Urea Nitrogen 11 mg/dl (7-18); Calcium 9.3 mg/dl (8.5-10.1); Carbon Dioxide 36 mmol/L (21-32); Chloride 98 mmol/L (98-107); Creatinine Clr Calc Pharmacy 72.7 ml/min; Est GFR (African American) 86.9 ml/min; Glucose 147 mg/dl (70-99); Magnesium 1.7 mg/dl (1.8-2.4); Potassium 3.4 mmol/L (3.5-5.1); Sodium 140 mmol/L (136-145)
[2021-07-31 10:02] LABS: Albumin Globulin Ratio 0.8 (0.9-2); Alkaline Phosphatase 121 U/L (45-117); Bilirubin,Total 0.4 mg/dl (0.2-1); Globulin 4.5 gm/dl (2.5-4.0); NT Pro B Type Natriuretic Pept 39 pg/ml (0-900); Total Protein 7.9 gm/dl (6.4-8.2); Troponin I < 0.015 ng/ml (0-0.045)
[2021-07-31 10:16] LABS: Allen Test Pos (Pos); Base Excess ABG 10.9 mEq/L (-9-1.8); HCO3 ABG 36 mmol/L (19-24); PCO2 ABG 53 mmHg (35-46); PO2 ABG 62 mmHg (80-95); pH ABG 7.46 (7.35-7.45)
[2021-07-31] MEDS: MAGNESIUM SULFATE / D5W 1 GM/100 ML BAG IV SCH ×2 (10:58→12:19)
[2021-07-31 11:17] LABS: Influenza A virus by PCR Negative (Neg); Influenza B virus by PCR Negative (Neg); RSV by PCR Negative (Neg); SARS CoV2 RNA(COVID-19) InHosp NEGATIVE (Negative)
--- NOTE | 2021-07-31 12:43 | History & Physical Report ---
Date of Service July 31, 2021 Assessment & Plan (1) Acute on chronic respiratory failure with hypoxia and hypercapnia: (2) Acute exacerbation of chronic obstructive pulmonary disease: (3) Sepsis: Plan: -Admit to telemetry -Patient presenting from home with reports of worsening shortness of breath and cough. Symptoms started after eating and drinking last evening. -Patient typically wears 1 to 3 L of O2 at home, currently requiring 4 L of oxygen via nasal cannula to maintain saturations. -In the ED, patient meets sepsis criteria: WBC 19 K, tachycardic, normal lactate and BP stable -? Aspiration -CXR relatively clear, check CTA chest -Noted procalcitonin 0.09 -S/p ceftriaxone in the ED, given concerns for aspiration will place patient on IV Unasyn and IV azithromycin -S/p dexamethasone 10 mg IV in the ED, continue prednisone 40 mg daily -Noted negative COVID-19, influenza, RSV. Check bio fire -Follow cultures -Pulmonary toilet with incentive spirometer, flutter valve, nebs -Aspiration precautions, speech consult -Continue home inhalers (4) Bipolar 1 disorder: Plan: -Continue home medications (5) DVT prophylaxis: Plan: -SQ Lovenox Plan: Attending Addendum: care coordinated with SAIDA alberts please refer to her notes for full details, I agree with her notes patient seen and examined, records reviewed by myself as well on exam, patient seen resting in bed, not distressed, comfortable RN reported patient did not do well with potassium pills Patient denies having active shortness of breath, neck pain, chest pain, palpitations, dizziness, abdominal pain, fevers or chills Reports she follows with GI service for esophageal dilatation intermittently no other symptoms VS noted and reviewed oriented x3, not in distress, speaks in sentences with no effort nor accessory muscle use normal rate, regular rhythm, no murmurs Diminished, but clear breath sounds bilaterally non distended, soft, nontender no bipedal edema, erythema, warmth no neuro deficits WBC 19.3 [address] chest: 1. No evidence of pulmonary embolism. 2. A few scattered groundglass opacities are seen which may represent infectious/inflammatory process. 3. Hepatic steatosis. 4. Hiatal hernia with fluid-filled and thickened esophagus. ASSESSMENT AND PLAN Acute on chronic hypoxic respiratory failure Possible mild COPD flare, aspiration pneumonia Baseline oxygen use at home 2 L, currently 4 L No wheezing on exam CT chest: A few scattered groundglass opacities Bio fire panel: Negative Continue Unasyn plus azithromycin Monitor closely Dysphagia Check CT head and CT neck We will consult gastroenterology service as patient reports she follows with gastroenterology service for esophageal dilation other diagnoses and plan of care as per SAIDA alberts's notes Abraham Chavarria MD History of Present Illness Chief Complaint: Shortness of breath Primary Care Provider: Dimitri Hanna MD 61-year-old female with PMH COPD with chronic hypoxic and hypercapnic respiratory failure on 1 to 3 L of home O2, prediabetes, chronic diastolic CHF, bipolar disorder, chronic back pain, and other problems to below who presents the ED for evaluation of shortness of breath. Patient reports that she was at her sister's house yesterday doing some baking and when she arrived home, she took a drink of soda and subsequently started to cough. She reports that anytime she tried to eat or drink anything she would be in cough. Patient reports she has a chronic cough productive for clear/white sputum. When she was coughing with eating or drinking, colored sputum was what ever she was ingesting. Patient reports that she was able to sleep throughout the night without difficulty. This morning, whenever she woke up she felt very short of breath. She then presented to the ED for further evaluation. Patient denies chest pain. No lightheadedness, dizziness, diaphoresis, syncopal events. She is febrile in the ED however denies fevers and chills at home. No abdominal pain, nausea, vomiting, diarrhea. She denies urinary symptoms. In the ED, patient is febrile at 39.2, tachycardic HR 120, requiring 4 L of oxygen via nasal cannula. BP stable. Labs show WBC 19 K, lactate 0.7. CXR is relatively clear. Allergies Allergy/AdvReac Type Severity Reaction Status Date / Time doxycycline Allergy Intermediate Hives Verified 02/18/19 10:28 morphine Allergy Intermediate ITCHING AT Verified 02/18/19 10:28 IV SITE ONLY iodine Allergy Unknown RASH Verified 02/18/19 10:28 valproic acid Allergy Unknown 0 Verified 02/18/19 10:28 Home Medications Medication Instructions Recorded Confirmed Type albuterol sulfate 3 ml INHALATION QID PRN 10/25/18 07/31/21 History albuterol sulfate 90 mcg/actuation 2 puff INHALATION QID PRN 10/25/18 07/31/21 History aerosol inhaler aspirin 81 mg tablet,delayed 81 mg PO QAM 10/25/18 07/31/21 History release (Aspirin Low Dose) atorvastatin 20 mg tablet 20 mg PO HS 10/25/18 07/31/21 History gabapentin 300 mg capsule 300 mg PO TID 10/25/18 07/31/21 History meloxicam 7.5 mg tablet (Mobic) 7.5 mg PO DAILY 10/25/18 07/31/21 History reswsfly-hkx-wbsfp ac 400 1 tab PO QAM 10/25/18 07/31/21 History mcg-calcium carb 500 mg-vit K1 20 mcg tablet (Women's 50 Plus Multivitamin) pantoprazole 40 mg tablet,delayed 40 mg PO BID 10/25/18 07/31/21 History release sumatriptan succinate 100 mg tablet 100 mg PO DAILY PRN 10/25/18 07/31/21 History triamcinolone acetonide 0.5 % 1 applic TOPICAL BID 10/25/18 07/31/21 History topical cream fluticasone furoate 100 1 inh INHALATION DAILY 02/18/19 07/31/21 History mcg/actuation blister powder for inhalation (Arnuity Ellipta) duloxetine 30 mg capsule,delayed 30 mg PO DAILY 11/04/19 07/31/21 History release quetiapine 400 mg tablet (Seroquel) 400 mg PO HS 11/04/19 07/31/21 History fluticasone fur. 100 mcg-umeclid 1 inh INHALATION DAILY 07/31/21 07/31/21 History 62.5 mcg-vilant 25 mcg inhalat.powder (Trelegy Ellipta) Past Med/Surg History Medical History Anxiety Bipolar 1 disorder Chronic back pain Chronic respiratory failure with hypoxia and hypercapnia COPD, moderate Depression GERD (gastroesophageal reflux disease) HLD (hyperlipidemia) Nocturnal hypoxemia Tobacco use Surgical History H/O bilateral oophorectomy H/O tubal ligation History of hysterectomy S/P right knee arthroscopy S/P trigger finger release Family History Mother Coronary heart disease Diabetes Cancer cervical Father Coronary heart disease Son Bipolar disorder Daughter Bipolar disorder Social History Smoking Status: Former smoker Cigarettes Per Day: 20; Second Hand Exposure: No; Hx Alcohol Use: No Hx Substance Use: No Preferred Language: Spanish Communication Ability: Effective Visual Impairment: Limited Contract Analyst Required: No Beliefs That Will Affect Care: None marital status: Current Living Situation: Alone Feels Safe at Home: Yes Assistive Devices: Denture - Upper, Denture - Lower, Glasses and Oxygen - Continuous Review of Systems Review of Systems: ROS per HPI, all other systems reviewed and negative Physical Exam Constitutional: WD/WN, vitals as above Eyes: PERRL, conjunctivae normal, anicteric sclerae ENMT: external ear and nose normal, oropharynx normal Respiratory: normal respiratory effort; no respiratory distress Auscultation: + diminished lung sounds Cardiovascular: Rate/Rhythm: regular rhythm and + tachycardic Vessels: normal peripheral pulses Extremities: no edema Gastrointestinal (Abdomen): normal bowel sounds, soft, nontender, no hepatosplenomegaly Musculoskeletal: no cyanosis or clubbing, extremities motor strength 5/5 Skin: no rashes, warm and dry Neurologic: PERRL, EOMI, accommodation nl, no face palsy, no dysarthria Psychiatric: A+Ox3, euthymic affect Results & Data Results & Data ([facility]) Vital Signs (Past 12 Hours) Vital Signs Temp Pulse Pulse Resp BP BP Pulse Ox 07/31/21 12:00 18 96 07/31/21 11:41 95 07/31/21 11:27 97 H 18 131/64 95 07/31/21 09:27 94 07/31/21 09:24 90 07/31/21 09:21 39.2 C H 120 H 22 161/96 H 90 Laboratory Results Short CBC 07/31/21 Range/Units 09:20 WBC 19.36 H (4.8-10.8) K/uL Hgb 10.0 L (12.0-16.0) g/dL Hct 32.7 L (37-47) % Plt Count 388 (130-400) K/uL BMP 07/31/21 09:20 Sodium 140 Potassium 3.4 L Chloride 98 Carbon Dioxide 36 H BUN 11 Creatinine 0.84 Glucose 147 H Calcium 9.3 Cardiac Enzymes 07/31/21 Range/Units 09:20 Troponin I < 0.015 (0-0.045) ng/ml Liver Function 07/31/21 Range/Units 09:20 Total Bilirubin 0.4 (0.2-1) mg/dl AST 17 (15-37) U/L ALT 29 (12-78) Alkaline Phosphatase 121 H (45-117) U/L Albumin 3.4 (3.4-5.0) gm/dl Diagnostic Findings Chest X-Ray 07/31/21 09:11 XR chest 1V portable CLINICAL HISTORY: SEPSIS TECHNIQUE: Single frontal radiograph of the chest was obtained. Comparison: Comparison is made to chest one view 11/04/2019 FINDINGS: No lines and tubes are seen. The cardiomediastinal silhouette is normal. The lungs are clear. No evidence of pleural effusion or pneumothorax. IMPRESSION: No acute chest disease. ACT 112: Negative or not required by law. Electronically signed by: Adeel Washington M.D. 07/31/2021 9:37 AM Code Status & VTE Plan Code Status Patient is a full code as per my discussion with her. VTE Prophylaxis Plan VTE Prophylaxis will be ordered: Yes (1) Sepsis Sepsis acute organ dysfunction status: unspecified Sepsis type: sepsis due to unspecified organism Qualified Code(s): A41.9 - Sepsis, unspecified organism
[2021-07-31] MEDS ORDERED: POTASSIUM CHLORIDE CRTAB 20 MEQ TABCR PO ONE (12:44)
[2021-07-31] MEDS ORDERED: OPTIRAY 320 125ml IV ONE (12:50)
[2021-07-31] MEDS: AZITHROMYCIN 500 MG in DEXTROSE 5% 250 ML IV SCH (12:56)
[2021-07-31] MEDS: AMPICILLIN/SULBACTAM SOD 3,000 MG in 0.9 % SODIUM CHLORIDE 100 ML IV SCH ×3 (12:56→23:53)
--- NOTE | 2021-07-31 13:06 | CT Scan Report ---
CT angio chest PE protocol CLINICAL HISTORY: PE TECHNIQUE: Multidetector row helical CT of the chest was performed. Coronal and sagittal reformations were obtained. Automated dose lowering techniques and/or adjustment according to patient size were u tilized for this exam. Comparison: Comparison is made to CT chest 11/06/2018 FINDINGS: Lungs and pleura: Multifocal groundglass opacities are seen. Heart and pericardium: There is cardiomegaly without evidence of pericardial effusion. Vessels: No evidence of pulmonary embolism. Mediastinum and samara: No lymphadenopathy is seen. Dilated fluid-filled esophagus is noted. Chest wall and lower neck: Unremarkable. Abdomen: Hepatic steatosis is noted. A hiatal hernia is seen. Bones: Vertebral plana of T7 noted. IMPRESSION: 1. No evidence of pulmonary embolism. 2. A few scattered groundglass opacities are seen which may represent infectious/inflammatory proces s. 3. Hepatic steatosis. 4. Hiatal hernia with fluid-filled and thickened esophagus. ACT 112: Negative or not required by law. Electronically signed by: Adeel Washington M.D. 07/31/2021 1:05 PM
[2021-07-31] MEDS ORDERED: ACETAMINOPHEN 325 MG TAB PO PRN (13:42)
[2021-07-31] MEDS: SODIUM CHLORIDE 0.9% 1000ML 1,000 ML IV SCH ×2 (14:08→22:29)
[2021-07-31 14:52] LABS: Appearance Urine Clear (Clear); Bilirubin Urine Negative (Negative); Blood Urine Negative (Negative); Color Urine Yellow; Glucose Urine UA Negative (Negative); Ketones Urine Negative (Negative); Leukocyte Esterase Urine Negative (Negative); Nitrite Urine Negative (Negative); Protein Urine Negative (Negative); Specific Gravity Urine 1.042 (1.000-1.030); Urobilinogen Urine Negative (Negative)
[2021-07-31] MEDS: GABAPENTIN 300 MG CAP PO SCH (16:05)
[2021-07-31 17:04] LABS: Adenovirus PCR Not Detected (NotDetected); Bordetella parapertussis PCR Not Detected (NotDetected); Bordetella pertussis PCR Not Detected (NotDetected); Chlamydia pneumoniae PCR Not Detected (NotDetected); Coronavirus 229E PCR Not Detected (NotDetected); Coronavirus CoV-2 (COVID19)PCR Not Detected (NotDetected); Coronavirus HKU1 PCR Not Detected (NotDetected); Coronavirus NL63 PCR Not Detected (NotDetected); Coronavirus OC43PCR Not Detected (NotDetected); Human Metapneumovirus PCR Not Detected (NotDetected); Influenza A PCR Not Detected (NotDetected); Influenza B PCR Not Detected (NotDetected); Mycoplasma pneumoniae PCR Not Detected (NotDetected); Parainfluenza Virus 1 PCR Not Detected (NotDetected); Parainfluenza Virus 2 PCR Not Detected (NotDetected); Parainfluenza Virus 3 PCR Not Detected (NotDetected); Parainfluenza Virus 4 PCR Not Detected (NotDetected); Respiratory Syncytial VirusPCR Not Detected (NotDetected); Rhinovirus/Enterovirus PCR Not Detected (NotDetected)
--- NOTE | 2021-07-31 17:41 | CT Scan Report ---
CT head/brain wo con CLINICAL HISTORY: dysphagia Technique: Contiguous axial CT images of the head were acquired from the base of the skull to the kay carolyn without intravenous contrast administration. Images were viewed in brain[facility]. Automated dose lowering techniques and/or adjustment according to patient size were utilized for this exam. Comparison: Comparison is made to CT head 02/18/2019 Findings: The ventricles, basal cisterns, and cerebral sulci are normal. There is no acute intracranial hemorrh age or evidence of acute territorial infarction. Neither mass effect, shift of the midline structures , nor abnormal extra-axial fluid collections are shown. Left sphenoid sinus demonstrates mucous thickening. The orbits appear normal. There are no acute fra ctures of the calvaria or scalp swelling. Impression: No acute intracranial hemorrhage, no evidence of acute territorial infarction or other acute intracra nial disease process. ACT 112: Negative or not required by law. Electronically signed by: Adeel Washington M.D. 07/31/2021 5:40 PM
[2021-07-31] MEDS: ALBUT/IPRATROP 3MG/0.5MG NEB 3 ML VIAL NEB SCH ×2 (17:46→20:54)
--- NOTE | 2021-07-31 17:46 | CT Scan Report ---
CT soft tissue neck wo con CLINICAL HISTORY: dysphagia Technique: Axial CT images of the soft tissues of the neck were obtained following intravenous admini stration of 100 cc of Omnipaque 300. Automated dose lowering techniques and/or adjustment according t o patient size were utilized for this exam. Comparison: None available at the time of this dictation. Findings: There are no masses or inflammatory changes seen within the soft tissues of the neck. No enlarged ly mph nodes are seen. The parotid glands, submandibular glands, and thyroid gland are unremarkable. T he oropharynx, hypopharynx, larynx, and trachea are patent. The visualized esophagus is dilated and f luid-filled. Imaged portions of the brain parenchyma are unremarkable. The paranasal sinuses and mastoid air cell s are normal in appearance. Impression: No acute abnormality in the neck, no abnormal masses are seen. A fluid-filled dilated esophagus is se en, comparable to appearance on prior CT chest performed same day. ACT 112: Negative or not required by law. Electronically signed by: Adeel Washington M.D. 07/31/2021 5:45 PM
[2021-07-31] MEDS ORDERED: FAMOTIDINE 20MG IV PUSH 20 MG/5 ML SYR IV STA (17:52)
[2021-07-31] MEDS ORDERED: QUEtiapine FUMARATE 200 MG TAB PO STA (19:48)
[2021-07-31] MEDS: PANTOprazole 40 MG in SYRINGE 0 ML IV SCH (20:12)
[2021-07-31] MEDS ORDERED: PANTOprazole 40 MG TAB PO SCH (21:00)
[2021-07-31] MEDS ORDERED: ENOXAPARIN INJ 40 MG/0.4 ML SYR SQ SCH (21:00)
[2021-07-31] MEDS ORDERED: ATORVASTATIN 20 MG TAB PO SCH (21:00)
[2021-07-31] MEDS ORDERED: QUEtiapine FUMARATE 200 MG TAB PO SCH (21:00)
--- NOTE | 2021-07-31 22:08 | Electrocardiogram Report ---
Test Reason : Blood Pressure : / mmHG Vent. Rate : 126 BPM Atrial Rate : 126 BPM P-R Int : 134 ms QRS Dur : 084 ms QT Int : 310 ms P-R-T Axes : 049 002 080 degrees QTc Int : 448 ms Poor data quality, interpretation may be adversely affected Sinus tachycardia Nonspecific ST abnormality Abnormal ECG When compared with ECG of 04-NOV-2019 09:12, Nonspecific T wave abnormality, improved in Lateral leads Confirmed by William Abebe ([id number]) on 07/31/2021 10:07:38 PM Referred By: REFERRED SELF Confirmed By:William Abebe
[2021-08-01] MEDS: ALBUT/IPRATROP 3MG/0.5MG NEB 3 ML VIAL NEB SCH ×3 (00:34→12:51)
[2021-08-01] MEDS: AMPICILLIN/SULBACTAM SOD 3,000 MG in 0.9 % SODIUM CHLORIDE 100 ML IV SCH ×2 (05:58→14:00)
[2021-08-01 08:00] LABS: Hematocrit (blood only) 29.1 % (37-47); Hemoglobin 9.3 g/dL (12.0-16.0); Mean Corpuscular Hemoglobin 30.6 pg (25-34); Mean Corpuscular Volume 95.7 fL (80-100); Mean Platelet Volume 8.2 fL (7.4-10.4); Platelet Count 331 K/uL (130-400); RDW Coefficient of Variation 13.3 % (11.5-14.5); RDW Standard Deviation 46.5 fL (36.4-46.3); Red Blood Count 3.04 M/uL (4.2-5.4); White Blood Count 21.82 K/uL (4.8-10.8)
[2021-08-01 08:27] LABS: BUN Creatinine Ratio 18.9 (10-20); Calcium 8.4 mg/dl (8.5-10.1); Creatinine Clr Calc Pharmacy 84.4 ml/min; Est GFR (Non-African American) 88.9 ml/min
[2021-08-01] MEDS: SODIUM CHLORIDE 0.9% 1000ML 1,000 ML IV SCH (08:29)
[2021-08-01 08:31] LABS: Potassium 3.4 mmol/L (3.5-5.1)
--- NOTE | 2021-08-01 08:57 | Gastrointestinal Consultation ---
Date of Consultation August 01, 2021 Assessment & Plan (1) Acute on chronic respiratory failure with hypoxia and hypercapnia: 61 year old female admitted w/ acute on chronic respiratory failure and fevers, noted to have dysphagia. Now tolerating water. Recommend conservative management. No plan for EGD in the setting of acute respiratory failure. Can have clear liquids. Continue PPI BID. Consider pudding or applesauce with medications. Please recall GI once respiratory status is fully optimizes and at that time can discuss timing of EGD, inpatient vs outpatient. Thank you for allowing us to participate in the care of this patient. Please call with any acute changes, questions or concerns. Please see addendum below with additional recommendation from my supervising physician. (2) Dysphagia: Supervising Physician Co-Signing Physician Notes I saw and evaluated the patient. We were consulted for evaluation of intermittent solid food dysphagia. Patient is somewhat of a poor historian and unable to describe her symptoms well. She recalls that she did have a prior upper endoscopy several years ago at which time an esophageal dilation was performed. She was admitted with shortness of breath and notes that this seems to be improving. Physical examination Obese female No abdominal tenderness Impression patient admitted with respiratory distress now improving, GI consulted for evaluation of intermittent solid food dysphagia.We could certainly try to make arrangements for upper endoscopy today for this patient either as an inpatient or outpatient. I will take the liberty of ordering the study for tomorrow if the patient is improved. History of Present Illness Reason for Consultation: dysphagia Requesting Physician: Deon Attending Physician: Abraham Chavarria MD History of Present Illness 61 year old female admitted w/ respiratory failure and fevers - GI asked to evaluate for dysphagia. Suggests symptoms started a few weeks ago. Intermittent issues with solids. Weekend had a cookie, got stuck and had issues for a few hours. Eventually passed with water. Now she is drinking some water and suggests she feels fine. No abd pain. No nausea, vomiting. Denies diarrhea/constipation. No black or bloody stools. has had dysphagia in the past. Suggests she had 1-2 endoscopies at [facility] years ago. Last EGD would be around 4 years ago. Denies weight loss. Allergies Allergy/AdvReac Type Severity Reaction Status Date / Time doxycycline Allergy Intermediate Hives Verified 02/18/19 10:28 morphine Allergy Intermediate ITCHING AT Verified 02/18/19 10:28 IV SITE ONLY iodine Allergy Unknown RASH Verified 02/18/19 10:28 valproic acid Allergy Unknown 0 Verified 02/18/19 10:28 Home Medications Medication Instructions Recorded Confirmed Type albuterol sulfate 3 ml INHALATION QID PRN 10/25/18 07/31/21 History albuterol sulfate 90 mcg/actuation 2 puff INHALATION QID PRN 10/25/18 07/31/21 History aerosol inhaler aspirin 81 mg tablet,delayed 81 mg PO QAM 10/25/18 07/31/21 History release (Aspirin Low Dose) atorvastatin 20 mg tablet 20 mg PO HS 10/25/18 07/31/21 History gabapentin 300 mg capsule 300 mg PO TID 10/25/18 07/31/21 History meloxicam 7.5 mg tablet (Mobic) 7.5 mg PO DAILY 10/25/18 07/31/21 History odepaqdn-nuw-peeab ac 400 1 tab PO QAM 10/25/18 07/31/21 History mcg-calcium carb 500 mg-vit K1 20 mcg tablet (Women's 50 Plus Multivitamin) pantoprazole 40 mg tablet,delayed 40 mg PO BID 10/25/18 07/31/21 History release sumatriptan succinate 100 mg tablet 100 mg PO DAILY PRN 10/25/18 07/31/21 History triamcinolone acetonide 0.5 % 1 applic TOPICAL BID 10/25/18 07/31/21 History topical cream fluticasone furoate 100 1 inh INHALATION DAILY 02/18/19 07/31/21 History mcg/actuation blister powder for inhalation (Arnuity Ellipta) duloxetine 30 mg capsule,delayed 30 mg PO DAILY 11/04/19 07/31/21 History release quetiapine 400 mg tablet (Seroquel) 400 mg PO HS 11/04/19 07/31/21 History fluticasone fur. 100 mcg-umeclid 1 inh INHALATION DAILY 07/31/21 07/31/21 History 62.5 mcg-vilant 25 mcg inhalat.powder (Trelegy Ellipta) Patient History Medical History Anxiety Bipolar 1 disorder Chronic back pain Chronic respiratory failure with hypoxia and hypercapnia COPD, moderate Depression GERD (gastroesophageal reflux disease) HLD (hyperlipidemia) Nocturnal hypoxemia Tobacco use Surgical History H/O bilateral oophorectomy H/O tubal ligation History of hysterectomy S/P right knee arthroscopy S/P trigger finger release Family History Mother Coronary heart disease Diabetes Cancer cervical Father Coronary heart disease Son Bipolar disorder Daughter Bipolar disorder Social History Smoking Status: Former smoker Cigarettes Per Day: 20; Second Hand Exposure: No; Hx Alcohol Use: No Hx Substance Use: No Preferred Language: Bengali Communication Ability: Effective Visual Impairment: Limited 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: No Beliefs That Will Affect Care: None marital status: Current Living Situation: Alone How many Children do You have: 4 Other Information That Helps Us Care for You: No Feels Safe at Home: Yes Safety Concerns: Feels Safe At This Time Assistive Devices: Oxygen - Continuous Review of Systems Review of Systems: All systems reviewed & are unremarkable except as noted in HPI & below Physical Exam Constitutional: WD/WN, vitals as above Respiratory: normal respiratory effort, lungs clear to auscultation Cardiovascular: RRR, no murmur, no edema Gastrointestinal (Abdomen): normal bowel sounds, soft, nontender, no hepatosplenomegaly Skin: no rashes, warm and dry Results & Data ([facility]) Vital Signs (Past 12 Hours) Vital Signs Temp Pulse Pulse Resp BP Pulse Ox 08/01/21 07:24 36.5 C 96 H 24 111/63 97 08/01/21 07:10 88 20 96 08/01/21 06:26 16 98 08/01/21 02:50 36.7 C 75 18 126/65 95 08/01/21 00:34 68 20 94 08/01/21 00:00 36.7 C 82 81 18 113/66 94 07/31/21 20:56 80 24 98 Laboratory Results 08/01/21 08/01/21 07/31/21 Range/Units 07:33 07:33 14:00 WBC 21.82 H (4.8-10.8) K/uL RBC 3.04 L (4.2-5.4) M/uL Hgb 9.3 L (12.0-16.0) g/dL Hct 29.1 L (37-47) % MCV 95.7 (80-100) fL MCH 30.6 (25-34) pg MCHC 32.0 (32-36) g/dL RDW Std Deviation 46.5 H (36.4-46.3) fL RDW Coeff of Lizzie 13.3 (11.5-14.5) % Plt Count 331 (130-400) K/uL MPV 8.2 (7.4-10.4) fL Immature Gran % (Auto) % Neut % (Auto) % Lymph % (Auto) % [place] % (Auto) % Eos % (Auto) % Baso % (Auto) % Neut # (Auto) (1.4-6.5) K/uL Lymph # (Auto) (1.2-3.4) K/uL [place] # (Auto) (0.11-0.59) K/uL Eos # (Auto) (0-0.5) K/uL Baso # (Auto) (0-0.2) K/uL Immature Gran # (Auto) (0.00-0.02) K/uL PT (9.0-12.0) Seconds INR (0.9-1.1) APTT (21.0-31.0) Seconds PTT Ratio ABG pH (7.35-7.45) ABG pCO2 (35-46) mmHg ABG pO2 (80-95) mmHg ABG HCO3 (19-24) mmol/L ABG O2 Saturation (90-95) % ABG Base Excess (-9-1.8) mEq/L Price Test (Pos) Barometric Pressure mm/Hg Oxygen Given Sodium 143 (136-145) mmol/L Potassium 3.4 L (3.5-5.1) mmol/L Chloride 104 (98-107) mmol/L Carbon Dioxide 33 H (21-32) mmol/L Anion Gap 6.0 (3-11) BUN 14 (7-18) mg/dl Creatinine 0.73 (0.6-1.2) mg/dl Est Cr Clr Drug Dosing 84.4 ml/min Est GFR ( Amer) 103.0 ml/min Est GFR (Non-Af Amer) 88.9 ml/min BUN/Creatinine Ratio 18.9 (10-20) Glucose 132 H (70-99) mg/dl Lactate (0.4-2.0) mmol/L Calcium 8.4 L (8.5-10.1) mg/dl Magnesium (1.8-2.4) mg/dl Total Bilirubin (0.2-1) mg/dl AST (15-37) U/L ALT (12-78) Alkaline Phosphatase (45-117) U/L Troponin I (0-0.045) ng/ml NT-Pro-B Natriuret Pep (0-900) pg/ml Total Protein (6.4-8.2) gm/dl Albumin (3.4-5.0) gm/dl Globulin (2.5-4.0) gm/dl Albumin/Globulin Ratio (0.9-2) Procalcitonin (0-0.5) ng/ml Urine Color Yellow Urine Appearance Clear (Clear) Urine pH 7.0 (4.5-7.5) Ur Specific [place] 1.042 H (1.000-1.030) Urine Protein Negative (Negative) Urine Glucose (UA) Negative (Negative) Urine Ketones Negative (Negative) Urine Blood Negative (Negative) Urine Nitrite Negative (Negative) Urine Bilirubin Negative (Negative) Urine Urobilinogen Negative (Negative) Ur Leukocyte Esterase Negative (Negative) Adenovirus (PCR) (NotDetected) B. pertussis DNA (PCR) (NotDetected) B.parapertussis DNA PCR (NotDetected) C. pneumoniae DNA (PCR) (NotDetected) Coronavirus OC43 (PCR) (NotDetected) Coronavirus HKU1 (PCR) (NotDetected) Coronavirus 229E (PCR) (NotDetected) SARS-CoV-2 (PCR) (Negative) Coronavirus NL63 (PCR) (NotDetected) Human Metapneumovir PCR (NotDetected) Influenza Type A (PCR) (Neg) Influenza Type B (PCR) (Neg) M. pneumoniae (PCR) (NotDetected) Parainfluenza 1 (PCR) (NotDetected) Parainfluenza 2 (PCR) (NotDetected) Parainfluenza 3 (PCR) (NotDetected) Parainfluenza 4 (PCR) (NotDetected) RSV (RT-PCR) (Neg) RSV (PCR) (NotDetected) Entero/Rhino (PCR) (NotDetected) 07/31/21 07/31/21 07/31/21 Range/Units 10:29 10:29 10:02 WBC (4.8-10.8) K/uL RBC (4.2-5.4) M/uL Hgb (12.0-16.0) g/dL Hct (37-47) % MCV (80-100) fL MCH (25-34) pg MCHC (32-36) g/dL RDW Std Deviation (36.4-46.3) fL RDW Coeff of Lizzie (11.5-14.5) % Plt Count (130-400) K/uL MPV (7.4-10.4) fL Immature Gran % (Auto) % Neut % (Auto) % Lymph % (Auto) % [place] % (Auto) % Eos % (Auto) % Baso % (Auto) % Neut # (Auto) (1.4-6.5) K/uL Lymph # (Auto) (1.2-3.4) K/uL [place] # (Auto) (0.11-0.59) K/uL Eos # (Auto) (0-0.5) K/uL Baso # (Auto) (0-0.2) K/uL Immature Gran # (Auto) (0.00-0.02) K/uL PT (9.0-12.0) Seconds INR (0.9-1.1) APTT (21.0-31.0) Seconds PTT Ratio ABG pH (7.35-7.45) ABG pCO2 (35-46) mmHg ABG pO2 (80-95) mmHg ABG HCO3 (19-24) mmol/L ABG O2 Saturation (90-95) % ABG Base Excess (-9-1.8) mEq/L Price Test (Pos) Barometric Pressure mm/Hg Oxygen Given Sodium (136-145) mmol/L Potassium (3.5-5.1) mmol/L Chloride (98-107) mmol/L Carbon Dioxide (21-32) mmol/L Anion Gap (3-11) BUN (7-18) mg/dl Creatinine (0.6-1.2) mg/dl Est Cr Clr Drug Dosing ml/min Est GFR ( Amer) ml/min Est GFR (Non-Af Amer) ml/min BUN/Creatinine Ratio (10-20) Glucose (70-99) mg/dl Lactate 0.7 (0.4-2.0) mmol/L Calcium (8.5-10.1) mg/dl Magnesium (1.8-2.4) mg/dl Total Bilirubin (0.2-1) mg/dl AST (15-37) U/L ALT (12-78) Alkaline Phosphatase (45-117) U/L Troponin I (0-0.045) ng/ml NT-Pro-B Natriuret Pep (0-900) pg/ml Total Protein (6.4-8.2) gm/dl Albumin (3.4-5.0) gm/dl Globulin (2.5-4.0) gm/dl Albumin/Globulin Ratio (0.9-2) Procalcitonin (0-0.5) ng/ml Urine Color Urine Appearance (Clear) Urine pH (4.5-7.5) Ur Specific [place] (1.000-1.030) Urine Protein (Negative) Urine Glucose (UA) (Negative) Urine Ketones (Negative) Urine Blood (Negative) Urine Nitrite (Negative) Urine Bilirubin (Negative) Urine Urobilinogen (Negative) Ur Leukocyte Esterase (Negative) Adenovirus (PCR) Not Detected (NotDetected) B. pertussis DNA (PCR) Not Detected (NotDetected) B.parapertussis DNA PCR Not Detected (NotDetected) C. pneumoniae DNA (PCR) Not Detected (NotDetected) Coronavirus OC43 (PCR) Not Detected (NotDetected) Coronavirus HKU1 (PCR) Not Detected (NotDetected) Coronavirus 229E (PCR) Not Detected (NotDetected) SARS-CoV-2 (PCR) Not Detected NEGATIVE (Negative) Coronavirus NL63 (PCR) Not Detected (NotDetected) Human Metapneumovir PCR Not Detected (NotDetected) Influenza Type A (PCR) Not Detected Negative (Neg) Influenza Type B (PCR) Not Detected Negative (Neg) M. pneumoniae (PCR) Not Detected (NotDetected) Parainfluenza 1 (PCR) Not Detected (NotDetected) Parainfluenza 2 (PCR) Not Detected (NotDetected) Parainfluenza 3 (PCR) Not Detected (NotDetected) Parainfluenza 4 (PCR) Not Detected (NotDetected) RSV (RT-PCR) Negative (Neg) RSV (PCR) Not Detected (NotDetected) Entero/Rhino (PCR) Not Detected (NotDetected) 07/31/21 07/31/21 07/31/21 Range/Units 09:31 09:20 09:20 WBC (4.8-10.8) K/uL RBC (4.2-5.4) M/uL Hgb (12.0-16.0) g/dL Hct (37-47) % MCV (80-100) fL MCH (25-34) pg MCHC (32-36) g/dL RDW Std Deviation (36.4-46.3) fL RDW Coeff of Lizzie (11.5-14.5) % Plt Count (130-400) K/uL MPV (7.4-10.4) fL Immature Gran % (Auto) % Neut % (Auto) % Lymph % (Auto) % [place] % (Auto) % Eos % (Auto) % Baso % (Auto) % Neut # (Auto) (1.4-6.5) K/uL Lymph # (Auto) (1.2-3.4) K/uL [place] # (Auto) (0.11-0.59) K/uL Eos # (Auto) (0-0.5) K/uL Baso # (Auto) (0-0.2) K/uL Immature Gran # (Auto) (0.00-0.02) K/uL PT (9.0-12.0) Seconds INR (0.9-1.1) APTT (21.0-31.0) Seconds PTT Ratio ABG pH 7.46 H (7.35-7.45) ABG pCO2 53 H (35-46) mmHg ABG pO2 62 L (80-95) mmHg ABG HCO3 36 H (19-24) mmol/L ABG O2 Saturation 92.0 (90-95) % ABG Base Excess 10.9 H (-9-1.8) mEq/L Price Test Pos (Pos) Barometric Pressure 734.8 mm/Hg Oxygen Given 4 Sodium 140 (136-145) mmol/L Potassium 3.4 L (3.5-5.1) mmol/L Chloride 98 (98-107) mmol/L Carbon Dioxide 36 H (21-32) mmol/L Anion Gap 6.0 (3-11) BUN 11 (7-18) mg/dl Creatinine 0.84 (0.6-1.2) mg/dl Est Cr Clr Drug Dosing 72.7 ml/min Est GFR ( Amer) 86.9 ml/min Est GFR (Non-Af Amer) 75.0 ml/min BUN/Creatinine Ratio 12.5 (10-20) Glucose 147 H (70-99) mg/dl Lactate (0.4-2.0) mmol/L Calcium 9.3 (8.5-10.1) mg/dl Magnesium 1.7 L (1.8-2.4) mg/dl Total Bilirubin 0.4 (0.2-1) mg/dl AST 17 (15-37) U/L ALT 29 (12-78) Alkaline Phosphatase 121 H (45-117) U/L Troponin I < 0.015 (0-0.045) ng/ml NT-Pro-B Natriuret Pep 39 (0-900) pg/ml Total Protein 7.9 (6.4-8.2) gm/dl Albumin 3.4 (3.4-5.0) gm/dl Globulin 4.5 H (2.5-4.0) gm/dl Albumin/Globulin Ratio 0.8 L (0.9-2) Procalcitonin 0.09 (0-0.5) ng/ml Urine Color Urine Appearance (Clear) Urine pH (4.5-7.5) Ur Specific [place] (1.000-1.030) Urine Protein (Negative) Urine Glucose (UA) (Negative) Urine Ketones (Negative) Urine Blood (Negative) Urine Nitrite (Negative) Urine Bilirubin (Negative) Urine Urobilinogen (Negative) Ur Leukocyte Esterase (Negative) Adenovirus (PCR) (NotDetected) B. pertussis DNA (PCR) (NotDetected) B.parapertussis DNA PCR (NotDetected) C. pneumoniae DNA (PCR) (NotDetected) Coronavirus OC43 (PCR) (NotDetected) Coronavirus HKU1 (PCR) (NotDetected) Coronavirus 229E (PCR) (NotDetected) SARS-CoV-2 (PCR) (Negative) Coronavirus NL63 (PCR) (NotDetected) Human Metapneumovir PCR (NotDetected) Influenza Type A (PCR) (Neg) Influenza Type B (PCR) (Neg) M. pneumoniae (PCR) (NotDetected) Parainfluenza 1 (PCR) (NotDetected) Parainfluenza 2 (PCR) (NotDetected) Parainfluenza 3 (PCR) (NotDetected) Parainfluenza 4 (PCR) (NotDetected) RSV (RT-PCR) (Neg) RSV (PCR) (NotDetected) Entero/Rhino (PCR) (NotDetected) 07/31/21 07/31/21 Range/Units 09:20 09:20 WBC 19.36 H (4.8-10.8) K/uL RBC 3.37 L (4.2-5.4) M/uL Hgb 10.0 L (12.0-16.0) g/dL Hct 32.7 L (37-47) % MCV 97.0 (80-100) fL MCH 29.7 (25-34) pg MCHC 30.6 L (32-36) g/dL RDW Std Deviation 47.5 H (36.4-46.3) fL RDW Coeff of Lizzie 13.4 (11.5-14.5) % Plt Count 388 (130-400) K/uL MPV 8.4 (7.4-10.4) fL Immature Gran % (Auto) 0.3 % Neut % (Auto) 84.1 % Lymph % (Auto) 7.8 % [place] % (Auto) 6.6 % Eos % (Auto) 1.0 % Baso % (Auto) 0.2 % Neut # (Auto) 16.30 H (1.4-6.5) K/uL Lymph # (Auto) 1.51 (1.2-3.4) K/uL [place] # (Auto) 1.27 H (0.11-0.59) K/uL Eos # (Auto) 0.19 (0-0.5) K/uL Baso # (Auto) 0.03 (0-0.2) K/uL Immature Gran # (Auto) 0.06 H (0.00-0.02) K/uL PT 10.5 (9.0-12.0) Seconds INR 1.0 (0.9-1.1) APTT 28.4 (21.0-31.0) Seconds PTT Ratio 1.1 ABG pH (7.35-7.45) ABG pCO2 (35-46) mmHg ABG pO2 (80-95) mmHg ABG HCO3 (19-24) mmol/L ABG O2 Saturation (90-95) % ABG Base Excess (-9-1.8) mEq/L Price Test (Pos) Barometric Pressure mm/Hg Oxygen Given Sodium (136-145) mmol/L Potassium (3.5-5.1) mmol/L Chloride (98-107) mmol/L Carbon Dioxide (21-32) mmol/L Anion Gap (3-11) BUN (7-18) mg/dl Creatinine (0.6-1.2) mg/dl Est Cr Clr Drug Dosing ml/min Est GFR ( Amer) ml/min Est GFR (Non-Af Amer) ml/min BUN/Creatinine Ratio (10-20) Glucose (70-99) mg/dl Lactate (0.4-2.0) mmol/L Calcium (8.5-10.1) mg/dl Magnesium (1.8-2.4) mg/dl Total Bilirubin (0.2-1) mg/dl AST (15-37) U/L ALT (12-78) Alkaline Phosphatase (45-117) U/L Troponin I (0-0.045) ng/ml NT-Pro-B Natriuret Pep (0-900) pg/ml Total Protein (6.4-8.2) gm/dl Albumin (3.4-5.0) gm/dl Globulin (2.5-4.0) gm/dl Albumin/Globulin Ratio (0.9-2) Procalcitonin (0-0.5) ng/ml Urine Color Urine Appearance (Clear) Urine pH (4.5-7.5) Ur Specific [place] (1.000-1.030) Urine Protein (Negative) Urine Glucose (UA) (Negative) Urine Ketones (Negative) Urine Blood (Negative) Urine Nitrite (Negative) Urine Bilirubin (Negative) Urine Urobilinogen (Negative) Ur Leukocyte Esterase (Negative) Adenovirus (PCR) (NotDetected) B. pertussis DNA (PCR) (NotDetected) B.parapertussis DNA PCR (NotDetected) C. pneumoniae DNA (PCR) (NotDetected) Coronavirus OC43 (PCR) (NotDetected) Coronavirus HKU1 (PCR) (NotDetected) Coronavirus 229E (PCR) (NotDetected) SARS-CoV-2 (PCR) (Negative) Coronavirus NL63 (PCR) (NotDetected) Human Metapneumovir PCR (NotDetected) Influenza Type A (PCR) (Neg) Influenza Type B (PCR) (Neg) M. pneumoniae (PCR) (NotDetected) Parainfluenza 1 (PCR) (NotDetected) Parainfluenza 2 (PCR) (NotDetected) Parainfluenza 3 (PCR) (NotDetected) Parainfluenza 4 (PCR) (NotDetected) RSV (RT-PCR) (Neg) RSV (PCR) (NotDetected) Entero/Rhino (PCR) (NotDetected)
[2021-08-01] MEDS ORDERED: ASPIRIN 81 MG ECTAB PO SCH (09:00)
[2021-08-01] MEDS ORDERED: UMECLIDINIUM BROMIDE 62.5MCG/BLISTER 7 PUFFS/INHALER INH SCH (09:00)
[2021-08-01] MEDS ORDERED: DULoxetine HCL 30 MG CAP PO SCH (09:00)
[2021-08-01] MEDS ORDERED: NON-FORMULARY MEDICATION (Fluticasone-Umeclidin-Vilanter [Trelegy Ellipta] 100-62.5-25 mcg INH SCH (09:00)
[2021-08-01] MEDS ORDERED: FLUTICASONE FUROATE 100MCG 14 PUFFS/INHALER INH SCH (09:00)
[2021-08-01] MEDS ORDERED: FLUTICASONE/VILANTEROL 200/25MCG 14 PUFFS/INHALER INH SCH (09:00)
[2021-08-01] MEDS ORDERED: predniSONE 20 MG TAB PO SCH (09:00)
[2021-08-01] MEDS: PANTOprazole 40 MG in SYRINGE 0 ML IV SCH (09:15)
[2021-08-01] MEDS: POTASSIUM CHLORIDE / WTR 10 MEQ/100 ML PLCT IV SCH ×4 (10:10→14:19)
--- NOTE | 2021-08-01 12:02 | Hospitalist Progress Note ---
Date of Service August 01, 2021 Assessment & Plan (1) Acute on chronic respiratory failure with hypoxia and hypercapnia: (2) Acute exacerbation of chronic obstructive pulmonary disease: (3) Sepsis: Plan: -Patient presenting from home with reports of worsening shortness of breath and cough. Symptoms started after eating and drinking last evening. -Patient typically wears 1 to 3 L of O2 at home. On presentation, patient was requiring 4 L of oxygen via nasal cannula, currently saturating well on baseline 3 L. -On presentation, patient met sepsis criteria with WBC 19 K, tachycardia. Lactic acid WNL, BP stable. -WBC 19K --> 21K, steroids likely contributing. Patient afebrile. -? Aspiration -CXR relatively clear. CT chest negative for pulmonary embolism, shows a few scattered groundglass opacities are seen which may represent infectious/inflammatory process and hiatal hernia with fluid-filled and thickened esophagus. -Procalcitonin 0.09 -S/p ceftriaxone in the ED, given concerns for aspiration will place patient on IV Unasyn and IV azithromycin (day 2) -S/p dexamethasone 10 mg IV in the ED, continue prednisone 40 mg daily (day 2) -COVID-19, influenza, RSV, bio fire negative -Blood cultures no growth to date -Pulmonary toilet with incentive spirometer, flutter valve, nebs -Aspiration precautions, speech consult -Continue home inhalers (4) Dysphagia: Plan: -CT chest notes hiatal hernia with fluid-filled and thickened esophagus -Speech eval pending -CT neck does not show signs of obstruction -GI consult, input appreciated. Inpatient versus outpatient EGD pending speech eval -Continue PPI twice daily (5) Bipolar 1 disorder: Plan: -Continue home medications (6) DVT prophylaxis: Plan: -SQ Lovenox Plan: Attending Addendum: care coordinated with SAIDA alberts please refer to her notes for full details, I agree with her notes patient seen and examined, records reviewed by myself as well on exam, patient seen resting in bed, comfortable, not in distress On nasal cannula 2 L States she feels much better overall Was able to swallow water today with no problems No neck pain, chest pain, abdominal pain, nausea vomiting no other symptoms VS noted and reviewed oriented x3, not in distress, speaks in sentences with no effort nor accessory muscle use normal rate, regular rhythm, no murmurs Mild crackles left base, clear on the right, no wheezing, good air entry bilaterally non distended, soft, nontender no bipedal edema, erythema, warmth no neuro deficits WBC 21.8 Hg 9.3 Crea 0.73 ASSESSMENT AND PLAN Possible aspiration pneumonitis, left lower lung Episode of dysphagia COPD saturation, mild CT neck: No masses, obstruction CT head: No acute CVA GI consulted-does not recommend EGD at this point, follow-up as an outpatient Speech therapy consulted, recommend to resume diet Patient would like to be discharged today Discharge to home on p.o. Augmentin, prednisone taper other diagnoses and plan of care as per SAIDA alberts's notes Abraham Chavarria MD Admission and Anticipated Discharge Date Admission Date: July 31, 2021 Subjective Patient seen and examined. Follow-up for dysphagia, COPD exacerbation, possible aspiration. Patient reports she is feeling much better this morning. Breathing status has returned to baseline. Reports she is swallowing water without difficulty, has not attempted pills or solids today. Denies chest pain. No lightheadedness or dizziness. No abdominal pain or nausea. Patient anxious to be discharged. Review of Systems Review of Systems: ROS per HPI, all other systems reviewed and negative Physical Exam Constitutional: WD/WN, vitals as above no acute distress Sitting up in bed Respiratory: normal respiratory effort; no respiratory distress Auscultation: + diminished lung sounds (Bilateral bases) Cardiovascular: Rate/Rhythm: regular rate and regular rhythm Vessels: normal peripheral pulses Extremities: no edema Gastrointestinal (Abdomen): Percussion/Palpation: abdomen soft; abdomen nontender Skin: no rashes, warm and dry Neurologic: no focal motor deficits Psychiatric: A+Ox3, euthymic affect Results & Data Results & Data ([facility]) Vital Signs (Past 12 Hours) Vital Signs Temp Pulse Pulse Resp BP Pulse Ox 08/01/21 11:03 36.2 C L 82 18 129/62 97 08/01/21 09:50 87 08/01/21 07:24 36.5 C 96 H 24 111/63 97 08/01/21 07:10 88 20 96 08/01/21 06:26 16 98 08/01/21 02:50 36.7 C 75 18 126/65 95 08/01/21 00:34 68 20 94 08/01/21 00:00 36.7 C 82 81 18 113/66 94 Laboratory Results Short CBC 08/01/21 Range/Units 07:33 WBC 21.82 H (4.8-10.8) K/uL Hgb 9.3 L (12.0-16.0) g/dL Hct 29.1 L (37-47) % Plt Count 331 (130-400) K/uL BMP 08/01/21 07:33 Sodium 143 Potassium 3.4 L Chloride 104 Carbon Dioxide 33 H BUN 14 Creatinine 0.73 Glucose 132 H Calcium 8.4 L Urine 07/31/21 Range/Units 14:00 Urine Color Yellow Urine Appearance Clear (Clear) Urine pH 7.0 (4.5-7.5) Ur Specific [place] 1.042 H (1.000-1.030) Urine Protein Negative (Negative) Urine Glucose (UA) Negative (Negative) (1) Sepsis Sepsis acute organ dysfunction status: unspecified Sepsis type: sepsis due to unspecified organism Qualified Code(s): A41.9 - Sepsis, unspecified organism
[2021-08-01] MEDS: GABAPENTIN 300 MG CAP PO SCH (14:18)
[2021-08-01] MEDS: AZITHROMYCIN 500 MG in DEXTROSE 5% 250 ML IV SCH (14:20)
--- NOTE | 2021-08-02 07:06 | Discharge Summary ---
Date of Service August 02, 2021 Admission HPI Per Admitting Provider 61-year-old female with PMH COPD with chronic hypoxic and hypercapnic respiratory failure on 1 to 3 L of home O2, prediabetes, chronic diastolic CHF, bipolar disorder, chronic back pain, and other problems to below who presents the ED for evaluation of shortness of breath. Patient reports that she was at her sister's house yesterday doing some baking and when she arrived home, she took a drink of soda and subsequently started to cough. She reports that anytime she tried to eat or drink anything she would be in cough. Patient reports she has a chronic cough productive for clear/white sputum. When she was coughing with eating or drinking, colored sputum was what ever she was ingesting. Patient reports that she was able to sleep throughout the night without difficulty. This morning, whenever she woke up she felt very short of breath. She then presented to the ED for further evaluation. Patient denies chest pain. No lightheadedness, dizziness, diaphoresis, syncopal events. She is febrile in the ED however denies fevers and chills at home. No abdominal pain, nausea, vomiting, diarrhea. She denies urinary symptoms. In the ED, patient is febrile at 39.2, tachycardic HR 120, requiring 4 L of oxygen via nasal cannula. BP stable. Labs show WBC 19 K, lactate 0.7. CXR is relatively clear. Admission Exam Per Admitting Provider Constitutional: WD/WN, vitals as above Eyes: PERRL, conjunctivae normal, anicteric sclerae ENMT: external ear and nose normal, oropharynx normal Respiratory: normal respiratory effort; no respiratory distress Auscultation: + diminished lung sounds Cardiovascular: Rate/Rhythm: regular rhythm and + tachycardic Vessels: normal peripheral pulses Extremities: no edema Gastrointestinal (Abdomen): normal bowel sounds, soft, nontender, no hepatosplenomegaly Musculoskeletal: no cyanosis or clubbing, extremities motor strength 5/5 Skin: no rashes, warm and dry Neurologic: PERRL, EOMI, accommodation nl, no face palsy, no dysarthria Psychiatric: A+Ox3, euthymic affect Principal Diagnosis COPD exacerbation Aspiration Discharge Exam Constitutional no acute distress Respiratory normal respiratory effort; no respiratory distress Auscultation: + diminished lung sounds (Bilateral bases, much improved from prior day) Cardiovascular Rate/Rhythm: regular rate and regular rhythm Vessels: normal peripheral pulses Extremities: no edema Gastrointestinal (Abdomen) Percussion/Palpation: abdomen soft; abdomen nontender Skin no rashes, warm and dry Neurologic no focal motor deficits Psychiatric A+Ox3, euthymic affect Discharge Data Allergies Allergy/AdvReac Type Severity Reaction Status Date / Time doxycycline Allergy Intermediate Hives Verified 02/18/19 10:28 morphine Allergy Intermediate ITCHING AT Verified 02/18/19 10:28 IV SITE ONLY iodine Allergy Unknown RASH Verified 02/18/19 10:28 valproic acid Allergy Unknown 0 Verified 02/18/19 10:28 Consultations GI, SAIDA Nicole and Dr. Arellano Ordered Studies 07/31/2021 CXR IMPRESSION: No acute chest disease. 07/31/2021 chest CTA IMPRESSION: 1. No evidence of pulmonary embolism. 2. A few scattered groundglass opacities are seen which may represent infectious/inflammatory process. 3. Hepatic steatosis. 4. Hiatal hernia with fluid-filled and thickened esophagus. 07/31/[address] impression: No acute intracranial hemorrhage, no evidence of acute territorial infarction or other acute intracranial disease process. 07/31/[address] impression: No acute abnormality in the neck, no abnormal masses are seen. A fluid-filled dilated esophagus is seen, comparable to appearance on prior CT chest performed same day. Hospital Course (1) Acute on chronic respiratory failure with hypoxia and hypercapnia: (2) Acute exacerbation of chronic obstructive pulmonary disease: (3) Sepsis: -Patient presenting from home with reports of worsening shortness of breath and cough. Symptoms started after eating and drinking the prior evening. -Patient typically wears 1 to 3 L of O2 at home. On presentation, patient was requiring 4 L of oxygen via nasal cannula, by the following day she was saturating well on baseline 3 L. -On presentation, patient met sepsis criteria with WBC 19 K, tachycardia. Lactic acid WNL, BP stable. -WBC 19K --> 21K, steroids likely contributing. Patient afebrile. -? Aspiration -CXR relatively clear. CT chest negative for pulmonary embolism, shows a few scattered groundglass opacities are seen which may represent infect ious/inflammatory process and hiatal hernia with fluid-filled and thickened esophagus. -Procalcitonin 0.09 -S/p ceftriaxone in the ED, given concerns for aspiration patient was placed on IV Unasyn and IV azithromycin --> will be discharged on Augmentin to complete a 7-day course -S/p dexamethasone 10 mg IV in the ED, was started on prednisone 40 mg daily --> will be discharged on prednisone 40 mg daily to complete a 5-day course -COVID-19, influenza, RSV, bio fire negative -Blood cultures no growth to date -Speech therapy evaluated the patient and recommended regular diet, reflux precautions. -Continue home inhalers (4) Dysphagia: -CT chest notes hiatal hernia with fluid-filled and thickened esophagus -CT neck does not show signs of obstruction -GI consult, input appreciated. Planning for outpatient EGD. -Continue PPI twice daily (5) Bipolar 1 disorder: -Continue home medications Attending Addendum: delayed entry date of service noted above care coordinated with SAIDA Chinchilla please refer to her notes for full details, I agree with her notes patient seen and examined, records reviewed by myself as well on exam, patient seen resting in bed, on 2 L NC states she feels much better overall breathing back to baseline able to drink water with no symptoms no other symptoms VS noted and reviewed oriented x 3, not in distress, speaks in sentences with no effort nor accessory muscle use normal rate, regular rhythm, no murmurs mild rales at the bases non distended, soft, nontender no bipedal edema, erythema, warmth no neuro deficits labs noted and reviewed ASSESSMENT AND PLAN POSSIBLE ASPIRATION PNEUMONIA MILD COPD EXACERBATION CHRONIC RESPIRATORY FAILURE back to baseline 2 l NC speech eval noted finish course of Abx, prednisone taper close outpatient ff up with GI other diagnoses and plan of care as per SAIDA Chinchilla's notes Abraham Chavarria MD Total Time Total Time Spent Total Time Spent (In Minutes): 35 Discharge Plan Discharge Items Patient Disposition: Home - Self-Care Reason For Visit: shortness of Breath Discharge Diagnosis: COPD exacerbation Aspiration Activity: Resume your previous activity Non-emergency contact: Primary Care Provider Call non-emergency contact if: you have any medication questions, your symptoms worsen and you have a fever Follow-up/Referrals: Dimitri Hanna MD [Primary Care Provider] - 08/05/21 2:20 pm Diet: Regular and Other - See Diet Comment Diet Comment: Follow-up speech therapy recommendations for aspiration precautions Addtl Attending Provider Instructions: You came to the hospital for evaluation of shortness of breath. Your symptoms were due to COPD exacerbation from aspiration (mild choking episode). You received antibiotics and steroids while admitted - oral steroids (prednisone) and an antibiotic (Augmentin) will be sent to your pharmacy. You were evaluated by GI and will need an EGD as an outpatient. Their office will call you to schedule this procedure. Follow speech therapy recommendations for aspiration precautions. Keep follow-up appointments as scheduled. There were no changes in your home medications, continue to take all as previously prescribed. Pending Studies at Discharge: No Stand-Alone Forms: My [facility], Smoking Cessation Medications and DC Order Prescriptions: New prednisone 20 mg Tablet 40 mg PO DAILY Qty: 6 RF: 0 amoxicillin-pot clavulanate [Augmentin] 875-125 mg tablet 1 tab PO BID Qty: 10 RF: 0 Continued Arnuity Ellipta 100 mcg/actuation Blister With Device 1 inh INHALATION DAILY RF: 0 atorvastatin 20 mg Tablet 20 mg PO HS RF: 0 albuterol sulfate 2.5 mg /3 mL (0.083 %) Solution For Nebulization 3 ml INHALATION QID PRN (Reason: Shortness Of Breath) RF: 0 triamcinolone acetonide 0.5 % Cream 1 applic TOPICAL BID RF: 0 sumatriptan succinate 100 mg Tablet 100 mg PO DAILY PRN (Reason: Migraine Headache) RF: 0 aspirin [Aspirin Low Dose] 81 mg Tablet,Delayed Release (Dr/Ec) 81 mg PO QAM RF: 0 meloxicam [Mobic] 7.5 mg Tablet 7.5 mg PO DAILY RF: 0 pantoprazole 40 mg Tablet,Delayed Release (Dr/Ec) 40 mg PO BID RF: 0 gabapentin 300 mg Capsule 300 mg PO TID RF: 0 albuterol sulfate 90 mcg/actuation Hfa Aerosol Inhaler 2 puff INHALATION QID PRN (Reason: Shortness Of Breath) RF: 0 Women's 50 Plus Multivitamin 400 mcg-500 mg calcium-20 mcg Tablet 1 tab PO QAM RF: 0 quetiapine [Seroquel] 400 mg tablet 400 mg PO HS RF: 0 duloxetine 30 mg capsule,delayed release(DR/EC) 30 mg PO DAILY RF: 0 Trelegy Ellipta 100-62.5-25 mcg blister with device 1 inh INHALATION DAILY RF: 0 Discharge Orders: Discharge Order (Routine); Ordered 08/01/21 Ordered By: Ami Chinchilla Admission Data Admit Date/Time: 07/31/21 11:03 Attending Provider: Abraham Chavarria Admit Provider: Abraham Chavarria Primary Care Provider: Dimitri Hanna Other Providers: Abraham Chavarria ; Pradip Barnhart ; Simran Laura ; Rachel Jerry ; Yesi Casanova ; Lyle Espitia ; Megan Arellano ; Waldemar Damon ; Deonte Clemente ; Chely Cuevas ; Larisa Olivier ; Angela Tillman ; Emy Cerna ; Gale Yancey Other Interventions: Discharge Summary Assessment (RN) Last Done: 08/01/21 14:27
--- NOTE | 2021-08-02 15:41 | Electrocardiogram Report ---
Test Reason : Blood Pressure : / mmHG Vent. Rate : 075 BPM Atrial Rate : 075 BPM P-R Int : 170 ms QRS Dur : 090 ms QT Int : 416 ms P-R-T Axes : 052 -05 031 degrees QTc Int : 464 ms Normal sinus rhythm Normal ECG When compared with ECG of 31-JUL-2021 09:15, Vent. rate has decreased BY [address] no longer depressed in Anterolateral leads Confirmed by Gavino Damian ([id number]) on 08/02/2021 3:41:13 PM Referred By: REFERRED SELF Confirmed By:Gavino Damian
--- NOTE | 2021-08-12 11:32 | Coding Query ---
SEPSIS To promote full compliance with coding requirements relating to patient care, physician participation is requested in all cases of legal contracts specialist uncertainty. Please assist us with the question(s) below: In responding to this query, please exercise your independent professional judgement. The fact that a question is asked does not imply that any particular answer is desired or expected. We appreciate your clarification on this issue. Throughout the medical record, you have clearly documented a localized infection and your patient has clinical evidence of a generalized sepsis or severe sepsis. The term urosepsis is a nonspecific entity and is coded as an UTI. If the patient has sepsis, severe sepsis, from an urinary source or some other source, please clarify in your response below. The medical record reflects the following clinical findings: Brief IP stay. Pt admitted with COPD exacerbation and aspiration. Procalcitonin .09. Seeking to clarify if pt was treated for Sepsis. Please check below the phrase that applies. Thank you . Lyle Olivares [facility] ____ ( )Bacteremia (Nonspecific laboratory finding of bacteria in the blood) Specify Organism ( ) Present on Admission ( ) Not present on admission ( ) Unable to clinically determine ( ) Septicemia (Systemic disease associated with the presence of pathogenic microorganisms in the blood): Specify Organism ( ) Present on Admission ( ) Not present on admission ( ) Unable to clinically determine ( x) Sepsis Specify Organism: Unknown Specify Associated Condition/Diagnosis: Aspiration Pneumonia (x) Present on Admission () Not present on admission () Unable to clinically determine ( ) Severe Sepsis (Sepsis associated with acute organ dysfunction) Specify Organism Specify Associated Condition/Diagnosis ( ) Present on Admission ( ) Not present on admission ( ) Unable to clinically determine ( ) Septic Shock (Severe sepsis with acute circulatory failure, unexplained by other causes) ( ) Present on Admission ( ) Not present on admission () Unable to clinically determine ( ) Other, patient has: MTDD
--- NOTE | 2021-08-12 11:38 | Coding Query ---
CODING QUERY To promote full compliance with coding requirements relating to patient care, provider participation is requested in all cases of annual giving officer uncertainty. Please assist us with the question(s) below: Coding Question(s): Pt admitted with COPD exac and acute/chronic respiratory failure . DS documented aspiration. Hospitalist progress note documented aspiration pneumonia. Please check below the diagnosis that was treated pretaining to the aspiration. Thanks for your help. Lyle Olivares [employer] [facility] [place] Physician's Response(s): Aspiration was treated ___X____ Aspiration Pneumonitis was treated Cannot clinically correlate if aspiration or aspiration pneumonia was treated Other/ please document: Principal Diagnosis: "that condition established after study, to be chiefly responsible for occasioning the admission of the patient to the hospital for care." Co-Existing Principal Diagnosis: "when two or more diagnoses equally meet the criteria for principal diagnosis as determined by the circumstances of admission, diagnostic work up, and/or therapy provided, and the Alphabetic Index, Tabular List, or another coding guideline does not provide sequencing direction, any one of the diagnoses may be sequenced first." "When the physician has documented what appears to be a current diagnosis in the body of the record, but has not included the diagnosis in the final diagnostic statement, the physician should be asked whether the diagnosis should be added." (Source [facility]oding [facility] 2 QTR90. p3-4) [facility]
== END 2021-08-01 15:33 | disposition home or self-care (01) | DRG 871 ==
LOC: ED 09:07 → EDINP 11:03 → 2S 16:33

== ENCOUNTER 2022-08-08 17:56 | Inpatient (IN) ==
[2022-08-08] MEDS ORDERED: methylPREDNISolone 125 MG/2 ML VIAL IV STA (18:12)
[2022-08-08] MEDS ORDERED: ALBUT/IPRATROP 3MG/0.5MG NEB 3 ML VIAL NEB STA (18:12)
[2022-08-08] MEDS ORDERED: MAGNESIUM SULFATE / D5W 1 GM/100 ML BAG IV STA (18:14)
[2022-08-08] MEDS ORDERED: SODIUM CHLORIDE 0.9% 1000ML 1,000 ML IV SCH (18:15)
--- NOTE | 2022-08-08 18:45 | Emergency Department Note ---
History of Present Illness General Chief complaint: Shortness of Breath/Dyspnea Stated complaint: SOB,PNEUMONIA, LUNG ISSUES, REF BY DOC Time Seen by Provider: 08/08/22 18:01 Source: patient Mode of arrival: ambulatory Limitations: no limitations History of Present Illness Provider complaint: Increased shortness of breath, pneumonia, referred by PCP This is a 62-year-old female who presents emergency department due to concern for increased shortness of breath. Patient states she had a chest x-ray today and was told she had pneumonia by her PCP whom she saw in the office and who instructed her to come to the emergency room. Patient states that over a week ago she began having some increased difficulty breathing and upper respiratory symptoms. Her PCP called in a course of azithromycin and a prednisone taper for her. She states she completed the antibiotics and is three quarters of the way through the prednisone however felt her breathing was getting worse in the last 48 to 72 hours. She does wear 3 L/min of oxygen via nasal cannula at home and does have MDI/nebulizers. She states she did not feel her breathing treatments at home were as helpful as normal. She denies any known sick contacts. She states she also feels her feet and ankles are swollen. She denies any history of heart problems. Patient denies any change in the color of her sputum or increase sputum production. She states she does feel more fatigued. She denies fevers or chills. Home Medications Medication Instructions Recorded Confirmed Type albuterol sulfate 90 mcg/actuation 2 puff inhalation QID PRN 10/25/18 08/08/22 History aerosol inhaler Shortness Of Breath Or Wheezing aspirin 81 mg tablet,delayed 81 mg PO QAM 10/25/18 08/08/22 History release (Aram Low Dose Aspirin) atorvastatin 20 mg tablet 20 mg PO HS 10/25/18 08/08/22 History gabapentin 300 mg capsule 300 mg PO TID 10/25/18 08/08/22 History cccewzjh-vcz-cpwgd ac 400 1 tab PO QAM 10/25/18 08/08/22 History mcg-calcium carb 500 mg-vit K1 20 mcg tablet (Women's 50 Plus Multivitamin) pantoprazole 40 mg tablet,delayed 40 mg PO BID 10/25/18 08/08/22 History release sumatriptan succinate 100 mg tablet 100 mg PO DAILY PRN Migraine 10/25/18 08/08/22 History Headache triamcinolone acetonide 0.5 % 1 applic topical BID PRN Skin 10/25/18 08/08/22 History topical cream Irritation quetiapine 400 mg tablet (Seroquel) 400 mg PO HS 11/04/19 08/08/22 History fluticasone fur. 100 mcg-umeclid 1 inh inhalation DAILY 07/31/21 08/08/22 History 62.5 mcg-vilant 25 mcg inhalat.powder (Trelegy Ellipta) buspirone 10 mg tablet 10 mg PO BID PRN Anxiety 08/08/22 08/08/22 History duloxetine 60 mg capsule,delayed 60 mg PO QAM 08/08/22 08/08/22 History release fluticasone furoate 200 1 inh inhalation HS 08/08/22 08/08/22 History mcg/actuation blister powder for inhalation (Arnuity Ellipta) furosemide 20 mg tablet 20 mg PO DAILY PRN Fluid Retention 08/08/22 08/08/22 History ipratropium 0.5 mg-albuterol 3 mg 3 ml inhalation Q6H PRN 08/08/22 08/08/22 History (2.5 mg base)/3 mL nebulization COUGH/SOB/WHEEZING soln meloxicam 7.5 mg tablet 7.5 mg PO QAM 08/08/22 08/08/22 History Allergies Allergy/AdvReac Type Severity Reaction Status Date / Time doxycycline Allergy Severe DIFFICULTY Verified 08/08/22 18:46 SWALLOWING, ITCHING codeine Allergy Intermediate Hives Verified 08/08/22 18:46 iodine Allergy Intermediate RASH Verified 08/08/22 18:46 morphine Allergy Intermediate ITCHY Verified 08/08/22 18:46 BLISTERS FROM IV MED divalproex sodium Allergy Unknown ON GMG MED Verified 08/08/22 18:46 [From Depakote] LIST valproic acid Allergy Unknown Unknown Verified 08/08/22 18:46 Past Med/Surg History Medical History Anxiety Bipolar 1 disorder Chronic back pain Chronic respiratory failure with hypoxia and hypercapnia COPD, moderate Depression GERD (gastroesophageal reflux disease) HLD (hyperlipidemia) Nocturnal hypoxemia Tobacco use Surgical History H/O bilateral oophorectomy H/O tubal ligation History of hysterectomy S/P right knee arthroscopy S/P trigger finger release Family History Mother Coronary heart disease Diabetes Cancer cervical Father Coronary heart disease Son Bipolar disorder Daughter Bipolar disorder Social History Smoking Status: Never smoker Cigarettes Per Day: 20; Second Hand Exposure: No; Do You Dip or Chew Tobacco: No; Hx Alcohol Use: No Hx Substance Use: No Preferred Language: Moldovan Communication Ability: Effective Visual Impairment: Limited 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 Beliefs That Will Affect Care: None marital status: Current Living Situation: Alone How many Children do You have: 4 Feels Safe at Home: Yes Safety Concerns: Feels Safe At This Time Assistive Devices: Oxygen - Continuous Review of Systems A total of 10 systems reviewed and were otherwise negative All systems reviewed & are unremarkable except as noted in HPI & below Physical Exam Vital Signs Vital Signs - 24 hr 08/08/22 17:57 08/08/22 18:24 08/08/22 19:18 Temperature 36.9 C Temperature Source Temporal Artery Scan Pulse Rate 106 H Pulse Rate [Right Finger] 99 H Respiratory Rate 25 H 24 Respiratory Effort / Characteristics Spontaneous Labored SOB on Exertion Blood Pressure 147/71 H Blood Pressure Mean 96 Pulse Oximetry 84 L 94 Oxygen Delivery Method Nasal Cannula High Flow Nasal Cannula High Flow Nasal Cannula Oxygen Flow Rate 3 30 Fraction of Inspired Oxygen 30 Sepsis Recent Fever Within 48 Hours No Sepsis New/Unexplained Change in Mental Status N/A Sepsis Action Taken by Nursing No Action Required 08/08/22 19:41 08/08/22 20:07 Temperature Temperature Source Pulse Rate Pulse Rate [Right Finger] 94 H 95 H Respiratory Rate 22 22 Respiratory Effort / Characteristics Spontaneous SOB on Exertion Spontaneous Blood Pressure Blood Pressure Mean Pulse Oximetry 89 L 90 Oxygen Delivery Method High Flow Nasal Cannula High Flow Nasal Cannula Oxygen Flow Rate 30 30 Fraction of Inspired Oxygen 26 26 Sepsis Recent Fever Within 48 Hours Sepsis New/Unexplained Change in Mental Status Sepsis Action Taken by Nursing GENERAL: alert, well appearing, well nourished, moderate distress, non-toxic, BMI<41, NC in place EYE EXAM: normal conjunctiva, PERRL and EOM's grossly intact OROPHARYNX: no exudate, no erythema, lips, buccal mucosa, and tongue normal and mucous membranes are moist NECK: supple, no nuchal rigidity, no adenopathy, non-tender LUNGS: Decreased b/l to auscultation. Increased WOB, faint exp wheeze noted, no rales or rhonchi, speaks in short phrases, increased dyspnea with conversation HEART: no murmurs, S1 normal and S2 normal ABDOMEN: abdomen soft, non-tender, normo-active bowel sounds, no masses, no rebound or guarding. BACK: Back is symmetrical on inspection and there is no deformity, no midline tenderness, no CVA tenderness. SKIN: no rashes and no bruising UPPER EXTREMITIES: upper extremities are grossly normal. FROM, nml pulses b/l. LOWER EXTREMITIES: Trace pedal pitting edema bilaterally. FROM, nml pulses b/l. NEURO EXAM: Normal sensorium, cranial nerves II-XII grossly intact, normal speech, no gross weakness of arms, no gross weakness of legs. Gross sensation intact. Course Course 1844: Pt feeling improved on HFNC. care mgr able to obtain office records from today for review. No labs/imaging available. Administered Medications Atorvastatin Calcium (Atorvastatin 20 Mg Tab) 20 mg PO HS KEVIN Stop: 09/07/22 23:47 Last Admin: 08/09/22 01:08 Dose: 20 mg Documented By: DP Enoxaparin Sodium (Enoxaparin Inj 40 Mg/0.4 Ml Syr) 40 mg SQ BID KEVIN Stop: 09/08/22 00:29 Last Admin: 08/09/22 01:14 Dose: 40 mg Documented By: KATIA Fluticasone Furoate (Fluticasone Furoate 200mcg 14 Puffs/Inhaler) 1 puffs INH HS KEVIN Stop: 09/07/22 23:47 Last Admin: 08/09/22 01:06 Dose: 1 puffs Documented By: DP Gabapentin (Gabapentin 300 Mg Cap) 300 mg PO TID KEVIN Stop: 09/07/22 23:47 Last Admin: 08/09/22 01:08 Dose: 300 mg Documented By: DP Methylprednisolone 40 mg/ (Syringe) 0.64 mls @ 1.5 mls/min IV Q8H KEVIN Stop: 09/08/22 00:00 Last Admin: 08/09/22 01:09 Dose: 1.5 mls/min Documented By: DP Pantoprazole Sodium (Pantoprazole 40 Mg Tab) 40 mg PO BID KEVIN Stop: 09/07/22 23:47 Last Admin: 08/09/22 01:07 Dose: 40 mg Documented By: DP Quetiapine Fumarate (Quetiapine Fumarate 200 Mg Tab) 400 mg PO HS KEVIN Stop: 09/07/22 23:47 Last Admin: 08/09/22 01:07 Dose: 400 mg Documented By: DP Discontinued Medications Albuterol (Albut/Ipratrop 3mg/0.5mg Neb 3 Ml Vial) 3 ml NEB NOW STA; Protocol Stop: 08/08/22 18:13 Last Admin: 08/08/22 19:39 Dose: 3 ml Documented By: MARJORIE Furosemide (Furosemide Inj 20 Mg/2 Ml Vial) 20 mg IV ONE ONE Stop: 08/08/22 23:49 Last Admin: 08/09/22 01:23 Dose: 20 mg Documented By: YANY Magnesium Sulfate/Dextrose (Magnesium Sulfate / D5w) 1 gm in 100 mls @ 100 mls/hr IV NOW STA Stop: 08/08/22 19:13 Last Infusion: 08/08/22 20:16 Dose: 0 mls/hr Documented By: Admin: 08/08/22 19:16 Dose: 100 mls/hr Documented By: ML Sodium Chloride (Nss 1000ml) 1,000 mls @ 125 mls/hr IV .Q8H KEVIN Stop: 09/07/22 18:14 Last Admin: 08/08/22 19:13 Dose: 125 mls/hr Documented By: ML Levofloxacin/Dextrose (Levaquin/D5w) 750 mg in 150 mls @ 100 mls/hr IV NOW STA Stop: 08/08/22 20:18 Last Infusion: 08/08/22 22:32 Dose: 0 mls/hr Documented By: Admin: 08/08/22 21:02 Dose: 100 mls/hr Documented By: DP Piperacillin Sod/Tazobactam (Sod 4.5 gm/ Dextrose) 120 mls @ 200 mls/hr IV NOW ONE; Protocol Stop: 08/09/22 01:20 Last Infusion: 08/09/22 01:51 Dose: 0 mls/hr Documented By: Admin: 08/09/22 01:15 Dose: 200 mls/hr Documented By: DP Lorazepam (Lorazepam 2 Mg/1 Ml Vial) 0.25 mg IV NOW STA Stop: 08/08/22 19:37 Last Admin: 08/08/22 19:47 Dose: 0.25 mg Documented By: DP Methylprednisolone (Methylprednisolone 125 Mg/2 Ml Vial) 60 mg IV NOW STA Stop: 08/08/22 18:13 Last Admin: 08/08/22 19:11 Dose: 60 mg Documented By: ML Potassium Chloride (Potassium Chloride Crtab 20 Meq Tabcr) 40 meq PO NOW STA Stop: 08/08/22 20:27 Last Admin: 08/08/22 20:49 Dose: 40 meq Documented By: DP Potassium Chloride (Potassium Chloride 20 Meq/15 Ml Udc) 40 meq PO NOW STA Stop: 08/08/22 23:49 Last Admin: 08/09/22 01:13 Dose: 40 meq Documented By: DP Critical Care Time Critical Care Time: Yes Total Critical Care Time: 52 Critical care of [time] min performed to assess and manage high likelihood of life-threatening acute hypoxemic respiratory failure, involving labs and imaging performed with assessment to evaluate acute hypoxemic respiratory failure diagnosis with frequent reassessment. This time includes bedside time, angelica atment discussions with patient/family/consultants, documentation time and excludes procedure time. Medical Decision Making Differential Diagnosis Differential diagnoses includes but is not limited to pneumonia, bronchitis, C OPD/Asthma exacerbation, pneumothorax, pulmonary embolism, congestive heart failure, acute coronary syndrome Medical Records Attestation: I reviewed the patient's medical records. Home Medications Current Medication List: was personally reviewed by me Laboratory Data Attestation: I reviewed the patient's lab results. Result diagrams: 08/08/22 18:46 08/08/22 18:46 Lab Results 08/08/22 08/08/22 08/08/22 Range/Units 18:46 18:46 18:46 WBC 18.91 H (4.8-10.8) K/ul RBC 3.04 L (3.93-5.22) M/uL Hgb 9.1 L (12.0-16.0) g/dl Hct 28.2 L (34.1-44.9) % MCV 92.8 (80.0-100.0) fL MCH 29.9 (25.0-34.0) pg MCHC 32.3 (32.0-36.0) g/dL RDW Std Deviation 45.9 (36.4-46.3) fL RDW Coeff of Lizzie 13.4 (11.5-14.5) % Plt Count 344 (130-400) K/uL MPV 8.6 L (9.4-12.3) fL Immature Gran % (Auto) 1.5 % Neut % (Auto) 81.4 % Lymph % (Auto) 8.7 % [place] % (Auto) 6.6 % Eos % (Auto) 1.3 % Baso % (Auto) 0.5 % Neut # (Auto) 15.39 H (1.4-6.5) K/uL Lymph # (Auto) 1.65 (1.2-3.4) K/uL [place] # (Auto) 1.24 H (0.24-0.82) K/uL Eos # (Auto) 0.24 (0-0.50) K/uL Baso # (Auto) 0.10 (0-0.2) K/uL Immature Gran # (Auto) 0.29 H (0.00-0.02) K/uL Sodium 135 L (136-145) mmol/L Potassium 2.8 L (3.5-5.1) mmol/L Chloride 84 L (98-107) mmol/L Carbon Dioxide 42 H* (21-32) mmol/L Anion Gap 9 (3-11) BUN 6 (6-23) mg/dl Creatinine 0.76 (0.6-1.2) mg/dl Est Cr Clr Drug Dosing 86.6 ml/min Est GFR ( Amer) 97.4 ml/min Est GFR (Non-Af Amer) 84.1 ml/min BUN/Creatinine Ratio 7.9 L (10-20) Glucose 121 H (70-99(Fasting)) mg/dl Calcium 8.6 (8.5-10.1) mg/dl Magnesium 1.7 (1.7-2.4) mg/dl Total Bilirubin 0.8 (0.2-1.0) mg/dl AST 71 H (13-39) U/L ALT 54 H (7-52) U/L Alkaline Phosphatase 189 H (34-104) U/L Troponin I High Sens 51.0 H* (0-14) pg/ml B-Natriuretic Peptide 122 H (0-100) pg/ml Total Protein 7.5 (6.0-8.3) gm/dl Albumin 3.5 (3.4-5.0) gm/dl Globulin 4.0 (2.5-4.0) gm/dl Albumin/Globulin Ratio 0.9 (0.9-2) Procalcitonin (0-0.5) ng/ml Adenovirus (PCR) (NotDetected) B. pertussis DNA (PCR) (NotDetected) B.parapertussis DNA PCR (NotDetected) C. pneumoniae DNA (PCR) (NotDetected) Coronavirus OC43 (PCR) (NotDetected) Coronavirus HKU1 (PCR) (NotDetected) Coronavirus 229E (PCR) (NotDetected) SARS-CoV-2 (PCR) (NotDetected) Coronavirus NL63 (PCR) (NotDetected) Human Metapneumovir PCR (NotDetected) Influenza Type A (PCR) (NotDetected) Influenza Type B (PCR) (NotDetected) M. pneumoniae (PCR) (NotDetected) Parainfluenza 1 (PCR) (NotDetected) Parainfluenza 2 (PCR) (NotDetected) Parainfluenza 3 (PCR) (NotDetected) Parainfluenza 4 (PCR) (NotDetected) RSV (PCR) (NotDetected) Entero/Rhino (PCR) (NotDetected) 08/08/22 08/08/22 Range/Units 18:46 20:24 WBC (4.8-10.8) K/ul RBC (3.93-5.22) M/uL Hgb (12.0-16.0) g/dl Hct (34.1-44.9) % MCV (80.0-100.0) fL MCH (25.0-34.0) pg MCHC (32.0-36.0) g/dL RDW Std Deviation (36.4-46.3) fL RDW Coeff of Lizzie (11.5-14.5) % Plt Count (130-400) K/uL MPV (9.4-12.3) fL Immature Gran % (Auto) % Neut % (Auto) % Lymph % (Auto) % [place] % (Auto) % Eos % (Auto) % Baso % (Auto) % Neut # (Auto) (1.4-6.5) K/uL Lymph # (Auto) (1.2-3.4) K/uL [place] # (Auto) (0.24-0.82) K/uL Eos # (Auto) (0-0.50) K/uL Baso # (Auto) (0-0.2) K/uL Immature Gran # (Auto) (0.00-0.02) K/uL Sodium (136-145) mmol/L Potassium (3.5-5.1) mmol/L Chloride (98-107) mmol/L Carbon Dioxide (21-32) mmol/L Anion Gap (3-11) BUN (6-23) mg/dl Creatinine (0.6-1.2) mg/dl Est Cr Clr Drug Dosing ml/min Est GFR ( Amer) ml/min Est GFR (Non-Af Amer) ml/min BUN/Creatinine Ratio (10-20) Glucose (70-99(Fasting)) mg/dl Calcium (8.5-10.1) mg/dl Magnesium (1.7-2.4) mg/dl Total Bilirubin (0.2-1.0) mg/dl AST (13-39) U/L ALT (7-52) U/L Alkaline Phosphatase (34-104) U/L Troponin I High Sens (0-14) pg/ml B-Natriuretic Peptide (0-100) pg/ml Total Protein (6.0-8.3) gm/dl Albumin (3.4-5.0) gm/dl Globulin (2.5-4.0) gm/dl Albumin/Globulin Ratio (0.9-2) Procalcitonin 1.86 H (0-0.5) ng/ml Adenovirus (PCR) Not Detected (NotDetected) B. pertussis DNA (PCR) Not Detected (NotDetected) B.parapertussis DNA PCR Not Detected (NotDetected) C. pneumoniae DNA (PCR) Not Detected (NotDetected) Coronavirus OC43 (PCR) Not Detected (NotDetected) Coronavirus HKU1 (PCR) Not Detected (NotDetected) Coronavirus 229E (PCR) Not Detected (NotDetected) SARS-CoV-2 (PCR) Not Detected (NotDetected) Coronavirus NL63 (PCR) Not Detected (NotDetected) Human Metapneumovir PCR Not Detected (NotDetected) Influenza Type A (PCR) Not Detected (NotDetected) Influenza Type B (PCR) Not Detected (NotDetected) M. pneumoniae (PCR) Not Detected (NotDetected) Parainfluenza 1 (PCR) Not Detected (NotDetected) Parainfluenza 2 (PCR) Not Detected (NotDetected) Parainfluenza 3 (PCR) Not Detected (NotDetected) Parainfluenza 4 (PCR) Not Detected (NotDetected) RSV (PCR) Not Detected (NotDetected) Entero/Rhino (PCR) Not Detected (NotDetected) Imaging Data Radiologist's Impression: Chest X-Ray 08/08/22 18:13 XR chest 1V portable CLINICAL HISTORY: sob TECHNIQUE: Single frontal radiograph of the chest was obtained. Comparison: Comparison is made to chest radiograph 07/31/2021 FINDINGS: No lines and tubes are seen. Cardiomegaly is noted. Airspace opacities in the right lung. Atelectasis is in the left midlung. No evidence of pleural effusion or pneumothorax. IMPRESSION: Airspace opacities most prominent in the right lung concerning for atelectasis, pneumonia, and/or aspiration. ACT 112: Negative or not required by law. Electronically signed by: Adeel Washington M.D. 08/08/2022 6:45 PM ECG Data Attestation: I personally reviewed and interpreted this ECG as follows: Indication: + SOB/dyspnea Rate (beats per minute): 99 Rhythm: + normal sinus ECG Intervals/blocks: + Normal QRS and + Normal QT ECG Causey: + Normal ECG ST segments: + ST depression (II, aVF) MDM Narrative An order was placed for continuous cardiac monitoring. The monitor shows a rate of _98__ with _normal sinus_ rhythm. This is an ill-appearing 62-year-old female who presented to the emergency room due to concern for increased trouble breathing. Patient with recent outpatient treatment for COPD exacerbation and despite this presented with worsening symptoms. She was seen and evaluated referred to the emergency room by her PCP earlier today however did not initially come. Patient with increased work of br eathing, dyspnea, tachypnea noted, she was found to be hypoxic on her usual 3 L via nasal cannula at home. Patient transition to high flow nasal cannula and given nebulizer treatment. IV team needed to be contacted to establish IV access, labs are drawn and sent. Patient given Solu-Medrol, magnesium, and IV Levaquin. Other labs drawn and sent and did reveal hypokalemia which was repleted orally, elevated troponin which I suspect is secondary to demand due to increased work of breathing and hypoxemia. I do not suspect PE or ACS. Patient did feel improved here with medications. We did attempt to obtain an ABG on the patient however after 2 attempts by RT she refused any additional attempts. Patient remained hemodynamically stable although did require ongoing supplemental oxygen and support due to oxygen saturations that would dip into the upper 80s. Discussed with hospitalist for additional evaluation and management. Impression & Plan Acute dyspnea, Acute exacerbation of chronic obstructive pulmonary disease, Acute on chronic respiratory failure with hypoxemia, Pneumonia, Elevated troponin, Hypokalemia Discharge Plan Visit Data Chief Complaint: Shortness of Breath/Dyspnea Stated Complaint: SOB,PNEUMONIA, LUNG ISSUES, REF BY DOC ED Provider: Aline Escalera Discharge Problem: Acute dyspnea, Acute exacerbation of chronic obstructive pulmonary disease, Acute on chronic respiratory failure with hypoxemia, Pneumonia, Elevated trop onin, Hypokalemia Discharge Instructions Interventions: ED Discharge Assessment Last Done: 08/08/22 23:49
[2022-08-08] MEDS ORDERED: levoFLOXacin/D5W 750 MG/150 ML BAG IV STA (18:49)
[2022-08-08 19:05] LABS: Basophils % (auto) 0.5 %; Eosinophils # (auto) 0.24 K/uL (0-0.50); Eosinophils % (auto) 1.3 %; Hematocrit (blood only) 28.2 % (34.1-44.9); Hemoglobin 9.1 g/dl (12.0-16.0); Immature Granulocytes # (auto) 0.29 K/uL (0.00-0.02); Immature Granulocytes % (auto) 1.5 %; Lymphocytes # (auto) 1.65 K/uL (1.2-3.4); Lymphocytes % (auto) 8.7 %; Mean Corpuscular Hemoglobin 29.9 pg (25.0-34.0); Mean Corpuscular Hgb Conc 32.3 g/dL (32.0-36.0); Mean Corpuscular Volume 92.8 fL (80.0-100.0); Mean Platelet Volume 8.6 fL (9.4-12.3); Monocytes # (auto) 1.24 K/uL (0.24-0.82); Monocytes % (auto) 6.6 %; Neutrophils # (auto) 15.39 K/uL (1.4-6.5); Neutrophils % (auto) 81.4 %; Platelet Count 344 K/uL (130-400); RDW Coefficient of Variation 13.4 % (11.5-14.5); RDW Standard Deviation 45.9 fL (36.4-46.3); Red Blood Count 3.04 M/uL (3.93-5.22); White Blood Count 18.91 K/ul (4.8-10.8)
[2022-08-08] MEDS ORDERED: LORazepam 2 MG/1 ML VIAL IV STA (19:36)
[2022-08-08 19:59] LABS: Albumin Globulin Ratio 0.9 (0.9-2); Albumin Level 3.5 gm/dl (3.4-5.0); BUN Creatinine Ratio 7.9 (10-20); Bilirubin,Total 0.8 mg/dl (0.2-1.0); Calcium 8.6 mg/dl (8.5-10.1); Creatinine Clr Calc Pharmacy 86.6 ml/min; Est GFR (African American) 97.4 ml/min; Est GFR (Non-African American) 84.1 ml/min; Magnesium 1.7 mg/dl (1.7-2.4); Potassium 2.8 mmol/L (3.5-5.1); Total Protein 7.5 gm/dl (6.0-8.3)
[2022-08-08] MEDS ORDERED: POTASSIUM CHLORIDE CRTAB 20 MEQ TABCR PO STA (20:26)
[2022-08-08 21:21] LABS: Adenovirus PCR Not Detected (NotDetected); Bordetella parapertussis PCR Not Detected (NotDetected); Bordetella pertussis PCR Not Detected (NotDetected); Chlamydia pneumoniae PCR Not Detected (NotDetected); Coronavirus 229E PCR Not Detected (NotDetected); Coronavirus CoV-2 (COVID19)PCR Not Detected (NotDetected); Coronavirus HKU1 PCR Not Detected (NotDetected); Coronavirus NL63 PCR Not Detected (NotDetected); Coronavirus OC43PCR Not Detected (NotDetected); Human Metapneumovirus PCR Not Detected (NotDetected); Influenza A PCR Not Detected (NotDetected); Influenza B PCR Not Detected (NotDetected); Mycoplasma pneumoniae PCR Not Detected (NotDetected); Parainfluenza Virus 1 PCR Not Detected (NotDetected); Parainfluenza Virus 2 PCR Not Detected (NotDetected); Parainfluenza Virus 3 PCR Not Detected (NotDetected); Parainfluenza Virus 4 PCR Not Detected (NotDetected); Respiratory Syncytial VirusPCR Not Detected (NotDetected); Rhinovirus/Enterovirus PCR Not Detected (NotDetected)
--- NOTE | 2022-08-08 22:39 | History and Physical Report ---
DATE OF ADMISSION: 08/08/2022. CHIEF COMPLAINT: Shortness of breath. HISTORY OF PRESENT ILLNESS: This is a 62-year-old female with past medical history significant for COPD, asthma, history of chronic respiratory failure on 3 liters oxygen all the time, hyperlipidemia, prediabetes, chronic diastolic CHF, GERD, Schatzki ring, lumbar disk displacement without myelopathy, history of migraines, bipolar I disorder, depression, anxiety state, presents with shortness of breath. The patient lives alone, ambulates without any support. Uses 3 liters oxygen all the time. Since the last 4 days, she is getting more short of breath and today she did have some dry cough. Since the last 2 days, she is having on and off chest pains in the left side of the chest, no radiation, about 8/10 in severity, pressure-like feeling. No nausea, no vomiting. . Whenever she is blowing the nose also, she is getting left earache. Having a headache now, She has history of migraines. No blurred visions, no double visions, no sore throat, no difficulty swallowing. The patient says she has a history of aspiration last year. No nausea, no vomiting. She was treated with a Z-JOSELITO and prednisone taper, completed the course last week. When she had zpak and prednisone she had some abdominal pain and diarrhea, but that got resolved. Denies any blood in the stools or black stools. Normal bladder movements. Has some swelling in the legs. In the ER, when she came in, she was saturating 84% and currently she is placed on high-flow nasal cannula, saturating 90%. Able to give her history. Daughter is in the room. ALLERGIES: DOXYCYCLINE, CODEINE, IODINE, MORPHINE, AND DEPAKOTE. MEDICATIONS: The patient is on albuterol 2 puffs inhalation q.i.d. p.r.n., aspirin 81 mg p.o. daily, atorvastatin 20 mg p.o. at bedtime, buspirone 10 mg p.o. b.i.d. p.r.n., duloxetine 60 mg p.o. a.m., Anoro Ellipta one inhalation at bedtime, Lasix 20 mg p.o. daily p.r.n., gabapentin 300 mg p.o. t.i.d., DuoNebs q. 6 hours p.r.n., meloxicam 7.5 mg p.o. a.m., Protonix 40 mg p.o. b.i.d., Seroquel 400 mg p.o. at bedtime, sumatriptan 100 mg p.o. daily p.r.n. for migraine headaches, Trelegy Ellipta one inhalation daily, triamcinolone topical b.i.d. p.r.n., Woman 50 Plus multivitamin 1 tablet p.o. daily. FAMILY HISTORY: Significant for maternal aunt has breast cancer; sister has COPD; mother has cervical cancer, diabetes, heart stent, CHF; father had heart stents, end-stage renal disease, in the late 70s; daughter has bipolar; son has bipolar. SOCIAL HISTORY: Lives alone. Quit smoking in 2019, smoked 3 packs a day for 46 years. No alcohol use. No drug use. REVIEW OF SYSTEMS: As per HPI. Rest of the review of systems is negative. PHYSICAL EXAMINATION: GENERAL: The patient is morbidly obese, currently not in acute distress. VITAL SIGNS: Temperature 36.9, pulse 95, respiratory rate 22, blood pressure 147/71, oxygen 90% on high flow. HEENT: Pupils are equal, round and reactive to light. Left ear, no external otitis media seen. No erythema or drainage seen. Oral mucosa dry. NECK: No JVD, no neck masses. CARDIOVASCULAR: S1 and S2 heard, tachycardia. No murmurs. RESPIRATORY SYSTEM: Normal AP diameter. No accessory muscle use. Diminished bilateral breath sounds with mild bilateral wheezing heard. ABDOMEN: Soft, bowel sounds present, nontender, no distention. CENTRAL NERVOUS SYSTEM: Cranial nerves II-XII grossly intact, nonfocal. EXTREMITIES: Bilateral lower extremity pedal edema present, no erythema seen. LABORATORY DATA: WBC 18.9, hemoglobin 9.1, hematocrit 28.2, platelets 344. Sodium 135, potassium 2.8, chloride 84, CO2 of 42, BUN 6, creatinine 0.76, serum glucose 121, calcium 8.6, magnesium 1.7, total bilirubin 0.8, AST 71, ALT 54, alkaline phosphatase 189. Troponin I high sensitivity 51. BNP 122. Procalcitonin 1.86. Respiratory BioFire negative IMAGING DATA: Chest x-ray, airspace opacities, most prominent in the right lung, concerning for atelectasis, pneumonia and/or aspiration. EKG: Normal sinus rhythm at a rate of 99. ST depression in anterior leads. ASSESSMENT AND PLAN: This 62-year-old female presents with shortness of breath, pneumonia, and chest pain. 1. Shortness of breath, [id number] respiratory failure, chronic obstructive pulmonary disease exacerbation, pneumonia,, history of asthma, on home 3 liters oxygen, currently on high flow. Chest x-ray is showing pneumonia, mostly on the right side. Can get a CT chest for a better picture. In the ER, received Levaquin, will continue with Levaquin and Zosyn. The patient has a history of aspiration last year. Will do speech evaluation. Will place on minced and soft diet for now. Continue with iv, steroids, nebs around the clock and p.r.n. Closely monitor in the tele floor. If needed, will consult pulmonary. 2. Chest pain: Troponin mild elevation, probably from demand ischemia. Will follow repeat EKGs, serially cardiac enzymes, echocardiogram. Will keep n.p.o. after midnight. Consult cardiology in the a.m. 3. Probably gaxss-nh-kuxssfa diastolic congestive heart failure: Has some lower extremity edema. She is on Lasix 20 mg as needed at home. Will give a dose of IV Lasix 20 mg for now and follow the response, follow the echocardiogram, and await cardiac input. Further diuretics as per Cardiology. 4. Hypokalemia: Will replace. Will follow the repeat labs. 5. Prediabetes: Will follow HbA1c levels. Follow the blood sugars while the patient is on steroids, diabetic diet. 6. Gastroesophageal reflux disease: On Protonix. 7. History of Schatzki ring. 8. History of bipolar disorder, depression, anxiety: Continue her home medications of duloxetine, buspirone p.r.n., and Seroquel. 9. Hyperlipidemia: On statin. 10. Anemia: Hemoglobin seems to be around 10, currently with a hemoglobin of 9.1. Will follow the stool for Hemoccult, iron studies, vitamin B12, folate levels. Needs followup. 11. Deep venous thrombosis prophylaxis: Placed on Lovenox. DISPOSITION: Closely monitor in the tele floor. Level 1 full code. Expect to discharge home and follow up with family doctor. Job ID: [id number] [facility]
[2022-08-08] MEDS ORDERED: TRIAMCINOLONE ACET 0.5% CR 15 GM TUBE TOP PRN (23:48)
[2022-08-08] MEDS ORDERED: NITROGLYCERIN SL 0.4 MG/TAB TAB SL PRN (23:48)
[2022-08-08] MEDS ORDERED: ALBUT/IPRATROP 3MG/0.5MG NEB 3 ML VIAL NEB PRN (23:48)
[2022-08-08] MEDS ORDERED: FUROSEMIDE INJ 20 MG/2 ML VIAL IV ONE (23:48)
[2022-08-08] MEDS ORDERED: ATORVASTATIN 20 MG TAB PO SCH (23:48)
[2022-08-08] MEDS ORDERED: POTASSIUM CHLORIDE 20 MEQ/15 ML UDC PO STA (23:48)
[2022-08-08] MEDS ORDERED: ACETAMINOPHEN 325 MG TAB PO PRN (23:48)
[2022-08-08] MEDS ORDERED: POLYETHYLENE (MIRALAX) 17 GM PACK PO PRN (23:48)
[2022-08-08] MEDS ORDERED: FLUTICASONE FUROATE 200MCG 14 PUFFS/INHALER INH SCH (23:48)
[2022-08-08] MEDS ORDERED: ALBUTEROL HFA 8 GM INHALER INH PRN (23:48)
[2022-08-08] MEDS ORDERED: SUMAtriptan succinate 100 MG TAB PO PRN (23:48)
[2022-08-09] MEDS ORDERED: PIPERACILLIN/TAZOBACTAM 4.5 GM in DEXTROSE 5% 100 ML IV ONE (00:45)
[2022-08-09] MEDS: PANTOprazole 40 MG TAB PO SCH ×3 (01:07→20:54)
[2022-08-09] MEDS: QUEtiapine FUMARATE 200 MG TAB PO SCH ×2 (01:07→20:54)
[2022-08-09] MEDS: GABAPENTIN 300 MG CAP PO SCH ×4 (01:08→20:52)
[2022-08-09] MEDS: methylPREDNISolone 40 MG in SYRINGE 0 ML IV SCH ×4 (01:09→23:36)
[2022-08-09] MEDS: ENOXAPARIN INJ 40 MG/0.4 ML SYR SQ SCH ×3 (01:14→20:53)
[2022-08-09] MEDS ORDERED: Flu Vaccine (Fluarix) 0.5mL SYR (Standard Dose) IM ONE (01:30)
[2022-08-09] MEDS ORDERED: PIPERACILLIN/TAZOBACTAM 4.5 GM/120ML D5W IV ONE (05:16)
[2022-08-09] MEDS: PIPERACILLIN/TAZOBACTAM 4.5 GM in DEXTROSE 5% 100 ML IV SCH ×3 (05:23→21:07)
[2022-08-09 06:21] LABS: Hematocrit (blood only) 28.2 % (34.1-44.9); Hemoglobin 9.1 g/dl (12.0-16.0); Mean Corpuscular Hemoglobin 30.2 pg (25.0-34.0); Mean Corpuscular Hgb Conc 32.3 g/dL (32.0-36.0); Mean Corpuscular Volume 93.7 fL (80.0-100.0); Mean Platelet Volume 8.6 fL (9.4-12.3); Platelet Count 327 K/uL (130-400); RDW Coefficient of Variation 13.7 % (11.5-14.5); Red Blood Count 3.01 M/uL (3.93-5.22); White Blood Count 12.99 K/ul (4.8-10.8)
[2022-08-09 06:35] LABS: Estimated Average Glucose 169 mg/dl; Hemoglobin A1C 7.5 % (4.5-5.6)
[2022-08-09 06:43] LABS: Basophils # (auto) 0.05 K/uL (0-0.2); Basophils % (auto) 0.4 %; Immature Granulocytes # (auto) 0.26 K/uL (0.00-0.02); Lymphocytes # (auto) 0.74 K/uL (1.2-3.4); Lymphocytes % (auto) 5.7 %; Monocytes # (auto) 0.19 K/uL (0.24-0.82); Monocytes % (auto) 1.5 %; Neutrophils # (auto) 11.75 K/uL (1.4-6.5); Neutrophils % (auto) 90.4 %
[2022-08-09 06:59] LABS: Vitamin B12 718 pg/ml (180-914)
[2022-08-09] MEDS ORDERED: ALBUT/IPRATROP 3MG/0.5MG NEB 3 ML VIAL NEB SCH (07:00)
[2022-08-09 07:52] LABS: BUN Creatinine Ratio 10.8 (10-20); Calcium 8.1 mg/dl (8.5-10.1); Creatinine Clr Calc Pharmacy 88.6 ml/min; Est GFR (African American) 100.6 ml/min; Est GFR (Non-African American) 86.8 ml/min; Potassium 3.2 mmol/L (3.5-5.1)
[2022-08-09] MEDS ORDERED: ALBUT/IPRATROP 3MG/0.5MG NEB 3 ML VIAL NEB ONE (08:51)
[2022-08-09] MEDS: FORMOTEROL 20 MCG/2 ML VIAL NEB SCH ×2 (09:00→21:09)
[2022-08-09] MEDS ORDERED: NON-FORMULARY MEDICATION (Fluticasone-Umeclidin-Vilanter [Trelegy Ellipta] 100-62.5-25 mcg INH SCH (09:00)
[2022-08-09] MEDS ORDERED: FLUTICASONE FUROATE 100MCG 14 PUFFS/INHALER INH SCH (09:00)
[2022-08-09] MEDS ORDERED: UMECLIDINIUM/VILANTEROL 62.5/25MCG 7 PUFFS/INHALER INH SCH (09:00)
[2022-08-09] MEDS: ASPIRIN 81 MG ECTAB PO SCH (09:37)
[2022-08-09] MEDS: DULoxetine HCL 60 MG CAP PO SCH (09:38)
[2022-08-09] MEDS: CEROVITE ADV FORMULA TAB PO SCH (09:39)
[2022-08-09] MEDS: busPIRone 5 MG TAB PO PRN (09:39)
--- NOTE | 2022-08-09 10:54 | Cardiology Consultation ---
Date of Consultation August 09, 2022 Assessment & Plan (1) Acute on chronic respiratory failure with hypoxemia: (2) Chronic respiratory failure with hypercapnia: (3) COPD (chronic obstructive pulmonary disease): (4) Elevated troponin: Plan Believe the patient's symptoms are mostly related to COPD exacerbation. Her elevated troponins are type II due to hypoxia from COPD and respiratory failure. There may be some degree of diastolic heart failure which can be treated as needed with diuretics. At this time I would recommend no additional cardiac testing or treatment. History of Present Illness Attending Physician: Sánchez Kahn MD History of Present Illness This is a 62-year-old female who denies a significant cardiac history. She does have a history of COPD and asthma. She stopped smoking approximately 4 years ago. She was in her usual state of health until several days ago she began to have wheezing and shortness of breath. She has been admitted to the hospital with acute exacerbation of COPD and asthma. Allergies Allergy/AdvReac Type Severity Reaction Status Date / Time doxycycline Allergy Severe DIFFICULTY Verified 08/08/22 18:46 SWALLOWING, ITCHING codeine Allergy Intermediate Hives Verified 08/08/22 18:46 iodine Allergy Intermediate RASH Verified 08/08/22 18:46 morphine Allergy Intermediate ITCHY Verified 08/08/22 18:46 BLISTERS FROM IV MED divalproex sodium Allergy Unknown ON GMG MED Verified 08/08/22 18:46 [From Depakote] LIST valproic acid Allergy Unknown Unknown Verified 08/08/22 18:46 Home Medications Medication Instructions Recorded Confirmed Type albuterol sulfate 90 mcg/actuation 2 puff inhalation QID PRN 10/25/18 08/08/22 History aerosol inhaler Shortness Of Breath Or Wheezing aspirin 81 mg tablet,delayed 81 mg PO QAM 10/25/18 08/08/22 History release (Aram Low Dose Aspirin) atorvastatin 20 mg tablet 20 mg PO HS 10/25/18 08/08/22 History gabapentin 300 mg capsule 300 mg PO TID 10/25/18 08/08/22 History pyxfsfhp-ixr-ggsrn ac 400 1 tab PO QAM 10/25/18 08/08/22 History mcg-calcium carb 500 mg-vit K1 20 mcg tablet (Women's 50 Plus Multivitamin) pantoprazole 40 mg tablet,delayed 40 mg PO BID 10/25/18 08/08/22 History release sumatriptan succinate 100 mg tablet 100 mg PO DAILY PRN Migraine 10/25/18 08/08/22 History Headache triamcinolone acetonide 0.5 % 1 applic topical BID PRN Skin 10/25/18 08/08/22 History topical cream Irritation quetiapine 400 mg tablet (Seroquel) 400 mg PO HS 11/04/19 08/08/22 History fluticasone fur. 100 mcg-umeclid 1 inh inhalation DAILY 07/31/21 08/08/22 History 62.5 mcg-vilant 25 mcg inhalat.powder (Trelegy Ellipta) buspirone 10 mg tablet 10 mg PO BID PRN Anxiety 08/08/22 08/08/22 History duloxetine 60 mg capsule,delayed 60 mg PO QAM 08/08/22 08/08/22 History release fluticasone furoate 200 1 inh inhalation HS 08/08/22 08/08/22 History mcg/actuation blister powder for inhalation (Arnuity Ellipta) furosemide 20 mg tablet 20 mg PO DAILY PRN Fluid Retention 08/08/22 08/08/22 History ipratropium 0.5 mg-albuterol 3 mg 3 ml inhalation Q6H PRN 08/08/22 08/08/22 History (2.5 mg base)/3 mL nebulization COUGH/SOB/WHEEZING soln meloxicam 7.5 mg tablet 7.5 mg PO QAM 08/08/22 08/08/22 History Patient History Medical History Anxiety Bipolar 1 disorder Chronic back pain Chronic respiratory failure with hypoxia and hypercapnia COPD, moderate Depression GERD (gastroesophageal reflux disease) HLD (hyperlipidemia) Nocturnal hypoxemia Tobacco use Surgical History H/O bilateral oophorectomy H/O tubal ligation History of hysterectomy S/P right knee arthroscopy S/P trigger finger release Family History Mother Coronary heart disease Diabetes Cancer cervical Father Coronary heart disease Son Bipolar disorder Daughter Bipolar disorder Social History Smoking Status: Never smoker Cigarettes Per Day: 20; Second Hand Exposure: No; Do You Dip or Chew Tobacco: No; Hx Alcohol Use: No Hx Substance Use: No Preferred Language: Italian Communication Ability: Effective Visual Impairment: Limited Call Or Contact Centre Manager Required: No Beliefs That Will Affect Care: None marital status: Current Living Situation: Alone How many Children do You have: 4 Feels Safe at Home: Yes Safety Concerns: Feels Safe At This Time Assistive Devices: Oxygen - Continuous Review of Systems Review of Systems: Review of Systems: See HPI for pertinent positives. All other 10 point review of systems are negative. Physical Exam Physical Exam: General: no acute distress and stated age Head: normocephalic, no masses, lesions, tenderness or abnormalities Eyes: conjunctiva are pink and non-injected, sclera clear Neck: supple, no adenopathy, no bruits, normal jugular venous pulse, no hepatojugular reflux Chest: normal shape and normal respiratory effort Lungs: Wheezing throughout Cardiac Exam: - regular rate & rhythm, no murmurs gallops or rubs - normal S1, normal S2 Pulses: 2(+) throughout Abdomen: abdomen soft, non-tender, no abnormal masses and no hepatosplenomegaly Musculoskeletal: no gait disturbance, no joint inflammation, no deforming arthritis Extremities: no edema and no cyanosis Neuro: grossly normal exam Results & Data ([facility]) Vital Signs (Past 12 Hours) Vital Signs Pulse Pulse Resp BP BP Pulse Ox Pulse Ox 08/09/22 09:33 88 15 96/57 L 94 08/09/22 09:12 92 H 18 91 08/09/22 07:13 90 91 08/09/22 07:13 90 16 91 08/09/22 05:38 91 H 20 94 08/09/22 05:20 111 H 15 102/72 96 08/09/22 03:12 89 22 92 08/09/22 02:56 90 22 91 08/09/22 01:00 84 19 124/79 91 08/09/22 00:00 84 23 128/69 91 08/08/22 23:41 87 24 129/72 91 08/08/22 23:00 90 15 132/77 92 O2 Del Method O2 Del Method O2 Flow Rate O2 Flow Rate FiO2 FiO2 08/09/22 09:33 Free Flow/Blow-by 35 30 08/09/22 09:12 High Flow Nasal Cannula 35 30 08/09/22 07:13 High Flow Nasal Cannula 30 35 08/09/22 07:13 High Flow Nasal Cannula 30 35 08/09/22 05:38 High Flow Nasal Cannula 30 35 08/09/22 05:20 High Flow Nasal Cannula 30 35 08/09/22 03:12 High Flow Nasal Cannula 30 35 08/09/22 02:56 High Flow Nasal Cannula 30 30 08/09/22 01:00 High Flow Nasal Cannula 08/09/22 00:00 High Flow Nasal Cannula 08/08/22 23:41 High Flow Nasal Cannula 08/08/22 23:00 High Flow Nasal Cannula Laboratory Results Laboratory Results - last 24 hr 08/08/22 08/08/22 08/08/22 18:46 18:46 18:46 WBC 18.91 H RBC 3.04 L Hgb 9.1 L Hct 28.2 L MCV 92.8 MCH 29.9 MCHC 32.3 RDW Std Deviation 45.9 RDW Coeff of Lizzie 13.4 Plt Count 344 MPV 8.6 L Immature Gran % (Auto) 1.5 Neut % (Auto) 81.4 Lymph % (Auto) 8.7 [place] % (Auto) 6.6 Eos % (Auto) 1.3 Baso % (Auto) 0.5 Neut # (Auto) 15.39 H Lymph # (Auto) 1.65 [place] # (Auto) 1.24 H Eos # (Auto) 0.24 Baso # (Auto) 0.10 Immature Gran # (Auto) 0.29 H Sodium 135 L Potassium 2.8 L Chloride 84 L Carbon Dioxide 42 H* Anion Gap 9 BUN 6 Creatinine 0.76 Est Cr Clr Drug Dosing 86.6 Est GFR ( Amer) 97.4 Est GFR (Non-Af Amer) 84.1 BUN/Creatinine Ratio 7.9 L Glucose 121 H Estimat Average Glucose Hemoglobin A1c Calcium 8.6 Magnesium 1.7 Iron TIBC Unsaturated IBC Transferrin % Sat Total Bilirubin 0.8 AST 71 H ALT 54 H Alkaline Phosphatase 189 H Troponin I High Sens 51.0 H* B-Natriuretic Peptide 122 H Total Protein 7.5 Albumin 3.5 Globulin 4.0 Albumin/Globulin Ratio 0.9 Vitamin B12 Folate Procalcitonin Adenovirus (PCR) B. pertussis DNA (PCR) B.parapertussis DNA PCR C. pneumoniae DNA (PCR) Coronavirus OC43 (PCR) Coronavirus HKU1 (PCR) Coronavirus 229E (PCR) SARS-CoV-2 (PCR) Coronavirus NL63 (PCR) Human Metapneumovir PCR Influenza Type A (PCR) Influenza Type B (PCR) M. pneumoniae (PCR) Parainfluenza 1 (PCR) Parainfluenza 2 (PCR) Parainfluenza 3 (PCR) Parainfluenza 4 (PCR) RSV (PCR) Entero/Rhino (PCR) 08/08/22 08/08/22 08/09/22 18:46 20:24 05:43 WBC RBC Hgb Hct MCV MCH MCHC RDW Std Deviation RDW Coeff of Lizzie Plt Count MPV Immature Gran % (Auto) Neut % (Auto) Lymph % (Auto) [place] % (Auto) Eos % (Auto) Baso % (Auto) Neut # (Auto) Lymph # (Auto) [place] # (Auto) Eos # (Auto) Baso # (Auto) Immature Gran # (Auto) Sodium 138 Potassium 3.2 L Chloride 90 L Carbon Dioxide 39 H Anion Gap 9 BUN 8 Creatinine 0.74 Est Cr Clr Drug Dosing 88.6 Est GFR ( Amer) 100.6 Est GFR (Non-Af Amer) 86.8 BUN/Creatinine Ratio 10.8 Glucose 246 H Estimat Average Glucose Hemoglobin A1c Calcium 8.1 L Magnesium 2.0 Iron 43 TIBC 137 L Unsaturated IBC 94 L Transferrin % Sat 31 Total Bilirubin AST ALT Alkaline Phosphatase Troponin I High Sens 14.0 D B-Natriuretic Peptide Total Protein Albumin Globulin Albumin/Globulin Ratio Vitamin B12 Folate Procalcitonin 1.86 H Adenovirus (PCR) Not Detected B. pertussis DNA (PCR) Not Detected B.parapertussis DNA PCR Not Detected C. pneumoniae DNA (PCR) Not Detected Coronavirus OC43 (PCR) Not Detected Coronavirus HKU1 (PCR) Not Detected Coronavirus 229E (PCR) Not Detected SARS-CoV-2 (PCR) Not Detected Coronavirus NL63 (PCR) Not Detected Human Metapneumovir PCR Not Detected Influenza Type A (PCR) Not Detected Influenza Type B (PCR) Not Detected M. pneumoniae (PCR) Not Detected Parainfluenza 1 (PCR) Not Detected Parainfluenza 2 (PCR) Not Detected Parainfluenza 3 (PCR) Not Detected Parainfluenza 4 (PCR) Not Detected RSV (PCR) Not Detected Entero/Rhino (PCR) Not Detected 12/08/09/22 08/09/22 05:43 05:43 05:43 WBC 12.99 H RBC 3.01 L Hgb 9.1 L Hct 28.2 L MCV 93.7 MCH 30.2 MCHC 32.3 RDW Std Deviation 47.0 H RDW Coeff of Lizzie 13.7 Plt Count 327 MPV 8.6 L Immature Gran % (Auto) 2.0 Neut % (Auto) 90.4 Lymph % (Auto) 5.7 [place] % (Auto) 1.5 Eos % (Auto) 0.0 Baso % (Auto) 0.4 Neut # (Auto) 11.75 H Lymph # (Auto) 0.74 L [place] # (Auto) 0.19 L Eos # (Auto) 0.00 Baso # (Auto) 0.05 Immature Gran # (Auto) 0.26 H Sodium Potassium Chloride Carbon Dioxide Anion Gap BUN Creatinine Est Cr Clr Drug Dosing Est GFR ( Amer) Est GFR (Non-Af Amer) BUN/Creatinine Ratio Glucose Estimat Average Glucose 169 Hemoglobin A1c 7.5 H Calcium Magnesium Iron TIBC Unsaturated IBC Transferrin % Sat Total Bilirubin AST ALT Alkaline Phosphatase Troponin I High Sens B-Natriuretic Peptide Total Protein Albumin Globulin Albumin/Globulin Ratio Vitamin B12 718 Folate > 22.30 Procalcitonin Adenovirus (PCR) B. pertussis DNA (PCR) B.parapertussis DNA PCR C. pneumoniae DNA (PCR) Coronavirus OC43 (PCR) Coronavirus HKU1 (PCR) Coronavirus 229E (PCR) SARS-CoV-2 (PCR) Coronavirus NL63 (PCR) Human Metapneumovir PCR Influenza Type A (PCR) Influenza Type B (PCR) M. pneumoniae (PCR) Parainfluenza 1 (PCR) Parainfluenza 2 (PCR) Parainfluenza 3 (PCR) Parainfluenza 4 (PCR) RSV (PCR) Entero/Rhino (PCR) Medications Administered Current Inpatient Medications Acetaminophen (Acetaminophen 325 Mg Tab) 650 mg PO Q4H PRN PRN Reason: Pain or Fever Stop: 09/07/22 23:47 Albuterol (Albut/Ipratrop 3mg/0.5mg Neb 3 Ml Vial) 3 ml NEB Q2H PRN; Protocol PRN Reason: Shortness Of Breath Or Wheezing Stop: 09/07/22 23:47 Albuterol (Albut/Ipratrop 3mg/0.5mg Neb 3 Ml Vial) 3 ml NEB Q4R [facility]; Protocol Stop: 09/08/22 10:59 Aspirin (Aspirin 81 Mg Ectab) 81 mg PO QAM [facility] Stop: 09/08/22 08:59 Last Admin: 08/09/22 09:37 Dose: 81 mg Atorvastatin Calcium (Atorvastatin 20 Mg Tab) 20 mg PO HS [facility] Stop: 09/07/22 23:47 Last Admin: 08/09/22 01:08 Dose: 20 mg Budesonide (Budesonide 0.5 Mg/2 Ml Vial (Pulmicort)) 0.5 mg NEB BIDR [facility] Stop: 09/08/22 18:59 Buspirone HCl (Buspirone 5 Mg Tab) 10 mg PO BID PRN PRN Reason: Anxiety Stop: 09/07/22 23:47 Last Admin: 08/09/22 09:39 Dose: 10 mg Duloxetine HCl (Duloxetine Hcl 60 Mg Cap) [facility] [place]: 09/08/22 08:59 Last Admin: 08/09/22 09:38 Dose: 60 mg Enoxaparin Sodium (Enoxaparin Inj 40 Mg/0.4 Ml Syr) 40 mg SQ BID [facility] Stop: 09/08/22 00:29 Last Admin: 08/09/22 09:39 Dose: 40 mg Formoterol Fumarate (Formoterol 20 Mcg/2 Ml Vial) 20 mcg NEB BIDR [facility] Stop: 09/08/22 08:59 Last Admin: 08/09/22 09:00 Dose: Not Given Gabapentin (Gabapentin 300 Mg Cap) 300 mg PO TID [facility] Stop: 09/07/22 23:47 Last Admin: 08/09/22 09:37 Dose: 300 mg Piperacillin Sod/Tazobactam (Sod 4.5 gm/ Dextrose) 120 mls @ 30 mls/hr IV Q8H [facility]; Protocol Stop: 08/16/22 05:59 Last Infusion: 08/09/22 06:05 Dose: Infused Methylprednisolone 40 mg/ (Syringe) 0.64 mls @ 1.5 mls/min IV Q8H [facility] Stop: 09/08/22 00:00 Last Admin: 08/09/22 09:38 Dose: 1.5 mls/min Multivitamins/Minerals (Cerovite Adv Formula Tab) 1 tab PO QAM [facility] Stop: 09/08/22 08:59 Last Admin: 08/09/22 09:39 Dose: 1 tab Nitroglycerin (Nitroglycerin Sl 0.4 Mg/Tab Tab) 0.4 mg SL UD PRN PRN Reason: Chest Pain Stop: 09/07/22 23:47 Pantoprazole Sodium (Pantoprazole 40 Mg Tab) 40 mg PO BID [facility] Stop: 09/07/22 23:47 Last Admin: 08/09/22 09:40 Dose: 40 mg Polyethylene Glycol (Polyethylene (Miralax) 17 Gm Pack) 17 gm PO DAILY PRN PRN Reason: Constipation Stop: 09/07/22 23:47 Quetiapine Fumarate (Quetiapine Fumarate 200 Mg Tab) 400 mg PO HS [facility] Stop: 09/07/22 23:47 Last Admin: 08/09/22 01:07 Dose: 400 mg Sodium Chloride (Sodium Chlor 7% 4 Ml Neb) 4 ml NEB BIDR [facility] Stop: 09/08/22 18:59 Sumatriptan Succinate (Sumatriptan Succinate 100 Mg Tab) 100 mg PO DAILY PRN PRN Reason: Migraine Headache Stop: 09/07/22 23:47 Triamcinolone Acetonide (Triamcinolone Acet 0.5% Cr 15 Gm Tube) 1 appln TOP BID PRN PRN Reason: Skin Irritation Stop: 09/07/22 23:47
[2022-08-09] MEDS ORDERED: POTASSIUM CHLORIDE CRTAB 20 MEQ TABCR PO STA (10:55)
[2022-08-09] MEDS: ALBUT/IPRATROP 3MG/0.5MG NEB 3 ML VIAL NEB SCH ×4 (11:22→23:20)
--- NOTE | 2022-08-09 14:01 | Hospitalist Progress Note ---
Date of Service August 09, 2022 Assessment & Plan (1) Acute on chronic respiratory failure with hypoxemia: (2) Pneumonia: (3) Acute exacerbation of chronic obstructive pulmonary disease: (4) Acute on chronic diastolic (congestive) heart failure: Plan: Presented with shortness of breath. Baseline oxygen requirement of 3 L Physical examination shows bilateral wheeze and pitting edema. Chest x-ray shows airway opacities most prominent in right lung Pro-Fahad elevated WBC elevated to 18 Echo shows EF of 65 to 70% with grade 1 diastolic dysfunction Plan; Continue on [id number] duo nebs every 4 hours. Patient was given 4 ihor-vg-ogom DuoNeb today morning with improvement in oxygenation. Continue on Zosyn. Continue on budesonide and formoterol nebulization twice daily. Continue on methylprednisolone 40 mg IV every 8 Continue pulmonary toileting with hypertonic saline, chest PT. On Lasix 20 mg IV daily. Daily weights. Strict MARIO's (5) Elevated troponin: Plan: Elevated high-sensitivity troponin Troponin down trended to 9. Echo as above; no wall motion abnormalities. Cardiology on board; no additional cardiac testing. (6) Liver enzyme elevation: Plan: Elevated liver enzymes. Will obtain liver ultrasound. Statin on hold Plan Chronic problems; Type 2 diabetes mellitus; A1c of 7.5. Not on any home medication. Will start on metformin on discharge. Will need follow-up with primary care doctor for long-term management. Gastroesophageal reflux disease: On Protonix. History of Schatzki ring. History of bipolar disorder, depression, anxiety: Continue her home medications of duloxetine, buspirone p.r.n., and Seroquel. Hyperlipidemia:Statin on hold. Given elevated liver enzymes Anemia:Hemoglobin at baseline. Deep venous thrombosis prophylaxis: Placed on Lovenox. Please note the above document was generated using voice recognition software. It may contain grammatical, syntax or spelling errors. Any formal questions or concerns about the content, text or information contained within the body of this dictation should be directly addressed to the provider for clarification. Admission and Anticipated Discharge Date Admission Date: August 08, 2022 Subjective Patient seen and examined in the emergency department. She reports shortness of breath and fatigue. She is on high flow nasal cannula saturating around 91%. Review of Systems Review of Systems: All systems reviewed & are unremarkable except as noted in Subjective Physical Exam Physical Exam: Constitutional: Awake, alert orient x3. In moderate respiratory distress. Respiratory: Bilateral diffuse wheezes heard all over the chest field. CVS: RRR, no murmur, no edema Vessels: no JVD or carotid bruit Chest: normal inspection of chest Abdomen: normal bowel sounds, soft, nontender, no hepatosplenomegaly Musculoskeletal: no cyanosis or clubbing, extremities motor strength 5/5. 1+ pitting edema. Skin: no rashes, warm and dry normal turgor Neurologic: PERRL, EOMI, accommodation nl, no face palsy, no dysarthria CN's II- XI intact bilaterally and moves all extremities Psychiatric: A+Ox3, euthymic affect Lymphatic: no cervical or axillary lymphadenopathy : deferred Results & Data Results & Data ([facility]) Vital Signs (Past 12 Hours) Vital Signs Pulse Resp BP Pulse Ox Pulse Ox O2 Del Method O2 Del Method 08/09/22 12:56 84 18 125/74 96 Nasal Cannula 08/09/22 12:18 88 18 134/82 96 Nasal Cannula 08/09/22 11:25 91 H 16 100 Nasal Cannula 08/09/22 11:16 89 16 98 Nasal Cannula 08/09/22 09:33 88 15 96/57 L 94 Free Flow/Blow-by 08/09/22 09:12 92 H 18 91 High Flow Nasal Cannula 08/09/22 07:13 90 91 High Flow Nasal Cannula 08/09/22 07:13 90 16 91 High Flow Nasal Cannula 08/09/22 05:38 91 H 20 94 High Flow Nasal Cannula 08/09/22 05:20 111 H 15 102/72 96 High Flow Nasal Cannula 08/09/22 03:12 89 22 92 High Flow Nasal Cannula 08/09/22 02:56 90 22 91 High Flow Nasal Cannula O2 Flow Rate O2 Flow Rate FiO2 FiO2 08/09/22 12:56 5 08/09/22 12:18 5 08/09/22 11:25 6 08/09/22 11:16 6 08/09/22 09:33 35 30 08/09/22 09:12 35 30 08/09/22 07:13 30 35 08/09/22 07:13 30 35 08/09/22 05:38 30 35 08/09/22 05:20 30 35 08/09/22 03:12 30 35 08/09/22 02:56 30 30 Laboratory Results Laboratory Results WBC 12.99 K/ul (4.8-10.8) H 08/09/22 05:43 RBC 3.01 M/uL (3.93-5.22) L 08/09/22 05:43 Hgb 9.1 g/dl (12.0-16.0) L 08/09/22 05:43 Hct 28.2 % (34.1-44.9) L 08/09/22 05:43 MCV 93.7 fL (80.0-100.0) 08/09/22 05:43 MCH 30.2 pg (25.0-34.0) 08/09/22 05:43 MCHC 32.3 g/dL (32.0-36.0) 08/09/22 05:43 RDW Std Deviation 47.0 fL (36.4-46.3) H 08/09/22 05:43 RDW Coeff of Lizzie 13.7 % (11.5-14.5) 08/09/22 05:43 Plt Count 327 K/uL (130-400) 08/09/22 05:43 MPV 8.6 fL (9.4-12.3) L 08/09/22 05:43 Immature Gran % (Auto) 2.0 % 08/09/22 05:43 Neut % (Auto) 90.4 % 08/09/22 05:43 Lymph % (Auto) 5.7 % 08/09/22 05:43 [place] % (Auto) 1.5 % 08/09/22 05:43 Eos % (Auto) 0.0 % 08/09/22 05:43 Baso % (Auto) 0.4 % 08/09/22 05:43 Neut # (Auto) 11.75 K/uL (1.4-6.5) H 08/09/22 05:43 Lymph # (Auto) 0.74 K/uL (1.2-3.4) L 08/09/22 05:43 [place] # (Auto) 0.19 K/uL (0.24-0.82) L 08/09/22 05:43 Eos # (Auto) 0.00 K/uL (0-0.50) 08/09/22 05:43 Baso # (Auto) 0.05 K/uL (0-0.2) 08/09/22 05:43 Immature Gran # (Auto) 0.26 K/uL (0.00-0.02) H 08/09/22 05:43 Sodium 138 mmol/L (136-145) 08/09/22 05:43 Potassium 3.2 mmol/L (3.5-5.1) L 08/09/22 05:43 Chloride 90 mmol/L (98-107) L 08/09/22 05:43 Carbon Dioxide 39 mmol/L (21-32) H 08/09/22 05:43 Anion Gap 9 (3-11) 08/09/22 05:43 BUN 8 mg/dl (6-23) 08/09/22 05:43 Creatinine 0.74 mg/dl (0.6-1.2) 08/09/22 05:43 Est Cr Clr Drug Dosing 88.6 ml/min 08/09/22 05:43 Est GFR ( Amer) 100.6 ml/min 08/09/22 05:43 Est GFR (Non-Af Amer) 86.8 ml/min 08/09/22 05:43 BUN/Creatinine Ratio 10.8 (10-20) 08/09/22 05:43 Glucose 246 mg/dl (70-99(Fasting)) H 08/09/22 05:43 Estimat Average Glucose 169 mg/dl 08/09/22 05:43 Hemoglobin A1c 7.5 % (4.5-5.6) H 08/09/22 05:43 Calcium 8.1 mg/dl (8.5-10.1) L 08/09/22 05:43 Magnesium 2.0 mg/dl (1.7-2.4) 08/09/22 05:43 Iron 43 mcg/dl (35-150) 08/09/22 05:43 TIBC 137 mcg/dl (250-450) L 08/09/22 05:43 Unsaturated IBC 94 mcg/dl (155-355) L 08/09/22 05:43 Transferrin % Sat 31 % (15-50) 08/09/22 05:43 Total Bilirubin 0.8 mg/dl (0.2-1.0) 08/08/22 18:46 AST 71 U/L (13-39) H 08/08/22 18:46 ALT 54 U/L (7-52) H 08/08/22 18:46 Alkaline Phosphatase 189 U/L (34-104) H 08/08/22 18:46 Troponin I High Sens 9.0 pg/ml (0-14) D 08/09/22 11:19 B-Natriuretic Peptide 122 pg/ml (0-100) H 08/08/22 18:46 Total Protein 7.5 gm/dl (6.0-8.3) 08/08/22 18:46 Albumin 3.5 gm/dl (3.4-5.0) 08/08/22 18:46 Globulin 4.0 gm/dl (2.5-4.0) 08/08/22 18:46 Albumin/Globulin Ratio 0.9 (0.9-2) 08/08/22 18:46 Vitamin B12 718 pg/ml (180-914) 08/09/22 05:43 Folate > 22.30 ng/ml (>5.38) 08/09/22 05:43 Procalcitonin 1.86 ng/ml (0-0.5) H 08/08/22 18:46 Adenovirus (PCR) Not Detected (NotDetected) 08/08/22 20:24 B. pertussis DNA (PCR) Not Detected (NotDetected) 08/08/22 20:24 B.parapertussis DNA PCR Not Detected (NotDetected) 08/08/22 20:24 C. pneumoniae DNA (PCR) Not Detected (NotDetected) 08/08/22 20:24 Coronavirus OC43 (PCR) Not Detected (NotDetected) 08/08/22 20:24 Coronavirus HKU1 (PCR) Not Detected (NotDetected) 08/08/22 20:24 Coronavirus 229E (PCR) Not Detected (NotDetected) 08/08/22 20:24 SARS-CoV-2 (PCR) Not Detected (NotDetected) 08/08/22 20:24 Coronavirus NL63 (PCR) Not Detected (NotDetected) 08/08/22 20:24 Human Metapneumovir PCR Not Detected (NotDetected) 08/08/22 20:24 Influenza Type A (PCR) Not Detected (NotDetected) 08/08/22 20:24 Influenza Type B (PCR) Not Detected (NotDetected) 08/08/22 20:24 M. pneumoniae (PCR) Not Detected (NotDetected) 08/08/22 20:24 Parainfluenza 1 (PCR) Not Detected (NotDetected) 08/08/22 20:24 Parainfluenza 2 (PCR) Not Detected (NotDetected) 08/08/22 20:24 Parainfluenza 3 (PCR) Not Detected (NotDetected) 08/08/22 20:24 Parainfluenza 4 (PCR) Not Detected (NotDetected) 08/08/22 20:24 RSV (PCR) Not Detected (NotDetected) 08/08/22 20:24 Entero/Rhino (PCR) Not Detected (NotDetected) 08/08/22 20:24 Impressions Chest X-Ray 08/08/22 18:13 XR chest 1V portable CLINICAL HISTORY: sob TECHNIQUE: Single frontal radiograph of the chest was obtained. Comparison: Comparison is made to chest radiograph 07/31/2021 FINDINGS: No lines and tubes are seen. Cardiomegaly is noted. Airspace opacities in the right lung. Atelectasis is in the left midlung. No evidence of pleural effusion or pneumothorax. IMPRESSION: Airspace opacities most prominent in the right lung concerning for atelectasis, pneumonia, and/or aspiration. ACT 112: Negative or not required by law. Electronically signed by: Adeel Washington M.D. 08/08/2022 6:45 PM
[2022-08-09] MEDS ORDERED: levoFLOXacin/D5W 750 MG/150 ML BAG IV SCH (21:00)
--- NOTE | 2022-08-09 21:08 | Ultrasound Report ---
US liver CLINICAL HISTORY: Elevated liver enzymes TECHNIQUE: Multiple real-time sonographic images of the right upper quadrant were obtained. Comparison: Comparison is made to right upper quadrant ultrasound 05/29/2017 FINDINGS: The liver is diffusely echogenic in appearance with poor ultrasound penetration, with normal contour, which is consistent with fatty infiltration. No focal mass lesions are seen. No intrahepatic duct al dilatation is seen. No gallstones or sludge are identified within the gallbladder. The gallbladde r wall is not thickened. There is no pericholecystic fluid present. A sonographic Mccallum's sign was n ot elicited by the meat hanger. The common duct measures 0.3 cm in diameter at the level of the hep atic artery. The visualized portions of the pancreas appear normal. The right kidney shows normal echogenicity, cortical thickness and renal contour. The right kidney sh ows no evidence of hydronephrosis or mass. No ascites or free fluid is seen in Carranza's pouch. IMPRESSION: Hepatic steatosis. No acute abnormalities. ACT 112: Negative or not required by law. Electronically signed by: Adeel Washington M.D. 08/09/2022 9:06 PM
[2022-08-09] MEDS: SODIUM CHLOR 7% 4 ML NEB NEB SCH (21:09)
[2022-08-09] MEDS: BUDESONIDE 0.5 MG/2 ML VIAL (PULMICORT) NEB SCH (21:09)
[2022-08-10] MEDS: ALBUT/IPRATROP 3MG/0.5MG NEB 3 ML VIAL NEB SCH ×6 (02:19→22:02)
[2022-08-10] MEDS: PIPERACILLIN/TAZOBACTAM 4.5 GM in DEXTROSE 5% 100 ML IV SCH (05:47)
--- NOTE | 2022-08-10 05:48 | Electrocardiogram Report ---
Test Reason : Blood Pressure : / mmHG Vent. Rate : 099 BPM Atrial Rate : 099 BPM P-R Int : 146 ms QRS Dur : 086 ms QT Int : 366 ms P-R-T Axes : 040 -08 057 degrees QTc Int : 469 ms Normal sinus rhythm Normal ECG When compared with ECG of 31-JUL-2021 23:16, No significant change Confirmed by William Abebe ([id number]) on 08/10/2022 5:48:22 AM Referred By: Dimitri Hanna Confirmed By:William Abebe
[2022-08-10] MEDS: BUDESONIDE 0.5 MG/2 ML VIAL (PULMICORT) NEB SCH ×2 (07:09→19:07)
[2022-08-10] MEDS: FORMOTEROL 20 MCG/2 ML VIAL NEB SCH ×2 (07:09→19:07)
[2022-08-10] MEDS: SODIUM CHLOR 7% 4 ML NEB NEB SCH ×2 (07:24→19:07)
[2022-08-10] MEDS ORDERED: GLUCAGON FOR INJ 1 MG VIAL SQ PRN (07:30)
[2022-08-10] MEDS ORDERED: CARBOHYDRATES FOR HYPOGLYCEMIA PO PRN (07:30)
[2022-08-10] MEDS ORDERED: DEXTROSE 50% 50 ML SYRINGE IV PRN (07:30)
[2022-08-10] MEDS ORDERED: GLUCOSE 10 TAB/TUBE PO PRN (07:30)
[2022-08-10] MEDS ORDERED: GLUCOSE 40% GEL 15 GM TUBE PO PRN (07:30)
[2022-08-10 08:11] LABS: Albumin Globulin Ratio 0.9 (0.9-2); Albumin Level 3.4 gm/dl (3.4-5.0); BUN Creatinine Ratio 18.8 (10-20); Bilirubin,Total 0.6 mg/dl (0.2-1.0); Calcium 8.6 mg/dl (8.5-10.1); Creatinine Clr Calc Pharmacy 63.7 ml/min; Est GFR (African American) 69.1 ml/min; Est GFR (Non-African American) 59.6 ml/min; Globulin 3.9 gm/dl (2.5-4.0); Potassium 3.5 mmol/L (3.5-5.1); Total Protein 7.3 gm/dl (6.0-8.3)
[2022-08-10] MEDS: methylPREDNISolone 40 MG in SYRINGE 0 ML IV SCH (08:20)
[2022-08-10] MEDS: INSULIN ASPART PER UNIT SC SCH ×4 (08:20→21:13)
[2022-08-10] MEDS: ENOXAPARIN INJ 40 MG/0.4 ML SYR SQ SCH ×2 (08:21→21:18)
[2022-08-10] MEDS: CEROVITE ADV FORMULA TAB PO SCH (08:22)
[2022-08-10] MEDS: GABAPENTIN 300 MG CAP PO SCH ×3 (08:22→21:18)
[2022-08-10] MEDS: PANTOprazole 40 MG TAB PO SCH ×2 (08:22→21:17)
[2022-08-10] MEDS: DULoxetine HCL 60 MG CAP PO SCH (08:22)
[2022-08-10] MEDS: ASPIRIN 81 MG ECTAB PO SCH (08:22)
[2022-08-10] MEDS ORDERED: FUROSEMIDE INJ 20 MG/2 ML VIAL IV SCH (09:00)
[2022-08-10] MEDS ORDERED: LANTUS PER UNIT CHARGE SQ SCH (09:00)
[2022-08-10 09:05] LABS: Basophils # (auto) 0.06 K/uL (0-0.2); Basophils % (auto) 0.3 %; Hematocrit (blood only) 25.7 % (34.1-44.9); Hemoglobin 8.3 g/dl (12.0-16.0); Immature Granulocytes # (auto) 0.36 K/uL (0.00-0.02); Immature Granulocytes % (auto) 2.1 %; Lymphocytes # (auto) 0.96 K/uL (1.2-3.4); Lymphocytes % (auto) 5.5 %; Mean Corpuscular Hemoglobin 29.7 pg (25.0-34.0); Mean Corpuscular Hgb Conc 32.3 g/dL (32.0-36.0); Mean Corpuscular Volume 92.1 fL (80.0-100.0); Mean Platelet Volume 9.2 fL (9.4-12.3); Monocytes # (auto) 0.57 K/uL (0.24-0.82); Monocytes % (auto) 3.3 %; Neutrophils # (auto) 15.49 K/uL (1.4-6.5); Neutrophils % (auto) 88.8 %; Platelet Count 391 K/uL (130-400); RDW Coefficient of Variation 14.2 % (11.5-14.5); RDW Standard Deviation 48.2 fL (36.4-46.3); Red Blood Count 2.79 M/uL (3.93-5.22); White Blood Count 17.44 K/ul (4.8-10.8)
--- NOTE | 2022-08-10 10:35 | Cardiology Progress Note ---
Date of Service August 10, 2022 Assessment & Plan (1) Acute on chronic respiratory failure with hypoxemia: (2) Chronic respiratory failure with hypercapnia: (3) COPD (chronic obstructive pulmonary disease): (4) Elevated troponin: Plan I would continue current treatment. The patient is from a cardiac standpoint clinically stable. No additional cardiac testing is indicated at this time. Admission and Anticipated Discharge Date Admission Date: August 08, 2022 Subjective The patient states she feels better. Uneventful night. Review of Systems Review of Systems: Review of Systems: See HPI for pertinent positives. All other 10 point review of systems are negative. Physical Exam Physical Exam: General: no acute distress and stated age Head: normocephalic, no masses, lesions, tenderness or abnormalities Eyes: conjunctiva are pink and non-injected, sclera clear Neck: supple, no adenopathy, no bruits, normal jugular venous pulse, no hepatojugular reflux Chest: normal shape and normal respiratory effort Lungs: Wheezing throughout Cardiac Exam: - regular rate & rhythm, no murmurs gallops or rubs - normal S1, normal S2 Pulses: 2(+) throughout Abdomen: abdomen soft, non-tender, no abnormal masses and no hepatosplenomegaly Musculoskeletal: no gait disturbance, no joint inflammation, no deforming arthritis Extremities: no edema and no cyanosis Neuro: grossly normal exam Results & Data ([facility]) Vital Signs (Past 12 Hours) Vital Signs Temp Pulse Pulse Pulse Resp BP Pulse Ox 08/10/22 07:00 08/10/22 07:30 36.6 C 91 H 17 126/88 92 08/10/22 07:20 88 08/10/22 07:09 91 H 20 91 08/10/22 02:58 37.1 C 90 16 93/60 L 96 08/10/22 02:19 84 20 93 08/09/22 23:21 36.6 C 82 22 99/73 L 96 08/09/22 23:20 81 22 91 O2 Del Method O2 Flow Rate 08/10/22 07:00 Nasal Cannula 2 08/10/22 07:30 Nasal Cannula 3 08/10/22 07:20 08/10/22 07:09 Nasal Cannula 3 08/10/22 02:58 Nasal Cannula 08/10/22 02:19 Nasal Cannula 3 08/09/22 23:21 Nebulizer 08/09/22 23:20 Nasal Cannula 3 Laboratory Results Laboratory Results - last 24 hr 08/09/22 08/10/22 08/10/22 11:19 07:20 07:21 WBC RBC Hgb Hct MCV MCH MCHC RDW Std Deviation RDW Coeff of Lizzie Plt Count MPV Immature Gran % (Auto) Neut % (Auto) Lymph % (Auto) [place] % (Auto) Eos % (Auto) Baso % (Auto) Neut # (Auto) Lymph # (Auto) [place] # (Auto) Eos # (Auto) Baso # (Auto) Immature Gran # (Auto) Absolute Nucleated RBC Nucleated RBC % (auto) Neutrophils % (Manual) Band Neutrophils % Lymphocytes % (Manual) Prolymphocyte % Reactive Lymphs % (Man) Monocytes % (Manual) Eosinophils % (Manual) Basophils % (Manual) Metamyelocytes % (Man) Myelocytes % (Man) Promyelocytes % (Man) Blast Cells % (Manual) Plasma Cell % (Manual) Other Cells % Nucleated RBC % Neutrophils # (Manual) Band Neutrophils # Total Absolute Neuts Lymphocytes # (Manual) Prolymphocyte # Reactive Lymphs # Total Abs Lymphocytes Monocytes # (Manual) Eosinophils # (Manual) Basophils # (Manual) Metamyelocytes # (Man) Myelocytes # (Manual) Promyelocytes # (Man) Blast Cells # (Man) Plasma Cell # (Manual) Other Cells # Nucleated RBCs # (Man) Hypersegmented Neuts Hyposegmented Neuts Hypogranular Neuts Large Granular Lymphs # Lrg Granular Lymphs Hairy Cells Smudge Cells Toxic Granulation Toxic Vacuolation Dohle Bodies Stacia Rods Platelet Estimate Hypogranular Platelets Clumped Platelets Giant Platelets Platelet Satelliting RBC Morphology Polychromasia Hypochromasia Poikilocytosis Basophilic Stippling Anisocytosis Microcytosis Macrocytosis Spherocytes Pappenheimer Bodies Sickle Cells Target Cells Tear Drop Cells Ovalocytes Stomatocytes [place] Bodies Echinocytes Acanthocytes (Spur) Rouleaux RBC Agglutinates Schistocytes Sezary Cell Sodium Potassium Chloride Carbon Dioxide Anion Gap BUN Creatinine Est Cr Clr Drug Dosing Est GFR ( Amer) Est GFR (Non-Af Amer) BUN/Creatinine Ratio Glucose POC Glucose 323 H* 329 H* Calcium Total Bilirubin AST ALT Alkaline Phosphatase Troponin I High Sens 9.0 D Total Protein Albumin Globulin Albumin/Globulin Ratio Blood Parasites ID 08/10/22 08/10/22 08/10/22 07:30 07:30 08:49 WBC Cancelled 17.44 H RBC Cancelled 2.79 L Hgb Cancelled 8.3 L Hct Cancelled 25.7 L MCV Cancelled 92.1 MCH Cancelled 29.7 MCHC Cancelled 32.3 RDW Std Deviation Cancelled 48.2 H RDW Coeff of Lizzie Cancelled 14.2 Plt Count Cancelled 391 MPV Cancelled 9.2 L Immature Gran % (Auto) Cancelled 2.1 Neut % (Auto) Cancelled 88.8 Lymph % (Auto) Cancelled 5.5 [place] % (Auto) Cancelled 3.3 Eos % (Auto) Cancelled 0.0 Baso % (Auto) Cancelled 0.3 Neut # (Auto) Cancelled 15.49 H Lymph # (Auto) Cancelled 0.96 L [place] # (Auto) Cancelled 0.57 Eos # (Auto) Cancelled 0.00 Baso # (Auto) Cancelled 0.06 Immature Gran # (Auto) Cancelled 0.36 H Absolute Nucleated RBC Cancelled Nucleated RBC % (auto) Cancelled Neutrophils % (Manual) Cancelled Band Neutrophils % Cancelled Lymphocytes % (Manual) Cancelled Prolymphocyte % Cancelled Reactive Lymphs % (Man) Cancelled Monocytes % (Manual) Cancelled Eosinophils % (Manual) Cancelled Basophils % (Manual) Cancelled Metamyelocytes % (Man) Cancelled Myelocytes % (Man) Cancelled Promyelocytes % (Man) Cancelled Blast Cells % (Manual) Cancelled Plasma Cell % (Manual) Cancelled Other Cells % Cancelled Nucleated RBC % Cancelled Neutrophils # (Manual) Cancelled Band Neutrophils # Cancelled Total Absolute Neuts Cancelled Lymphocytes # (Manual) Cancelled Prolymphocyte # Cancelled Reactive Lymphs # Cancelled Total Abs Lymphocytes Cancelled Monocytes # (Manual) Cancelled Eosinophils # (Manual) Cancelled Basophils # (Manual) Cancelled Metamyelocytes # (Man) Cancelled Myelocytes # (Manual) Cancelled Promyelocytes # (Man) Cancelled Blast Cells # (Man) Cancelled Plasma Cell # (Manual) Cancelled Other Cells # Cancelled Nucleated RBCs # (Man) Cancelled Hypersegmented Neuts Cancelled Hyposegmented Neuts Cancelled Hypogranular Neuts Cancelled Large Granular Lymphs Cancelled # Lrg Granular Lymphs Cancelled Hairy Cells Cancelled Smudge Cells Cancelled Toxic Granulation Cancelled Toxic Vacuolation Cancelled Dohle Bodies Cancelled Stacia Rods Cancelled Platelet Estimate Cancelled Hypogranular Platelets Cancelled Clumped Platelets Cancelled Giant Platelets Cancelled Platelet Satelliting Cancelled RBC Morphology Cancelled Polychromasia Cancelled Hypochromasia Cancelled Poikilocytosis Cancelled Basophilic Stippling Cancelled Anisocytosis Cancelled Microcytosis Cancelled Macrocytosis Cancelled Spherocytes Cancelled Pappenheimer Bodies Cancelled Sickle Cells Cancelled Target Cells Cancelled Tear Drop Cells Cancelled Ovalocytes Cancelled Stomatocytes Cancelled [place] Bodies Cancelled Echinocytes Cancelled Acanthocytes (Spur) Cancelled Rouleaux Cancelled RBC Agglutinates Cancelled Schistocytes Cancelled Sezary Cell Cancelled Sodium 134 L Potassium 3.5 Chloride 87 L Carbon Dioxide 38 H Anion Gap 9 BUN 19 Creatinine 1.01 Est Cr Clr Drug Dosing 63.7 Est GFR ( Amer) 69.1 Est GFR (Non-Af Amer) 59.6 BUN/Creatinine Ratio 18.8 Glucose 315 H* POC Glucose Calcium 8.6 Total Bilirubin 0.6 AST 64 H ALT 55 H Alkaline Phosphatase 157 H Troponin I High Sens Total Protein 7.3 Albumin 3.4 Globulin 3.9 Albumin/Globulin Ratio 0.9 Blood Parasites ID Cancelled Medications Administered Current Inpatient Medications Acetaminophen (Acetaminophen 325 Mg Tab) 650 mg PO Q4H PRN PRN Reason: Pain or Fever Stop: 09/07/22 23:47 Albuterol (Albut/Ipratrop 3mg/0.5mg Neb 3 Ml Vial) 3 ml NEB Q2H PRN; Protocol PRN Reason: Shortness Of Breath Or Wheezing Stop: 09/07/22 23:47 Last Admin: 08/10/22 08:04 Dose: 3 ml Albuterol (Albut/Ipratrop 3mg/0.5mg Neb 3 Ml Vial) 3 ml NEB Q4R KEVIN; Protocol Stop: 09/08/22 10:59 Last Admin: 08/10/22 07:09 Dose: Not Given Aspirin (Aspirin 81 Mg Ectab) 81 mg PO QAM KEVIN Stop: 09/08/22 08:59 Last Admin: 08/10/22 08:22 Dose: 81 mg Atorvastatin Calcium (Atorvastatin 20 Mg Tab) 20 mg PO HS [facility] Stop: 09/07/22 23:47 Last Admin: 08/09/22 01:08 Dose: 20 mg Budesonide (Budesonide 0.5 Mg/2 Ml Vial (Pulmicort)) 0.5 mg NEB BIDR [facility] Stop: 09/08/22 18:59 Last Admin: 08/10/22 07:09 Dose: 0.5 mg Buspirone HCl (Buspirone 5 Mg Tab) 10 mg PO BID PRN PRN Reason: Anxiety Stop: 09/07/22 23:47 Last Admin: 08/09/22 09:39 Dose: 10 mg Dextrose (Dextrose 50% 50 Ml Syringe) 25 - 50 ml IV UD PRN; Protocol PRN Reason: Hypoglycemia Protocol Stop: 09/09/22 07:29 Duloxetine HCl (Duloxetine Hcl 60 Mg Cap) 60 mg PO QAM [facility] Stop: 09/08/22 08:59 Last Admin: 08/10/22 08:22 Dose: 60 mg Enoxaparin Sodium (Enoxaparin Inj 40 Mg/0.4 Ml Syr) 40 mg SQ BID [facility] Stop: 09/08/22 00:29 Last Admin: 08/10/22 08:21 Dose: 40 mg Formoterol Fumarate (Formoterol 20 Mcg/2 Ml Vial) 20 mcg NEB BIDR [facility] Stop: 09/08/22 08:59 Last Admin: 08/10/22 07:09 Dose: 20 mcg Furosemide (Furosemide Inj 20 Mg/2 Ml Vial) 20 mg IV DAILY [facility] Stop: 09/09/22 08:59 Last Admin: 08/10/22 08:29 Dose: 20 mg Gabapentin (Gabapentin 300 Mg Cap) 300 mg PO TID [facility] Stop: 09/07/22 23:47 Last Admin: 08/10/22 08:22 Dose: 300 mg Glucagon (Glucagon For Inj 1 Mg Vial) 1 mg SQ UD PRN; Protocol PRN Reason: Hypoglycemia Protocol Stop: 09/09/22 07:29 Glucose (Glucose 40% Gel 15 Gm Tube) 15 - 30 gm PO UD PRN; Protocol PRN Reason: Hypoglycemia Protocol Stop: 09/09/22 07:29 Glucose (Glucose 10 Tab/Tube) 4 - 8 tab PO UD PRN; Protocol PRN Reason: Hypoglycemia Treatment Stop: 09/09/22 07:29 Piperacillin Sod/Tazobactam (Sod 4.5 gm/ Dextrose) 120 mls @ 30 mls/hr IV Q8H [facility]; Protocol Stop: 08/16/22 05:59 Last Infusion: 08/10/22 09:47 Dose: Infused Methylprednisolone 40 mg/ (Syringe) 0.64 mls @ 1.5 mls/min IV Q8H [facility] Stop: 09/08/22 00:00 Last Admin: 08/10/22 08:20 Dose: 1.5 mls/min Insulin Aspart (Insulin Aspart Per Unit) 0 units SC ACHS [facility] Stop: 09/09/22 07:29 Last Admin: 08/10/22 08:20 Dose: 8 units Insulin Glargine (Lantus Per Unit Charge) 17 units SQ BID [facility] Stop: 09/09/22 08:59 Last Admin: 08/10/22 08:20 Dose: 17 units Miscellaneous (Carbohydrates For Hypoglycemia ) 15 - 30 gm PO UD PRN PRN Reason: Hypoglycemia Protocol Stop: 09/09/22 07:29 Multivitamins/Minerals (Cerovite Adv Formula Tab) 1 tab PO QAM [facility] Stop: 09/08/22 08:59 Last Admin: 08/10/22 08:22 Dose: 1 tab Nitroglycerin (Nitroglycerin Sl 0.4 Mg/Tab Tab) 0.4 mg SL UD PRN PRN Reason: Chest Pain Stop: 09/07/22 23:47 Pantoprazole Sodium (Pantoprazole 40 Mg Tab) 40 mg PO BID [facility] Stop: 09/07/22 23:47 Last Admin: 08/10/22 08:22 Dose: 40 mg Polyethylene Glycol (Polyethylene (Miralax) 17 Gm Pack) 17 gm PO DAILY PRN PRN Reason: Constipation Stop: 09/07/22 23:47 Quetiapine Fumarate (Quetiapine Fumarate 200 Mg Tab) 400 mg PO HS [facility] Stop: 09/07/22 23:47 Last Admin: 08/09/22 20:54 Dose: 400 mg Sodium Chloride (Sodium Chlor 7% 4 Ml Neb) 4 ml NEB BIDR [facility] Stop: 09/08/22 18:59 Last Admin: 08/10/22 07:24 Dose: 4 ml Sumatriptan Succinate (Sumatriptan Succinate 100 Mg Tab) 100 mg PO DAILY PRN PRN Reason: Migraine Headache Stop: 09/07/22 23:47 Triamcinolone Acetonide (Triamcinolone Acet 0.5% Cr 15 Gm Tube) 1 appln TOP BID PRN PRN Reason: Skin Irritation Stop: 09/07/22 23:47
--- NOTE | 2022-08-10 10:44 | Hospitalist Progress Note ---
Date of Service August 10, 2022 Assessment & Plan (1) Acute on chronic respiratory failure with hypoxemia: (2) Pneumonia: (3) Acute exacerbation of chronic obstructive pulmonary disease: (4) Acute on chronic diastolic (congestive) heart failure: Plan: Presented with shortness of breath. Baseline oxygen requirement of 3 L On presentation, physical examination shows bilateral wheeze and pitting edema. Chest x-ray shows airway opacities most prominent in right lung Pro-Fahad elevated Leukocytosis present Echo shows EF of 65 to 70% with grade 1 diastolic dysfunction Plan; Improvement in the symptoms with [id number] duo nebs. will de-escalate antibiotics to ceftriaxone and azithromycin. Continue on budesonide and formoterol nebulization twice daily. Change methylprednisolone to prednisone 40 mg once daily; complete 5-day course. Continue pulmonary toileting with hypertonic saline, chest PT. On Lasix 20 mg IV daily. Changed to Lasix 20 mg daily from tomorrow. (5) Elevated troponin: Plan: Elevated high-sensitivity troponin Troponin down trended to 9. Echo as above; no wall motion abnormalities. Cardiology on board; no additional cardiac testing. (6) Liver enzyme elevation: Plan: Elevated liver enzymes. Liver ultrasound shows hepatic steatosis Will obtain acute hepatitis panel. outpatient referral to GI after follow-up with PCP Plan Chronic problems; Type 2 diabetes mellitus; A1c of 7.5. Not on any home medication. Will start on metformin on discharge. Will need follow-up with primary care doctor for long-term management. Started on Lantus and NovoLog. Gastroesophageal reflux disease: On Protonix. History of Schatzki ring.-Outpatient GI follow-up. Diet changes as per recommendation by speech. History of bipolar disorder, depression, anxiety: Continue her home medications of duloxetine, buspirone p.r.n., and Seroquel. Hyperlipidemia:Statin on hold. Given elevated liver enzymes Anemia:Hemoglobin at baseline. Deep venous thrombosis prophylaxis: Placed on Lovenox. Please note the above document was generated using voice recognition software. It may contain grammatical, syntax or spelling errors. Any formal questions or concerns about the content, text or information contained within the body of this dictation should be directly addressed to the provider for clarification. Admission and Anticipated Discharge Date Admission Date: August 08, 2022 Subjective Patient seen and examined at bedside. She reports that she feels much better compared to yesterday. Still reporting some shortness of breath on exertion and fatigue. Oxygen requirement down trended to her baseline. Review of Systems Review of Systems: All systems reviewed & are unremarkable except as noted in Subjective Physical Exam Physical Exam: Constitutional: Awake, alert orient x3. In moderate respiratory distress. Respiratory: Occasional wheeze heard. CVS: RRR, no murmur, no edema Vessels: no JVD or carotid bruit Chest: normal inspection of chest Abdomen: normal bowel sounds, soft, nontender, no hepatosplenomegaly Musculoskeletal: no cyanosis or clubbing, extremities motor strength 5/5. 1+ pitting edema. Skin: no rashes, warm and dry normal turgor Neurologic: PERRL, EOMI, accommodation nl, no face palsy, no dysarthria CN's II- XI intact bilaterally and moves all extremities Psychiatric: A+Ox3, euthymic affect Lymphatic: no cervical or axillary lymphadenopathy : deferred Results & Data Results & Data ([facility]) Vital Signs (Past 12 Hours) Vital Signs Temp Pulse Pulse Pulse Resp BP Pulse Ox 08/10/22 07:00 08/10/22 07:30 36.6 C 91 H 17 126/88 92 08/10/22 07:20 88 08/10/22 07:09 91 H 20 91 08/10/22 02:58 37.1 C 90 16 93/60 L 96 08/10/22 02:19 84 20 93 08/09/22 23:21 36.6 C 82 22 99/73 L 96 08/09/22 23:20 81 22 91 O2 Del Method O2 Flow Rate 08/10/22 07:00 Nasal Cannula 2 08/10/22 07:30 Nasal Cannula 3 08/10/22 07:20 08/10/22 07:09 Nasal Cannula 3 08/10/22 02:58 Nasal Cannula 08/10/22 02:19 Nasal Cannula 3 08/09/22 23:21 Nebulizer 08/09/22 23:20 Nasal Cannula 3 Laboratory Results Laboratory Results WBC 17.44 K/ul (4.8-10.8) H 08/10/22 08:49 RBC 2.79 M/uL (3.93-5.22) L 08/10/22 08:49 Hgb 8.3 g/dl (12.0-16.0) L 08/10/22 08:49 Hct 25.7 % (34.1-44.9) L 08/10/22 08:49 MCV 92.1 fL (80.0-100.0) 08/10/22 08:49 MCH 29.7 pg (25.0-34.0) 08/10/22 08:49 MCHC 32.3 g/dL (32.0-36.0) 08/10/22 08:49 RDW Std Deviation 48.2 fL (36.4-46.3) H 08/10/22 08:49 RDW Coeff of Lizzie 14.2 % (11.5-14.5) 08/10/22 08:49 Plt Count 391 K/uL (130-400) 08/10/22 08:49 MPV 9.2 fL (9.4-12.3) L 08/10/22 08:49 Immature Gran % (Auto) 2.1 % 08/10/22 08:49 Neut % (Auto) 88.8 % 08/10/22 08:49 Lymph % (Auto) 5.5 % 08/10/22 08:49 Tompkins % (Auto) 3.3 % 08/10/22 08:49 Eos % (Auto) 0.0 % 08/10/22 08:49 Baso % (Auto) 0.3 % 08/10/22 08:49 Neut # (Auto) 15.49 K/uL (1.4-6.5) H 08/10/22 08:49 Lymph # (Auto) 0.96 K/uL (1.2-3.4) L 08/10/22 08:49 Tompkins # (Auto) 0.57 K/uL (0.24-0.82) 08/10/22 08:49 Eos # (Auto) 0.00 K/uL (0-0.50) 08/10/22 08:49 Baso # (Auto) 0.06 K/uL (0-0.2) 08/10/22 08:49 Immature Gran # (Auto) 0.36 K/uL (0.00-0.02) H 08/10/22 08:49 Absolute Nucleated RBC Cancelled 08/10/22 07:30 Nucleated RBC % (auto) Cancelled 08/10/22 07:30 Neutrophils % (Manual) Cancelled 08/10/22 07:30 Band Neutrophils % Cancelled 08/10/22 07:30 Lymphocytes % (Manual) Cancelled 08/10/22 07:30 Prolymphocyte % Cancelled 08/10/22 07:30 Reactive Lymphs % (Man) Cancelled 08/10/22 07:30 Monocytes % (Manual) Cancelled 08/10/22 07:30 Eosinophils % (Manual) Cancelled 08/10/22 07:30 Basophils % (Manual) Cancelled 08/10/22 07:30 Metamyelocytes % (Man) Cancelled 08/10/22 07:30 Myelocytes % (Man) Cancelled 08/10/22 07:30 Promyelocytes % (Man) Cancelled 08/10/22 07:30 Blast Cells % (Manual) Cancelled 08/10/22 07:30 Plasma Cell % (Manual) Cancelled 08/10/22 07:30 Other Cells % Cancelled 08/10/22 07:30 Nucleated RBC % Cancelled 08/10/22 07:30 Neutrophils # (Manual) Cancelled 08/10/22 07:30 Band Neutrophils # Cancelled 08/10/22 07:30 Total Absolute Neuts Cancelled 08/10/22 07:30 Lymphocytes # (Manual) Cancelled 08/10/22 07:30 Prolymphocyte # Cancelled 08/10/22 07:30 Reactive Lymphs # Cancelled 08/10/22 07:30 Total Abs Lymphocytes Cancelled 08/10/22 07:30 Monocytes # (Manual) Cancelled 08/10/22 07:30 Eosinophils # (Manual) Cancelled 08/10/22 07:30 Basophils # (Manual) Cancelled 08/10/22 07:30 Metamyelocytes # (Man) Cancelled 08/10/22 07:30 Myelocytes # (Manual) Cancelled 08/10/22 07:30 Promyelocytes # (Man) Cancelled 08/10/22 07:30 Blast Cells # (Man) Cancelled 08/10/22 07:30 Plasma Cell # (Manual) Cancelled 08/10/22 07:30 Other Cells # Cancelled 08/10/22 07:30 Nucleated RBCs # (Man) Cancelled 08/10/22 07:30 Hypersegmented Neuts Cancelled 08/10/22 07:30 Hyposegmented Neuts Cancelled 08/10/22 07:30 Hypogranular Neuts Cancelled 08/10/22 07:30 Large Granular Lymphs Cancelled 08/10/22 07:30 # Lrg Granular Lymphs Cancelled 08/10/22 07:30 Hairy Cells Cancelled 08/10/22 07:30 Smudge Cells Cancelled 08/10/22 07:30 Toxic Granulation Cancelled 08/10/22 07:30 Toxic Vacuolation Cancelled 08/10/22 07:30 Dohle Bodies Cancelled 08/10/22 07:30 Stacia Rods Cancelled 08/10/22 07:30 Platelet Estimate Cancelled 08/10/22 07:30 Hypogranular Platelets Cancelled 08/10/22 07:30 Clumped Platelets Cancelled 08/10/22 07:30 Giant Platelets Cancelled 08/10/22 07:30 Platelet Satelliting Cancelled 08/10/22 07:30 RBC Morphology Cancelled 08/10/22 07:30 Polychromasia Cancelled 08/10/22 07:30 Hypochromasia Cancelled 08/10/22 07:30 Poikilocytosis Cancelled 08/10/22 07:30 Basophilic Stippling Cancelled 08/10/22 07:30 Anisocytosis Cancelled 08/10/22 07:30 Microcytosis Cancelled 08/10/22 07:30 Macrocytosis Cancelled 08/10/22 07:30 Spherocytes Cancelled 08/10/22 07:30 Pappenheimer Bodies Cancelled 08/10/22 07:30 Sickle Cells Cancelled 08/10/22 07:30 Target Cells Cancelled 08/10/22 07:30 Tear Drop Cells Cancelled 08/10/22 07:30 Ovalocytes Cancelled 08/10/22 07:30 Stomatocytes Cancelled 08/10/22 07:30 [place] Bodies Cancelled 08/10/22 07:30 Echinocytes Cancelled 08/10/22 07:30 Acanthocytes (Spur) Cancelled 08/10/22 07:30 Rouleaux Cancelled 08/10/22 07:30 RBC Agglutinates Cancelled 08/10/22 07:30 Schistocytes Cancelled 08/10/22 07:30 Sezary Cell Cancelled 08/10/22 07:30 Sodium 134 mmol/L (136-145) L 08/10/22 07:30 Potassium 3.5 mmol/L (3.5-5.1) 08/10/22 07:30 Chloride 87 mmol/L (98-107) L 08/10/22 07:30 Carbon Dioxide 38 mmol/L (21-32) H 08/10/22 07:30 Anion Gap 9 (3-11) 08/10/22 07:30 BUN 19 mg/dl (6-23) 08/10/22 07:30 Creatinine 1.01 mg/dl (0.6-1.2) 08/10/22 07:30 Est Cr Clr Drug Dosing 63.7 ml/min 08/10/22 07:30 Est GFR ( Amer) 69.1 ml/min 08/10/22 07:30 Est GFR (Non-Af Amer) 59.6 ml/min 08/10/22 07:30 BUN/Creatinine Ratio 18.8 (10-20) 08/10/22 07:30 Glucose 315 mg/dl (70-99(Fasting)) H* 08/10/22 07:30 POC Glucose 329 mg/dl (70-99) H* 08/10/22 07:21 Estimat Average Glucose 169 mg/dl 08/09/22 05:43 Hemoglobin A1c 7.5 % (4.5-5.6) H 08/09/22 05:43 Calcium 8.6 mg/dl (8.5-10.1) 08/10/22 07:30 Magnesium 2.0 mg/dl (1.7-2.4) 08/09/22 05:43 Iron 43 mcg/dl (35-150) 08/09/22 05:43 TIBC 137 mcg/dl (250-450) L 08/09/22 05:43 Unsaturated IBC 94 mcg/dl (155-355) L 08/09/22 05:43 Transferrin % Sat 31 % (15-50) 08/09/22 05:43 Total Bilirubin 0.6 mg/dl (0.2-1.0) 08/10/22 07:30 AST 64 U/L (13-39) H 08/10/22 07:30 ALT 55 U/L (7-52) H 08/10/22 07:30 Alkaline Phosphatase 157 U/L (34-104) H 08/10/22 07:30 Troponin I High Sens 9.0 pg/ml (0-14) D 08/09/22 11:19 B-Natriuretic Peptide 122 pg/ml (0-100) H 08/08/22 18:46 Total Protein 7.3 gm/dl (6.0-8.3) 08/10/22 07:30 Albumin 3.4 gm/dl (3.4-5.0) 08/10/22 07:30 Globulin 3.9 gm/dl (2.5-4.0) 08/10/22 07:30 Albumin/Globulin Ratio 0.9 (0.9-2) 08/10/22 07:30 Vitamin B12 718 pg/ml (180-914) 08/09/22 05:43 Folate > 22.30 ng/ml (>5.38) 08/09/22 05:43 Procalcitonin 1.86 ng/ml (0-0.5) H 08/08/22 18:46 Adenovirus (PCR) Not Detected (NotDetected) 08/08/22 20:24 B. pertussis DNA (PCR) Not Detected (NotDetected) 08/08/22 20:24 B.parapertussis DNA PCR Not Detected (NotDetected) 08/08/22 20:24 C. pneumoniae DNA (PCR) Not Detected (NotDetected) 08/08/22 20:24 Coronavirus OC43 (PCR) Not Detected (NotDetected) 08/08/22 20:24 Coronavirus HKU1 (PCR) Not Detected (NotDetected) 08/08/22 20:24 Coronavirus 229E (PCR) Not Detected (NotDetected) 08/08/22 20:24 SARS-CoV-2 (PCR) Not Detected (NotDetected) 08/08/22 20:24 Coronavirus NL63 (PCR) Not Detected (NotDetected) 08/08/22 20:24 Human Metapneumovir PCR Not Detected (NotDetected) 08/08/22 20:24 Influenza Type A (PCR) Not Detected (NotDetected) 08/08/22 20:24 Influenza Type B (PCR) Not Detected (NotDetected) 08/08/22 20:24 M. pneumoniae (PCR) Not Detected (NotDetected) 08/08/22 20:24 Parainfluenza 1 (PCR) Not Detected (NotDetected) 08/08/22 20:24 Parainfluenza 2 (PCR) Not Detected (NotDetected) 08/08/22 20:24 Parainfluenza 3 (PCR) Not Detected (NotDetected) 08/08/22 20:24 Parainfluenza 4 (PCR) Not Detected (NotDetected) 08/08/22 20:24 RSV (PCR) Not Detected (NotDetected) 08/08/22 20:24 Entero/Rhino (PCR) Not Detected (NotDetected) 08/08/22 20:24 Blood Parasites ID Cancelled 08/10/22 07:30 Impressions Chest X-Ray 08/08/22 18:13 XR chest 1V portable CLINICAL HISTORY: sob TECHNIQUE: Single frontal radiograph of the chest was obtained. Comparison: Comparison is made to chest radiograph 07/31/2021 FINDINGS: No lines and tubes are seen. Cardiomegaly is noted. Airspace opacities in the right lung. Atelectasis is in the left midlung. No evidence of pleural effusion or pneumothorax. IMPRESSION: Airspace opacities most prominent in the right lung concerning for atelectasis, pneumonia, and/or aspiration. ACT 112: Negative or not required by law. Electronically signed by: Adeel Washington M.D. 08/08/2022 6:45 PM Liver Ultrasound 08/09/22 13:22 US liver CLINICAL HISTORY: Elevated liver enzymes TECHNIQUE: Multiple real-time sonographic images of the right upper quadrant were obtained. Comparison: Comparison is made to right upper quadrant ultrasound 05/29/2017 FINDINGS: The liver is diffusely echogenic in appearance with poor ultrasound penetration, with normal contour, which is consistent with fatty infiltration. No focal mass lesions are seen. No intrahepatic ductal dilatation is seen. No gallstones or sludge are identified within the gallbladder. The gallbladder wall is not thickened. There is no pericholecystic fluid present. A sonographic Mccallum's sign was not elicited by the engineer byproduct. The common duct measures 0.3 cm in diameter at the level of the hepatic artery. The visualized portions of the pancreas appear normal. The right kidney shows normal echogenicity, cortical thickness and renal contour. The right kidney shows no evidence of hydronephrosis or mass. No ascites or free fluid is seen in Carranza's pouch. IMPRESSION: Hepatic steatosis. No acute abnormalities. ACT 112: Negative or not required by law. Electronically signed by: Adeel Washington M.D. 08/09/2022 9:06 PM
[2022-08-10] MEDS ORDERED: cefTRIAXone SODIUM 1,000 MG in DEXTROSE 5% AD-VAN 50 ML IV SCH (11:15)
[2022-08-10] MEDS ORDERED: PHARMACY GLYCEMIC MGMT CONSULT PRN (11:21)
[2022-08-10] MEDS: AZITHROMYCIN 250 MG TAB PO SCH (12:09)
[2022-08-10] MEDS: cefTRIAXone SODIUM 2,000 MG in DEXTROSE 5% 50 ML IV SCH (12:09)
[2022-08-10] MEDS ORDERED: LANTUS PER UNIT CHARGE SQ ONE (12:15)
--- NOTE | 2022-08-10 12:19 | Pharmacy Report ---
Pharmacy Glycemic Short Note 2 - Date of Service August 10, 2022 - Glycemic Short BSG Results (Last 24 hours): 08/10/22 08/10/22 08/10/22 07:20 07:21 07:30 Glucose 315 H* POC Glucose 323 H* 329 H* 08/10/22 08/10/22 11:14 11:14 Glucose POC Glucose 339 H* 356 H* OUTPATIENT ANTIDIABETIC REGIMEN: * No prior home meds * A1c = 7.5% 08/09/22 ASSESSMENT: * Type 2 diabetic admitted for acute on chronic resp failure, pna, COPD exac * Glycemic control worsened this admission most likely secondary to high dose IV steroids * Steroid regimen is now being changed however: Solumedrol 40mg IV Q 8 hrs --> Prednisone 40mg PO daily in the AM * Will give supplemental Lantus dose NOW. Basal dose today will be wt based utilizing moderate stress dosing. Will likely transition to NPH tomorrow AM as this tends to best suit post-prandial hyperglycemia seen with once daily Prednisone in the AM * Novolog dosing will be adjusted to wt based high stress dosing given severe hyperglycemia observed thus far. PLAN FOR INPATIENT GLYCEMIC CONTROL: * Hold outpatient oral diabetes medications * Basal insulin * give additional 17 units Lantus x 1 NOW. today's dose = 34 units * will likely being NPH 0.3-0.4unit/kg/day 08/11 AM * Bolus insulin * NovoLog per scale ACHS and at 0200 tonight * Goal Range: Low 110 mg/dL - High 140 mg/dL * Correction Factor: 15 mg/dL/unit * Nutritional / Prandial insulin per carb ratio of 1 unit per 5 grams CHO consumed
[2022-08-10] MEDS: QUEtiapine FUMARATE 200 MG TAB PO SCH (21:18)
[2022-08-10] MEDS: busPIRone 5 MG TAB PO PRN (22:35)
[2022-08-11] MEDS ORDERED: INSULIN ASPART PER UNIT SC ONE (02:00)
[2022-08-11] MEDS: ALBUT/IPRATROP 3MG/0.5MG NEB 3 ML VIAL NEB SCH ×3 (03:17→10:46)
[2022-08-11 05:56] LABS: Basophils # (auto) 0.02 K/uL (0-0.2); Basophils % (auto) 0.1 %; Eosinophils # (auto) 0.02 K/uL (0-0.50); Eosinophils % (auto) 0.1 %; Hematocrit (blood only) 25.2 % (34.1-44.9); Hemoglobin 8.1 g/dl (12.0-16.0); Immature Granulocytes # (auto) 0.39 K/uL (0.00-0.02); Immature Granulocytes % (auto) 2.7 %; Lymphocytes # (auto) 2.04 K/uL (1.2-3.4); Lymphocytes % (auto) 14.3 %; Mean Corpuscular Hemoglobin 29.5 pg (25.0-34.0); Mean Corpuscular Hgb Conc 32.1 g/dL (32.0-36.0); Mean Corpuscular Volume 91.6 fL (80.0-100.0); Mean Platelet Volume 8.6 fL (9.4-12.3); Monocytes # (auto) 0.77 K/uL (0.24-0.82); Monocytes % (auto) 5.4 %; Neutrophils # (auto) 10.99 K/uL (1.4-6.5); Neutrophils % (auto) 77.4 %; Platelet Count 426 K/uL (130-400); RDW Coefficient of Variation 14.6 % (11.5-14.5); RDW Standard Deviation 49.1 fL (36.4-46.3); Red Blood Count 2.75 M/uL (3.93-5.22); White Blood Count 14.23 K/ul (4.8-10.8)
[2022-08-11 06:38] LABS: BUN Creatinine Ratio 21.4 (10-20); Calcium 8.6 mg/dl (8.5-10.1); Creatinine Clr Calc Pharmacy 65.7 ml/min; Est GFR (African American) 71.7 ml/min; Est GFR (Non-African American) 61.8 ml/min; Magnesium 2.1 mg/dl (1.7-2.4); Potassium 2.7 mmol/L (3.5-5.1)
[2022-08-11] MEDS: FORMOTEROL 20 MCG/2 ML VIAL NEB SCH (07:14)
[2022-08-11] MEDS: BUDESONIDE 0.5 MG/2 ML VIAL (PULMICORT) NEB SCH (07:14)
[2022-08-11] MEDS: SODIUM CHLOR 7% 4 ML NEB NEB SCH (07:22)
[2022-08-11] MEDS ORDERED: INSULIN HUMAN NPH SC SCH (07:30)
[2022-08-11] MEDS: INSULIN ASPART PER UNIT SC SCH ×2 (07:57→11:39)
[2022-08-11] MEDS: PANTOprazole 40 MG TAB PO SCH (08:00)
[2022-08-11] MEDS: AZITHROMYCIN 250 MG TAB PO SCH (08:00)
[2022-08-11] MEDS: CEROVITE ADV FORMULA TAB PO SCH (08:00)
[2022-08-11] MEDS: DULoxetine HCL 60 MG CAP PO SCH (08:00)
[2022-08-11] MEDS: ASPIRIN 81 MG ECTAB PO SCH (08:00)
[2022-08-11] MEDS: GABAPENTIN 300 MG CAP PO SCH (08:00)
[2022-08-11] MEDS: ENOXAPARIN INJ 40 MG/0.4 ML SYR SQ SCH (08:00)
[2022-08-11] MEDS ORDERED: FUROSEMIDE 20 MG TAB PO SCH (09:00)
[2022-08-11] MEDS ORDERED: predniSONE 20 MG TAB PO SCH (09:00)
[2022-08-11] MEDS ORDERED: POTASSIUM CHLORIDE CRTAB 20 MEQ TABCR PO SCH (09:00)
--- NOTE | 2022-08-11 11:57 | Fluoroscopy Report ---
FL video swallow HISTORY: Pneumonia. assess for aspiration TECHNIQUE: Video fluoroscopic evaluation of swallowing was performed in the AP and lateral projection s by the speech pathology staff. The patient is fed nectar-thick and thin liquid barium, a barium coa martín wafer, and barium pudding. FLUOROSCOPY TIME: 2 minutes. A cine loop submitted. COMPARISON STUDY: None. FINDINGS: There is normal hyoid excursion and epiglottic deflection. A few episodes of penetration wi th the thin liquid barium. However, no aspiration identified during the examination. IMPRESSION: 1. No aspiration identified. 2. Please see the speech pathologist report for detailed findings and recommendations. ACT 112: Negative or not required by law. Electronically signed by: Taiwo Nur M.D. 08/11/2022 11:55 AM
--- NOTE | 2022-08-11 12:02 | Discharge Summary ---
Date of Service August 11, 2022 Admission HPI Per Admitting Provider This is a 62-year-old female with past medical history significant for COPD, asthma, history of chronic respiratory failure on 3 liters oxygen all the time, hyperlipidemia, prediabetes, chronic diastolic CHF, GERD, Schatzki ring, lumbar disk displacement without myelopathy, history of migraines, bipolar I disorder, depression, anxiety state, presents with shortness of breath. The patient lives alone, ambulates without any support. Uses 3 liters oxygen all the time. Since the last 4 days, she is getting more short of breath and today she did have some dry cough. Since the last 2 days, she is having on and off chest pains in the left side of the chest, no radiation, about 8/10 in severity, pressure-like feeling. No nausea, no vomiting. . Whenever she is blowing the nose also, she is getting left earache. Having a headache now, She has history of migraines. No blurred visions, no double visions, no sore throat, no difficulty swallowing. The patient says she has a history of aspiration last year. No nausea, no vomiting. She was treated with a Z-JOSELITO and prednisone taper, completed the course last week. When she had zpak and prednisone she had some abdominal pain and diarrhea, but that got resolved. Denies any blood in the stools or black stools. Normal bladder movements. Has some swelling in the legs. In the ER, when she came in, she was saturating 84% and currently she is placed on high-flow nasal cannula, saturating 90%. Able to give her history. Daughter is in the room. Admission Exam Per Admitting Provider GENERAL: The patient is morbidly obese, currently not in acute distress. VITAL SIGNS: Temperature 36.9, pulse 95, respiratory rate 22, blood pressure 147/71, oxygen 90% on high flow. HEENT: Pupils are equal, round and reactive to light. Left ear, no external otitis media seen. No erythema or drainage seen. Oral mucosa dry. NECK: No JVD, no neck masses. CARDIOVASCULAR: S1 and S2 heard, tachycardia. No murmurs. RESPIRATORY SYSTEM: Normal AP diameter. No accessory muscle use. Diminished bilateral breath sounds with mild bilateral wheezing heard. ABDOMEN: Soft, bowel sounds present, nontender, no distention. CENTRAL NERVOUS SYSTEM: Cranial nerves II-XII grossly intact, nonfocal. EXTREMITIES: Bilateral lower extremity pedal edema present, no erythema seen. Principal Diagnosis (1) Acute on chronic respiratory failure with hypoxemia: (2) Pneumonia: (3) Acute exacerbation of chronic obstructive pulmonary disease: (4) Acute on chronic diastolic (congestive) heart failure: (5) Elevated troponin: (6) Liver enzyme elevation: (7)Type 2 diabetes mellitus; A1c of 7.5. ( 8) History of Schatzki ring. Discharge Exam Constitutional: Awake, alert orient x3. In moderate respiratory distress. Respiratory: Occasional wheeze heard. CVS: RRR, no murmur, no edema Vessels: no JVD or carotid bruit Chest: normal inspection of chest Abdomen: normal bowel sounds, soft, nontender, no hepatosplenomegaly Musculoskeletal: no cyanosis or clubbing, extremities motor strength 5/5. 1+ pitting edema. Skin: no rashes, warm and dry normal turgor Neurologic: PERRL, EOMI, accommodation nl, no face palsy, no dysarthria CN's II- XI intact bilaterally and moves all extremities Psychiatric: A+Ox3, euthymic affect Lymphatic: no cervical or axillary lymphadenopathy : deferred Discharge Data Allergies Allergy/AdvReac Type Severity Reaction Status Date / Time doxycycline Allergy Severe DIFFICULTY Verified 08/08/22 18:46 SWALLOWING, ITCHING codeine Allergy Intermediate Hives Verified 08/08/22 18:46 iodine Allergy Intermediate RASH Verified 08/08/22 18:46 morphine Allergy Intermediate ITCHY Verified 08/08/22 18:46 BLISTERS FROM IV MED divalproex sodium Allergy Unknown ON GMG MED Verified 08/08/22 18:46 [From Depakote] LIST valproic acid Allergy Unknown Unknown Verified 08/08/22 18:46 Consultations 08/08/22 20:31 ED Decision to Admit Stat 08/09/22 08:00 Consult Cardiology Routine Ordered Studies 08/09/22 13:22 US liver Routine 08/11/22 09:30 FL video swallow Routine Diabetes Follow up Diabetes Follow-up Needed for Newly Diagnosed Diabetes Hospital Course (1) Acute on chronic respiratory failure with hypoxemia: (2) Pneumonia: (3) Acute exacerbation of chronic obstructive pulmonary disease: (4) Acute on chronic diastolic (congestive) heart failure: Presented with shortness of breath. Baseline oxygen requirement of 3 L On presentation, physical examination shows bilateral wheeze and pitting edema. Chest x-ray shows airway opacities most prominent in right lung Pro-Fahad elevated Leukocytosis present on admission Echo shows EF of 65 to 70% with grade 1 diastolic dysfunction Plan; During the hospitalization, patient was weaned off from high flow nasal cannula to baseline oxygen of 3 L. She was treated with [id number] duo nebs, budesonide and formoterol nebulization and hypertonic saline. She was also treated with IV steroid which was changed to oral steroid on discharge. She was also treated with IV antibiotics; switched over to oral antibiotic at discharge. (5) Elevated troponin: Elevated high-sensitivity troponin Troponin down trended to 9. Echo as above; no wall motion abnormalities. Cardiology on board; no additional cardiac testing. (6) Liver enzyme elevation: Elevated liver enzymes. Liver ultrasound shows hepatic steatosis Acute hepatitis panel pending. Follow-up with primary care doctor and GI. (7) Type 2 diabetes mellitus: Found to have A1c of 7.5. Not on any home medication. She was treated with insulin during admission Will start on metformin on discharge. Follow-up with primary care doctor for long-term management (8) Schatzki's ring: History of Schatzki ring.- Video swallow evaluation done during the hospitalization. No aspiration detected Has esophageal issues. Follow-up with GI. Total Time Total Time Spent Total Time Spent (In Minutes): 40 Total Time Includes: Examination of the Patient, Discharge Planning, Medication Reconciliation, Communication With Other Providers and Other Discharge Plan Discharge Items Patient Disposition: Home - Self-Care Reason For Visit: SOB Discharge Diagnosis: (1) Acute on chronic respiratory failure with hypoxemia: (2) Pneumonia: (3) Acute exacerbation of chronic obstructive pulmonary disease: (4) Acute on chronic diastolic (congestive) heart failure: 5) Liver enzymes elevation 6) Type 2 DM Activity: Resume your previous activity Non-emergency contact: Primary Care Provider Call non-emergency contact if: you have any medication questions and your symptoms worsen Follow-up/Referrals: Dimitri Hanna MD [Primary Care Provider] - 08/17/22 11:20 am (Date & Time 08/17/2022 11:20 AM Provider Jon Marina MD Department Family Medicine [facility] ) Diet: Carb Consistent or DM2 Addtl Attending Provider Instructions: You were admitted to the hospital with COPD exacerbation and pneumonia. For the pneumonia, you were prescribed following antibiotics; Azithromycin 500 mg once a day for 2 days Cefdinir 300 mg twice daily for 4 days. For the COPD exacerbation, please continue to use your inhalers on regular basis. Please use your home oxygen to keep your oxygen saturation at 88 to 92%. You are also prescribed prednisone 40 mg for 2 more days. During the hospitalization, you were found to have type 2 diabetes mellitus with A1c of 7.5%. You are prescribed metformin 500 mg twice daily. Please follow the instruction given by the health educator. You are prescribed a glucometer, test strips and lancets to monitor your blood glucose level. Please discuss with your primary care doctor regarding long-term management of type 2 diabetes mellitus. During the hospitalization, you underwent video swallow evaluation for aspiration. You did not aspirate but you do have esophageal issues. Please follow-up with your GI doctor for those. You are found to have elevated liver enzymes during hospitalization. Ultrasound of the liver showed fatty infiltration. Acute hepatitis panel is sent; results is not back. Please follow-up with her primary care doctor regarding it. Also discussed with your GI doctor. Your primary care follow-up is set up for August 17. Pending Studies at Discharge: Yes (Acute hepatitis panel) Stand-Alone Forms: My [facility] [employer], Smoking Cessation Medications and DC Order Prescriptions: New azithromycin 250 mg Tablet 500 mg PO DAILY 1 Days Qty: 2 0RF cefdinir 300 mg capsule 300 mg PO BID 4 Days Qty: 8 0RF prednisone 20 mg Tablet 40 mg PO DAILY 2 Days Qty: 4 0RF metformin 500 mg tablet 500 mg PO BID Qty: 60 0RF (DME) blood-glucose meter [OneTouch Verio Meter[place] [facility] [place] .Route Qty: 1 0RF Rx Instructions: As directed (DME) OneTouch Verio test strips Strip See Rx Instructions .Route Qty: 100 0RF Rx Instructions: As directed (DME) lancets [uStudiouch Delica Lancets] 33 gauge [facility] [place] Rx Instructions .Route Qty: 100 0RF Rx Instructions: As directed Continued atorvastatin 20 mg Tablet 20 mg PO HS triamcinolone acetonide 0.5 % Cream 1 applic TOPICAL BID PRN (Reason: Skin Irritation) sumatriptan succinate 100 mg Tablet 100 mg PO DAILY PRN (Reason: Migraine Headache) aspirin [Aram Low Dose Aspirin] 81 mg Tablet,Delayed Release (Dr/Ec) 81 mg PO QAM pantoprazole 40 mg Tablet,Delayed Release (Dr/Ec) 40 mg PO BID gabapentin 300 mg Capsule 300 mg PO TID albuterol sulfate 90 mcg/actuation Hfa Aerosol Inhaler 2 puff INHALATION QID PRN (Reason: Shortness Of Breath Or Wheezing) Women's 50 Plus Multivitamin 400 mcg-500 mg calcium-20 mcg Tablet 1 tab PO QAM quetiapine [Seroquel] 400 mg tablet 400 mg PO HS Trelegy Ellipta 100-62.5-25 mcg blister with device 1 inh INHALATION DAILY ipratropium-albuterol 0.5 mg-3 mg(2.5 mg base)/3 mL solution for nebulization 3 ml INHALATION Q6H PRN (Reason: COUGH/SOB/WHEEZING) meloxicam 7.5 mg tablet 7.5 mg PO QAM buspirone 10 mg tablet 10 mg PO BID PRN (Reason: Anxiety) furosemide 20 mg tablet 20 mg PO DAILY PRN (Reason: Fluid Retention) duloxetine 60 mg capsule,delayed release(DR/EC) 60 mg PO QAM Arnuity Ellipta 200 mcg/actuation Blister With Device 1 inh INHALATION HS Discharge Orders: Discharge Order (Routine); Ordered 08/11/22 Ordered By: Sánchez Kahn Admission Data Admit Date/Time: 08/08/22 20:54 Attending Provider: Sánchez Kahn Admit Provider: Franco Quiñones Primary Care Provider: Dimitri Hanna Other Providers: Franco Quiñones ; Tj Calix ; Kendell Huston ; Keyon Stubbs ; Obey Mukherjee ; Austin Gaming ; Alejandro Marley ; Earlene Cash ; Claudette Timmons ; Stella Goldman ; Cesar Nuñez Other Interventions: Discharge Summary Assessment (RN) Last Done: 08/11/22 11:25
--- NOTE | 2022-08-11 13:04 | Pharmacy Report ---
Pharmacy Glycemic Short Note 2 - Date of Service August 11, 2022 - Glycemic Short BSG Results (Last 24 hours): 08/10/22 08/10/22 08/11/22 16:16 21:00 02:11 Glucose POC Glucose 105 H 129 H 123 H 08/11/22 08/11/22 08/11/22 05:26 07:28 11:18 Glucose 109 H POC Glucose 112 H 94 OUTPATIENT ANTIDIABETIC REGIMEN: * No prior home meds * A1c = 7.5% 08/09/22 ASSESSMENT: 08/11 * Fasting 112 mg/dL this morning. NPH 30 units given with prednisone 40 mg- will place this on hold for re-eval with tomorrow AM dose * Lunch BSG 94 mg/dL- did loosen correction/carb ratio with lunch in anticipation of steroid effects decreasing throughout the day 08/10 * Type 2 diabetic admitted for acute on chronic resp failure, pna, COPD exac * Glycemic control worsened this admission most likely secondary to high dose IV steroids * Steroid regimen is now being changed however: Solumedrol 40mg IV Q 8 hrs --> Prednisone 40mg PO daily in the AM * Will give supplemental Lantus dose NOW. Basal dose today will be wt based utilizing moderate stress dosing. Will likely transition to NPH tomorrow AM as this tends to best suit post-prandial hyperglycemia seen with once daily Prednisone in the AM * Novolog dosing will be adjusted to wt based high stress dosing given severe hyperglycemia observed thus far. PLAN FOR INPATIENT GLYCEMIC CONTROL: * Hold outpatient oral diabetes medications * Basal insulin * NPH 30 units given with prednisone this AM- on hold for re-eval tomorrow AM * Bolus insulin * NovoLog per scale ACHS and at 0200 tonight * Goal Range: Low 110 mg/dL - High 140 mg/dL * Correction Factor: 15 mg/dL/unit- loosened to 20 at lunch * Nutritional / Prandial insulin per carb ratio of 1 unit per 5 grams CHO consumed- loosened to 7 at lunch
[2022-08-11] MEDS: cefTRIAXone SODIUM 2,000 MG in DEXTROSE 5% 50 ML IV SCH (13:20)
[2022-08-12 05:13] LABS: HBSAG NON-REACTIVE (NON-REACTIVE); Hepatitis A Antibody IgM NON-REACTIVE (NON-REACTIVE); Hepatitis B Core Antibody IgM NON-REACTIVE (NON-REACTIVE)
== END 2022-08-11 14:25 | disposition home or self-care (01) | DRG 193 ==
LOC: ED 17:56 → EDINP 20:54 → 2E 23:49
DX: E87.6 Hypokalemia; J18.9 Pneumonia, unspecified organism; J96.21 Acute and chronic respiratory failure with hypoxia; Z87.891 Personal history of nicotine dependence; J44.0 Chronic obstructive pulmonary disease with (acute) lower respiratory infection; Z88.5 Allergy status to narcotic agent; I50.33 Acute on chronic diastolic (congestive) heart failure; J96.12 Chronic respiratory failure with hypercapnia; Z79.82 Long term (current) use of aspirin; R73.03 Prediabetes; J44.1 Chronic obstructive pulmonary disease with (acute) exacerbation; I24.8 Other forms of acute ischemic heart disease; D64.9 Anemia, unspecified; K22.2 Esophageal obstruction; R79.89 Other specified abnormal findings of blood chemistry